=== PATIENT | female | born 1960 | race Caucasian/White ===

== ENCOUNTER 2020-11-01 14:44 | Outpatient (REF) | payer OTHER, SELFPAY ==
[2020-11-01 15:15] LABS: MANUAL DIFF FLAG NO
[2020-11-01 15:19] LABS: Basophils Absolute Auto 0.1 X10*3/uL (0.0-0.2); Basophils Percent Auto 0.6 % (0-2); Eosinophils Absolute Auto 0.1 X10*3/uL (0.0-0.4); Eosinophils Percent Auto 1.7 % (0-4); Hematocrit 39.5 % (37-47); Hemoglobin 13.3 g/dl (12.0-16.0); Imm Gran Abs Auto 0.05 X10*3/uL (0.00-0.03); Imm Gran Pct Auto 0.6 % (0.0-0.4); Lymphocytes Absolute Auto 1.7 X10*3/uL (1.2-4.9); Mean Corpuscular HGB Conc 33.7 g/dl (31.0-35.0); Mean Corpuscular Hemoglobin 32.7 pg (27.0-33.0); Mean Corpuscular Volume 97.1 fL (80-98); Mean Platelet Volume 10.2 fL (9.4-12.3); Monocytes Absolute Auto 0.9 X10*3/uL (0.1-1.2); Monocytes Percent Auto 11.4 % (2-11); Neutrophils Absolute Auto 5.4 X10*3/uL (2.0-8.3); Neutrophils Percent Auto 64.7 % (45-73); Platelet Count 265 X10*3/uL (160-400); Red Blood Count 4.07 X10*6/uL (4.20-5.50); Red Cell Distribution Width 12.9 % (11.0-16.0); White Blood Count 8.3 X10*3/uL (4.8-10.8)
[2020-11-01 15:57] LABS: Alanine Aminotransferase 14 U/L (0-31); Alkaline Phosphatase 58 U/L (39-117); Anion Gap 9 (12-20); Aspartate Amino Transferase 15 U/L (5-31); Bilirubin Total 0.5 mg/dL (0.0-1.0); Blood Urea Nitrogen 9 mg/dL (9-16); Calcium 8.9 mg/dL (8.4-10.2); Carbon Dioxide 28 mmol/L (22-29); Chloride 106 mmol/L (96-108); Estimated Glomerular Filt Rate > 60; Glucose Random 84 mg/dL (60-115); Potassium 4.9 mmol/L (3.3-5.1); Sodium 138 mmol/L (135-145); Total Protein 6.6 g/dL (6.5-8.0)
[2020-11-01 16:15] LABS: Free T4 (Free Thyroxine) 0.72 ng/dL (0.71-1.85); Thyroid Stimulating Hormone 1.29 uIU/mL (0.32-4.0)
== END 2020-11-01 14:45 | disposition home or self-care (01) ==
LOC: HO.LAB 14:44
PROVIDERS: PCP Internal Medicine; Visit Provider Internal Medicine
DX: R10.9 Unspecified abdominal pain (principal); R60.0 Localized edema
CPT/HCPCS: 36415; 80053; 84439; 84443; 85025

== ENCOUNTER 2021-06-26 08:58 | Outpatient (REF) | payer OTHER, SELFPAY ==
[2021-06-26 10:21] LABS: MANUAL DIFF FLAG NO
[2021-06-26 10:31] LABS: Basophils Percent Auto 0.3 % (0-2); Eosinophils Absolute Auto 0.1 X10*3/uL (0.0-0.4); Eosinophils Percent Auto 1.5 % (0-4); Hematocrit 39.8 % (37.0-47.0); Hemoglobin 13.3 g/dl (12.0-16.0); Imm Gran Abs Auto 0.05 X10*3/uL (0.00-0.03); Imm Gran Pct Auto 0.6 % (0.0-0.4); Lymphocytes Absolute Auto 1.8 X10*3/uL (1.2-4.9); Lymphocytes Percent Auto 20.7 % (20-40); Mean Corpuscular HGB Conc 33.4 g/dl (31.0-35.0); Mean Corpuscular Hemoglobin 32.7 pg (27.0-33.0); Mean Corpuscular Volume 97.8 fL (80.0-98.0); Monocytes Absolute Auto 0.8 X10*3/uL (0.1-1.2); Neutrophils Percent Auto 67.9 % (45-73); Platelet Count 278 X10*3/uL (160-400); Red Blood Count 4.07 X10*6/uL (4.20-5.50); Red Cell Distribution Width 12.6 % (11.0-16.0); White Blood Count 8.8 X10*3/uL (4.8-10.8)
[2021-06-26 10:46] LABS: Alanine Aminotransferase 12 U/L (0-31); Albumin Level 3.8 g/dL (3.5-5.0); Alkaline Phosphatase 59 U/L (39-117); Anion Gap 12 (12-20); Aspartate Amino Transferase 13 U/L (5-31); Bilirubin Total 1.4 mg/dL (0.0-1.0); Blood Urea Nitrogen 8 mg/dL (9-16); Calcium 8.6 mg/dL (8.4-10.2); Carbon Dioxide 23 mmol/L (22-29); Chloride 108 mmol/L (96-108); Cholesterol 158 mg/dL; Estimated Glomerular Filt Rate > 60; Glucose Fasting 88 mg/dL (60-99); HDL Cholesterol 56 mg/dL; LDL Cholesterol Calculated 91 mg/dl; Sodium 139 mmol/L (135-145); Total Protein 6.4 g/dL (6.5-8.0); Triglycerides 56 mg/dL
== END 2021-06-26 08:59 | disposition home or self-care (01) ==
LOC: HO.10HDL 08:58
PROVIDERS: Visit Provider Internal Medicine
DX: Z00.00 Encounter for general adult medical examination without abnormal findings (principal)
CPT/HCPCS: 36415; 80053; 80061; 85025

== ENCOUNTER 2021-11-21 16:26 | Outpatient (REF) | payer BC, SELFPAY ==
--- NOTE | ~2021-11-21 | XR_ITS ---
EXAMINATION: XR ABDOMEN KUB CLINICAL INDICATION: Abdominal pain COMPARISON: None TECHNIQUE: AP view of the abdomen. FINDINGS: Moderate volume of bowel gas in the bowel loops. Moderate volume of stool throughout the colon. No abnormally dilated bowel loop. Nonobstructive bowel pattern. No radiopaque urinary calculi. Calcified phleboliths in lower pelvis. XR/XR KUB IMPRESSION: No acute abnormality the abdomen.
[2021-11-21 17:00] LABS: MANUAL DIFF FLAG NO
[2021-11-21 18:41] LABS: Basophils Absolute Auto 0.1 X10*3/uL (0.0-0.2); Basophils Percent Auto 0.5 % (0-2); Eosinophils Absolute Auto 0.2 X10*3/uL (0.0-0.4); Eosinophils Percent Auto 2.2 % (0-4); Hematocrit 40.1 % (37.0-47.0); Hemoglobin 13.4 g/dl (12.0-16.0); Imm Gran Abs Auto 0.05 X10*3/uL (0.00-0.03); Imm Gran Pct Auto 0.5 % (0.0-0.4); Lymphocytes Absolute Auto 1.9 X10*3/uL (1.2-4.9); Lymphocytes Percent Auto 20.2 % (20-40); Mean Corpuscular HGB Conc 33.4 g/dl (31.0-35.0); Mean Corpuscular Hemoglobin 32.1 pg (27.0-33.0); Mean Corpuscular Volume 96.2 fL (80.0-98.0); Mean Platelet Volume 10.6 fL (9.4-12.3); Monocytes Percent Auto 10.4 % (2-11); Neutrophils Absolute Auto 6.2 x10*3/uL (2.0-8.3); Neutrophils Percent Auto 66.2 % (45-73); Platelet Count 276 X10*3/uL (160-400); Red Blood Count 4.17 X10*6/uL (4.20-5.50); White Blood Count 9.4 X10*3/uL (4.8-10.8)
[2021-11-21 19:06] LABS: Alanine Aminotransferase 12 U/L (0-31); Albumin Level 3.8 g/dL (3.5-5.0); Alkaline Phosphatase 59 U/L (39-117); Anion Gap 10 (12-20); Aspartate Amino Transferase 13 U/L (5-31); Bilirubin Total 0.5 mg/dL (0.0-1.0); Blood Urea Nitrogen 9 mg/dL (9-16); C Reactive Protein 0.21 mg/dL (< or = 0.50); Calcium 8.9 mg/dL (8.4-10.2); Carbon Dioxide 26 mmol/L (22-29); Chloride 107 mmol/L (96-108); Estimated Glomerular Filt Rate > 60; Glucose Random 67 mg/dL (60-115); Potassium 4.3 mmol/L (3.3-5.1); Sodium 139 mmol/L (135-145); Total Protein 6.7 g/dL (6.5-8.0)
== END 2021-11-21 16:27 | disposition home or self-care (01) ==
LOC: HO.XRAY 16:26
PROVIDERS: PCP Internal Medicine; Visit Provider Internal Medicine
DX: R10.9 Unspecified abdominal pain (principal)
CPT/HCPCS: 36415; 74018; 80053; 85025; 86140

== ENCOUNTER 2022-05-22 10:42 | Outpatient (REF) | payer BC, SELFPAY ==
[2022-05-22 14:30] LABS: Erythrocyte Sedimentation Rate 4 MM/HR (0-20)
== END 2022-05-22 10:43 | disposition home or self-care (01) ==
LOC: HO.10HDL 10:42
PROVIDERS: Visit Provider Internal Medicine
DX: M54.2 Cervicalgia (principal); R51.9 Headache, unspecified; M79.659 Pain in unspecified thigh
CPT/HCPCS: 36415; 82550; 85652; 86140

== ENCOUNTER 2022-05-29 07:42 | Outpatient (REF) | payer BC, SELFPAY ==
[2022-05-29 10:37] LABS: MANUAL DIFF FLAG NO
[2022-05-29 10:42] LABS: Basophils Percent Auto 0.6 % (0-2); Eosinophils Absolute Auto 0.1 X10*3/uL (0.0-0.4); Hematocrit 38.6 % (37.0-47.0); Hemoglobin 12.9 g/dl (12.0-16.0); Imm Gran Abs Auto 0.03 X10*3/uL (0.00-0.03); Imm Gran Pct Auto 0.4 % (0.0-0.4); Lymphocytes Absolute Auto 1.6 X10*3/uL (1.2-4.9); Mean Corpuscular HGB Conc 33.4 g/dl (31.0-35.0); Mean Corpuscular Hemoglobin 32.2 pg (27.0-33.0); Mean Corpuscular Volume 96.3 fL (80.0-98.0); Mean Platelet Volume 10.1 fL (9.4-12.3); Monocytes Percent Auto 14.3 % (2-11); Neutrophils Percent Auto 58.7 % (45-73); Platelet Count 258 X10*3/uL (160-400); Red Blood Count 4.01 X10*6/uL (4.20-5.50); Red Cell Distribution Width 12.2 % (11.0-16.0); White Blood Count 6.8 X10*3/uL (4.8-10.8)
[2022-05-29 10:56] LABS: Alanine Aminotransferase 10 U/L (0-31); Albumin Level 3.9 g/dL (3.5-5.0); Alkaline Phosphatase 57 U/L (39-117); Anion Gap 13 (12-20); Aspartate Amino Transferase 14 U/L (5-31); Bilirubin Total 0.8 mg/dL (0.0-1.0); Blood Urea Nitrogen 14 mg/dL (9-16); Calcium 8.7 mg/dL (8.4-10.2); Carbon Dioxide 25 mmol/L (22-29); Chloride 105 mmol/L (96-108); Cholesterol 151 mg/dL; Estimated Glomerular Filt Rate > 60; Glucose Fasting 86 mg/dL (60-99); HDL Cholesterol 53 mg/dL; LDL Cholesterol Calculated 87 mg/dl; Potassium 4.2 mmol/L (3.3-5.1); Sodium 139 mmol/L (135-145); Total Protein 6.5 g/dL (6.5-8.0); Triglycerides 56 mg/dL
== END 2022-05-29 07:43 | disposition home or self-care (01) ==
LOC: HO.10HDL 07:42
PROVIDERS: Visit Provider Internal Medicine
DX: Z00.00 Encounter for general adult medical examination without abnormal findings (principal)
CPT/HCPCS: 36415; 80053; 80061; 85025

== ENCOUNTER 2022-08-05 01:49 | Emergency (ER) | payer BC, SELFPAY ==
--- NOTE | 2022-08-05 | ECG_ITS ---
Test Reason : ABDOMINAL PAIN Blood Pressure : / mmHG Vent. Rate : 087 BPM Atrial Rate : 087 BPM P-R Int : 126 ms QRS Dur : 084 ms QT Int : 392 ms P-R-T Axes : 072 071 068 degrees QTc Int : 471 ms Normal sinus rhythm Normal ECG No previous ECGs available Referred By: Generic ED Physician Electronically Signed By:Aiden Berry
[2022-08-05 01:53] VITALS: BP 130/70; PULSE 94; RESP 22; TEMP 36.3; O2SAT 100; BMI 21.2
[2022-08-05 02:16] VITALS: BP 142/73; PULSE 89; RESP 20; TEMP 36.4; O2SAT 99
[2022-08-05 02:16] LABS: MANUAL DIFF FLAG NO
--- NOTE | 2022-08-05 02:17 | ED_ITS ---
HPI - Abdominal Pain General Chief Complaint: Abdominal Pain Stated Complaint: Vomiting Time Seen by Provider: 08/05/22 02:05 Source: patient Mode of arrival: ambulatory Limitations: no limitations History of Present Illness HPI narrative: Patient comes emergency room complaining of epigastric burning sensation. P atient states that she drank a large amount of vodka and she is not used to drinking alcohol. Patient has been vomiting several times for the last 5 hours. No diarrhea, no fever chills, no abdominal cramping other distention, no flank pain. Related Data Previous Rx's Medication Instructions Recorded nitrofurantoin 100 mg PO Q12H 7 days #14 caps 08/05/22 monohydrate/macrocrystals 100 mg capsule (Macrobid) ondansetron HCl 4 mg tablet 4 mg PO Q6H PRN nausea and 08/05/22 vomiting #7 tabs Allergies Allergy/AdvReac Type Severity Reaction Status Date / Time No Known Allergies Allergy Unverified 04/11/20 18:51 [No Known Allergies*] Review of Systems Review of Systems Constitutional : No Weight loss, No Fever, No Chills, No Night Sweats, No Fatigue, No Malaise ENT/Mouth : No Hearing loss, No Ear Pain, No Nasal Congestion, No Sinus Pain, No Hoarseness, No sore throat, No Rhinorrhea, No Swallowing Difficulty Eyes: No Eye Pain, No Swelling, No Redness, No Foreign Body, No Discharge, No Vision Changes Cardiovascular : No Chest Pain, No SOB, No Dyspnea on Exertion, No Orthopnea, No Edema, No Palpitations Respiratory : No Cough, No Sputum, No Wheezing, No Smoke Exposure, No Dyspnea Gastrointestinal : Complaining of nausea vomiting, no diarrhea, complaining of epigastric burning sensation Genitourinary : no irregular bleeding, No Dysuria, No Urinary Frequency, No Hematuria, No Urinary Incontinence, No Urgency, No Flank Pain, No Urinary Flow Changes, No Hesitancy Musculoskeletal : No joint pain, No Myalgias, No Joint Swelling Skin : No Skin Lesions, No rash Neuro : No Weakness, No Numbness, No Paresthesias, No Loss of Consciousness, No Dizziness, No Headache Psych : No Anxiety/Panic, No Depression, No SI/HI/AH/VH, No Social Issues, Heme/Lymph: No Bruising, No Bleeding,No Lymphadenopathy Endocrine : No Polyuria, No Polydipsia, No Temperature Intolerance [facility] Social History Social History Advance Directives: No Advance Directives Information Provided: Yes Physical Exam ED Vital Signs: Vital Signs - 24 hr 08/05/22 01:53 08/05/22 02:16 Temperature 97.4 F 97.5 F Pulse Rate 94 89 Respiratory Rate 22 H 20 Blood Pressure 130/70 142/73 H Pulse Oximetry 100 99 Oxygen Delivery Method Room Air Room Air BMI result Body Mass Index 21.2 Const Other: Appearance: Alert. Oriented X3. Very anxious Eyes: Pupils equal, round and reactive to light. ENT: Pharynx normal. Neck: Normal inspection. Neck supple. No lymph nodes noted. No crepitus CVS: Normal heart rate and rhythm. Pulses normal. Normal S1 and S2 Respiratory: No respiratory distress. Breath sounds normal. No Wheezing. No rales Abdomen: Soft and nontender. No rigidity. No distention. Skin: Skin warm and dry. Normal skin color. Normal skin turgor. Extremities: No lower extremity edema. No Lacerations. No Rash Neuro: Oriented X 3. No motor deficit. No sensory deficit. Moving all extremities. No slurred speech. CN 2 through 12 grossly intact Psych: calm, cooperative, very anxious Course Course Course Narrative: Patient states that being in the hospital makes her feel better. Patient receiving IV fluids, Zofran, Pepcid and Ativan all of patient's labs are pending Medical Decision Making Medical Decision Making [facility] Narrative: Patient received IV fluids, Zofran, Ativan, Pepcid patient feeling much better. Patient has a UTI. Patient states that sometime she does have discomfort urinating. But not always. Differential Diagnosis Differential Diagnoses: The differential diagnosis associated with the presentation includes (Gastritis, peptic ulcer disease, alcohol gastritis) Lab Data [facility] Lab Attestation statement: I reviewed the patient's lab results. 08/05/22 02:13 08/05/22 02:13 Labs: Lab Results 08/05/22 08/05/22 08/05/22 Range/Units 02:13 02:13 03:41 WBC 9.8 (4.8-10.8) X10*3/uL RBC 4.02 L (4.20-5.50) X10*6/uL Hgb 12.9 (12.0-16.0) g/dl Hct 38.0 (37.0-47.0) % MCV 94.5 (80.0-98.0) fL MCH 32.1 (27.0-33.0) pg MCHC 33.9 (31.0-35.0) g/dl RDW 12.4 (11.0-16.0) % Plt Count 250 (160-400) X10*3/uL MPV 9.8 (9.4-12.3) fL Immature Gran % (Auto) 0.3 (0.0-0.4) % Neut % (Auto) 82.9 H (45-73) % Lymph % (Auto) 10.8 L (20-40) % [place] % (Auto) 5.7 (2-11) % Eos % (Auto) 0.1 (0-4) % Baso % (Auto) 0.2 (0-2) % Lymph # (Auto) 1.1 L (1.2-4.9) X10*3/uL [place] # (Auto) 0.6 (0.1-1.2) X10*3/uL Eos # (Auto) 0.0 (0.0-0.4) X10*3/uL Baso # (Auto) 0.0 (0.0-0.2) X10*3/uL Abs Immat Gran (auto) 0.03 (0.00-0.03) X10*3/uL Absolute Neuts (auto) 8.1 (2.0-8.3) x10*3/uL Absolute Nucleated RBC 0.000 (0.0-0.012) X10*3/uL Nucleated RBC % (auto) 0.0 (0.0-0.2) /100WBC Sodium 138 (135-145) mmol/L Potassium 4.1 (3.3-5.1) mmol/L Chloride 106 (96-108) mmol/L Carbon Dioxide 22 (22-29) mmol/L Anion Gap 14 (12-20) BUN 10 (9-16) mg/dL Creatinine 0.65 (0.5-1.4) mg/dL Estim Creat Clear Calc 91.0 Estimated GFR > 60 Random Glucose 117 H (60-115) mg/dL Calcium 8.8 (8.4-10.2) mg/dL Total Bilirubin 0.7 0.6 (0.0-1.0) mg/dL Direct Bilirubin 0.2 (0.0-0.5) mg/dL AST 13 12 (5-31) U/L ALT 7 7 (0-31) U/L Alkaline Phosphatase 63 50 (39-117) U/L Total Protein 6.8 5.8 L (6.5-8.0) g/dL Albumin 4.1 3.5 (3.5-5.0) g/dL Lipase 12 (8-78) U/L Urine Color Urine Appearance Urine pH (5.0-9.0) Ur Specific [place] (1.005-1.025) Urine Protein (Neg-Trace) mg/dL Urine Glucose (UA) (Negative) mg/dL Urine Ketones (Negative) mg/dL Urine Blood (Negative) Urine Nitrite (Negative) Ur Leukocyte Esterase (Negative) Urine RBC (0-2) /HPF Urine WBC (0-5) /HPF Ur Squamous Epith Cells (0-2) /HPF Urine Bacteria (None Seen) Hyaline Casts (0-2) /LPF 08/05/22 Range/Units 03:55 WBC (4.8-10.8) X10*3/uL RBC (4.20-5.50) X10*6/uL Hgb (12.0-16.0) g/dl Hct (37.0-47.0) % MCV (80.0-98.0) fL MCH (27.0-33.0) pg MCHC (31.0-35.0) g/dl RDW (11.0-16.0) % Plt Count (160-400) X10*3/uL MPV (9.4-12.3) fL Immature Gran % (Auto) (0.0-0.4) % Neut % (Auto) (45-73) % Lymph % (Auto) (20-40) % [place] % (Auto) (2-11) % Eos % (Auto) (0-4) % Baso % (Auto) (0-2) % Lymph # (Auto) (1.2-4.9) X10*3/uL [place] # (Auto) (0.1-1.2) X10*3/uL Eos # (Auto) (0.0-0.4) X10*3/uL Baso # (Auto) (0.0-0.2) X10*3/uL Abs Immat Gran (auto) (0.00-0.03) X10*3/uL Absolute Neuts (auto) (2.0-8.3) x10*3/uL Absolute Nucleated RBC (0.0-0.012) X10*3/uL Nucleated RBC % (auto) (0.0-0.2) /100WBC Sodium (135-145) mmol/L Potassium (3.3-5.1) mmol/L Chloride (96-108) mmol/L Carbon Dioxide (22-29) mmol/L Anion Gap (12-20) BUN (9-16) mg/dL Creatinine (0.5-1.4) mg/dL Estim Creat Clear Calc Estimated GFR Random Glucose (60-115) mg/dL Calcium (8.4-10.2) mg/dL Total Bilirubin (0.0-1.0) mg/dL Direct Bilirubin (0.0-0.5) mg/dL AST (5-31) U/L ALT (0-31) U/L Alkaline Phosphatase (39-117) U/L Total Protein (6.5-8.0) g/dL Albumin (3.5-5.0) g/dL Lipase (8-78) U/L Urine Color Yellow Urine Appearance Cloudy Urine pH 8.0 (5.0-9.0) Ur Specific [place] 1.010 (1.005-1.025) Urine Protein Negative (Neg-Trace) mg/dL Urine Glucose (UA) Negative (Negative) mg/dL Urine Ketones Negative (Negative) mg/dL Urine Blood Negative (Negative) Urine Nitrite Positive H (Negative) Ur Leukocyte Esterase Small (1+) H (Negative) Urine RBC 0-2 (0-2) /HPF Urine WBC 21-50 H (0-5) /HPF Ur Squamous Epith Cells 0-2 (0-2) /HPF Urine Bacteria 4+ (None Seen) Hyaline Casts 0-2 (0-2) /LPF Medications Administered Discontinued Medications Generic Name Dose Route Start Last Admin Trade Name Freq PRN Reason Stop Dose Admin Famotidine 20 mg 08/05/22 02:16 08/05/22 02:28 Famotidine/Pf 20 Mg/2 Ml Vial IVPUSH 08/05/22 02:17 20 mg ONCE ONE Administration Sodium Chloride 1,000 mls @ 999 mls/hr 08/05/22 02:16 08/05/22 02:22 Ns IVCONT 08/05/22 03:16 999 mls/hr .Q1H1M ONE Administration Lorazepam 1 mg 08/05/22 02:16 08/05/22 03:00 Lorazepam 2 Mg/Ml Vial IVPUSH 08/05/22 02:17 1 mg ONCE ONE Administration Ondansetron HCl 4 mg 08/05/22 02:16 08/05/22 02:26 Ondansetron Hcl 4 Mg/2 Ml Vial IVPUSH 08/05/22 02:17 4 mg ONCE ONE Administration Discharge Plan Discharge Clinical Impression: Gastritis, UTI (urinary tract infection) Patient Disposition: Home, Self-Care Instructions: Gastritis (ED), Urinary Tract Infection in Women (ED) Additional Instructions: Please follow-up with your primary care physician tomorrow. If you have any worsening or new symptoms, please return to the emergency room or call 911 Prescriptions: New nitrofurantoin monohyd/m-cryst [Macrobid] 100 mg capsule 100 mg PO Q12H 7 Days Qty: 14 0RF Rx Instructions: must administer with a meal/food ondansetron HCl 4 mg tablet 4 mg PO Q6H PRN (Reason: nausea and vomiting) Qty: 7 0RF
[2022-08-05 02:18] LABS: Basophils Percent Auto 0.2 % (0-2); Eosinophils Percent Auto 0.1 % (0-4); Hemoglobin 12.9 g/dl (12.0-16.0); Imm Gran Abs Auto 0.03 X10*3/uL (0.00-0.03); Imm Gran Pct Auto 0.3 % (0.0-0.4); Lymphocytes Absolute Auto 1.1 X10*3/uL (1.2-4.9); Lymphocytes Percent Auto 10.8 % (20-40); Mean Corpuscular HGB Conc 33.9 g/dl (31.0-35.0); Mean Corpuscular Hemoglobin 32.1 pg (27.0-33.0); Mean Corpuscular Volume 94.5 fL (80.0-98.0); Mean Platelet Volume 9.8 fL (9.4-12.3); Monocytes Absolute Auto 0.6 X10*3/uL (0.1-1.2); Monocytes Percent Auto 5.7 % (2-11); Neutrophils Absolute Auto 8.1 x10*3/uL (2.0-8.3); Neutrophils Percent Auto 82.9 % (45-73); Platelet Count 250 X10*3/uL (160-400); Red Blood Count 4.02 X10*6/uL (4.20-5.50); Red Cell Distribution Width 12.4 % (11.0-16.0); White Blood Count 9.8 X10*3/uL (4.8-10.8)
[2022-08-05] MEDS: 0.9 % Sodium Chloride 1,000 ML 999 ML IVCONT (02:22)
[2022-08-05] MEDS: ondansetron HCL 4 MG/2 ML VIAL IVPUSH (02:26)
[2022-08-05] MEDS: Famotidine/PF 20 MG/2 ML VIAL IVPUSH (02:28)
[2022-08-05 02:43] LABS: Alanine Aminotransferase 7 U/L (0-31); Albumin Level 4.1 g/dL (3.5-5.0); Alkaline Phosphatase 63 U/L (39-117); Anion Gap 14 (12-20); Aspartate Amino Transferase 13 U/L (5-31); Bilirubin Total 0.7 mg/dL (0.0-1.0); Blood Urea Nitrogen 10 mg/dL (9-16); Calcium 8.8 mg/dL (8.4-10.2); Carbon Dioxide 22 mmol/L (22-29); Chloride 106 mmol/L (96-108); Estimated Glomerular Filt Rate > 60; Glucose Random 117 mg/dL (60-115); Potassium 4.1 mmol/L (3.3-5.1); Sodium 138 mmol/L (135-145); Total Protein 6.8 g/dL (6.5-8.0)
[2022-08-05] MEDS: LORazepam 2 MG/ML VIAL 1 MG IVPUSH (03:00)
[2022-08-05 04:02] LABS: Appearance Urine Cloudy; Color Urine Yellow; Glucose Urine UA Negative (Negative); Leukocyte Esterase Urine Small (1+) (Negative); Nitrite Urine Positive (Negative); UMIC TRIGGER UACC YES; Urine Blood Negative (Negative); Urine Ketones Negative (Negative); Urine Protein Negative (Neg-Trace)
[2022-08-05 04:07] LABS: Bacteria Urine 4+ (None Seen); Hyaline Casts Urine 0-2 /LPF (0-2); RBC Urine 0-2 /HPF (0-2); Squamous Epithelial Cell Urine 0-2 /HPF (0-2); UACC Culture Trigger YES; WBC Urine 21-50 /HPF (0-5)
[2022-08-05 04:16] LABS: Alanine Aminotransferase 7 U/L (0-31); Albumin Level 3.5 g/dL (3.5-5.0); Alkaline Phosphatase 50 U/L (39-117); Aspartate Amino Transferase 12 U/L (5-31); Bilirubin Direct 0.2 mg/dL (0.0-0.5); Bilirubin Total 0.6 mg/dL (0.0-1.0); Lipase 12 U/L (8-78); Total Protein 5.8 g/dL (6.5-8.0)
[2022-08-05 05:22] VITALS: BP 122/65; PULSE 75; RESP 16; TEMP 37; O2SAT 99
--- NOTE | 2022-08-05 05:26 | PC.NURSE ---
Patient is alert and oriented to her baseline. Dnies to be in pain. Stated that she is no longer anxious, nausea resolved. Vitals are WNL. IV line removed. Patient tolerated well. [place] stable. Discharge provided patient verbalized understanding of a discharge plan.
== END 2022-08-05 05:30 | disposition home or self-care (01) ==
PROVIDERS: Emergency Provider Emergency Medicine; PCP Internal Medicine
DX: K29.70 Gastritis, unspecified, without bleeding (principal); N39.0 Urinary tract infection, site not specified; R11.2 Nausea with vomiting, unspecified; Z79.899 Other long term (current) drug therapy
CPT/HCPCS: 36415; 80053; 80076; 81001; 81003; 82248; 83690; 85025; 87086; 87088; 87186; 93005; 96361; 96374; 96375; 99284; J2060; J2405

== ENCOUNTER 2022-10-20 08:15 | Outpatient (REF) | payer BC, SELFPAY ==
[2022-10-20 10:59] LABS: MANUAL DIFF FLAG NO
[2022-10-20 11:15] LABS: Basophils Percent Auto 0.7 % (0-2); Eosinophils Absolute Auto 0.1 X10*3/uL (0.0-0.4); Eosinophils Percent Auto 2.3 % (0-4); Hematocrit 40.5 % (37.0-47.0); Hemoglobin 13.4 g/dl (12.0-16.0); Imm Gran Abs Auto 0.02 X10*3/uL (0.00-0.03); Imm Gran Pct Auto 0.4 % (0.0-0.4); Lymphocytes Absolute Auto 1.6 X10*3/uL (1.2-4.9); Lymphocytes Percent Auto 28.7 % (20-40); Mean Corpuscular HGB Conc 33.1 g/dl (31.0-35.0); Mean Corpuscular Hemoglobin 31.6 pg (27.0-33.0); Mean Corpuscular Volume 95.5 fL (80.0-98.0); Mean Platelet Volume 10.5 fL (9.4-12.3); Monocytes Absolute Auto 0.6 X10*3/uL (0.1-1.2); Monocytes Percent Auto 10.4 % (2-11); Neutrophils Absolute Auto 3.3 x10*3/uL (2.0-8.3); Neutrophils Percent Auto 57.5 % (45-73); Platelet Count 267 X10*3/uL (160-400); Red Blood Count 4.24 X10*6/uL (4.20-5.50); Red Cell Distribution Width 12.6 % (11.0-16.0); White Blood Count 5.7 X10*3/uL (4.8-10.8)
[2022-10-20 11:36] LABS: Alanine Aminotransferase 13 U/L (0-31); Albumin Level 3.8 g/dL (3.5-5.0); Alkaline Phosphatase 53 U/L (39-117); Anion Gap 10 (12-20); Aspartate Amino Transferase 16 U/L (5-31); Bilirubin Total 1.1 mg/dL (0.0-1.0); Blood Urea Nitrogen 13 mg/dL (9-16); Calcium 8.6 mg/dL (8.4-10.2); Carbon Dioxide 25 mmol/L (22-29); Chloride 109 mmol/L (96-108); Cholesterol 150 mg/dL; Estimated Glomerular Filt Rate > 60; Glucose Fasting 85 mg/dL (60-99); HDL Cholesterol 56 mg/dL; LDL Cholesterol Calculated 87 mg/dl; Potassium 4.2 mmol/L (3.3-5.1); Sodium 140 mmol/L (135-145); Total Protein 6.1 g/dL (6.5-8.0); Triglycerides 38 mg/dL
== END 2022-10-20 08:16 | disposition home or self-care (01) ==
LOC: HO.10HDL 08:15
PROVIDERS: Visit Provider Internal Medicine
DX: Z00.00 Encounter for general adult medical examination without abnormal findings (principal); M16.11 Unilateral primary osteoarthritis, right hip; E78.00 Pure hypercholesterolemia, unspecified; N18.9 Chronic kidney disease, unspecified; E03.9 Hypothyroidism, unspecified; K58.1 Irritable bowel syndrome with constipation
CPT/HCPCS: 36415; 80053; 80061; 85025

== ENCOUNTER 2022-10-23 12:37 | Outpatient (REF) | payer BC, SELFPAY ==
--- NOTE | ~2022-10-23 | US_ITS ---
CLINICAL INDICATION: Pulse sedation in the mid left abdomen TECHNIQUE: Real-time ultrasound examination of the aorta and mesenteric arteries was attempted of including duplex Doppler evaluation of the origins of the celiac, superior mesenteric and inferior mesenteric arteries. FINDINGS: The visualized portion of the abdominal aorta does not demonstrate obvious plaque. Peak systolic velocity in the abdominal aorta measures 130 cm/sec. Fasting peak systolic velocity in the celiac artery measure 183 cm/sec. Waveform in the celiac artery appears unremarkable, without evidence of parvus tardus. Expiration peak systolic velocity in the celiac artery measure 244 cm/sec. Peak systolic velocity in the superior mesenteric artery measure 259 cm/sec. Waveform in the superior mesenteric artery appears unremarkable, without evidence of parvus tardus. Peak systolic velocity in the inferior mesenteric artery measure 165 cm/sec. Waveform in the superior mesenteric artery appears unremarkable, without evidence of parvus tardus. Peak systolic velocities in the splenic artery is 176 cm/s in the hepatic artery is 251 cm/s. US/US SMA IMPRESSION: Elevated velocities in the celiac artery and superior mesenteric artery are nonspecific as the waveforms are normal and vessels appear patent. Elevated velocities may be due to hypertension. If further evaluation is required given nonspecific elevated velocities, recommend CTA of the abdomen.
--- NOTE | ~2022-10-23 | US_ITS ---
EXAMINATION: US ABDOMEN LIMITED CLINICAL INFORMATION: Pulsation left mid abdomen. COMPARISON: X-ray abdomen KUB 11/21/2021. TECHNIQUE: Real-time imaging of the right upper quadrant abdominal viscera. FINDINGS: PANCREAS: The head and the body of the pancreas is homogeneous. The tail is obscured narrowing gas. LIVER: Normal. The liver is normal in size. The liver contour is normal. Parenchymal echogenicity is normal. No focal hepatic lesion. There is no intrahepatic biliary duct dilatation seen. GALLBLADDER: Normal. The gallbladder is physiologically distended without evidence of stones, sludge, polyps, wall thickening or pericholecystic fluid. COMMON BILE DUCT: Normal in caliber measuring 0.2 cm in diameter. RIGHT KIDNEY: Normal. No hydronephrosis. No renal calculi or focal parenchymal lesions. The kidney measures 10.6 cm in maximum dimension. FREE FLUID: None. US/US abdomen limited IMPRESSION: Unremarkable limited abdomen ultrasound.
== END 2022-10-23 12:38 | disposition home or self-care (01) ==
LOC: HO.US 12:37
PROVIDERS: Visit Provider Internal Medicine
DX: I74.09 Other arterial embolism and thrombosis of abdominal aorta (principal)
CPT/HCPCS: 76705; 93976

== ENCOUNTER 2023-01-04 17:29 | Outpatient (REF) | payer SELFPAY ==
[2023-01-04 18:34] LABS: Influenza A PCR NEGATIVE (Negative); Influenza B PCR NEGATIVE (Negative); Resp Syncy Virus RNA Qual PCR NEGATIVE (Negative); SARS COV2 PCR INHOUSE POSITIVE (Negative)
== END 2023-01-04 17:30 | disposition home or self-care (01) ==
LOC: HO.LNP 17:29
PROVIDERS: Visit Provider Internal Medicine
DX: J02.9 Acute pharyngitis, unspecified (principal); R50.9 Fever, unspecified; Z20.822 Contact with and (suspected) exposure to COVID-19
CPT/HCPCS: 0241U; 87070

== ENCOUNTER 2023-07-30 14:04 | Outpatient (REF) | payer OTHER, SELFPAY ==
[2023-07-30 15:33] LABS: Alanine Aminotransferase 11 U/L (0-31); Albumin Level 4.3 g/dL (3.5-5.0); Alkaline Phosphatase 57 U/L (39-117); Anion Gap 9 (12-20); Aspartate Amino Transferase 15 U/L (5-31); Bilirubin Total 0.8 mg/dL (0.0-1.0); Blood Urea Nitrogen 15 mg/dL (9-16); C Reactive Protein < 0.04 mg/dL (< or = 0.50); Calcium 9.5 mg/dL (8.4-10.2); Carbon Dioxide 29 mmol/L (22-29); Chloride 105 mmol/L (96-108); Estimated Glomerular Filt Rate > 60; Glucose Random 94 mg/dL (60-115); Potassium 3.9 mmol/L (3.3-5.1); Sodium 139 mmol/L (135-145); Total Protein 7.2 g/dL (6.5-8.0)
[2023-07-30 15:51] LABS: Free T4 (Free Thyroxine) 0.86 ng/dL (0.71-1.85); Thyroid Stimulating Hormone 1.38 uIU/mL (0.32-4.0)
== END 2023-07-30 14:05 | disposition home or self-care (01) ==
LOC: HO.LAB 14:04
PROVIDERS: PCP Internal Medicine; Visit Provider Internal Medicine
DX: R10.9 Unspecified abdominal pain (principal); R00.2 Palpitations; R06.02 Shortness of breath; R63.4 Abnormal weight loss
CPT/HCPCS: 36415; 80053; 82550; 82607; 84439; 84443; 85025; 85652; 86140

== ENCOUNTER 2023-10-05 13:27 | Outpatient (REF) | payer OTHER, SELFPAY ==
--- NOTE | ~2023-10-05 | MR_ITS ---
EXAMINATION: MR THORACIC SPINE WITHOUT AND WITH CONTRAST CLINICAL INFORMATION: Numbness and weakness. Multiple sclerosis. COMPARISON: No relevant prior imaging. TECHNIQUE: Multiplanar MR imaging of the thoracic spine was performed without and with contrast. A total of 5 mL Gadavist was utilized for this examination. FINDINGS: There is spinal scoliosis with a rightward convex curvature of the thoracic spine. Alignment is otherwise normal in the sagittal dimension. Vertebral body heights are preserved. No acute bone marrow signal changes. Intervertebral disc height and signal intensity is maintained at all levels. Annular contours are normal and there is no canal or neuroforaminal compromise. No cord compression or abnormal intramedullary signal changes. There are a a few somewhat prominent perineural root sleeve cysts that extend along the foraminal segments of the T9, T10, T11, and T12 nerve roots. Postcontrast images reveal no abnormal intramedullary enhancement. No evidence of acute or chronic demyelination within the thoracic spinal cord. Limited visualization of intrathoracic anatomy reveals no abnormal finding. Specifically no paraspinal soft tissue mass or collection. MR/MR thoracic spine wo/w con IMPRESSION: There is spinal scoliosis with a leftward convex rightward convex curvature of the thoracic spine. There are a few somewhat prominent perineural root sleeve cysts that extend along the foraminal segments of the T9, T10, T11, and T12 nerve roots. Otherwise unremarkable examination in that there is no canal or neuroforaminal compromise. No cord compression or abnormal intramedullary signal changes. No evidence of acute or chronic demyelination within the thoracic spinal cord.
[2023-10-05] MEDS: gadobutroL 7.5 ML VIAL IVPUSH (14:34)
== END 2023-10-05 13:28 | disposition home or self-care (01) ==
LOC: HO.MRI 13:27
PROVIDERS: PCP Internal Medicine; Visit Provider Psychiatry & Neurology Neurology
DX: R20.2 Paresthesia of skin (principal); M62.81 Muscle weakness (generalized); G35 Multiple sclerosis
CPT/HCPCS: 72157; A9585

== ENCOUNTER 2023-10-06 15:35 | Outpatient (REF) | payer OTHER, SELFPAY ==
[2023-10-06 17:44] LABS: Appearance Urine Cloudy; Color Urine Yellow; Glucose Urine UA Negative (Negative); Specific Gravity - Urine >= 1.030 (1.005-1.025); Urine Blood Small (1+) (Negative); Urine Ketones Negative (Negative); Urine Protein Trace mg/dL (Neg-Trace)
[2023-10-06 17:45] LABS: Leukocyte Esterase Urine Small (1+) (Negative); Nitrite Urine Positive (Negative); UMIC TRIGGER UACC YES
[2023-10-06 18:05] LABS: Bacteria Urine 4+ (None Seen); Hyaline Casts Urine 0-2 /LPF (0-2); UACC Culture Trigger YES; WBC Urine 21-50 /HPF (0-5)
== END 2023-10-06 15:36 | disposition home or self-care (01) ==
LOC: HO.LAB 15:35
PROVIDERS: PCP Internal Medicine; Visit Provider Internal Medicine
DX: R30.0 Dysuria (principal)
CPT/HCPCS: 81001; 87086; 87088; 87186

== ENCOUNTER → 2023-10-20 07:50 | Outpatient (REF) | payer OTHER, SELFPAY ==
--- NOTE | 2023-10-20 07:54 | CA_ITS ---
Acquisition Time: 2023-10-20 08:15:33 Total Exercise Time: 00:05:00 Test Indications: other forms of dyspnea Medications: Protocol: JUANITA Max HR: 218 BPM 137% of Pred: 158 BPM Max BP: 140/078 mmHG Max Work Load: 7.0 METS pt exercised on std juanita protocol foe 5 min into stage 5. max hr 137-86%max. end point was sob. no cp. no ekg changes. isolated pvc's in recovery x 2. o2 msat 99%.no ekg evidence of ischemia Referred By: Av Hilario Overread By: GUADALUPE HILARIO MD
== END ==
LOC: HO.CARD 07:50
PROVIDERS: PCP Internal Medicine; Visit Provider Internal Medicine
DX: R06.09 Other forms of dyspnea (principal)
CPT/HCPCS: 93017

== ENCOUNTER → 2023-10-27 14:58 | Outpatient (REF) | payer OTHER, SELFPAY ==
--- NOTE | 2023-10-27 15:01 | CA_ITS ---
Transthoracic Echocardiogram Patient (Last, First, Middle): Nevaeh Palomino, Gender: Female Date of : 1960 Age: 63 Procedure Date: 10/27/2023 Procedure Type: Transthoracic Echocardiogram Location: OP Height: 172.72 cm Weight: 53.98 kg BSA: 1.64 m2 Heart Rate: 73 bpm BP: 154 / 82 mmHg F[place] Helper: SB Referring MD: Av Christopher MD Language Tutor: Jamshid Costa MD Symptoms: R06.02 SOB Study Quality: Adequate ECG Rhythm: Sinus Conclusions: - 1. Normal LV ejection fraction of 60 65% with normal diastolic filling pattern 2. 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 Normal RV systolic pressure 4. No gross pericardial effusion Findings Left Ventricle Normal left ventricular size, thickness, and systolic function. The visually estimated ejection fraction is between 60-65%. Spectral Doppler is indicative of a normal filling pattern. Right Ventricle Normal right ventricular cavity size and systolic function. Atria Both atria are normal in size. There is no evidence of interatrial shunt. Aortic Valve Normal aortic valve structure and function. There is no aortic valve stenosis. There is no aortic valve regurgitation. Mitral Valve The mitral valve appears myxomatous. There is mild anterior and posterior mitral leaflet thickening. There is bowing of the posterior mitral leaflet without obvious prolapse. There is mild mitral valve regurgitation. The mitral regurgitation jet is directed posteriorly. There is no mitral valve stenosis. mild late systolic mvp of posterior leaflett? Pulmonic Valve The pulmonic valve is likely normal. Tricuspid Valve Normal tricuspid valve structure. There is trace tricuspid valve regurgitation. The right ventricular systolic pressure is normal. The right ventricular systolic pressure is 27 mmHg. Normal right atrial pressure. There is no evidence of pulmonary hypertension. Great Vessels All visible segments of the aorta are normal in size. The pulmonary artery was not well visualized. Venous The inferior vena cava is normal in size and collapses greater than 50% with inspiration. Pericardium/Pleural There is no evidence of pericardial effusion. Prior Study Comparison No prior study available for comparison. Measurements 2D Linear Measurements IVSd: 0.73 0.6-0.9/0.6-1.0 cm LVIDd: 4.33 3.9-5.3/4.2-5.9 cm LVIDd Index: 2.64 2.4-3.2/2.2-3.1 cm/m2 LVIDs: 2.68 2.0-3.6 cm LVPWd: 0.83 0.7-1.1 cm LA Diam: 3.40 2.7-3.8/3.0-4.0 cm LAIDs Index: 2.07 1.5-2.3 cm/m2 LV Mass: 127.86 67-162/88-224 g LV Mass Index: 77.97 43-95/49-115 g/m2 LVOT Diam: 2.00 3.0+(-)1.3 cm 2D Systolic Function EF 4C: 61.40 >55% EF 2C: 61.40 >55% EF BiP: 61.40 >55% Mitral Valve MV Pk E: 0.65 MV PK A: 0.64 MV Decel Time: 203.00 E/A: 1.00 E'Lateral: 8.81 E'Medial: 7.72 E/E' Med: 8.40 E/E' Lat: 7.30 PHT: 60.00 MVA PHT: 3.67 Decel [place]: 3.18 Aortic Valve AoV Pk Jorge Luis: 0.89 AoV Pk Grad: 3.00 PINA: 2.59 LVOT LVOT Pk Jorge Luis: 0.73 LVOT Mn Jorge Luis: 0.45 LVOT VTI: 0.11 LVOT Pk Grad: 2.00 LVOT Mn Grad: 1.00 LVOT Diam: 2.00 LVOT Area: 3.14 Diastolic Function MV Pk E: 0.65 MV Pk A: 0.64 E/A: 1.00 E'Medial: 7.72 E/E' Med: 8.40 E' Laterial: 8.81 E/E' Lat: 7.30 Right Ventricle TAPSE (mm): 30.30 TVS' Jorge Luis: 19.50 Tricuspid Valve TR Pk Jorge Luis: 2.43 TR Pk Grad: 24.00 RA Press: 3.00 RVSP: 27.00 Great Vessels Aorta Sinus of Valsalva: 3.60 2.0-3.5 cm Ao Asc: 3.50 2.1-3.4 cm Pulmonary Valve PV Pk Jorge Luis: 1.09 Peak PV Grad: 5.00 Updated in Other Vendor System with Status of Final Jamshid Costa MD electronically signed on 10/28/2023 11:45:16 AM with status of Final
== END ==
LOC: HO.CARD 14:58
PROVIDERS: PCP Internal Medicine; Visit Provider Internal Medicine
DX: R06.02 Shortness of breath (principal)
CPT/HCPCS: 93306

== ENCOUNTER → 2023-10-27 15:01 | Outpatient (BNV) | payer OTHER, SELFPAY | PROVIDERS: PCP Internal Medicine; Visit Provider Internal Medicine Cardiovascular Disease | DX: I34.0 Nonrheumatic mitral (valve) insufficiency (principal); I34.89 Other nonrheumatic mitral valve disorders | CPT/HCPCS: 93306 ==

== ENCOUNTER 2023-11-03 15:13 | Outpatient (REF) | payer OTHER, SELFPAY ==
--- NOTE | ~2023-11-03 | MR_ITS ---
EXAMINATION: MR CERVICAL SPINE WITHOUT AND WITH CONTRAST CLINICAL INFORMATION: Weakness/numbness. Evaluate for MS, vascular lesion COMPARISON: Correlation is made with thoracic spine MRI 10/05/2023 TECHNIQUE: MRI of the cervical spine was obtained using routine sequences without and with contrast. A total of 5 mL Gadavist was administered intravenously. FINDINGS: Reversal of the normal cervical lordosis. Retrolisthesis of C5-C6. Cervical vertebral body heights are maintained. Degenerative endplate changes with endplate edema at C5-C6. Prominent left facet/perifacet edema and enhancement at C2-C3 is likely degenerative. The cervical spinal cord is normal in signal. No abnormal intramedullary enhancement. C2-C3: Left greater than right facet arthropathy. The spinal canal and neural foramen are not significantly narrowed. Trace disc bulge. C3-C4: Trace disc osteophyte complex indents the ventral thecal sac without significant spinal canal stenosis. Facet arthropathy. The neural foramen remain patent. C4-C5: Shallow disc osteophyte complex without significant spinal canal stenosis. Uncovertebral and facet arthropathy without significant neural foraminal stenosis. C5-C6: Disc osteophyte complex indents the ventral thecal sac which is otherwise patent. Uncovertebral and facet arthropathy with moderate to severe right neural foraminal stenosis. The left neural foramen is patent. C6-C7: No significant spinal canal or neural foraminal stenosis. C7-T1: No significant spinal canal or neural foraminal stenosis. MR/MR cervical spine wo/w con IMPRESSION: Multilevel degenerative changes of the cervical spine without significant spinal canal stenosis. There is moderate to severe right neural foraminal stenosis at C5-C6. Prominent left facet/perifacet edema at C2-C3 is likely on the basis of advanced asymmetric degenerative change. No cord signal abnormality or abnormal intramedullary enhancement.
[2023-11-03] MEDS: gadobutroL 7.5 ML VIAL IVPUSH (16:01)
== END 2023-11-03 15:14 | disposition home or self-care (01) ==
LOC: HO.MRI 15:13
PROVIDERS: PCP Internal Medicine; Visit Provider Psychiatry & Neurology Neurology
DX: M62.81 Muscle weakness (generalized) (principal); R20.0 Anesthesia of skin; G35 Multiple sclerosis; Q27.30 Arteriovenous malformation, site unspecified
CPT/HCPCS: 72156; A9585

== ENCOUNTER 2023-11-18 08:38 | Outpatient (REF) | payer OTHER, SELFPAY ==
[2023-11-18 10:46] LABS: MANUAL DIFF FLAG NO
[2023-11-18 10:52] LABS: Basophils Percent Auto 0.5 % (0-2); Eosinophils Absolute Auto 0.2 X10*3/uL (0.0-0.4); Eosinophils Percent Auto 2.8 % (0-4); Hematocrit 40.3 % (37.0-47.0); Hemoglobin 13.6 g/dl (12.0-16.0); Imm Gran Abs Auto 0.03 X10*3/uL (0.00-0.03); Imm Gran Pct Auto 0.4 % (0.0-0.4); Lymphocytes Absolute Auto 1.9 X10*3/uL (1.2-4.9); Lymphocytes Percent Auto 23.7 % (20-40); Mean Corpuscular HGB Conc 33.7 g/dl (31.0-35.0); Mean Corpuscular Hemoglobin 32.9 pg (27.0-33.0); Mean Corpuscular Volume 97.6 fL (80.0-98.0); Mean Platelet Volume 9.9 fL (9.4-12.3); Monocytes Absolute Auto 0.8 X10*3/uL (0.1-1.2); Monocytes Percent Auto 9.9 % (2-11); Neutrophils Percent Auto 62.7 % (45-73); Platelet Count 264 X10*3/uL (160-400); Red Blood Count 4.13 X10*6/uL (4.20-5.50); Red Cell Distribution Width 12.5 % (11.0-16.0)
[2023-11-18 11:21] LABS: Alanine Aminotransferase 11 U/L (0-31); Albumin Level 4.1 g/dL (3.5-5.0); Alkaline Phosphatase 55 U/L (39-117); Anion Gap 10 (12-20); Aspartate Amino Transferase 15 U/L (5-31); Bilirubin Total 0.8 mg/dL (0.0-1.0); Blood Urea Nitrogen 12 mg/dL (9-16); C Reactive Protein < 0.10 mg/dL (< or = 0.50); Calcium 9.2 mg/dL (8.4-10.2); Carbon Dioxide 28 mmol/L (22-29); Chloride 105 mmol/L (96-108); Estimated Glomerular Filt Rate > 60; Glucose Random 88 mg/dL (60-115); Potassium 4.2 mmol/L (3.3-5.1); Sodium 139 mmol/L (135-145)
[2023-11-18 11:32] LABS: Erythrocyte Sedimentation Rate 2 MM/HR (0-20)
[2023-11-18 12:48] LABS: Rheumatoid Factor < 13.0 IU/mL (<15.0)
[2023-11-18 21:16] LABS: Vitamin B12 438 pg/mL (200-900)
[2023-11-22 12:28] LABS: Anti Nuclear Antibody Screen NEGATIVE (NEGATIVE)
== END 2023-11-18 08:39 | disposition home or self-care (01) ==
LOC: HO.10HDL 08:38
PROVIDERS: Visit Provider Internal Medicine
DX: R06.02 Shortness of breath (principal); R53.83 Other fatigue
CPT/HCPCS: 36415; 80053; 82550; 82607; 85025; 85652; 86038; 86140; 86431

== ENCOUNTER 2023-11-22 13:15 | Outpatient (AMB) | payer OTHER, SELFPAY ==
[2023-11-22 13:19] VITALS: BP 122/80; PULSE 111; RESP 20; O2SAT 99; BMI 17.7
--- NOTE | 2023-11-22 13:19 | MHC.OFFVIS ---
Vital Signs 11/22/23 13:19 Height 5 ft 8 in Weight 116 lb 6 oz BMI 17.7 BP 122/80 Blood Pressure Location Lt brachial Position Sitting Respiration 20 Pulse 111 H Pulse Source Pulse Oximeter Pulse Oximetry (%) 99 Oxygen Delivery Method Room Air Intake Visit Reasons: Shortness of breath Allergies No Known Allergies [No Known Allergies*] Allergy (Verified 11/22/23 13:18) HPI Comments Details: The patient is here for pulmonary evaluation. The patient is a 63 year woman who presents with symptoms of shortness of breath and also palpitations. The patient has not been feeling well for some time. Initially back if he years ago she was having issues with abdominal spasms. Manning like she was having diaphragmatic spasms she was not sure she was having something going on with the phrenic nerve. Subsequently after that the patient developed COVID-19. She has not noticing increasing heart rate palpitations in addition to shortness of breath. Now she has been progressively more short of breath last year. Her significant other is his with her and she is also states that she is become very short of breath even with minimal activity. Sometimes she feels like she is choking suffocating. Sometimes she feels so severe that she has to even stop doing the her activities of daily living such as doing the dishes and she has to sit down because of shortness of breath. She did have an echocardiogram done demonstrating some valvular disease. In addition to that during the office we did go for brief walking oximetry the patient was dyspneic breathing shallow and fast about 20 5 times a minute heart rate was elevated up to 125 but yet her pulse ox was stable at 98% which is reassuring. No imaging studies available at this time. Will go ahead and request blood work including a chest x-ray at this time. The patient will benefit from pulmonary function studies will follow-up afterwards. She may also benefit from pulmonary rehabilitation. Indeed dyspnea be related to post COVID or there may be a neurologic component resulting in some type of neuromuscular disease. [facility] Medical History (Updated 11/22/23 @ 20:37 by Lionel Herrera MD) Scoliosis Long COVID Insomnia Tachycardia Dyspnea Review of Systems Const Denies fever(s) and Reports weakness Eyes Denies change in vision ENT Reports change in voice Card Denies chest pain, Reports dyspnea and Reports dyspnea on exertion Resp Reports dyspnea, Reports dyspnea on exertion and Denies wheezing GI Denies abdominal pain Musc Reports no additional complaints Skin/Breast Denies rash Neuro Reports weakness Endo Reports no additional complaints David/Lymph Denies lymphadenopathy Aller/Immun Denies wheezing Physical Exam Vital Signs: Last Vital Signs Pulse 111 H 11/22/23 13:19 Resp 20 11/22/23 13:19 BP 122/80 11/22/23 13:19 Pulse Ox 99 11/22/23 13:19 Oxygen Delivery Method Room Air 11/22/23 13:19 BMI result Body Mass Index 17.7 Const General: cooperative Nutritional Appearance: thin Orientation/consciousness: patient oriented x3 HEENT Head: Yes normocephalic Neck Neck: Yes supple Chest Chest palpation & inspection: normal inspection of the chest Resp Effort & Inspection: tachypneic and uses accessory muscles Auscultation: diminished lung sounds Cardio Rate: tachycardic Heart sounds: S1 normal heart sound present and S2 normal heart sound present GI Palpation (GI): Soft to palpation Skin General skin exam: no rashes or lesions noted Neuro General: patient oriented x3 Extrem General: Yes no clubbing, cyanosis or edema Assessment & Plan Assessment & Plan (1) Dyspnea: Code(s): R06.00 - Dyspnea, unspecified Category: Medical Qualifiers: Dyspnea type: shortness of breath Qualified Code(s): R06.02 - Shortness of breath (2) Tachycardia: Code(s): R00.0 - Tachycardia, unspecified Category: Medical (3) Insomnia: Code(s): G47.00 - Insomnia, unspecified Category: Medical Qualifiers: Insomnia type: primary Qualified Code(s): F51.01 - Primary insomnia (4) Long COVID: Code(s): U09.9 - Post COVID-19 condition, unspecified Category: Medical (5) Scoliosis: Code(s): M41.9 - Scoliosis, unspecified Category: Medical Qualifiers: Scoliosis type: unspecified scoliosis Spinal region: unspecified Qualified Code(s): M41.9 - Scoliosis, unspecified Plan CXR PFTs Bloodgas/venous gas May benefit from pulmonary rehab F/U 4-6 weeks Orders: Orders XR chest 2V Today R06.00 - Dyspnea, unspecified Troponin-I High Sensitivity Today R06.00 - Dyspnea, unspecified Venous Blood Gas Today R06.00 - Dyspnea, unspecified B Type Natriuretic Peptide Today R06.00 - Dyspnea, unspecified Lyme IgG/IgM w/reflex to WB Today R06.00 - Dyspnea, unspecified PFT pulmonary function test Today R06.02 - Shortness of breath Coding Level of Care Code New Pt Level 4 (75761) Diagnoses Shortness of breath R06.02 Dyspnea type: shortness of breath Tachycardia R00.0 Primary insomnia F51.01 Insomnia type: primary Long COVID U09.9 Scoliosis, unspecified scoliosis type, unspecified spinal region M41.9 Scoliosis type: unspecified scoliosis Spinal region: unspecified Time Spent (min) 45
== END 2023-11-22 13:43 | disposition home or self-care (01) ==
PROVIDERS: PCP Internal Medicine; Visit Provider Hospitalist
DX: R06.02 Shortness of breath (principal); R00.0 Tachycardia, unspecified; F51.01 Primary insomnia; U09.9 Post COVID-19 condition, unspecified; M41.9 Scoliosis, unspecified
CPT/HCPCS: 99204

== ENCOUNTER 2023-11-22 13:15 | Outpatient (REF) | payer OTHER, SELFPAY ==
--- NOTE | ~2023-11-22 | XR_ITS ---
EXAMINATION: XR CHEST CLINICAL INFORMATION: Dyspnea COMPARISON: None available. TECHNIQUE: 2 views of the chest were obtained. FINDINGS: Lungs are clear mildly hyperinflated with no nodules infiltrates or pleural effusion. Cardiomediastinal silhouette is normal. There is dextroscoliosis of thoracic spine. XR/XR chest 2V IMPRESSION: No active cardiopulmonary disease. Dextroscoliosis
[2023-11-22 14:11] LABS: Venous Blood Gas Refer to POC result
[2023-11-22 14:24] LABS: VBG Base Excess 2.3 mmol/L; VBG HCO3 27 mmol/L (22-26); VBG pCO2 45 mmHg; VBG pH 7.39 (7.32-7.43); VBG pO2 27 mmHg
[2023-11-22 14:52] LABS: B Type Natriuretic Peptide 24 pg/mL (<100)
[2023-11-22 15:03] LABS: Troponin-I High Sensitivity < 2.7 ng/L (<3.5-17.0)
[2023-11-23 19:52] LABS: Lyme Abs Screen <0.90 index
== END 2023-11-22 13:16 | disposition home or self-care (01) ==
LOC: HO.LAB 13:15
PROVIDERS: PCP Internal Medicine; Visit Provider Hospitalist
DX: R06.02 Shortness of breath (principal); R06.00 Dyspnea, unspecified; F51.01 Primary insomnia; M41.9 Scoliosis, unspecified
CPT/HCPCS: 36415; 71046; 82803; 83880; 84484; 86617; 86618; 99202

== ENCOUNTER 2023-11-24 13:42 | Outpatient (AMB) | payer OTHER, SELFPAY ==
[2023-11-24 14:08] VITALS: BP 120/68; PULSE 89; BMI 18.1
--- NOTE | 2023-11-24 14:08 | MHC.OFFVIS ---
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 Patient is 63-year-old female with significant scoliosis and musculoskeletal disability and psychiatric issues. She has been trying to come of her lorazepam as well as other sleep medications over the last month and she is rapidly reduced it. She last year suffered from COVID and since then she says she has been having symptoms variable symptoms. She has been having progressive diminished exercise capacity as well as having worsening exertional shortness of breath. For that she underwent recent testing through your office. 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 This is concerning her a lot given the findings noted on echocardiogram she is very anxious about underlying heart issues. She also underwent a stress test which had moderate capacity not show any evidence of ischemia arrhythmias. She says when she stands she started noticing faster heart rate. She has not had any lightheadedness or syncope. She is most concerned about her diminished exercise capacity. She is now seeing a neurologist in [place]. She also notices over the last few days elevated heart rate at nighttime when she is sleeping. She denies any clear orthopnea, PND, leg edema. She is lost weight as per her partner significantly and has lost a lot of muscle mass. She says she is eat adequately. [facility] Medical History Scoliosis Long COVID Insomnia Tachycardia Dyspnea Review of Systems Const Denies chills, Denies daytime sleepiness, Denies fatigue, Denies fever(s), Denies frequent falls, Denies poor appetite, Denies snoring, Denies stops breathing during sleep, Denies weakness, Denies weight gain and Denies weight loss Eyes Denies loss of vision ENT Denies dizziness and Denies hearing loss Card Denies chest pain, Denies claudication, Denies leg edema, Denies lightheadedness, Denies palpitations, Denies dyspnea, Denies dyspnea on exertion and Denies orthopnea Resp Denies cough, Denies excessive phlegm production, Denies dyspnea, Denies dyspnea on exertion, Denies snoring and Denies wheezing GI Denies abdominal pain, Denies hematochezia, Denies change in bowel habits, Denies nausea and Denies vomiting Denies urinary frequency and Denies dysuria Musc Denies arthralgias, Denies muscle weakness, Denies numbness and Denies other (frequent falls) Skin/Breast Denies nail changes and Denies rash Neuro Denies Abnormal speech present, Denies dizziness, Denies frequent falls, Denies loss of vision, Denies memory loss, Denies numbness and Denies weakness Psych Denies depression and Denies memory loss Endo Denies fatigue and Denies palpitations David/Lymph Reports easy bruising and Reports other (anemia) Aller/Immun Denies wheezing Physical Exam Vital Signs: Last Vital Signs Pulse 89 11/24/23 14:08 BP 120/68 11/24/23 14:08 BMI result Body Mass Index 18.1 Const General: cooperative, alert, awake and anxious Nutritional Appearance: cachectic Orientation/consciousness: patient oriented x3 Limitations: no limitations HEENT Head: Yes normocephalic and Yes atraumatic Neck Neck: Yes trachea midline, Yes supple and Yes no JVD Chest Chest palpation & inspection: abnormal inspection of the chest scoliotic Resp Effort & Inspection: normal respiratory effort Auscultation: clear to auscultation bilaterally Cardio Jugular venous distension: no JVD Rate: regular rate Rhythm: abnormal rhythm with ectopic beats Heart sounds: S1 normal heart sound present, S2 normal heart sound present, no click, no gallops, no murmurs and no rubs GI Auscultation: normal bowel sounds Skin General skin exam: no rashes or lesions noted Neuro General: patient oriented x3 and no focal motor deficits Speech: No Abnormal speech present Extrem General: Yes no clubbing, cyanosis or edema Psych Affect: Anxious affect present Office Procedures EKG Details: EKG shows poor quality with lot of baseline artifact and baseline wander with normal sinus rhythm with PACs no significant ST T wave changes [id number], Complete Assessment & Plan Assessment & Plan (1) Tachycardia: Code(s): R00.0 - Tachycardia, unspecified Category: Medical Plan: Patient intermittent symptoms of palpitation, says some of the symptoms wake her up at nighttime where she feels rapid heart rate and whooshing sound in her years. She is trying to come off the lorazepam as well as a sleeping aid. I think the symptoms are probably related to anxiety and inappropriate sinus tachycardia related to anxiety. She also reports symptoms of fast heart rate when she is upright. This symptoms are most suggestive of autonomic dysfunction and/orthostatic tachycardia. She does not drink adequate amount of fluid in the day. Will obtain Holter monitor for 3 days to assess for any significant arrhythmias although this is less likely. I would also suggest her to increase her fluid intake gradually up to 64 oz. She drinks less than 16 oz a day. Advised also to taper and discontinue caffeine intake. Possibility of orthostatic tachycardia syndrome remains given her prior COVID history. However the management of this would also be with increase water and salt intake. She does need management of her anxiety which will be pursued through your office. (2) Dyspnea: Code(s): R06.00 - Dyspnea, unspecified Category: Medical Qualifiers: Dyspnea type: shortness of breath Qualified Code(s): R06.02 - Shortness of breath Plan: Significant shortness of breath without any obvious cardiac abnormality. Stress test does show diminished exercise capacity although there is no evidence of ischemia. Echocardiogram shows normal LV systolic function with mild mitral regurgitation both of this are not causing her shortness of breath. This was explained to her repeatedly. She however remains concerned about her decreased exercise capacity. She has significant muscle mass loss and she significantly malnourished and is possible that she has reduce respiratory capacity related to muscle weakness. Also scoliosis might be contributing to her reduced pulmonary capacity. She might also have a musculoskeletal/neurologic disorder for which she has been worked up for. No further cardiac workup is indicated. No pharmacotherapy is indicated. Will follow up in the clinic if need be. 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 Discussed that this is not hemodynamically significant mitral regurgitation causing her significant symptoms. This does not require any intervention or any medical therapy. Echocardiogram can be repeated through your office every 3 years. Nature of and pathophysiology of mitral valve prolapse was discussed. Will follow up in the clinic if need be. Thank you for allowing me to partake in the care Orders: Orders ECG 3 day holter monitor Today Coding Level of Care Code New Pt Level 4 (83268) Diagnoses Tachycardia R00.0 Shortness of breath R06.02 Dyspnea type: shortness of breath Mitral valve regurgitation I34.0 CPT Codes EKG - CPT: 25511-[id number], Complete ([id number])
== END 2023-11-24 15:31 | disposition home or self-care (01) ==
PROVIDERS: PCP Internal Medicine; Visit Provider Internal Medicine Cardiovascular Disease
DX: R00.0 Tachycardia, unspecified (principal); R06.02 Shortness of breath; I34.0 Nonrheumatic mitral (valve) insufficiency
CPT/HCPCS: 93010; 99214

== ENCOUNTER → 2023-11-24 13:42 | Outpatient (BNVA) | payer OTHER, SELFPAY | PROVIDERS: PCP Internal Medicine; Visit Provider Internal Medicine Cardiovascular Disease | DX: R00.0 Tachycardia, unspecified (principal); R06.02 Shortness of breath; I34.0 Nonrheumatic mitral (valve) insufficiency | CPT/HCPCS: 93005; 99212 ==

== ENCOUNTER 2023-12-04 08:40 | Outpatient (REF) | payer OTHER, SELFPAY ==
--- NOTE | 2023-12-04 10:15 | PFT_ITS ---
Flows: FEV1: 102 % of predicted at 2.70 L FVC: 81 % of predicted at 2.85 L FEV1/FVC: 95 % Bronchodilator response: Absent Volumes: Total lung capacity: 105 % of predicted at 6.08 L Residual volume: 159 % of predicted at 3.27 L Slow vital capacity: 75 % of predicted at 2.81 L Expiratory reserve volume: 141 % of predicted at 1.35 L Diffusion capacity: Normal Impression: No obstructive or restrictive ventilatory defect. No bronchodilator response. Increased residual volume suggests air trapping. MTDD
[2023-12-04 10:29] VITALS: PULSE 90; RESP 16; O2SAT 99
== END 2023-12-04 08:41 | disposition home or self-care (01) ==
LOC: HO.RESP 08:40
PROVIDERS: PCP Internal Medicine; Visit Provider Hospitalist
DX: R06.02 Shortness of breath (principal)
CPT/HCPCS: 94010; 94640; 94727; 94729

== ENCOUNTER → 2023-12-04 10:15 | Outpatient (BNV) | payer OTHER, SELFPAY | PROVIDERS: PCP Internal Medicine; Visit Provider Internal Medicine Pulmonary Disease | DX: R06.02 Shortness of breath (principal) | CPT/HCPCS: 94060; 94727; 94729 ==

== ENCOUNTER → 2023-12-09 12:45 | Outpatient (REF) | payer OTHER, SELFPAY | LOC: HO.CARD 12:45 | PROVIDERS: PCP Internal Medicine; Visit Provider Internal Medicine Cardiovascular Disease | DX: Z13.89 Encounter for screening for other disorder (principal) | CPT/HCPCS: 93242 ==

== ENCOUNTER 2023-12-17 11:13 | Outpatient (REF) | payer OTHER, SELFPAY ==
--- NOTE | ~2023-12-17 | MR_ITS ---
EXAMINATION: MR BRAIN WITH AND WITHOUT CONTRAST CLINICAL INFORMATION: Diplopia, MS COMPARISON: MRI cervical spine 11/03/2023 TECHNIQUE: MRI of the brain was obtained using routine sequences before and following administration of intravenous contrast. A total of 5 mL of Gadavist was administered intravenously. FINDINGS: No acute infarct. The GRE sequence is without susceptibility artifact to suggest acute or chronic blood products. No extra-axial fluid collection. The ventricles and sulci are normal in size and configuration without significant volume loss or hydrocephalus. No supratentorial white matter disease. Query punctate nonspecific lesion versus artifact in the right celina. No abnormal intraparenchymal or leptomeningeal enhancement. No significant mass effect or herniation pattern. The intracranial dural venous sinus and arterial flow voids are preserved. Normal appearance of the midline structures. The orbits are grossly unremarkable. The paranasal sinuses and mastoids are well aerated. Leftward nasal septal deviation with bony spur impinging on the base of the left inferior nasal turbinate. There is asymmetric hypertrophic left C2-C3 facet arthropathy with associate degenerative/inflammatory marrow edema as seen on prior MRI. MR/MR head/brain wo/w con IMPRESSION: 1. No supratentorial white matter disease. Query punctate nonspecific lesion versus artifact in the right celina. No pathologic intracranial enhancement. 2. Asymmetric hypertrophic left C2-C3 facet arthropathy with associate degenerative/inflammatory marrow edema as seen on prior MRI.
[2023-12-17] MEDS: gadobutroL 7.5 ML VIAL IVPUSH (12:25)
--- NOTE | 2023-12-17 12:48 | HM_ITS ---
* Total monitoring time 3 days. * Underlying rhythm is sinus with an average rate of 81/Min. * Rare supraventricular ectopy with very brief runs. * Rare ventricular ectopy. One couplet. * No significant pauses or AV blocks. * Patient markers in association with sinus rhythm and ventricular ectopy. * Symptoms in patient diary including lightheadedness, vision black, chest feeling weird, chest feeling better, chest pain, pulsation in ear, racing heart, headache, cough, shortness of breath, muscle tremors, correlate with sinus rhythm. MTDD
== END 2023-12-17 11:14 | disposition home or self-care (01) ==
LOC: HO.MRI 11:13
PROVIDERS: PCP Internal Medicine; Visit Provider Psychiatry & Neurology Neurology
DX: R00.0 Tachycardia, unspecified (principal); H53.2 Diplopia; R20.2 Paresthesia of skin
CPT/HCPCS: 70553; 93242; A9585

== ENCOUNTER → 2023-12-17 12:48 | Outpatient (BNV) | payer OTHER, SELFPAY | PROVIDERS: PCP Internal Medicine; Visit Provider Internal Medicine | DX: I47.10 Supraventricular tachycardia, unspecified (principal); I49.3 Ventricular premature depolarization | CPT/HCPCS: 93244 ==

== ENCOUNTER 2023-12-22 08:27 | Outpatient (AMB) | payer OTHER, SELFPAY ==
--- NOTE | 2023-12-22 08:33 | A.OFFVIS_ITS ---
Vital Signs 12/22/23 08:35 Height 5 ft 8 in Weight 117 lb 15.157 oz BMI 17.9 BP 137/84 Blood Pressure Location Lt brachial Position Sitting Pulse 99 Pulse Source Doppler Pulse Oximetry (%) 100 Oxygen Delivery Method Room Air Intake Visit Reasons: Shortness of Breath Allergies No Known Allergies [No Known Allergies*] Allergy (Verified 11/22/23 13:18) HPI Comments Details: The patient is a 63 year woman who presents with symptoms of shortness of breath and also palpitations. The patient has not been feeling well for some time. Initially back if he years ago she was having issues with abdominal spasms. Curtis like she was having diaphragmatic spasms she was not sure she was having something going on with the phrenic nerve. Subsequently after that the patient developed COVID-19. She has not noticing increasing heart rate palpitations in addition to shortness of breath. Now she has been progressively more short of breath last year. Her significant other is his with her and she is also states that she is become very short of breath even with minimal activity. Sometimes she feels like she is choking suffocating. Sometimes she feels so severe that she has to even stop doing the her activities of daily living such as doing the dishes and she has to sit down because of shortness of breath. She did have an echocardiogram done demonstrating some valvular disease. In addition to that during the office we did go for brief walking oximetry the patient was dyspneic breathing shallow and fast about 20 5 times a minute heart rate was elevated up to 125 but yet her pulse ox was stable at 98% which is reassuring. No imaging studies available at this time. Will go ahead and request blood work including a chest x-ray at this time. The patient will benefit from pulmonary function studies will follow-up afterwards. She may also benefit from pulmonary rehabilitation. Indeed dyspnea be related to post COVID or there may be a neurologic component resulting in some type of neuromuscular disease. 12/22/2023 the patient is here for a pulmonary follow-up visit. She continues be very dyspneic short of breath uncomfortable. The patient did undergo a chest x- ray demonstrating hyperinflation of her lungs. She had a blood gas which is reassuring. In addition to that pulmonary function studies did also show some degree of air trapping consistent with the hyperinflation of her lungs. We talked about importance of breathing techniques. The patient will really benefit from pulmonary rehabilitation at this time to help with the breathing techniques and also from thin her and billed aerobic capacity. In the meantime the patient continues to be dyspneic. We will request a cardiopulmonary exe rcise tolerance test to better address her dyspnea symptoms and see is a cardiovascular versus a pulmonary versus a musculoskeletal component. She is also working closely with neurology regarding any neuromuscular conditions that may be resulting her worsening dyspnea symptoms. She is concerned about diaphragm. She feels like it has not working correctly and she feels that his being constrained. Will go ahead and try her on baclofen to make sure she has not having any diaphragmatic spasms but will go ahead and request a sniff study to make sure that there is adequate excursion of the diaphragm. [facility] Medical History (Updated 12/22/23 @ 11:04 by Lionel Herrera MD) Diaphragmatic disorder Scoliosis Long COVID Insomnia Tachycardia Dyspnea Review of Systems Const Denies fever(s), Reports weakness and Reports weight loss Eyes Denies change in vision ENT Reports change in voice Card Denies chest pain, Reports dyspnea and Reports dyspnea on exertion Resp Reports dyspnea, Reports dyspnea on exertion and Denies wheezing GI Denies abdominal pain Musc Reports no additional complaints Skin/Breast Denies rash Neuro Reports weakness Endo Reports no additional complaints David/Lymph Denies lymphadenopathy Aller/Immun Denies wheezing Physical Exam Vital Signs: Last Vital Signs Pulse 99 12/22/23 08:35 BP 137/84 12/22/23 08:35 Pulse Ox 100 12/22/23 08:35 Oxygen Delivery Method Room Air 12/22/23 08:35 BMI result Body Mass Index 17.9 Const General: cooperative Nutritional Appearance: thin Orientation/consciousness: patient oriented x3 HEENT Head: Yes normocephalic Neck Neck: Yes supple Chest Chest palpation & inspection: normal inspection of the chest Resp Effort & Inspection: tachypneic Auscultation: diminished lung sounds Cardio Rate: tachycardic Heart sounds: S1 normal heart sound present and S2 normal heart sound present GI Palpation (GI): Soft to palpation Skin General skin exam: no rashes or lesions noted Neuro General: patient oriented x3 Extrem General: Yes no clubbing, cyanosis or edema Results Reviewed Results Reviewed: personally reviewed CXR, bloodwork, PFTs Assessment & Plan Assessment & Plan (1) Dyspnea: Code(s): R06.00 - Dyspnea, unspecified Category: Medical Qualifiers: Dyspnea type: shortness of breath Qualified Code(s): R06.02 - Shortness of breath (2) Tachycardia: Code(s): R00.0 - Tachycardia, unspecified Category: Medical (3) Insomnia: Code(s): G47.00 - Insomnia, unspecified Category: Medical Qualifiers: Insomnia type: primary Qualified Code(s): F51.01 - Primary insomnia (4) Long COVID: Code(s): U09.9 - Post COVID-19 condition, unspecified Category: Medical (5) Scoliosis: Code(s): M41.9 - Scoliosis, unspecified Category: Medical Qualifiers: Scoliosis type: unspecified scoliosis Spinal region: unspecified Qualified Code(s): M41.9 - Scoliosis, unspecified (6) Diaphragmatic disorder: Code(s): J98.6 - Disorders of diaphragm Category: Medical Plan start pulmonary rehab requesting a [facility] at [facility] SNIFF study to r/o diaphragmatic dysfuction CT chest to assess dyspnea. PFTs and CXR were abnormal but non diagnostic neuro/cardiology evaluation in progress F/U 6-8 weeks Orders: Orders IR fluoroscopy <1hr Today J98.6 - Disorders of diaphragm CA cardiopulmonary stress test Today R06.00 - Dyspnea, unspecified CT chest wo IV con Today R06.02 - Shortness of breath Pulmonary Rehab Today U09.9 - Post COVID-19 condition, unspecified Medications: New baclofen 5 mg PO TID 30 days 90 tabs 4RF Coding Level of Care Code Est Pt Level 5 (59314) Diagnoses Shortness of breath R06.02 Dyspnea type: shortness of breath Tachycardia R00.0 Primary insomnia F51.01 Insomnia type: primary Long COVID U09.9 Scoliosis, unspecified scoliosis type, unspecified spinal region M41.9 Scoliosis type: unspecified scoliosis Spinal region: unspecified Diaphragmatic disorder J98.6 Time Spent (min) 45
[2023-12-22 08:35] VITALS: BP 137/84; PULSE 99; O2SAT 100; BMI 17.9
== END 2023-12-22 09:05 | disposition home or self-care (01) ==
PROVIDERS: PCP Internal Medicine; Visit Provider Hospitalist
DX: R06.02 Shortness of breath (principal); R00.0 Tachycardia, unspecified; F51.01 Primary insomnia; U09.9 Post COVID-19 condition, unspecified; M41.9 Scoliosis, unspecified; J98.6 Disorders of diaphragm
CPT/HCPCS: 99215

== ENCOUNTER → 2023-12-22 08:27 | Outpatient (BNVA) | payer OTHER, SELFPAY | PROVIDERS: PCP Internal Medicine; Visit Provider Hospitalist | DX: R06.02 Shortness of breath (principal); R00.0 Tachycardia, unspecified; J98.6 Disorders of diaphragm; F51.01 Primary insomnia; M41.9 Scoliosis, unspecified; U09.9 Post COVID-19 condition, unspecified | CPT/HCPCS: 99212 ==

== ENCOUNTER 2023-12-30 13:02 | Outpatient (REF) | payer OTHER, SELFPAY ==
--- NOTE | ~2023-12-30 | FL_ITS ---
EXAMINATION: FL Sniff Test CLINICAL INFORMATION: Diaphragmatic disorder COMPARISON: Chest x-ray October 2023 TECHNIQUE: Fluoroscopic cine loops were performed during normal respiration and upon inhalation (sniff). FINDINGS: There is symmetrical movement of the left and right diaphragm during normal respiration and, and upon deep inhalation. No paradoxical movement, paresis, paralysis of either diaphragm is observed. There is a moderate dextroconvex scoliosis of the thoracic spine centered at C7-C8. FLUOROSCOPY TIME: 0.9 minutes DOSE AREA PRODUCT: 3197 uGy-m2 (microgray-meter squared) FL/FL fluoroscopy <1hr IMPRESSION: Unremarkable sniff test. No diaphragmatic paralysis or paresis noted. This procedure was performed by Tod Malone PA-C, and supervised by Dr. Rendon
== END 2023-12-30 13:03 | disposition home or self-care (01) ==
LOC: HO.XRAY 13:02
PROVIDERS: PCP Internal Medicine; Visit Provider Hospitalist
DX: J98.6 Disorders of diaphragm (principal)
CPT/HCPCS: 76000

== ENCOUNTER → 2023-12-30 13:08 | Outpatient (BNV) | payer OTHER, SELFPAY | PROVIDERS: PCP Internal Medicine; Visit Provider Physician Assistant Surgical | DX: J98.6 Disorders of diaphragm (principal) | CPT/HCPCS: 76000 ==

== ENCOUNTER 2024-01-06 09:55 | Outpatient (REF) | payer OTHER, SELFPAY ==
[2024-01-06 11:33] LABS: MANUAL DIFF FLAG NO
[2024-01-06 11:36] LABS: Basophils Percent Auto 0.5 % (0-2); Eosinophils Absolute Auto 0.1 X10*3/uL (0.0-0.4); Eosinophils Percent Auto 1.5 % (0-4); Hematocrit 39.4 % (37.0-47.0); Hemoglobin 13.6 g/dl (12.0-16.0); Imm Gran Abs Auto 0.02 X10*3/uL (0.00-0.03); Imm Gran Pct Auto 0.3 % (0.0-0.4); Lymphocytes Absolute Auto 1.6 X10*3/uL (1.2-4.9); Lymphocytes Percent Auto 20.8 % (20-40); Mean Corpuscular HGB Conc 34.5 g/dl (31.0-35.0); Mean Corpuscular Volume 95.6 fL (80.0-98.0); Mean Platelet Volume 9.8 fL (9.4-12.3); Monocytes Absolute Auto 0.8 X10*3/uL (0.1-1.2); Monocytes Percent Auto 10.1 % (2-11); Neutrophils Percent Auto 66.8 % (45-73); Platelet Count 241 X10*3/uL (160-400); Red Blood Count 4.12 X10*6/uL (4.20-5.50); Red Cell Distribution Width 12.5 % (11.0-16.0); White Blood Count 7.5 X10*3/uL (4.8-10.8)
[2024-01-06 11:44] LABS: Venous Blood Gas Refer to POC result
[2024-01-06 11:49] LABS: Anion Gap 9 (12-20); Blood Urea Nitrogen 17 mg/dL (9-16); Calcium 9.2 mg/dL (8.4-10.2); Carbon Dioxide 30 mmol/L (22-29); Chloride 104 mmol/L (96-108); Estimated Glomerular Filt Rate > 60; Glucose Random 90 mg/dL (60-115); Sodium 139 mmol/L (135-145)
[2024-01-06 11:54] LABS: VBG Base Excess 5.8 mmol/L; VBG HCO3 31 mmol/L (22-26); VBG O2 % Saturation < 30.0 %; VBG pCO2 49 mmHg; VBG pH 7.41 (7.32-7.43); VBG pO2 25 mmHg
[2024-01-06 11:58] LABS: Troponin-I High Sensitivity < 2.7 ng/L (<3.5-17.0)
[2024-01-06 12:11] LABS: D Dimer High Sensitivity < 150 NG/ML
[2024-01-06 12:27] LABS: Erythrocyte Sedimentation Rate 2 MM/HR (0-20)
[2024-01-09 17:59] LABS: CK-BB None Detected (None Detected); CK-MB 0 % (<5); CK-MM 100 % (95-100); Creatine Kinase,Total,Serum 63 U/L (29-143)
[2024-01-10 23:38] LABS: JO 1 Antibody <1.0 NEG AI (<1.0 NEG)
== END 2024-01-06 09:56 | disposition home or self-care (01) ==
LOC: HO.LAB 09:55
PROVIDERS: PCP Internal Medicine; Visit Provider Hospitalist
DX: J96.12 Chronic respiratory failure with hypercapnia (principal); R00.0 Tachycardia, unspecified; U09.9 Post COVID-19 condition, unspecified; G70.9 Myoneural disorder, unspecified
CPT/HCPCS: 36415; 80048; 82552; 82803; 84484; 85025; 85379; 85652; 86235; 99212

== ENCOUNTER 2024-01-06 09:55 | Outpatient (AMB) | payer OTHER, SELFPAY ==
[2024-01-06 10:14] VITALS: BP 128/70; PULSE 90; O2SAT 99; BMI 17.6
--- NOTE | 2024-01-06 10:14 | MHC.OFFVIS ---
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 The patient has not been feeling well for some time. Initially back if he years ago she was having issues with abdominal spasms. [place] like she was having diaphragmatic spasms she was not sure she was having something going on with the phrenic nerve. Subsequently after that the patient developed COVID-19. She has not noticing increasing heart rate palpitations in addition to shortness of breath. Now she has been progressively more short of breath last year. Her significant other is his with her and she is also states that she is become very short of breath even with minimal activity. Sometimes she feels like she is choking suffocating. Sometimes she feels so severe that she has to even stop doing the her activities of daily living such as doing the dishes and she has to sit down because of shortness of breath. She did have an echocardiogram done demonstrating some valvular disease. In addition to that during the office we did go for brief walking oximetry the patient was dyspneic breathing shallow and fast about 20 5 times a minute heart rate was elevated up to 125 but yet her pulse ox was stable at 98% which is reassuring. No imaging studies available at this time. Will go ahead and request blood work including a chest x-ray at this time. The patient will benefit from pulmonary function studies will follow-up afterwards. She may also benefit from pulmonary rehabilitation. Indeed dyspnea be related to post COVID or there may be a neurologic component resulting in some type of neuromuscular disease. 12/22/2023 the patient is here for a pulmonary follow-up visit. She continues be very dyspneic short of breath uncomfortable. The patient did undergo a chest x-ray demonstrating hyperinflation of her lungs. She had a blood gas which is reassuring. In addition to that pulmonary function studies did also show some degree of air trapping consistent with the hyperinflation of her lungs. We talked about importance of breathing techniques. The patient will really benefit from pulmonary rehabilitation at this time to help with the breathing techniques and also from thin her and billed aerobic capacity. In the meantime the patient continues to be dyspneic. We will request a cardiopulmonary exercise tolerance test to better address her dyspnea symptoms and see is a cardiovascular versus a pulmonary versus a musculoskeletal component. She is also working closely with neurology regarding any neuromuscular conditions that may be resulting her worsening dyspnea symptoms. She is concerned about diaphragm. She feels like it has not working correctly and she feels that his being constrained. Will go ahead and try her on baclofen to make sure she has not having any diaphragmatic spasms but will go ahead and request a sniff study to make sure that there is adequate excursion of the diaphragm. 01/06/2024 the patient is here for a pulmonary follow-up visit. She continues to be very dyspneic. She feels like she is getting worse. Even with minimal activity even at rest she is short of breath. We did check a venous blood gas during the last visit and her CO2 was in the upper limit of normal. She did follow-up with Neurology. The question neuromuscular disease resulting in significant work of breathing. Although still not clear. She is going to be referred to tertiary hospital for a neuromuscular specialist. In the meantime she did undergo a sniff study demonstrating normal diaphragmatic movement, although, it was very limited study and could not quantify the degree of diaphragmatic movement. In view of her shortness of breath will go ahead and request blood work including D-dimer to assess for potential blood clots. Based on the fact the patient has x-ray demonstrated some abnormalities in her PFTs and a diagnostic and she continues to have significant symptoms a CT scan of the chest will be a reasonable next step. Will also check an overnight oximetry with end-tidal CO2 to assess her CO2 throughout the night in view of the possibility of a chronic hypercarbic respiratory failure secondary to neuromuscular disease. The patient also benefit from pulmonary rehabilitation. [facility] Medical History (Updated 01/06/24 @ 12:43 by Lionel Herrera MD) Neuromuscular disease Chronic hypercapnic respiratory failure Diaphragmatic disorder Scoliosis Long COVID Insomnia Tachycardia Dyspnea Social History (Updated 01/06/24 @ 10:19 by DEVIN Aguirre) Patient Tobacco Use Status: Former Tobacco user Tobacco use type: Cigarette Years Smoked: 30 Years Ago Review of Systems Const Denies fever(s), Reports weakness and Reports weight loss Eyes Denies change in vision ENT Reports change in voice Card Denies chest pain, Reports dyspnea and Reports dyspnea on exertion Resp Reports dyspnea, Reports dyspnea on exertion and Denies wheezing GI Denies abdominal pain Musc Reports no additional complaints Skin/Breast Denies rash Neuro Reports weakness Endo Reports no additional complaints David/Lymph Denies lymphadenopathy Aller/Immun Denies wheezing Physical Exam Vital Signs: Last Vital Signs Pulse 90 01/06/24 10:14 BP 128/70 01/06/24 10:14 Pulse Ox 99 01/06/24 10:14 Oxygen Delivery Method Room Air 01/06/24 10:14 BMI result Body Mass Index 17.6 Const General: cooperative Nutritional Appearance: thin Orientation/consciousness: patient oriented x3 HEENT Head: Yes normocephalic Neck Neck: Yes supple Chest Chest palpation & inspection: normal inspection of the chest Resp Effort & Inspection: tachypneic Auscultation: diminished lung sounds Cardio Rate: tachycardic Heart sounds: S1 normal heart sound present and S2 normal heart sound present GI Palpation (GI): Soft to palpation Skin General skin exam: no rashes or lesions noted Neuro General: patient oriented x3 Extrem General: Yes no clubbing, cyanosis or edema Results Reviewed Results Reviewed: personally reviewed SNIFF study and bloodwork Assessment & Plan Assessment & Plan (1) Dyspnea: Code(s): R06.00 - Dyspnea, unspecified Category: Medical Qualifiers: Dyspnea type: shortness of breath Qualified Code(s): R06.02 - Shortness of breath (2) Tachycardia: Code(s): R00.0 - Tachycardia, unspecified Category: Medical (3) Long COVID: Code(s): U09.9 - Post COVID-19 condition, unspecified Category: Medical (4) Chronic hypercapnic respiratory failure: Code(s): J96.12 - Chronic respiratory failure with hypercapnia Category: Medical (5) Neuromuscular disease: Code(s): G70.9 - Myoneural disorder, unspecified Category: Medical Plan Bloodwork including a ddimer overnight oximetry with capnography for end tidal CO2 Awaiting CPET Had an abnormal CXR, non diagnostic PFTs and persistent moderate dyspnea symptoms, she will benefit from a CT chest at this time Would benefit from MIPS and MEPS but our PFT machine is not working, possibly at a different institution. we will first review that forthcoming data F/U 1-2 months Orders: Orders D Dimer High Sensitivity Today R00.0 - Tachycardia, unspecified, R06.02 - Shortness of breath Erythrocyte Sedimentation Rate Today R00.0 - Tachycardia, unspecified, R06.02 - Shortness of breath Basic Metabolic Panel Today R00.0 - Tachycardia, unspecified, R06.02 - Shortness of breath Complete Blood Count Auto Diff Today R00.0 - Tachycardia, unspecified, R06.02 - Shortness of breath Troponin-I High Sensitivity Today R00.0 - Tachycardia, unspecified, R06.02 - Shortness of breath CK, Total+Isoenzymes, Serum Today R00.0 - Tachycardia, unspecified, R06.02 - Shortness of breath Venous Blood Gas Today R00.0 - Tachycardia, unspecified, R06.02 - Shortness of breath CYNTHIA 1 Antibody Today R00.0 - Tachycardia, unspecified, R06.02 - Shortness of breath Overnight Pulse Oximetry Today G70.9 - Myoneural disorder, unspecified, J96.12 - Chronic respiratory failure with hypercapnia, U09.9 - Post COVID-19 condition, unspecified Coding Level of Care Code Est Pt Level 4 (50981) Diagnoses Shortness of breath R06.02 Dyspnea type: shortness of breath Tachycardia R00.0 Long COVID U09.9 Chronic hypercapnic respiratory failure J96.12 Neuromuscular disease G70.9 Time Spent (min) 40
== END 2024-01-06 10:56 | disposition home or self-care (01) ==
PROVIDERS: PCP Internal Medicine; Visit Provider Hospitalist
DX: J96.12 Chronic respiratory failure with hypercapnia (principal); U09.9 Post COVID-19 condition, unspecified; R00.0 Tachycardia, unspecified; G70.9 Myoneural disorder, unspecified
CPT/HCPCS: 99214

== ENCOUNTER 2024-01-19 14:21 | Outpatient (REF) | payer OTHER, SELFPAY ==
--- NOTE | ~2024-01-19 | CT_ITS ---
EXAMINATION: CT CHEST WITHOUT CONTRAST CLINICAL INFORMATION: Shortness of breath. COMPARISON: Chest radiograph dated 11/22/2023. TECHNIQUE: Multidetector volumetric CT imaging of the chest was done. Axial MIP volume rendering provided. Sagittal and coronal reformatted images were obtained. This CT examination was performed using dose optimization techniques as appropriate, variously including the following: *Automated exposure control *Adjustment of mA and/or kV according to patient size (this includes techniques or standardized protocols for targeted exams where dose is matched to indication/reason for exam; i.e. extremities or head) *Use of iterative reconstruction technique DLP: 83 mGy-cm FINDINGS: RESEARCH SPEC: The lungs are symmetrically well-expanded and grossly clear. There is a moderate thoracic dextroscoliosis. LUNGS: The lungs are clear with no evidence of inflammation or nodules. There is a small focus of scar/subsegmental atelectasis posteriorly left base, without associated focal airway obstruction. No generalized small airway thickening is seen. The central airways appear patent. MEDIASTINUM: The mediastinum is normal. CORONARY ARTERY CALCIFICATION: None visualized on this study. PLEURA: There is no pleural effusion. No pleural mass or thickening. AXILLA: No lymphadenopathy. UPPER ABDOMEN: Unremarkable. OSSEOUS STRUCTURES: No acute or aggressive osseous findings noted. There is a moderate thoracic dextroscoliosis. CT/CT chest wo IV con IMPRESSION: Unremarkable examination. Fleischner guidelines were followed.
== END 2024-01-19 14:22 | disposition home or self-care (01) ==
LOC: HO.CT 14:21
PROVIDERS: PCP Internal Medicine; Visit Provider Hospitalist
DX: R06.02 Shortness of breath (principal)
CPT/HCPCS: 71250

== ENCOUNTER 2024-02-02 06:08 | Outpatient (REF) | payer OTHER, SELFPAY | END 2024-02-02 06:09 | disposition home or self-care (01) | LOC: HO.LAB 06:08 | PROVIDERS: PCP Internal Medicine; Visit Provider Internal Medicine | DX: Z13.89 Encounter for screening for other disorder (principal) ==

== ENCOUNTER 2024-02-04 13:07 | Outpatient (AMB) | payer OTHER, SELFPAY ==
--- NOTE | 2024-02-04 13:08 | A.OFFVIS_ITS ---
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 The patient has not been feeling well for some time. Initially back if he years ago she was having issues with abdominal spasms. [place] like she was having diaphragmatic spasms she was not sure she was having something going on with the phrenic nerve. Subsequently after that the patient developed COVID-19. She has not noticing increasing heart rate palpitations in addition to shortness of breath. Now she has been progressively more short of breath last year. Her significant other is his with her and she is also states that she is become very short of breath even with minimal activity. Sometimes she feels like she is choking suffocating. Sometimes she feels so severe that she has to even stop doing the her activities of daily living such as doing the dishes and she has to sit down because of shortness of breath. She did have an echocardiogram done demonstrating some valvular disease. In addition to that during the office we did go for brief walking oximetry the patient was dyspneic breathing shallow and fast about 20 5 times a minute heart rate was elevated up to 125 but yet her pulse ox was stable at 98% which is reassuring. No imaging studies available at this time. Will go ahead and request blood work including a chest x-ray at this time. The patient will benefit from pulmonary function studies will follow-up afterwards. She may also benefit from pulmonary rehabilitation. Indeed dyspnea be related to post COVID or there may be a neurologic component resulting in some type of neuromuscular disease. 12/22/2023 the patient is here for a pulmonary follow-up visit. She continues be very dyspneic short of breath uncomfortable. The patient did undergo a chest x- ray demonstrating hyperinflation of her lungs. She had a blood gas which is reassuring. In addition to that pulmonary function studies did also show some degree of air trapping consistent with the hyperinflation of her lungs. We talked about importance of breathing techniques. The patient will really benefit from pulmonary rehabilitation at this time to help with the breathing techniques and also from thin her and billed aerobic capacity. In the meantime the patient continues to be dyspneic. We will request a cardiopulmonary exercise tolerance test to better address her dyspnea symptoms and see is a cardiovascular versus a pulmonary versus a musculoskeletal component. She is also working closely with neurology regarding any neuromuscular conditions that may be resulting her worsening dyspnea symptoms. She is concerned about diaphragm. She feels like it has not working correctly and she feels that his being constrained. Will go ahead and try her on baclofen to make sure she has not having any diaphragmatic spasms but will go ahead and request a sniff study to make sure that there is adequate excursion of the diaphragm. 01/06/2024 the patient is here for a pulmonary follow-up visit. She continues to be very dyspneic. She feels like she is getting worse. Even with minimal activity even at rest she is short of breath. We did check a venous blood gas during the last visit and her CO2 was in the upper limit of normal. She did follow-up with Neurology. The question neuromuscular disease resulting in significant work of breathing. Although still not clear. She is going to be referred to tertiary hospital for a neuromuscular specialist. In the meantime she did undergo a sniff study demonstrating normal diaphragmatic movement, although, it was very limited study and could not quantify the degree of diaphragmatic movement. In view of her shortness of breath will go ahead and request blood work including D-dimer to assess for potential blood clots. Based on the fact the patient has x-ray demonstrated some abnormalities in her PFTs and a diagnostic and she continues to have significant symptoms a CT scan of the chest will be a reasonable next step. Will also check an overnight oximetry wit h end-tidal CO2 to assess her CO2 throughout the night in view of the possibility of a chronic hypercarbic respiratory failure secondary to neuromuscular disease. The patient also benefit from pulmonary rehabilitation. 02/04/2024 the patient is here for a pulmonary follow-up visit. She continues to be very dyspneic. Moderate to severe. She did have the overnight oximetry demonstrating significant hypoxia at nighttime. Therefore she was prescribed oxygen. However, she has been reluctant to use it. I did emphasize to her the importance of using the oxygen. She will start using the oxygen now. She also had a blood gas demonstrating some slight elevations in her CO2. This was a venous blood gas. Again, with her significant muscle deconditioning and muscle wasting she likely is contributing component of respiratory failure. The patient will be evaluated by neurologist soon looking for neuromuscular conditions such as muscular dystrophy. She did have a sniff study demonstratin g normal movement of the diaphragm which is reassuring. The patient also underwent a CT scan of the chest was reassuring as well. No evidence of any parenchymal lung disease. The patient was most start pulmonary rehabilitation. She has not as of yet. I will go ahead and put although order in. In the meantime she did undergo cardiopulmonary exercise tolerance test. We did review together. She has significant aerobic limitations. I suspect moderate chondral disease is also in differential such as mitochondrial muscular dystrophy. Again, she needs to be evaluated by Neurology or muscular dystrophy clinic. In the meantime the patient will start these in the oxygen. And also, hopefully start pulmonary rehabilitation soon. [facility] Medical History (Updated 02/04/24 @ 14:06 by Lionel Herrera MD) COVID-19 Neuromuscular disease Chronic hypercapnic respiratory failure Diaphragmatic disorder Scoliosis Long COVID Insomnia Tachycardia Dyspnea Social History (Updated 01/06/24 @ 10:19 by Kathia Morse Lory) Patient Tobacco Use Status: Former Tobacco user Tobacco use type: Cigarette Years Smoked: 30 Years Ago Review of Systems Const Denies fever(s), Reports headache(s), Reports weakness and Reports weight loss Eyes Denies change in vision ENT Reports change in voice and Reports headache(s) Card Denies chest pain, Reports dyspnea and Reports dyspnea on exertion Resp Reports dyspnea, Reports dyspnea on exertion and Denies wheezing GI Denies abdominal pain Musc Reports no additional complaints Skin/Breast Denies rash Neuro Reports headache(s) and Reports weakness Endo Reports no additional complaints David/Lymph Denies lymphadenopathy Aller/Immun Denies wheezing Physical Exam Vital Signs: Last Vital Signs Pulse 87 02/04/24 13:17 Pulse Ox 98 02/04/24 13:17 Oxygen Delivery Method Room Air 02/04/24 13:17 BMI result Body Mass Index 20.6 Const General: cooperative Nutritional Appearance: thin Orientation/consciousness: patient oriented x3 HEENT Head: Yes normocephalic Neck Neck: Yes supple Chest Chest palpation & inspection: normal inspection of the chest Resp Effort & Inspection: tachypneic Auscultation: diminished lung sounds Cardio Rate: tachycardic Heart sounds: S1 normal heart sound present and S2 normal heart sound present GI Palpation (GI): Soft to palpation Skin General skin exam: no rashes or lesions noted Neuro General: patient oriented x3 Extrem General: Yes no clubbing, cyanosis or edema Assessment & Plan Assessment & Plan (1) Dyspnea: Code(s): R06.00 - Dyspnea, unspecified Category: Medical Qualifiers: Dyspnea type: shortness of breath Qualified Code(s): R06.02 - Shortness of breath (2) Tachycardia: Code(s): R00.0 - Tachycardia, unspecified Category: Medical (3) Long COVID: Code(s): U09.9 - Post COVID-19 condition, unspecified Category: Medical (4) Chronic hypercapnic respiratory failure: Code(s): J96.12 - Chronic respiratory failure with hypercapnia Category: Medical (5) Neuromuscular disease: Code(s): G70.9 - Myoneural disorder, unspecified Category: Medical (6) COVID-19: Code(s): U07.1 - COVID-19 Category: Medical Plan overnight oximetry on 2L oxygen with capnography for end tidal CO2 Would benefit from MIPS and MEPS but our PFT machine is not working, possibly at a different institution. we will first review that forthcoming data Neurology evaluation ?muscular dystrophy, mitochondrial disease ?related to long covid start pulmonary rehab F/U 1-2 months Orders: Orders Pulmonary Rehab 02/04/24 G70.9 - Myoneural disorder, unspecified, J96.12 - Chronic respiratory failure with hypercapnia, U07.1 - COVID-19 Overnight Pulse Oximetry 30 Days G70.9 - Myoneural disorder, unspecified, J96.12 - Chronic respiratory failure with hypercapnia PFT pulmonary function test Today G70.9 - Myoneural disorder, unspecified Coding Level of Care Code Est Pt Level 5 (08694) Diagnoses Shortness of breath R06.02 Dyspnea type: shortness of breath Tachycardia R00.0 Long COVID U09.9 Chronic hypercapnic respiratory failure J96.12 Neuromuscular disease G70.9 COVID-19 U07.1 Time Spent (min) 45
[2024-02-04 13:17] VITALS: PULSE 87; O2SAT 98; BMI 20.6
== END 2024-02-04 14:07 | disposition home or self-care (01) ==
PROVIDERS: PCP Internal Medicine; Visit Provider Hospitalist
DX: J96.12 Chronic respiratory failure with hypercapnia (principal); U09.9 Post COVID-19 condition, unspecified; R00.0 Tachycardia, unspecified; G70.9 Myoneural disorder, unspecified
CPT/HCPCS: 99215

== ENCOUNTER → 2024-02-04 13:07 | Outpatient (BNVA) | payer OTHER, SELFPAY | PROVIDERS: PCP Internal Medicine; Visit Provider Hospitalist | DX: J96.12 Chronic respiratory failure with hypercapnia (principal); R00.0 Tachycardia, unspecified; U09.9 Post COVID-19 condition, unspecified; G70.9 Myoneural disorder, unspecified | CPT/HCPCS: 99212 ==

== ENCOUNTER 2024-02-18 11:02 | Outpatient (REF) | payer OTHER, SELFPAY ==
[2024-02-18 11:24] LABS: IDNOW Serial# 08D9AD1C; Strep A Nucleic Acid Negative (Negative)
[2024-02-18 12:06] LABS: Influenza A PCR NEGATIVE (Negative); Influenza B PCR NEGATIVE (Negative); Resp Syncy Virus RNA Qual PCR NEGATIVE (Negative); SARS COV2 PCR INHOUSE POSITIVE (Negative)
== END 2024-02-18 11:03 | disposition home or self-care (01) ==
LOC: HO.LNP 11:02
PROVIDERS: Visit Provider Internal Medicine
DX: J02.9 Acute pharyngitis, unspecified (principal); R05.9 Cough, unspecified; J06.9 Acute upper respiratory infection, unspecified
CPT/HCPCS: 0241U; 87070; 87651

== ENCOUNTER 2024-02-26 07:44 | Outpatient (REF) | payer OTHER, SELFPAY ==
[2024-02-26 10:16] LABS: Cortisol Random 15.4 ug/dL
== END 2024-02-26 07:45 | disposition home or self-care (01) ==
LOC: HO.LAB 07:44
PROVIDERS: PCP Internal Medicine; Visit Provider Internal Medicine
DX: R63.4 Abnormal weight loss (principal); R53.83 Other fatigue
CPT/HCPCS: 36415; 82024; 82533

== ENCOUNTER 2024-03-22 09:58 | Outpatient (REF) | payer OTHER, SELFPAY ==
[2024-03-22 10:56] LABS: MANUAL DIFF FLAG NO
[2024-03-22 11:01] LABS: Basophils Percent Auto 0.5 % (0-2); Eosinophils Absolute Auto 0.1 X10*3/uL (0.0-0.4); Eosinophils Percent Auto 1.5 % (0-4); Hematocrit 40.4 % (37.0-47.0); Hemoglobin 13.6 g/dl (12.0-16.0); Imm Gran Abs Auto 0.02 X10*3/uL (0.00-0.03); Imm Gran Pct Auto 0.2 % (0.0-0.4); Lymphocytes Absolute Auto 2.2 X10*3/uL (1.2-4.9); Lymphocytes Percent Auto 25.6 % (20-40); Mean Corpuscular HGB Conc 33.7 g/dl (31.0-35.0); Mean Corpuscular Hemoglobin 31.8 pg (27.0-33.0); Mean Corpuscular Volume 94.4 fL (80.0-98.0); Mean Platelet Volume 10.1 fL (9.4-12.3); Monocytes Absolute Auto 0.7 X10*3/uL (0.1-1.2); Monocytes Percent Auto 8.8 % (2-11); Neutrophils Absolute Auto 5.3 x10*3/uL (2.0-8.3); Neutrophils Percent Auto 63.4 % (45-73); Platelet Count 273 X10*3/uL (160-400); Red Blood Count 4.28 X10*6/uL (4.20-5.50); Red Cell Distribution Width 12.6 % (11.0-16.0); White Blood Count 8.4 X10*3/uL (4.8-10.8)
[2024-03-22 11:26] LABS: Alanine Aminotransferase 10 U/L (0-31); Albumin Level 4.1 g/dL (3.5-5.0); Alkaline Phosphatase 53 U/L (39-117); Anion Gap 11 (12-20); Aspartate Amino Transferase 11 U/L (5-31); Blood Urea Nitrogen 16 mg/dL (9-16); Calcium 9.5 mg/dL (8.4-10.2); Carbon Dioxide 28 mmol/L (22-29); Chloride 103 mmol/L (96-108); Estimated Glomerular Filt Rate > 60; Glucose Random 81 mg/dL (60-115); Potassium 4.3 mmol/L (3.3-5.1); Sodium 138 mmol/L (135-145)
== END 2024-03-22 09:59 | disposition home or self-care (01) ==
LOC: HO.10HDL 09:58
PROVIDERS: Visit Provider Internal Medicine
DX: R53.83 Other fatigue (principal); R53.1 Weakness
CPT/HCPCS: 36415; 80053; 85025

== ENCOUNTER 2024-04-07 14:07 | Outpatient (AMB) | payer OTHER, SELFPAY ==
--- NOTE | 2024-04-07 14:24 | MHC.OFFVIS ---
Vital Signs 04/07/24 14:25 Height 5 ft 8 in Weight 105 lb 13.15 oz BMI 16.1 BP 122/70 Blood Pressure Location Rt brachial Position Sitting Pulse 92 Pulse Source Pulse Oximeter Pulse Oximetry (%) 99 Oxygen Delivery Method Room Air Intake Visit Reasons: post covid Allergies ragweed pollen Adverse Reaction (Severe, Verified 04/07/24 14:29) Cough HPI Comments Details: The patient is a 64 year woman who presents with symptoms of shortness of breath and also palpitations. The patient has not been feeling well for some time. Initially back if he years ago she was having issues with abdominal spasms. [place] like she was having diaphragmatic spasms she was not sure she was having something going on with the phrenic nerve. Subsequently after that the patient developed COVID-19. She has not noticing increasing heart rate palpitations in addition to shortness of breath. Now she has been progressively more short of breath last year. Her significant other is his with her and she is also states that she is become very short of breath even with minimal activity. Sometimes she feels like she is choking suffocating. Sometimes she feels so severe that she has to even stop doing the her activities of daily living such as doing the dishes and she has to sit down because of shortness of breath. She did have an echocardiogram done demonstrating some valvular disease. In addition to that during the office we did go for brief walking oximetry the patient was dyspneic breathing shallow and fast about 20 5 times a minute heart rate was elevated up to 125 but yet her pulse ox was stable at 98% which is reassuring. No imaging studies available at this time. Will go ahead and request blood work including a chest x-ray at this time. The patient will benefit from pulmonary function studies will follow-up afterwards. She may also benefit from pulmonary rehabilitation. Indeed dyspnea be related to post COVID or there may be a neurologic component resulting in some type of neuromuscular disease. 12/22/2023 the patient is here for a pulmonary follow-up visit. She continues be very dyspneic short of breath uncomfortable. The patient did undergo a chest x-ray demonstrating hyperinflation of her lungs. She had a blood gas which is reassuring. In addition to that pulmonary function studies did also show some degree of air trapping consistent with the hyperinflation of her lungs. We talked about importance of breathing techniques. The patient will really benefit from pulmonary rehabilitation at this time to help with the breathing techniques and also from thin her and billed aerobic capacity. In the meantime the patient continues to be dyspneic. We will request a cardiopulmonary exercise tolerance test to better address her dyspnea symptoms and see is a cardiovascular versus a pulmonary versus a musculoskeletal component. She is also working closely with neurology regarding any neuromuscular conditions that may be resulting her worsening dyspnea symptoms. She is concerned about diaphragm. She feels like it has not working correctly and she feels that his being constrained. Will go ahead and try her on baclofen to make sure she has not having any diaphragmatic spasms but will go ahead and request a sniff study to make sure that there is adequate excursion of the diaphragm. 01/06/2024 the patient is here for a pulmonary follow-up visit. She continues to be very dyspneic. She feels like she is getting worse. Even with minimal activity even at rest she is short of breath. We did check a venous blood gas during the last visit and her CO2 was in the upper limit of normal. She did follow-up with Neurology. The question neuromuscular disease resulting in significant work of breathing. Although still not clear. She is going to be referred to tertiary hospital for a neuromuscular specialist. In the meantime she did undergo a sniff study demonstrating normal diaphragmatic movement, although, it was very limited study and could not quantify the degree of diaphragmatic movement. In view of her shortness of breath will go ahead and request blood work including D-dimer to assess for potential blood clots. Based on the fact the patient has x-ray demonstrated some abnormalities in her PFTs and a diagnostic and she continues to have significant symptoms a CT scan of the chest will be a reasonable next step. Will also check an overnight oximetry with end-tidal CO2 to assess her CO2 throughout the night in view of the possibility of a chronic hypercarbic respiratory failure secondary to neuromuscular disease. The patient also benefit from pulmonary rehabilitation. 02/04/2024 the patient is here for a pulmonary follow-up visit. She continues to be very dyspneic. Moderate to severe. She did have the overnight oximetry demonstrating significant hypoxia at nighttime. Therefore she was prescribed oxygen. However, she has been reluctant to use it. I did emphasize to her the importance of using the oxygen. She will start using the oxygen now. She also had a blood gas demonstrating some slight elevations in her CO2. This was a venous blood gas. Again, with her significant muscle deconditioning and muscle wasting she likely is contributing component of respiratory failure. The patient will be evaluated by neurologist soon looking for neuromuscular conditions such as muscular dystrophy. She did have a sniff study demonstrating normal movement of the diaphragm which is reassuring. The patient also underwent a CT scan of the chest was reassuring as well. No evidence of any parenchymal lung disease. The patient was most start pulmonary rehabilitation. She has not as of yet. I will go ahead and put although order in. In the meantime she did undergo cardiopulmonary exercise tolerance test. We did review together. She has significant aerobic limitations. I suspect moderate chondral disease is also in differential such as mitochondrial muscular dystrophy. Again, she needs to be evaluated by Neurology or muscular dystrophy clinic. In the meantime the patient will start these in the oxygen. And also, hopefully start pulmonary rehabilitation soon. 04/07/2024 the patient is here for a pulmonary follow-up visit. She did go to [place] and she was evaluated there. Currently being evaluated for neuromuscular diseases. she will be going back for any mg test soon. In the meantime she did undergo pulmonary function studies at [facility] which I personally reviewed with her. Her maximum inspiratory and expiratory pressures are down to 50%. Again, this is consistent with a neuromuscular disease resulting in her dyspnea symptoms. She has also has had significant weight loss. We did provide her with protein drinks during the last visit as we have samples and we also provided her with samples again. But, she would benefit from getting a prescription from her primary care doctor for significant weight loss and deconditioning that is also likely contributing to her muscle weakness. The patient did have a positive test for blood work that was suggestive of neuroendocrine disease such as small cell that can consult and paraneoplastic conditions. Although, her CT scan of the chest did not demonstrate any pulmonary nodules or any concerns for small cell lung cancer. Will have her repeat a chest x-ray today to make sure there is no changes on those images. In the meantime the patient will have a repeat blood gas because will monitoring closely her CO2 as it was slightly elevated during the last visit. If the CO2 continues to climb suggest that she is developing worsening hypercarbic respiratory failure in could result in worsening disease especially if there is further progression. The patient is interested in pulmonary rehabilitation. At least we can start working on building some strength in the middle of the evaluation. As far as other functions appears that she is swallowing well denies any dysphagia at this time. Will continue monitoring closely for that. [facility] Medical History (Updated 02/04/24 @ 14:06 by Lionel Herrera MD) COVID-19 Neuromuscular disease Chronic hypercapnic respiratory failure Diaphragmatic disorder Scoliosis Long COVID Insomnia Tachycardia Dyspnea Social History (Updated 01/06/24 @ 10:19 by DEVIN Aguirre) Patient Tobacco Use Status: Former Tobacco user Tobacco use type: Cigarette Years Smoked: 30 Years Ago Review of Systems Const Denies fever(s), Reports headache(s), Reports weakness and Reports weight loss Eyes Denies change in vision ENT Reports change in voice and Reports headache(s) Card Denies chest pain, Reports dyspnea and Reports dyspnea on exertion Resp Reports dyspnea, Reports dyspnea on exertion and Denies wheezing GI Denies abdominal pain Musc Reports no additional complaints Skin/Breast Denies rash Neuro Reports headache(s) and Reports weakness Endo Reports no additional complaints David/Lymph Denies lymphadenopathy Aller/Immun Denies wheezing Physical Exam Vital Signs: Last Vital Signs Pulse 92 04/07/24 14:25 BP 122/70 04/07/24 14:25 Pulse Ox 99 04/07/24 14:25 Oxygen Delivery Method Room Air 04/07/24 14:25 BMI result Body Mass Index 16.1 Const General: cooperative Nutritional Appearance: thin Orientation/consciousness: patient oriented x3 HEENT Head: Yes normocephalic Neck Neck: Yes supple Chest Chest palpation & inspection: normal inspection of the chest Resp Effort & Inspection: tachypneic Auscultation: diminished lung sounds Cardio Rate: tachycardic Heart sounds: S1 normal heart sound present and S2 normal heart sound present GI Palpation (GI): Soft to palpation Skin General skin exam: no rashes or lesions noted Neuro General: patient oriented x3 Extrem General: Yes no clubbing, cyanosis or edema Office Procedures 6 Minute Walk Time:: 15:00 SPO2 % at rest: 98 Pulse at rest: 97 SPO2 % during excercise: 99 Pulse during excercise: 120 SPO2 % after excercise: 99 Pulse after excercise: 101 Distance in yards walked: 150 Waldo Score: 8 Performance Observations:: Nevaeh walked on level ground without assistance, she walked on room air the entire walk and maintained her SPO2 98-99%. She did not require supplemental O2. [address] - 6 Minute Walk Assessment & Plan Assessment & Plan (1) Dyspnea: Code(s): R06.00 - Dyspnea, unspecified Category: Medical Qualifiers: Dyspnea type: shortness of breath Qualified Code(s): R06.02 - Shortness of breath (2) Tachycardia: Code(s): R00.0 - Tachycardia, unspecified Category: Medical (3) Long COVID: Code(s): U09.9 - Post COVID-19 condition, unspecified Category: Medical (4) Chronic hypercapnic respiratory failure: Code(s): J96.12 - Chronic respiratory failure with hypercapnia Category: Medical (5) Neuromuscular disease: Code(s): G70.9 - Myoneural disorder, unspecified Category: Medical (6) COVID-19: Code(s): U07.1 - COVID-19 Category: Medical Plan overnight oximetry on 2L oxygen with capnography for end tidal CO2 Neurology evaluation ?muscular dystrophy, mitochondrial disease ?related to long covid awaiting EMG start pulmonary rehab repeat bloodgas, may benefit from NIV or inlab sleep study if worsening F/U 1-2 months Orders: Orders AMB 6 minute walk 04/07/24 R06.02 - Shortness of breath XR chest 2V 04/07/24 G70.9 - Myoneural disorder, unspecified, J96.12 - Chronic respiratory failure with hypercapnia, R06.02 - Shortness of breath Venous Blood Gas 04/07/24 G70.9 - Myoneural disorder, unspecified, J96.12 - Chronic respiratory failure with hypercapnia, R06.02 - Shortness of breath Complete Blood Count Auto Diff 04/07/24 G70.9 - Myoneural disorder, unspecified, J96.12 - Chronic respiratory failure with hypercapnia, R06.02 - Shortness of breath Coding Level of Care Code Est Pt Level 5 (32704) Diagnoses Shortness of breath R06.02 Dyspnea type: shortness of breath Tachycardia R00.0 Long COVID U09.9 Chronic hypercapnic respiratory failure J96.12 Neuromuscular disease G70.9 COVID-19 U07.1 CPT Codes Coding ([id number]) Time Spent (min) 60
[2024-04-07 14:25] VITALS: BP 122/70; PULSE 92; O2SAT 99; BMI 16.1
[2024-04-07 15:13] VITALS: PULSE 97; O2SAT 98
== END 2024-04-07 15:42 | disposition home or self-care (01) ==
PROVIDERS: PCP Internal Medicine; Visit Provider Hospitalist
DX: G70.9 Myoneural disorder, unspecified (principal); J96.12 Chronic respiratory failure with hypercapnia
CPT/HCPCS: 94618; 99215

== ENCOUNTER 2024-04-07 14:07 | Outpatient (REF) | payer OTHER, SELFPAY ==
--- NOTE | ~2024-04-07 | XR_ITS ---
EXAMINATION: XR CHEST CLINICAL INFORMATION: Chronic shortness of breath COMPARISON: Radiographs 11/22/2023 TECHNIQUE: 2 views of the chest were obtained. FINDINGS: No focal consolidation, pulmonary edema, or pleural effusion. Stable cardiomediastinal silhouette. Dextroconvex thoracic scoliosis. XR/XR chest 2V IMPRESSION: No acute cardiopulmonary findings. Electronically signed by: Diomedes Dhaliwal MD 04/25/2024 08:26 AM EDT
[2024-04-07 16:12] LABS: MANUAL DIFF FLAG NO
[2024-04-07 16:29] LABS: VBG Base Excess 4.2 mmol/L; VBG HCO3 30 mmol/L (22-26); VBG pCO2 54 mmHg; VBG pH 7.36 (7.32-7.43); VBG pO2 22 mmHg
[2024-04-07 17:40] LABS: Basophils Percent Auto 0.6 % (0-2); Eosinophils Absolute Auto 0.2 X10*3/uL (0.0-0.4); Eosinophils Percent Auto 2.8 % (0-4); Hematocrit 38.9 % (37.0-47.0); Imm Gran Abs Auto 0.03 X10*3/uL (0.00-0.03); Imm Gran Pct Auto 0.4 % (0.0-0.4); Lymphocytes Absolute Auto 1.7 X10*3/uL (1.2-4.9); Mean Corpuscular HGB Conc 33.4 g/dl (31.0-35.0); Mean Corpuscular Hemoglobin 31.8 pg (27.0-33.0); Mean Corpuscular Volume 95.1 fL (80.0-98.0); Mean Platelet Volume 10.8 fL (9.4-12.3); Monocytes Absolute Auto 0.8 X10*3/uL (0.1-1.2); Monocytes Percent Auto 10.5 % (2-11); Neutrophils Absolute Auto 4.5 x10*3/uL (2.0-8.3); Neutrophils Percent Auto 61.7 % (45-73); Platelet Count 253 X10*3/uL (160-400); Red Blood Count 4.09 X10*6/uL (4.20-5.50); Red Cell Distribution Width 13.2 % (11.0-16.0); White Blood Count 7.2 X10*3/uL (4.8-10.8)
[2024-04-07 19:38] LABS: Venous Blood Gas Refer to POC result
== END 2024-04-07 14:08 | disposition home or self-care (01) ==
LOC: HO.XRAY 14:07
PROVIDERS: PCP Internal Medicine; Visit Provider Hospitalist
DX: G70.9 Myoneural disorder, unspecified (principal); J96.12 Chronic respiratory failure with hypercapnia; R00.0 Tachycardia, unspecified; U07.1 COVID-19; Z99.81 Dependence on supplemental oxygen
CPT/HCPCS: 36415; 71046; 82803; 85025; 94618; 99212

== ENCOUNTER 2024-04-11 06:54 | Emergency (ER) | payer OTHER, SELFPAY ==
--- NOTE | 2024-04-11 | ECG_ITS ---
Test Reason : chest pain Blood Pressure : / mmHG Vent. Rate : 094 BPM Atrial Rate : 094 BPM P-R Int : 130 ms QRS Dur : 080 ms QT Int : 372 ms P-R-T Axes : 089 079 054 degrees QTc Int : 465 ms Normal sinus rhythm Possible Left atrial enlargement Borderline ECG When compared with ECG of 05-AUG-2022 02:05, No significant change was found Referred By: Generic ED Physician Electronically Signed By:JHONATAN BENÍTEZ
--- NOTE | ~2024-04-11 | XR_ITS ---
EXAMINATION: XR CHEST CLINICAL INFORMATION: Shortness of breath COMPARISON: Chest radiograph from 11/22/2023 TECHNIQUE: 2 views of the chest were obtained. FINDINGS: Hyperinflation of the bilateral lung emerson. Nipple shadows bilaterally. Biapical pleural-parenchymal scarring. No pneumothorax. Cardiomediastinal silhouette is not enlarged. No large pleural effusion. Dextrocurvature of the mid thoracic spine. Soft tissues are unremarkable. XR/XR chest 2V IMPRESSION: 1. Hyperinflation of the bilateral lung emerson. 2. Biapical pleural-parenchymal scarring. Electronically signed by: César Foster MD 04/11/2024 09:53 AM EDT
[2024-04-11 06:57] VITALS: BP 117/90; PULSE 99; RESP 22; TEMP 37.4; O2SAT 100; BMI 15.9
[2024-04-11 07:23] LABS: MANUAL DIFF FLAG NO
[2024-04-11 07:24] LABS: Basophils Absolute Auto 0.1 X10*3/uL (0.0-0.2); Basophils Percent Auto 0.6 % (0-2); Eosinophils Absolute Auto 0.1 X10*3/uL (0.0-0.4); Eosinophils Percent Auto 1.3 % (0-4); Hematocrit 39.8 % (37.0-47.0); Hemoglobin 13.4 g/dl (12.0-16.0); Imm Gran Abs Auto 0.03 X10*3/uL (0.00-0.03); Imm Gran Pct Auto 0.3 % (0.0-0.4); Lymphocytes Absolute Auto 1.3 X10*3/uL (1.2-4.9); Lymphocytes Percent Auto 15.5 % (20-40); Mean Corpuscular HGB Conc 33.7 g/dl (31.0-35.0); Mean Platelet Volume 9.9 fL (9.4-12.3); Monocytes Absolute Auto 0.6 X10*3/uL (0.1-1.2); Monocytes Percent Auto 6.9 % (2-11); Neutrophils Absolute Auto 6.5 x10*3/uL (2.0-8.3); Neutrophils Percent Auto 75.4 % (45-73); Platelet Count 233 X10*3/uL (160-400); Red Blood Count 4.19 X10*6/uL (4.20-5.50); Red Cell Distribution Width 12.9 % (11.0-16.0); White Blood Count 8.6 X10*3/uL (4.8-10.8)
[2024-04-11 07:29] VITALS: BP 164/81; PULSE 92; RESP 16; O2SAT 100
[2024-04-11 07:29] LABS: Venous Blood Gas Refer to POC result
[2024-04-11 07:30] LABS: VBG Base Excess 4.1 mmol/L; VBG HCO3 30 mmol/L (22-26); VBG pCO2 54 mmHg; VBG pH 7.35 (7.32-7.43); VBG pO2 28 mmHg
--- NOTE | 2024-04-11 07:41 | ED_ITS ---
HPI - SOB/Dyspnea General Chief Complaint: Dyspnea Stated Complaint: Suffocating Diff breathing Time Seen by Provider: 04/11/24 07:11 Source: patient Mode of arrival: ambulatory Limitations: no limitations History of Present Illness HPI Narrative: This is a 64 years old female patient presented to emergency department complaining of increasing shortness of breath. Symptoms started about a year ago she is under the evaluation of a satellite tv technician installer Dr. Herrera. She said that this happened a night she will get more short of breath. The satellite tv technician installer he is scheduling sleep study for her. There is no reported fever no reported cough. She has no history of asthma or COPD MD elicited complaint: shortness of breath Onset (ago): month(s) Timing: constant Severity: moderate Exacerbating factors: other (Sleeping) Relieving factors: nothing Associated symptoms: denies other symptoms Related Data Home oxygen amount: none Home Medications ?Medication ?Instructions ?Recorded ?Confirmed estradiol valerate 10 mg/mL 6.25 mg IM 2XW 11/24/23 11/24/23 intramuscular oil (Delestrogen) aspirin 81 mg tablet,delayed 81 mg PO DAILY 04/07/24 release Previous Rx's ?Medication ?Instructions ?Recorded albuterol sulfate 90 mcg/actuation 2 inh inhalation Q6H PRN shortness 02/06/24 aerosol inhaler of breath or wheezing 30 days #18 grams Allergies Allergy/AdvReac Type Severity Reaction Status Date / Time ragweed pollen AdvReac Severe Cough Verified 04/11/24 06:58 Review of Systems 2 ENT: Reports system reviewed and no additional complaints, except as documented Cardiovascular: Cardiovascular: Reports no additional cardiovascular complaints and Reports dyspnea Respiratory: Respiratory: Denies excessive phlegm production, Denies pain on inspiration, Reports dyspnea and Denies wheezing Allergic/Immunologic: Allergic/Immunologic: Denies wheezing PMF Past Medical History Attestation statement: The following information was validated with the patient. Medical History COVID-19 Neuromuscular disease Chronic hypercapnic respiratory failure Diaphragmatic disorder Scoliosis Long COVID Insomnia Tachycardia Dyspnea Social History Social History Patient Tobacco Use Status: Former Tobacco user Tobacco use type: Cigarette Years Smoked: 30 Years Ago Advance Directives: Yes Advance Directives Information Provided: Yes Advance Directives on File: No Do you have a plan to hurt others: No Plan Patient : No Physical Exam 2 Vital Signs: Vital Signs: Last Vital Signs Temp 98.4 F 04/11/24 10:13 Pulse 87 04/11/24 10:13 Resp 15 04/11/24 10:13 BP 123/78 04/11/24 10:13 Pulse Ox 100 04/11/24 10:13 O2 Del Method Room Air 04/11/24 10:13 BMI result Body Mass Index 15.9 Const: General: cooperative and no acute distress Nutritional Appearance: m alnourished Orientation/consciousness: patient oriented x3 HEENT: Head: Yes normal to inspection General nose exam: Normal external nose present Mouth: Normal oral and palatal mucosa present Throat: Yes posterior oropharynx normal Neck: Neck: Yes normal visual inspection Chest: Chest palpation & inspection: normal inspection of the chest Resp: Effort & Inspection: normal respiratory effort Auscultation: clear to auscultation bilaterally Cardio: Jugular venous distension: no JVD Rhythm: regular rhythm GI: Inspection: Yes normal to inspection Palpation (GI): Soft to palpation, not firm, nontender and no guarding Percussion: Yes normal to percussion Skin: General skin exam: no rashes or lesions noted and elasticity normal L esions: no lesions Rashes: no rashes Neuro: General: patient oriented x3 Extrem: General: Yes normal to inspection and Yes full ROM Course Reevaluation(s) Reevaluation #1: Workup negative including cbc/chemestry ,d-dimer, BNP. I did discuss the case with Dr. Herrera, he is arranging sleep study a [facility] and is considering noninvasive ventilation device at night. Patient was stable during the 4 hour in the emergency department the O2 sat was 100%. Chest x-ray showed no acute pathology. I think she can be discharged home with pulmonology follow-up. Medical Decision Making Medical Decision Making MDM Narrative: Patient presented with shortness of breath will check the VBG/will check a chest x-ray. Differential Diagnosis Differential Diagnoses: The differential diagnosis associated with the presentation includes Pneumonia/CHF/PE Admission/Observation Consideration of admission/observation: Escalation of care including admission/observation considered Consult Healthcare Provider Management of the patient was discussed with: Drapery Hemmer Automatic Dr Herrera Lab Data [facility] Lab Attestation statement: I reviewed the patient's lab results. 04/11/24 07:16 04/11/24 07:16 Labs: Lab Results 04/11/24 04/11/24 04/11/24 Range/Units 07:16 07:25 08:09 WBC 8.6 (4.8-10.8) X10*3/uL RBC 4.19 L (4.20-5.50) X10*6/uL Hgb 13.4 (12.0-16.0) g/dl Hct 39.8 (37.0-47.0) % MCV 95.0 (80.0-98.0) fL MCH 32.0 (27.0-33.0) pg MCHC 33.7 (31.0-35.0) g/dl RDW 12.9 (11.0-16.0) % Plt Count 233 (160-400) X10*3/uL MPV 9.9 (9.4-12.3) fL Immature Gran % (Auto) 0.3 (0.0-0.4) % Neut % (Auto) 75.4 H (45-73) % Lymph % (Auto) 15.5 L (20-40) % [place] % (Auto) 6.9 (2-11) % Eos % (Auto) 1.3 (0-4) % Baso % (Auto) 0.6 (0-2) % Lymph # (Auto) 1.3 (1.2-4.9) X10*3/uL [place] # (Auto) 0.6 (0.1-1.2) X10*3/uL Eos # (Auto) 0.1 (0.0-0.4) X10*3/uL Baso # (Auto) 0.1 (0.0-0.2) X10*3/uL Abs Immat Gran (auto) 0.03 (0.00-0.03) X10*3/uL Absolute Neuts (auto) 6.5 (2.0-8.3) x10*3/uL Absolute Nucleated RBC 0.000 (0.0-0.012) X10*3/uL Nucleated RBC % (auto) 0.0 (0.0-0.2) /100WBC D-Dimer High Sensitivty < 150 NG/ML VBG pH 7.35 (7.32-7.43) VBG pCO2 54 mmHg VBG pO2 28 mmHg VBG HCO3 30 H (22-26) mmol/L VBG O2 Saturation 47.0 % VBG Base Excess 4.1 mmol/L Sodium 139 (135-145) mmol/L Potassium 4.2 (3.3-5.1) mmol/L Chloride 105 (96-108) mmol/L Carbon Dioxide 28 (22-29) mmol/L Anion Gap 10 L (12-20) BUN 14 (9-16) mg/dL Creatinine 0.64 (0.5-1.4) mg/dL Estim Creat Clear Calc 67.4 Estimated GFR > 60 Random Glucose 97 (60-115) mg/dL Calcium 9.1 (8.4-10.2) mg/dL Total Bilirubin 1.3 H (0.0-1.0) mg/dL AST 11 (5-31) U/L ALT 11 (0-31) U/L Alkaline Phosphatase 52 (39-117) U/L Troponin I High Sens < 2.7 (<3.5-17.0) ng/L B-Natriuretic Peptide 25 (<100) pg/mL Total Protein 6.7 (6.5-8.0) g/dL Albumin 4.0 (3.5-5.0) g/dL Independent Interpretation I performed an independent interpretation of an: EKG Interpretation: Normal sinus rhythm rate [address]-T changes Radiology Impression Discussion of test interpretation with radiology: I have reviewed the radiologist's reading. Independent Historian Clinical information obtained from an independent historian. History obtained from or confirmed by: Spouse External Record Review External record reviewed: Office record Discharge Plan Discharge Clinical Impression: Shortness of breath Patient Disposition: Home, Self-Care Instructions: Shortness of Breath (ED) Additional Instructions: Please follow-up with Dr. herrera as we discussed, return to the emergency room if you are worse. Prescriptions: No Action albuterol sulfate 90 mcg/actuation HFA aerosol inhaler 2 inh inhalation Q6H PRN (Reason: shortness of breath or wheezing) 30 Days Qty: 18 12RF estradiol valerate [Delestrogen] 10 mg/mL oil 6.25 mg IM 2XW aspirin 81 mg tablet,delayed release (DR/EC) 81 mg PO DAILY Referrals: Lionel Herrera MD [Physician] - 2 days Print Language: Bulgarian
--- OUTSIDE RECORDS SUMMARY | 2024-04-11 07:42 | XMS_ITS | Continuity of Care Document ---
Author Organization [facility] ter Address [address] [place] [id number]- Care Team Providers Care Group Tester Name Role Phone Av Christopher MD Primary Care Physician [phone] Encounter [facility] Date(s): 01/25/24 - 03/05/[address] [id number] Attending Physician: Lionel Herrera MD Admitting Physician: Lionel Herrera MD Referring Physician: Lionel Herrera MD Allergies, Adverse Reactions, Alerts No Known Allergies Immunizations Given and Recorded Vaccine Date Status Refusal Reason Hepatitis A-Hepatitis B Vaccine 1 04/14/17 Given Hepatitis A-Hepatitis B Vaccine 04/16/16 Given Hepatitis A-Hepatitis B Vaccine 04/02/16 Given Hepatitis A-Hepatitis B Vaccine 03/26/16 Given Typhoid Vaccine, Inactivated 03/26/16 Given 1Result Comment: [04/14/2017] accelerated twinrix#4 Medications ciprofloxacin 500 mg oral tablet 1 tablet = 500 mg, By Mouth, Every 12 hours, for severe diarrhea during travel, # 6 tablet, 0 Refills, Maintenance, 04/02/16 11:20:35 Start Date: 04/02/16 Status: Ordered clonazePAM 1 mg oral tablet 1 tablet = 1 mg, By Mouth, 3 times a day, 0 Refills, Maintenance, 03/26/16 11:15:14 Start Date: 03/26/16 Status: Ordered Estradiol 0 Refills, Maintenance, 03/26/16 11:14:28 Start Date: 03/26/16 Status: Ordered medroxyPROGESTERone 150 mg/mL intramuscular suspension 1 mL = 150 mg, Intramuscular, Every 3 months, # 1 mL, 0 Refills, Maintenance, 03/26/16 11:14:45, Suspension Start Date: 03/26/16 Status: Ordered Problem List Condition Confirmation Course Effective Dates Status Health [facility] Informant Advice or immunization for travel Confirmed Active Patient Care team information Care Team Personnel Name: Av Christopher MD Position: [facility] Outreach Member Role: PCP Address: Address: [address] [place] [address]- Care Team Related Persons Name: SOCORRO GUERRA Address: home [address] [place] [address] [place] [id number]
[2024-04-11 07:43] LABS: Alanine Aminotransferase 11 U/L (0-31); Alkaline Phosphatase 52 U/L (39-117); Anion Gap 10 (12-20); Aspartate Amino Transferase 11 U/L (5-31); Bilirubin Total 1.3 mg/dL (0.0-1.0); Blood Urea Nitrogen 14 mg/dL (9-16); Calcium 9.1 mg/dL (8.4-10.2); Carbon Dioxide 28 mmol/L (22-29); Chloride 105 mmol/L (96-108); Creatinine Clr Calc Pharmacy 67.4; Estimated Glomerular Filt Rate > 60; Glucose Random 97 mg/dL (60-115); Potassium 4.2 mmol/L (3.3-5.1); Sodium 139 mmol/L (135-145); Total Protein 6.7 g/dL (6.5-8.0)
[2024-04-11 07:49] LABS: B Type Natriuretic Peptide 25 pg/mL (<100)
[2024-04-11 07:53] LABS: Troponin-I High Sensitivity < 2.7 ng/L (<3.5-17.0)
[2024-04-11 08:25] LABS: D Dimer High Sensitivity < 150 NG/ML
[2024-04-11 10:13] VITALS: BP 123/78; PULSE 87; RESP 15; TEMP 36.9; O2SAT 100
[2024-04-11 11:10] VITALS: BP 135/77; PULSE 81; RESP 20; TEMP 36.7; O2SAT 98
--- NOTE | 2024-04-11 11:14 | PC.NURSE ---
patient refusing d/c ED provider aware.
[2024-04-11 11:23] VITALS: BP 135/77; PULSE 81; RESP 20; TEMP 36.7; O2SAT 98
== END 2024-04-11 11:23 | disposition home or self-care (01) ==
PROVIDERS: Emergency Provider Emergency Medicine; PCP Internal Medicine
DX: R06.02 Shortness of breath (principal); R07.89 Other chest pain; Z87.891 Personal history of nicotine dependence; Z79.899 Other long term (current) drug therapy
CPT/HCPCS: 36415; 71046; 80053; 82803; 83880; 84484; 85025; 85379; 93005; 99283; 99284

== ENCOUNTER 2024-04-12 01:06 | Emergency (ER) | payer OTHER, SELFPAY ==
--- NOTE | 2024-04-12 | ECG_ITS ---
Test Reason : CP Blood Pressure : / mmHG Vent. Rate : 089 BPM Atrial Rate : 089 BPM P-R Int : 120 ms QRS Dur : 086 ms QT Int : 392 ms P-R-T Axes : 083 084 079 degrees QTc Int : 476 ms Normal sinus rhythm Junctional ST depression, probably normal Borderline ECG When compared with ECG of 11-APR-2024 07:02, No significant change was found Referred By: Generic ED Physician Electronically Signed By:JHONATAN BENÍTEZ
[2024-04-12 01:31] VITALS: BP 135/80; PULSE 92; RESP 22; TEMP 36.9; O2SAT 100; BMI 16.7
[2024-04-12 02:28] VITALS: BP 141/70; PULSE 85; RESP 16; TEMP 36.5; O2SAT 99
[2024-04-12 02:31] LABS: Hematocrit 37.6 % (37.0-47.0); Hemoglobin 12.7 g/dl (12.0-16.0); Mean Corpuscular HGB Conc 33.8 g/dl (31.0-35.0); Mean Corpuscular Hemoglobin 32.1 pg (27.0-33.0); Mean Corpuscular Volume 94.9 fL (80.0-98.0); Mean Platelet Volume 9.9 fL (9.4-12.3); Platelet Count 235 X10*3/uL (160-400); Red Blood Count 3.96 X10*6/uL (4.20-5.50); White Blood Count 7.2 X10*3/uL (4.8-10.8)
[2024-04-12 02:37] LABS: Prothrombin Time 12.3 SEC (11.1-13.3)
[2024-04-12 02:41] LABS: D Dimer High Sensitivity < 150 NG/ML
[2024-04-12 02:42] LABS: Alanine Aminotransferase 11 U/L (0-31); Albumin Level 3.9 g/dL (3.5-5.0); Alkaline Phosphatase 51 U/L (39-117); Anion Gap 11 (12-20); Aspartate Amino Transferase 12 U/L (5-31); Bilirubin Total 1.3 mg/dL (0.0-1.0); Blood Urea Nitrogen 14 mg/dL (9-16); Calcium 9.2 mg/dL (8.4-10.2); Carbon Dioxide 27 mmol/L (22-29); Chloride 106 mmol/L (96-108); Creatinine Clr Calc Pharmacy 69.6; Estimated Glomerular Filt Rate > 60; Glucose Random 93 mg/dL (60-115); Potassium 4.2 mmol/L (3.3-5.1); Sodium 140 mmol/L (135-145); Total Protein 6.7 g/dL (6.5-8.0)
[2024-04-12 02:48] VITALS: PULSE 81
--- NOTE | 2024-04-12 02:49 | PC.NURSE ---
pt from wr to ed16 with reports she has a monitor at home for when she's sleeping to monitor o2, states had o2 reads in 80s% during sleep and felt cp/sob upon awakening which made pt come to ed. at this time resting in semi-fowlers position on ed stretcher denies cp as these sx only occur with sleep per pt. pt changed to hospital attire placed on continuous cardiac, o2 and BP monitoring. call pina within reach.
[2024-04-12 02:50] LABS: Troponin-I High Sensitivity < 2.7 ng/L (<3.5-17.0)
--- NOTE | 2024-04-12 03:13 | ED_ITS ---
HPI - Chest Pain General Chief Complaint: Chest Pain Stated Complaint: gen med, returning from yesterday Time Seen by Provider: 04/12/24 03:13 Source: patient Mode of arrival: ambulatory Limitations: no limitations History of Present Illness ED Provider: Dr. Chaves HPI narrative: Patient has a neurologic wasting syndrome has been losing weight and is concerned that she is not breathing well at night and is worried that she has apnea and might not wake up. She denies fever cough or shortness of breath. Patient was here a few days prior and had a extensive work up that was negative. Related Data Home Medications ?Medication ?Instructions ?Recorded ?Confirmed estradiol valerate 10 mg/mL 6.25 mg IM 2XW 11/24/23 11/24/23 intramuscular oil (Delestrogen) aspirin 81 mg tablet,delayed 81 mg PO DAILY 04/07/24 release Previous Rx's ?Medication ?Instructions ?Recorded albuterol sulfate 90 mcg/actuation 2 inh inhalation Q6H PRN shortness 02/06/24 aerosol inhaler of breath or wheezing 30 days #18 grams Allergies Allergy/AdvReac Type Severity Reaction Status Date / Time ragweed pollen AdvReac Severe Cough Verified 04/12/24 01:34 Review of Systems 2 Review of Systems: Yes all other systems are reviewed and are negative Neurologic: Denies Sensory deficit (Neuro) PMFSH Past Medical History Medical History COVID-19 Neuromuscular disease Chronic hypercapnic respiratory failure Diaphragmatic disorder Scoliosis Long COVID Insomnia Tachycardia Dyspnea Social History Social History Patient Tobacco Use Status: Former Tobacco user Tobacco use type: Cigarette Years Smoked: 30 Years Ago Advance Directives: No Advance Directives Information Provided: Yes Do you have a plan to hurt others: No Plan Physical Exam 2 Vital Signs: Vital Signs: Last Vital Signs Temp 97.7 F 04/12/24 06:26 Pulse 74 04/12/24 06:26 Resp 15 04/12/24 06:26 BP 103/59 L 04/12/24 06:26 Pulse Ox 97 04/12/24 06:26 O2 Del Method Room Air 04/12/24 06:26 BMI result Body Mass Index 16.7 Const: Other: cachectic anxious female in no acute distress Orientation/consciousness: oriented to person and patient oriented x3 L imitations: no limitations HEENT: Head: Yes normal to inspection Ears: external ears normal General nose exam: Normal external nose present Mouth: Normal oral and palatal mucosa present and oropharynx normal Throat: Yes posterior oropharynx normal Eyes: General: appearance normal, both eyes and all related structures Neck: Other: supple Neck: Yes normal visual inspection Chest: Chest palpation & inspection: normal inspection of the chest Resp: Auscultation: clear to auscultation bilaterally Cardio: Jugular venous distension: no JVD Rate: regular rate Rhythm: r egular rhythm Heart sounds: S1 normal heart sound present and S2 normal heart sound present GI: Inspection: Yes normal to inspection Palpation (GI): Soft to palpation, nontender and No hepatosplenomegaly present Auscultation: normal bowel sounds : General: Yes no CVA tenderness Back/Spine/Pelvis: Back: no CVA tenderness Skin: General skin exam: no rashes or lesions noted Neuro: General: oriented to person and patient oriented x3 Cranial nerves: Yes CN's II-XII intact bilaterally Motor exam (neuro): 5/5 motor strength present throughout Sensory Exam: No Sensory deficit (Neuro) Extrem: General: Yes normal to inspection Psych: Appearance: grossly normal Course Reevaluation(s) Reevaluation #1: labs, EKG were normal, CXR from yesterday normal will dc home Time: 06:52 Medical Decision Making Differential Diagnosis Differential Diagnoses: The differential diagnosis associated with the presentation includes (respiratory failure, cardiac ischemia, PE, pneumonia) Admission/Observation Consideration of admission/observation: Escalation of care including admission/observation considered (upon arrival patient was considered for admission) Lab Data 04/12/24 02:20 04/12/24 02:20 Labs: Lab Results 04/12/24 Range/Units 02:20 WBC 7.2 (4.8-10.8) X10*3/uL RBC 3.96 L (4.20-5.50) X10*6/uL Hgb 12.7 (12.0-16.0) g/dl Hct 37.6 (37.0-47.0) % MCV 94.9 (80.0-98.0) fL MCH 32.1 (27.0-33.0) pg MCHC 33.8 (31.0-35.0) g/dl RDW 13.0 (11.0-16.0) % Plt Count 235 (160-400) X10*3/uL MPV 9.9 (9.4-12.3) fL Absolute Nucleated RBC 0.000 (0.0-0.012) X10*3/uL Nucleated RBC % (auto) 0.0 (0.0-0.2) /100WBC PT 12.3 (11.1-13.3) SEC INR 1.0 (0.9-1.1) D-Dimer High Sensitivty < 150 NG/ML Sodium 140 (135-145) mmol/L Potassium 4.2 (3.3-5.1) mmol/L Chloride 106 (96-108) mmol/L Carbon Dioxide 27 (22-29) mmol/L Anion Gap 11 L (12-20) BUN 14 (9-16) mg/dL Creatinine 0.65 (0.5-1.4) mg/dL Estim Creat Clear Calc 69.6 Estimated GFR > 60 Random Glucose 93 (60-115) mg/dL Calcium 9.2 (8.4-10.2) mg/dL Total Bilirubin 1.3 H (0.0-1.0) mg/dL AST 12 (5-31) U/L ALT 11 (0-31) U/L Alkaline Phosphatase 51 (39-117) U/L Troponin I High Sens < 2.7 (<3.5-17.0) ng/L Total Protein 6.7 (6.5-8.0) g/dL Albumin 3.9 (3.5-5.0) g/dL Independent Interpretation I performed an independent interpretation of an: EKG (sinus [address] or twave changes) Independent Historian Clinical information obtained from an independent historian. History obtained from or confirmed by: Spouse External Record Review External record reviewed: Outpatient record and Prior outpatient radiology Tests considered The following testing was considered but not selected: CXR, Chest CT were considered but CXR was done a few hours prior and negative and ddimer was negative Prescription Management I considered prescription management with: Antibiotic (no evidence of pneumonia on xray) Chronic Conditions Patient?s care impacted by: Other (neurologic wasting syndrome) Discharge Plan Discharge Clinical Impression: Neuromuscular disease, Shortness of breath Patient Disposition: Home, Self-Care Additional Instructions: must follow up with your specialists to discuss your shortness of breath Prescriptions: No Action albuterol sulfate 90 mcg/actuation HFA aerosol inhaler 2 inh inhalation Q6H PRN (Reason: shortness of breath or wheezing) 30 Days Qty: 18 12RF estradiol valerate [Delestrogen] 10 mg/mL oil 6.25 mg IM 2XW aspirin 81 mg tablet,delayed release (DR/EC) 81 mg PO DAILY Referrals: Av Christopher MD [Primary Care Provider] - 3 days Print Language: Moldovan
[2024-04-12 04:20] VITALS: BP 123/71; PULSE 76; RESP 16; TEMP 36.5; O2SAT 96
--- NOTE | 2024-04-12 06:04 | MHC.EDTECH ---
This Tech assumed care of this pt upon arrival. pt changed over into a hospital gown and placed on a conveyor monitor
[2024-04-12 06:26] VITALS: BP 103/59; PULSE 74; RESP 15; TEMP 36.5; O2SAT 97
== END 2024-04-12 07:04 | disposition home or self-care (01) ==
PROVIDERS: Emergency Provider Emergency Medicine; PCP Internal Medicine
DX: R07.89 Other chest pain (principal); R06.02 Shortness of breath; Z79.899 Other long term (current) drug therapy; Z87.891 Personal history of nicotine dependence
CPT/HCPCS: 36415; 80053; 84484; 85027; 85379; 85610; 93005; 99283; 99284

== ENCOUNTER 2024-05-02 15:06 | Outpatient (AMB) | payer OTHER, SELFPAY ==
[2024-05-02 15:10] VITALS: BP 128/70; PULSE 88; O2SAT 99; BMI 16.4
--- NOTE | 2024-05-02 15:10 | A.OFFVIS_ITS ---
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 The patient has not been feeling well for some time. Initially back if he years ago she was having issues with abdominal spasms. [place] like she was having diaphragmatic spasms she was not sure she was having something going on with the phrenic nerve. Subsequently after that the patient developed COVID-19. She has not noticing increasing heart rate palpitations in addition to shortness of breath. Now she has been progressively more short of breath last year. Her significant other is his with her and she is also states that she is become very short of breath even with minimal activity. Sometimes she feels like she is choking suffocating. Sometimes she feels so severe that she has to even stop doing the her activities of daily living such as doing the dishes and she has to sit down because of shortness of breath. She did have an echocardiogram done demonstrating some valvular disease. In addition to that during the office we did go for brief walking oximetry the patient was dyspneic breathing shallow and fast about 20 5 times a minute heart rate was elevated up to 125 but yet her pulse ox was stable at 98% which is reassuring. No imaging studies available at this time. Will go ahead and request blood work including a chest x-ray at this time. The patient will benefit from pulmonary function studies will follow-up afterwards. She may also benefit from pulmonary rehabi litation. Indeed dyspnea be related to post COVID or there may be a neurologic component resulting in some type of neuromuscular disease. 12/22/2023 the patient is here for a pulmonary follow-up visit. She continues be very dyspneic short of breath uncomfortable. The patient did undergo a chest x- ray demonstrating hyperinflation of her lungs. She had a blood gas which is reassuring. In addition to that pulmonary function studies did also show some degree of air trapping consistent with the hyperinflation of her lungs. We talked about importance of breathing techniques. The patient will really benefit from pulmonary rehabilitation at this time to help with the breathing techniques and also from thin her and billed aerobic capacity. In the meantime the patient continues to be dyspneic. We will request a cardiopulmonary exercise tolerance test to better address her dyspnea symptoms and see is a cardiovascular versus a pulmonary versus a musculoskeletal component. She is also working closely with neurology regarding any neuromuscular conditions that may be resulting her worsening dyspnea symptoms. She is concerned about diaphragm. She feels like it has not working correctly and she feels that his being constrained. Will go ahead and try her on baclofen to make sure she has not having any diaphragmatic spasms but will go ahead and request a sniff study to make sure that there is adequate excursion of the diaphragm. 01/06/2024 the patient is here for a pulmonary follow-up visit. She continues to be very dyspneic. She feels like she is getting worse. Even with minimal activity even at rest she is short of breath. We did check a venous blood gas during the last visit and her CO2 was in the upper limit of normal. She did follow-up with Neurology. The question neuromuscular disease resulting in significant work of breathing. Although still not clear. She is going to be referred to tertiary hospital for a neuromuscular specialist. In the meantime she did undergo a sniff study demonstrating normal diaphragmatic movement, although, it was very limited study and could not quantify the degree of diaphragmatic movement. In view of her shortness of breath will go ahead and request blood work including D-dimer to assess for potential blood clots. Based on the fact the patient has x-ray demonstrated some abnormalities in her PFTs and a diagnostic and she continues to have significant symptoms a CT scan of the chest will be a reasonable next step. Will also check an overnight oximetry with end-tidal CO2 to assess her CO2 throughout the night in view of the possibility of a chronic hypercarbic respiratory failure secondary to neuromuscular disease. The patient also benefit from pulmonary rehabilitation. 02/04/2024 the patient is here for a pulmonary follow-up visit. She continues to be very dyspneic. Moderate to severe. She did have the overnight oximetry demonstrating significant hypoxia at nighttime. Therefore she was prescribed oxygen. However, she has been reluctant to use it. I did emphasize to her the importance of using the oxygen. She will start using the oxygen now. She also had a blood gas demonstrating some slight elevations in her CO2. This was a venous blood gas. Again, with her significant muscle deconditioning and muscle wasting she likely is contributing component of respiratory failure. The patient will be evaluated by neurologist soon looking for neuromuscular conditions such as muscular dystrophy. She did have a sniff study demonstrating normal movement of the diaphragm which is reassuring. The patient also underwent a CT scan of the chest was reassuring as well. No evidence of any parenchymal lung disease. The patient was most start pulmonary rehabilitation. She has not as of yet. I will go ahead and put although order in. In the meantime she did undergo cardiopulmonary exercise tolerance test. We did review together. She has significant aerobic limitations. I suspect moderate chondral disease is also in differential such as mitochondrial muscular dystrophy. Again, she needs to be evaluated by Neurology or muscular dystrophy clinic. In the meantime the patient will start these in the oxygen. And also, hopefully start pulmonary rehabilitation soon. 04/07/2024 the patient is here for a pulmonary follow-up visit. She did go to [place] and she was evaluated there. Currently being evaluated for neuromuscular diseases. she will be going back for any mg test soon. In the meantime she did undergo pulmonary function studies at [facility] which I personally reviewed with her. Her maximum inspiratory and expiratory pressures are down to 50%. Again, this is consistent with a neuromuscular disease resulting in her dyspnea symptoms. She has also has had significant weight loss. We did provide her with protein drinks during the last visit as we have samples and we also provided her with samples again. But, she would benefit from getting a prescription from her primary care doctor for significant weight loss and deconditioning that is also likely contributing to her muscle weakness. The patient did have a positive test for blood work that was suggestive of ne uroendocrine disease such as small cell that can consult and paraneoplastic conditions. Although, her CT scan of the chest did not demonstrate any pulmonary nodules or any concerns for small cell lung cancer. Will have her repeat a chest x-ray today to make sure there is no changes on those images. In the meantime the patient will have a repeat blood gas because will monitoring closely her CO2 as it was slightly elevated during the last visit. If the CO2 continues to climb suggest that she is developing worsening hypercarbic respiratory failure in could result in worsening disease especially if there is further progression. The patient is interested in pulmonary rehabilitation. At least we can start working on building some strength in the middle of the evaluation. As far as other functions appears that she is swallowing well denies any dysphagia at this time. Will continue monitoring closely for that. 05/02/2024 the patient is here for a pulmonary follow-up visit. Since we last spoke the patient was initially set up for a sleep study. However her symptoms worsened and she ended up in the ER. At that point she had a repeat blood gas still demonstrating elevation her CO2. Therefore we arranged with a local [employer] company to for her to start IVAPS noninvasive ventilator for her neuromuscular disease and chronic hypercarbic respiratory failure. Initially was hard for her to get used to it. We did work with the [employer] company to adjust the pressures in the volumes accordingly for her to be admitted tolerated. She has been tolerating it better and she has been able to sleep at night which is reassuring. She is asking if this is something that she can wean off. Explained to the patient that did noninvasive ventilator as a bridge to therapy. We would have to know what is going on with her neuromuscular disease and proper treatment in order to help her strengthen and see if we are able to wean her off liberated for the noninvasive ventilator. However, the patient states that in her visit to [place] with the neurologist he spoke to her about a likely diagnosis of ALS. He is going to do additional testing such as genetic testing to better identify her condition. But in the meantime, he did recommend she start medicine for ALS. she is reluctant to do so at this time. She is questioning the diagnosis. At this point the patient does have a hard time going to [place] anyway so we will refer her to the [facility] clinic for her to be further evaluated for ALS and see if they can potentially rule out or confirm the diagnosis at this time. In the meantime she is wondering about strengthening her muscles. She was approved to start pulmonary rehabilitation but then other issues arise and she was not able to do so. I did remind her that she needs to call to arrange a visit for her to start rehabilitation therapy. Will have her return in a couple months with spirometry to assess any progression of disease. [facility] Medical History (Updated 05/02/24 @ 22:26 by Lionel Herrera MD) ALS (amyotrophic lateral sclerosis) COVID-19 Neuromuscular disease Chronic hypercapnic respiratory failure Diaphragmatic disorder Scoliosis Long COVID Insomnia Tachycardia Dyspnea Social History Patient Tobacco Use Status: Former Tobacco user Tobacco use type: Cigarette Years Smoked: 30 Years Ago Review of Systems Const Denies fever(s), Reports headache(s), Reports weakness and Reports weight loss Eyes Denies change in vision ENT Reports change in voice and Reports headache(s) Card Denies chest pain, Reports dyspnea and Reports dyspnea on exertion Resp Reports dyspnea, Reports dyspnea on exertion and Denies wheezing GI Denies abdominal pain Musc Reports no additional complaints Skin/Breast Denies rash Neuro Reports headache(s) and Reports weakness Endo Reports no additional complaints David/Lymph Denies lymphadenopathy Aller/Immun Denies wheezing Physical Exam Vital Signs: Last Vital Signs Pulse 88 05/02/24 15:10 BP 128/70 05/02/24 15:10 Pulse Ox 99 05/02/24 15:10 Oxygen Delivery Method Room Air 05/02/24 15:10 BMI result Body Mass Index 16.4 Const General: cooperative Nutritional Appearance: thin Orientation/consciousness: patient oriented x3 HEENT Head: Yes normocephalic Neck Neck: Yes supple Chest Chest palpation & inspection: normal inspection of the chest Resp Effort & Inspection: tachypneic Auscultation: diminished lung sounds Cardio Rate: tachycardic Heart sounds: S1 normal heart sound present and S2 normal heart sound present GI Palpation (GI): Soft to palpation Skin General skin exam: no rashes or lesions noted Neuro General: patient oriented x3 Extrem General: Yes no clubbing, cyanosis or edema Results Reviewed Results Reviewed: personally reviewed her recent CXRs with hyperinflation and CT chest with minimal atelectasis Assessment & Plan Assessment & Plan (1) ALS (amyotrophic lateral sclerosis): Comment: suspected diagnosis made in [place] Code(s): G12.21 - Amyotrophic lateral sclerosis Category: Medical (2) Dyspnea: Code(s): R06.00 - Dyspnea, unspecified Category: Medical Qualifiers: Dyspnea type: shortness of breath Qualified Code(s): R06.02 - Shortness of breath (3) Tachycardia: Code(s): R00.0 - Tachycardia, unspecified Category: Medical (4) Chronic hypercapnic respiratory failure: Code(s): J96.12 - Chronic respiratory failure with hypercapnia Category: Medical (5) Neuromuscular disease: Code(s): G70.9 - Myoneural disorder, unspecified Category: Medical (6) Long COVID: Code(s): U09.9 - Post COVID-19 condition, unspecified Category: Medical Plan continue NIV with oxygen Neurology evaluation at the ALS clinic at [facility] to further evaluate the presumptive diagnsois of ALS start pulmonary rehab F/U 1-2 months with spirometry Orders: Referrals Neurology Referral G12.21 - Amyotrophic lateral sclerosis Coding Level of Care Code Est Pt Level 5 (67557) Complex EM visit Add On G2211 Diagnoses ALS (amyotrophic lateral sclerosis) G12.21 Shortness of breath R06.02 Dyspnea type: shortness of breath Tachycardia R00.0 Chronic hypercapnic respiratory failure J96.12 Neuromuscular disease G70.9 Long COVID U09.9 Time Spent (min) 60
== END 2024-05-02 16:22 | disposition home or self-care (01) ==
PROVIDERS: PCP Internal Medicine; Visit Provider Hospitalist
DX: J96.12 Chronic respiratory failure with hypercapnia (principal); U09.9 Post COVID-19 condition, unspecified; G12.21 Amyotrophic lateral sclerosis; R00.0 Tachycardia, unspecified; G70.9 Myoneural disorder, unspecified
CPT/HCPCS: 99215; G2211

== ENCOUNTER → 2024-05-02 15:06 | Outpatient (BNVA) | payer OTHER, SELFPAY | PROVIDERS: PCP Internal Medicine; Visit Provider Hospitalist | DX: G12.21 Amyotrophic lateral sclerosis (principal); G70.9 Myoneural disorder, unspecified; R00.0 Tachycardia, unspecified; J96.12 Chronic respiratory failure with hypercapnia; U09.9 Post COVID-19 condition, unspecified | CPT/HCPCS: 99212 ==

== ENCOUNTER 2024-05-19 19:30 | Emergency (ER) | payer OTHER, SELFPAY ==
[2024-05-19] VITALS (9 sets, daily range): BP systolic 102–144; BP diastolic 65–80; PULSE 91–130; RESP 14–27; TEMP 36.4–36.8; O2SAT 96–100; BMI 17.9
--- NOTE | 2024-05-19 | ECG_ITS ---
Test Reason : CHEST PRESSURE Blood Pressure : / mmHG Vent. Rate : 101 BPM Atrial Rate : 101 BPM P-R Int : 134 ms QRS Dur : 092 ms QT Int : 354 ms P-R-T Axes : 078 080 077 degrees QTc Int : 459 ms Sinus tachycardia Possible Lateral infarct , age undetermined Abnormal ECG When compared with ECG of 12-APR-2024 01:21, ST no longer depressed in Anterior leads Referred By: Generic ED Physician Electronically Signed By:Aiden Berry
[2024-05-19 20:00] LABS: Basophils Percent Auto 0.1 % (0-2); Eosinophils Absolute Auto 0.3 X10*3/uL (0.0-0.4); Eosinophils Percent Auto 2.7 % (0-4); Hematocrit 36.9 % (37.0-47.0); Hemoglobin 12.7 g/dl (12.0-16.0); Imm Gran Abs Auto 0.03 X10*3/uL (0.00-0.03); Imm Gran Pct Auto 0.3 % (0.0-0.4); Lymphocytes Absolute Auto 0.6 X10*3/uL (1.2-4.9); Lymphocytes Percent Auto 6.1 % (20-40); MANUAL DIFF FLAG NO; Mean Corpuscular HGB Conc 34.4 g/dl (31.0-35.0); Mean Corpuscular Hemoglobin 32.3 pg (27.0-33.0); Mean Corpuscular Volume 93.9 fL (80.0-98.0); Mean Platelet Volume 9.4 fL (9.4-12.3); Monocytes Absolute Auto 0.9 X10*3/uL (0.1-1.2); Neutrophils Absolute Auto 8.6 x10*3/uL (2.0-8.3); Neutrophils Percent Auto 81.8 % (45-73); Platelet Count 216 X10*3/uL (160-400); Red Blood Count 3.93 X10*6/uL (4.20-5.50); Red Cell Distribution Width 12.6 % (11.0-16.0); White Blood Count 10.5 X10*3/uL (4.8-10.8)
[2024-05-19 20:14] LABS: Alanine Aminotransferase 11 U/L (0-31); Albumin Level 3.7 g/dL (3.5-5.0); Alkaline Phosphatase 53 U/L (39-117); Anion Gap 10 (12-20); Aspartate Amino Transferase 16 U/L (5-31); Bilirubin Total 0.7 mg/dL (0.0-1.0); Blood Urea Nitrogen 9 mg/dL (9-16); Carbon Dioxide 26 mmol/L (22-29); Chloride 105 mmol/L (96-108); Creatinine Clr Calc Pharmacy 73.5; Estimated Glomerular Filt Rate > 60; Glucose Random 139 mg/dL (60-115); Lipase 15 U/L (8-78); Magnesium 1.8 mg/dL (1.6-2.6); Potassium 3.9 mmol/L (3.3-5.1); Sodium 137 mmol/L (135-145); Total Protein 6.3 g/dL (6.5-8.0)
[2024-05-19 20:23] LABS: Troponin-I High Sensitivity < 2.7 ng/L (<3.5-17.0)
[2024-05-19 20:37] LABS: Influenza A PCR NEGATIVE (Negative); Influenza B PCR NEGATIVE (Negative); Resp Syncy Virus RNA Qual PCR NEGATIVE (Negative); SARS COV2 PCR INHOUSE NEGATIVE (Negative)
--- NOTE | 2024-05-19 21:49 | ED.GENADULT ---
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 comes here for chest discomfort since 06:00 like muscle cramping heart rate was on 20 anxious taking fast shallow breathing seems to be anxious but denies any anxiety asking for emergency echocardiogram for mild mitral regurgitation which is clinically not significant Related Data Home Medications ?Medication ?Instructions ?Recorded ?Confirmed estradiol valerate 10 mg/mL 6.25 mg IM 2XW 11/24/23 11/24/23 intramuscular oil (Delestrogen) aspirin 81 mg tablet,delayed 81 mg PO DAILY 04/07/24 release CPAP (CPAP Machine/Device) 05/02/24 Previous Rx's ?Medication ?Instructions ?Recorded albuterol sulfate 90 mcg/actuation 2 inh inhalation Q6H PRN shortness 02/06/24 aerosol inhaler of breath or wheezing 30 days #18 grams Allergies Allergy/AdvReac Type Severity Reaction Status Date / Time ragweed pollen AdvReac Severe Cough Verified 05/19/24 19:43 Review of Systems Review of Systems: Yes all other systems are reviewed and are negative PMFSH Past Medical History Medical History ALS (amyotrophic lateral sclerosis) COVID-19 Neuromuscular disease Chronic hypercapnic respiratory failure Diaphragmatic disorder Scoliosis Long COVID Insomnia Tachycardia Dyspnea Social History Social History Alcohol intake: current Alcohol intake frequency: a few times a week Alcohol type: wine Patient Tobacco Use Status: Former Tobacco user Tobacco use type: Cigarette Years Smoked: 30 Years Ago Smoked in Last 30 Days: No Use of substances other than those prescribed or required for medical reasons: No Advance Directives: No Advance Directives Information Provided: Yes Do you have a plan to hurt others: No Plan Patient : No Physical Exam ED Vital Signs: Vital Signs - 24 hr 05/19/24 19:38 10/25/24 19:56 05/19/24 20:36 Temperature 97.6 F 97.9 F 98.1 F Pulse Rate 112 H 100 91 Respiratory Rate 27 H 14 15 Blood Pressure 144/77 H 109/68 110/68 Pulse Oximetry 100 98 97 Oxygen Delivery Method Room Air Room Air Room Air 05/19/24 21:38 05/19/24 21:40 05/19/24 21:41 Temperature Pulse Rate 100 116 H 122 H Respiratory Rate Blood Pressure 102/66 114/68 125/71 Pulse Oximetry Oxygen Delivery Method 05/19/24 23:33 05/19/24 23:45 Temperature 98.3 F 98.3 F Pulse Rate 96 96 Respiratory Rate 18 18 Blood Pressure 110/65 110/65 Pulse Oximetry 96 96 Oxygen Delivery Method Room Air Room Air BMI result Body Mass Index 17.9 Appearance: Alert. Oriented X3. Anxious rapidly breathing Eyes: PERRLA, No Nystagmus ENT: Pharynx normal. Oral Mucosa moist Neck: Normal inspection. Neck supple. CVS: Tachycardic, Regular rhythm. Pulses normal. No significant murmur or gallop Respiratory: No respiratory distress. Equal air entry bilateral, no wheezing/rales/rhonchi Abdomen: Soft and nontender. Bowel sounds are present, no mass palpable, no CVA tenderness Skin: Skin warm and dry. Normal skin color. Normal skin turgor. Extremities: No lower extremity edema. No calf tenderness Neuro: Oriented X 3. Diffuse muscle weakness Medications Administered Discontinued Medications Generic Name Dose Route Start Last Admin Trade Name Freq PRN Reason Stop Dose Admin Sodium Chloride 1,000 mls @ 999 mls/hr 05/19/24 21:50 05/19/24 23:28 Ns IV 05/19/24 22:50 Infused .Q1H1M ONE Infusion Medical Decision Making Medical Decision Making [facility] Narrative: Patient with multiple complaints seems to be more anxiety heart rate in 120s on standing patient does not think that is the problem asking for emergency echo although which is not indicated will give 1 L of IV fluids labs are stable no signs of ACS patient responded to IV fluids feeling much better will discharge patient home Differential Diagnosis Differential Diagnoses: The differential diagnosis associated with the presentation includes Anxiety/ACS/ Lab Data [facility] Lab Attestation statement: I reviewed the patient's lab results. 05/19/24 19:54 05/19/24 19:54 Labs: Lab Results 05/19/24 Range/Units 19:54 WBC 10.5 (4.8-10.8) X10*3/uL RBC 3.93 L (4.20-5.50) X10*6/uL Hgb 12.7 (12.0-16.0) g/dl Hct 36.9 L (37.0-47.0) % MCV 93.9 (80.0-98.0) fL MCH 32.3 (27.0-33.0) pg MCHC 34.4 (31.0-35.0) g/dl RDW 12.6 (11.0-16.0) % Plt Count 216 (160-400) X10*3/uL MPV 9.4 (9.4-12.3) fL Immature Gran % (Auto) 0.3 (0.0-0.4) % Neut % (Auto) 81.8 H (45-73) % Lymph % (Auto) 6.1 L (20-40) % [place] % (Auto) 9.0 (2-11) % Eos % (Auto) 2.7 (0-4) % Baso % (Auto) 0.1 (0-2) % Lymph # (Auto) 0.6 L (1.2-4.9) X10*3/uL [place] # (Auto) 0.9 (0.1-1.2) X10*3/uL Eos # (Auto) 0.3 (0.0-0.4) X10*3/uL Baso # (Auto) 0.0 (0.0-0.2) X10*3/uL Abs Immat Gran (auto) 0.03 (0.00-0.03) X10*3/uL Absolute Neuts (auto) 8.6 H (2.0-8.3) x10*3/uL Absolute Nucleated RBC 0.000 (0.0-0.012) X10*3/uL Nucleated RBC % (auto) 0.0 (0.0-0.2) /100WBC Sodium 137 (135-145) mmol/L Potassium 3.9 (3.3-5.1) mmol/L Chloride 105 (96-108) mmol/L Carbon Dioxide 26 (22-29) mmol/L Anion Gap 10 L (12-20) BUN 9 (9-16) mg/dL Creatinine 0.66 (0.5-1.4) mg/dL Estim Creat Clear Calc 73.5 Estimated GFR > 60 Random Glucose 139 H (60-115) mg/dL Calcium 9.0 (8.4-10.2) mg/dL Magnesium 1.8 (1.6-2.6) mg/dL Total Bilirubin 0.7 (0.0-1.0) mg/dL AST 16 (5-31) U/L ALT 11 (0-31) U/L Alkaline Phosphatase 53 (39-117) U/L Troponin I High Sens < 2.7 (<3.5-17.0) ng/L Total Protein 6.3 L (6.5-8.0) g/dL Albumin 3.7 (3.5-5.0) g/dL Lipase 15 (8-78) U/L Influenza Type A (PCR) NEGATIVE (Negative) Influenza Type B (PCR) NEGATIVE (Negative) RSV RNA Qual (PCR) NEGATIVE (Negative) SARS-CoV-2 RNA (RT-PCR) NEGATIVE (Negative) Independent Interpretation I performed an independent interpretation of an: EKG Interpretation: Sinus tachycardia with heart rate of 101 beats per minute normal intervals normal axis no acute ST-T no acute ischemia Discharge Plan Discharge Clinical Impression: Autonomic dysfunction Patient Disposition: Home, Self-Care Instructions: Tachycardia (ED) Additional Instructions: Your tachycardic is from autonomic dysfunction Advised to drink at least 3 L of fluid every day with increased salt intake Follow up with your brake press operator/PCP Prescriptions: No Action albuterol sulfate 90 mcg/actuation HFA aerosol inhaler 2 inh inhalation Q6H PRN (Reason: shortness of breath or wheezing) 30 Days Qty: 18 12RF estradiol valerate [Delestrogen] 10 mg/mL oil 6.25 mg IM 2XW aspirin 81 mg tablet,delayed release (DR/EC) 81 mg PO DAILY (DME) CPAP Machine/Device Device See Rx Instructions .ROUTE Rx Instructions: As directed Interventions: ED Discharge Assessment Last Done: 05/19/24 23:45 Discharge Date/Time: 05/19/24 23:45 Print Language: [place]
[2024-05-19] MEDS: 0.9 % Sodium Chloride 1,000 ML 999 ML IV (22:12)
--- NOTE | 2024-05-19 23:17 | MHC.EDTECH ---
This tech went to draw blood work and patient refused blood work RN and Charge Nurse aware
--- NOTE | 2024-05-20 00:29 | PC.NURSE ---
LATE ENTRY FOR IN ROOM TIME OF [id number] bath design sales consultant to bedside to assist with pt's reported dissatisfaction and request for another Dr. Pt expressed concern surrounding year long issues that have been getting progressively worse over the past month. She confirms that she has been seen by her PCP and other specialist as they are questioning whether or not this is a neuromuscular issue or not. She also reported having an issue with her mitral valve, and left carotid is 2/3 occluded . Pt was conversing in full/complete sentences without respiratory distress or appearing winded. Pt requested a MRI of her diaphragm adding that there must be something! and I'm afraid of going home and dying . Pt reassured that all tests thus far have been reassuring and RN offered to complete a repeat troponin, repeat orthostatic vitals once liter of NS completed and then an ambulation trial and she and the visitor were agreeable to all that. The pt and visitor had asked if we could transfer them to [facility] and RN explained why an ED to ED transfer could not occur at this time due to lack of medical necessity and they verbalized understanding.
== END 2024-05-19 23:45 | disposition home or self-care (01) ==
PROVIDERS: Emergency Provider Internal Medicine; PCP Internal Medicine
DX: R07.89 Other chest pain (principal); F45.8 Other somatoform disorders; R06.00 Dyspnea, unspecified; R10.2 Pelvic and perineal pain; R00.0 Tachycardia, unspecified; R11.2 Nausea with vomiting, unspecified; R94.31 Abnormal electrocardiogram [ECG] [EKG]; Z03.818 Encounter for observation for suspected exposure to other biological agents ruled out; Z79.899 Other long term (current) drug therapy
CPT/HCPCS: 0241U; 36415; 80053; 83690; 83735; 84484; 85025; 93005; 96360; 99284; 99285

== ENCOUNTER → 2024-05-19 19:34 | Outpatient (BNV) | payer OTHER, SELFPAY | PROVIDERS: Emergency Provider Internal Medicine; PCP Internal Medicine; Visit Provider Internal Medicine Cardiovascular Disease | DX: R07.89 Other chest pain (principal); R00.0 Tachycardia, unspecified; R94.31 Abnormal electrocardiogram [ECG] [EKG] | CPT/HCPCS: 93010 ==

== ENCOUNTER 2024-05-30 15:20 | Outpatient (AMB) | payer OTHER, SELFPAY ==
--- NOTE | 2024-05-30 15:28 | MHC.OFFVIS ---
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 Patient was getting electrical zapping pains in her head along with stabbing pains in the neck. 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 This all began in terms of workup for weakness, shortness of breath and weight loss. She had prior workup in as part of her workup for pulsatile tinnitus I believe she had undergone a carotid ultrasound. She is currently hyper fixated on all her medical issues. In terms of her shortness of breath she is seeing a senior mainframe programmer analyst and is getting a 2nd opinion regarding that. It appears that she has cardiac mitral valvular disease as well and she had seen a physician regarding that and is also obtaining a 2nd opinion regarding that. She is a nondiabetic and only smoked for about 2 years in . She has ongoing respiratory issues along with weight loss. In terms of her carotids she denies any lateralizing signs or symptoms speech disturbances or evidence of amaurosis fugax. She now presents to us for vascular evaluation. [facility] Medical History ALS (amyotrophic lateral sclerosis) COVID-19 Neuromuscular disease Chronic hypercapnic respiratory failure Diaphragmatic disorder Scoliosis Long COVID Insomnia Tachycardia Dyspnea Social History Alcohol intake: current Alcohol intake frequency: a few times a week Alcohol type: wine Patient Tobacco Use Status: Former Tobacco user Tobacco use type: Cigarette Years Smoked: 30 Years Ago Review of Systems Const All systems reviewed & are unremarkable except as noted in HPI and below Reports no additional complaints ENT Reports Normal hearing present Card Denies chest pain, Denies chest pain at rest, Denies chest pain with activity and Denies pedal edema Resp Denies cough GI Denies abdominal pain Musc Denies abnormal gait, Denies muscle cramps and Denies radiating pain into limb Skin/Breast Denies skin ulcer and Denies wounds Neuro Reports Normal hearing present and Denies abnormal gait Psych Reports no additional complaints Physical Exam Const General: cooperative, healthy appearing and comfortable Orientation/consciousness: oriented to person, oriented to place and oriented to time HEENT Head: Yes normal to inspection Neck Neck: Yes normal visual inspection Carotids: no bruits Chest Chest palpation & inspection: abnormal inspection of the chest Resp Effort & Inspection: normal respiratory effort and able to speak in complete sentences Auscultation: clear to auscultation bilaterally, no crackles, no rales, no rhonchi and no wheezes Cardio Rate: regular rate Rhythm: regular rhythm Heart sounds: S1 normal heart sound present and S2 normal heart sound present Bruits: no carotid bruits Peripheral pulses: Peripheral pulses 2+ throughout GI Inspection: Yes normal to inspection Skin Wounds: no wounds Hair: normal Neuro General: oriented to person, oriented to place and oriented to time Cranial nerves: Yes CN's II-XII intact bilaterally and Yes Normal hearing present Cognition (Neuro): normal cognition Motor exam (neuro): 5/5 motor strength present throughout Extrem Other: venous exam: No significant superficial varicosities or spider telangiectasias, minimal edema General: No clubbing, No cyanosis and No edema Psych Appearance: grossly normal Mental Status: mental status grossly normal Speech and movement: Normal speech and movement present Results Reviewed Results Reviewed: Carotid ultrasound results reviewed from [facility] dated 03/30/2024. Right side no significant stenosis left side 50-69% stenosis with peak systolic velocity was only 172. I suspect it is to the lower edge of that spectrum. Assessment & Plan Assessment & Plan (1) Left carotid stenosis: Code(s): I65.22 - Occlusion and stenosis of left carotid artery Category: Medical Plan: In short patient has very mild left carotid stenosis. She is already on an aspirin. None of her symptoms are related to her carotid disease. I spent an extensive amount of time with patient education and reassurance that this is not the cause of her issues. She became quite agitated and wanted to know what the cause of her shortness of breath and other issues are unfortunately it does not appear to be vascular in nature. I did try to explain this to her. I did request that she follow up with her primary care and may be even better served by going to a tertiary care center. She will follow up with us on an as-needed basis. Thank you for allowing us to assist in her care. If there are any questions or concerns please do not hesitate to contact us Coding Level of Care Code New Pt Level 4 (21728) Diagnoses Left carotid stenosis I65.22
== END 2024-05-30 16:05 | disposition home or self-care (01) ==
LOC: HO.HVS 15:21
PROVIDERS: PCP Internal Medicine; Visit Provider Surgery Vascular Surgery
DX: I65.22 Occlusion and stenosis of left carotid artery (principal)
CPT/HCPCS: 99204

== ENCOUNTER → 2024-05-30 15:20 | Outpatient (BNVA) | payer OTHER, SELFPAY | PROVIDERS: PCP Internal Medicine; Visit Provider Surgery Vascular Surgery | DX: I65.22 Occlusion and stenosis of left carotid artery (principal) | CPT/HCPCS: 99202 ==

== ENCOUNTER 2024-06-08 11:00 | Outpatient (AMB) | payer OTHER, SELFPAY ==
--- NOTE | 2024-06-08 11:10 | MHC.OFFVIS ---
Vital Signs 06/08/24 11:11 Height 5 ft 8 in Weight 108 lb 0.424 oz BMI 16.4 BP 124/86 Blood Pressure Location Lt brachial Position Sitting Pulse 78 Pulse Source Pulse Oximeter Pulse Oximetry (%) 99 Oxygen Delivery Method Room Air Intake Visit Reasons: Post Covid Allergies ragweed pollen Adverse Reaction (Severe, Verified 06/08/24 11:17) Cough HPI Comments Details: The patient is a 64 year woman who presents with symptoms of shortness of breath and also palpitations. The patient has not been feeling well for some time. Initially back if he years ago she was having issues with abdominal spasms. [place] like she was having diaphragmatic spasms she was not sure she was having something going on with the phrenic nerve. Subsequently after that the patient developed COVID-19. She has not noticing increasing heart rate palpitations in addition to shortness of breath. Now she has been progressively more short of breath last year. Her significant other is his with her and she is also states that she is become very short of breath even with minimal activity. Sometimes she feels like she is choking suffocating. Sometimes she feels so severe that she has to even stop doing the her activities of daily living such as doing the dishes and she has to sit down because of shortness of breath. She did have an echocardiogram done demonstrating some valvular disease. In addition to that during the office we did go for brief walking oximetry the patient was dyspneic breathing shallow and fast about 20 5 times a minute heart rate was elevated up to 125 but yet her pulse ox was stable at 98% which is reassuring. No imaging studies available at this time. Will go ahead and request blood work including a chest x-ray at this time. The patient will benefit from pulmonary function studies will follow-up afterwards. She may also benefit from pulmonary rehabilitation. Indeed dyspnea be related to post COVID or there may be a neurologic component resulting in some type of neuromuscular disease. 12/22/2023 the patient is here for a pulmonary follow-up visit. She continues be very dyspneic short of breath uncomfortable. The patient did undergo a chest x-ray demonstrating hyperinflation of her lungs. She had a blood gas which is reassuring. In addition to that pulmonary function studies did also show some degree of air trapping consistent with the hyperinflation of her lungs. We talked about importance of breathing techniques. The patient will really benefit from pulmonary rehabilitation at this time to help with the breathing techniques and also from thin her and billed aerobic capacity. In the meantime the patient continues to be dyspneic. We will request a cardiopulmonary exercise tolerance test to better address her dyspnea symptoms and see is a cardiovascular versus a pulmonary versus a musculoskeletal component. She is also working closely with neurology regarding any neuromuscular conditions that may be resulting her worsening dyspnea symptoms. She is concerned about diaphragm. She feels like it has not working correctly and she feels that his being constrained. Will go ahead and try her on baclofen to make sure she has not having any diaphragmatic spasms but will go ahead and request a sniff study to make sure that there is adequate excursion of the diaphragm. 01/06/2024 the patient is here for a pulmonary follow-up visit. She continues to be very dyspneic. She feels like she is getting worse. Even with minimal activity even at rest she is short of breath. We did check a venous blood gas during the last visit and her CO2 was in the upper limit of normal. She did follow-up with Neurology. The question neuromuscular disease resulting in significant work of breathing. Although still not clear. She is going to be referred to tertiary hospital for a neuromuscular specialist. In the meantime she did undergo a sniff study demonstrating normal diaphragmatic movement, although, it was very limited study and could not quantify the degree of diaphragmatic movement. In view of her shortness of breath will go ahead and request blood work including D-dimer to assess for potential blood clots. Based on the fact the patient has x-ray demonstrated some abnormalities in her PFTs and a diagnostic and she continues to have significant symptoms a CT scan of the chest will be a reasonable next step. Will also check an overnight oximetry with end-tidal CO2 to assess her CO2 throughout the night in view of the possibility of a chronic hypercarbic respiratory failure secondary to neuromuscular disease. The patient also benefit from pulmonary rehabilitation. 02/04/2024 the patient is here for a pulmonary follow-up visit. She continues to be very dyspneic. Moderate to severe. She did have the overnight oximetry demonstrating significant hypoxia at nighttime. Therefore she was prescribed oxygen. However, she has been reluctant to use it. I did emphasize to her the importance of using the oxygen. She will start using the oxygen now. She also had a blood gas demonstrating some slight elevations in her CO2. This was a venous blood gas. Again, with her significant muscle deconditioning and muscle wasting she likely is contributing component of respiratory failure. The patient will be evaluated by neurologist soon looking for neuromuscular conditions such as muscular dystrophy. She did have a sniff study demonstrating normal movement of the diaphragm which is reassuring. The patient also underwent a CT scan of the chest was reassuring as well. No evidence of any parenchymal lung disease. The patient was most start pulmonary rehabilitation. She has not as of yet. I will go ahead and put although order in. In the meantime she did undergo cardiopulmonary exercise tolerance test. We did review together. She has significant aerobic limitations. I suspect moderate chondral disease is also in differential such as mitochondrial muscular dystrophy. Again, she needs to be evaluated by Neurology or muscular dystrophy clinic. In the meantime the patient will start these in the oxygen. And also, hopefully start pulmonary rehabilitation soon. 04/07/2024 the patient is here for a pulmonary follow-up visit. She did go to [facility] and she was evaluated there. Currently being evaluated for neuromuscular diseases. she will be going back for any mg test soon. In the meantime she did undergo pulmonary function studies at [facility] which I personally reviewed with her. Her maximum inspiratory and expiratory pressures are down to 50%. Again, this is consistent with a neuromuscular disease resulting in her dyspnea symptoms. She has also has had significant weight loss. We did provide her with protein drinks during the last visit as we have samples and we also provided her with samples again. But, she would benefit from getting a prescription from her primary care doctor for significant weight loss and deconditioning that is also likely contributing to her muscle weakness. The patient did have a positive test for blood work that was suggestive of neuroendocrine disease such as small cell that can consult and paraneoplastic conditions. Although, her CT scan of the chest did not demonstrate any pulmonary nodules or any concerns for small cell lung cancer. Will have her repeat a chest x-ray today to make sure there is no changes on those images. In the meantime the patient will have a repeat blood gas because will monitoring closely her CO2 as it was slightly elevated during the last visit. If the CO2 continues to climb suggest that she is developing worsening hypercarbic respiratory failure in could result in worsening disease especially if there is further progression. The patient is interested in pulmonary rehabilitation. At least we can start working on building some strength in the middle of the evaluation. As far as other functions appears that she is swallowing well denies any dysphagia at this time. Will continue monitoring closely for that. 05/02/2024 the patient is here for a pulmonary follow-up visit. Since we last spoke the patient was initially set up for a sleep study. However her symptoms worsened and she ended up in the ER. At that point she had a repeat blood gas still demonstrating elevation her CO2. Therefore we arranged with a local [employer] company to for her to start IVAPS noninvasive ventilator for her neuromuscular disease and chronic hypercarbic respiratory failure. Initially was hard for her to get used to it. We did work with the [employer] company to adjust the pressures in the volumes accordingly for her to be admitted tolerated. She has been tolerating it better and she has been able to sleep at night which is reassuring. She is asking if this is something that she can wean off. Explained to the patient that did noninvasive ventilator as a bridge to therapy. We would have to know what is going on with her neuromuscular disease and proper treatment in order to help her strengthen and see if we are able to wean her off liberated for the noninvasive ventilator. However, the patient states that in her visit to [facility] with the neurologist he spoke to her about a likely diagnosis of ALS. He is going to do additional testing such as genetic testing to better identify her condition. But in the meantime, he did recommend she start medicine for ALS. she is reluctant to do so at this time. She is questioning the diagnosis. At this point the patient does have a hard time going to [facility] anyway so we will refer her to the [facility] clinic for her to be further evaluated for ALS and see if they can potentially rule out or confirm the diagnosis at this time. In the meantime she is wondering about strengthening her muscles. She was approved to start pulmonary rehabilitation but then other issues arise and she was not able to do so. I did remind her that she needs to call to arrange a visit for her to start rehabilitation therapy. Will have her return in a couple months with spirometry to assess any progression of disease. 06/08/2024 the patient is here for a pulmonary follow-up visit. She has had multiple appointments with tertiary centers to further figure out her neuromuscular disease. The patient is still waiting to hear back or follow-up regarding a definitive diagnosis at this time. Either way the patient definitely has a neuromuscular component affecting her respiratory muscles. She is using her accessory muscles to breathe. Although she seems a little bit more comfortable today. She is using noninvasive ventilator at nighttime. She is using it every night she feels like she is getting for rest. Sometimes she even forgets she has not known. She does mention that sometimes she does feel that is hard to trigger the ventilator. This may be a sign of further progression of her respiratory weakness and will try to make the noninvasive ventilator more sensitive by decreasing the negative pressure required to trigger it. Will work with her [employer] for that, [place]. In the meantime she will did have her 6 minute walk test with the pulmonary rehabilitation and I did encourage her to schedule her classes to start pulmonary rehabilitation at this time. Will plan to have her undergo spirometry during the next visit and also will require blood gas to assess her CO2. Briefly, we also talked about using the noninvasive ventilator during the daytime if her condition worsens further. We did talk about a mouthpiece that she could use with sip and puff set up specially if symptoms worsen. Clinically today she looks okay so we will start the conversation for that. [facility] Medical History ALS (amyotrophic lateral sclerosis) COVID-19 Neuromuscular disease Chronic hypercapnic respiratory failure Diaphragmatic disorder Scoliosis Long COVID Insomnia Tachycardia Dyspnea Social History Alcohol intake: current Alcohol intake frequency: a few times a week Alcohol type: wine Patient Tobacco Use Status: Former Tobacco user Tobacco use type: Cigarette Years Smoked: 30 Years Ago Review of Systems Const Denies fever(s), Reports headache(s), Reports weakness and Denies weight loss Eyes Denies change in vision ENT Reports change in voice and Reports headache(s) Card Denies chest pain, Reports dyspnea and Reports dyspnea on exertion Resp Reports dyspnea, Reports dyspnea on exertion and Denies wheezing GI Denies abdominal pain Musc Reports no additional complaints Skin/Breast Denies rash Neuro Reports headache(s) and Reports weakness Endo Reports no additional complaints David/Lymph Denies lymphadenopathy Aller/Immun Denies wheezing Physical Exam Vital Signs: Last Vital Signs Pulse 78 06/08/24 11:11 BP 124/86 06/08/24 11:11 Pulse Ox 99 06/08/24 11:11 Oxygen Delivery Method Room Air 06/08/24 11:11 BMI result Body Mass Index 16.4 Const General: cooperative Nutritional Appearance: thin Orientation/consciousness: patient oriented x3 HEENT Head: Yes normocephalic Neck Neck: Yes supple Chest Chest palpation & inspection: normal inspection of the chest Resp Effort & Inspection: tachypneic Auscultation: diminished lung sounds Cardio Rate: tachycardic Heart sounds: S1 normal heart sound present and S2 normal heart sound present GI Palpation (GI): Soft to palpation Skin General skin exam: no rashes or lesions noted Neuro General: patient oriented x3 Extrem General: Yes no clubbing, cyanosis or edema Results Reviewed Results Reviewed: personally review the records from [facility] and the laboratories personally reviewed NIV Astral, TV avg 400 Assessment & Plan Assessment & Plan (1) Dyspnea: Code(s): R06.00 - Dyspnea, unspecified Category: Medical Qualifiers: Dyspnea type: shortness of breath Qualified Code(s): R06.02 - Shortness of breath (2) Tachycardia: Code(s): R00.0 - Tachycardia, unspecified Category: Medical (3) Chronic hypercapnic respiratory failure: Code(s): J96.12 - Chronic respiratory failure with hypercapnia Category: Medical (4) Neuromuscular disease: Comment: Being evaluated for ALS Code(s): G70.9 - Myoneural disorder, unspecified Category: Medical Plan continue NIV with oxygen, requesting the DME to adjust the sensitivity lower if possible Neurology evaluation at the ALS clinic at [facility] to further evaluate the presumptive diagnsois of ALS start pulmonary rehab F/U 2-3 months with spirometry and bloodgad Orders: Orders Venous Blood Gas Today G70.9 - Myoneural disorder, unspecified Coding Level of Care Code Est Pt Level 5 (62672) Diagnoses Shortness of breath R06.02 Dyspnea type: shortness of breath Tachycardia R00.0 Chronic hypercapnic respiratory failure J96.12 Neuromuscular disease G70.9 Time Spent (min) 45
[2024-06-08 11:11] VITALS: BP 124/86; PULSE 78; O2SAT 99; BMI 16.4
== END 2024-06-08 11:53 | disposition home or self-care (01) ==
PROVIDERS: PCP Internal Medicine; Visit Provider Hospitalist
DX: J96.12 Chronic respiratory failure with hypercapnia (principal); R00.0 Tachycardia, unspecified; G70.9 Myoneural disorder, unspecified
CPT/HCPCS: 99215

== ENCOUNTER → 2024-06-08 11:00 | Outpatient (BNVA) | payer OTHER, SELFPAY | PROVIDERS: PCP Internal Medicine; Visit Provider Hospitalist | DX: J96.12 Chronic respiratory failure with hypercapnia (principal); G70.9 Myoneural disorder, unspecified; R00.0 Tachycardia, unspecified; Z86.16 Personal history of COVID-19 | CPT/HCPCS: 99212 ==

== ENCOUNTER 2024-08-10 10:59 | Outpatient (REF) | payer OTHER, SELFPAY ==
[2024-08-10 12:38] LABS: Venous Blood Gas Refer to POC result
[2024-08-10 12:39] LABS: VBG HCO3 27 mmol/L (22-26); VBG pCO2 44 mmHg; VBG pH 7.39 (7.32-7.43); VBG pO2 21 mmHg
[2024-08-10 12:49] LABS: Anion Gap 9 (12-20); Blood Urea Nitrogen 11 mg/dL (9-16); Calcium 8.8 mg/dL (8.4-10.2); Carbon Dioxide 25 mmol/L (22-29); Chloride 110 mmol/L (96-108); Estimated Glomerular Filt Rate > 60; Glucose Random 86 mg/dL (60-115); Potassium 4.3 mmol/L (3.3-5.1); Sodium 140 mmol/L (135-145)
== END 2024-08-10 11:00 | disposition home or self-care (01) ==
LOC: HO.LAB 10:59
PROVIDERS: PCP Internal Medicine; Visit Provider Hospitalist
DX: G12.21 Amyotrophic lateral sclerosis (principal); G70.9 Myoneural disorder, unspecified; R00.0 Tachycardia, unspecified; J96.12 Chronic respiratory failure with hypercapnia
CPT/HCPCS: 36415; 80048; 82803; 94010; 99212

== ENCOUNTER 2024-08-10 10:59 | Outpatient (AMB) | payer OTHER, SELFPAY ==
[2024-08-10 11:01] VITALS: BP 140/80; PULSE 110; O2SAT 100
--- NOTE | 2024-08-10 11:01 | MHC.OFFVIS ---
Vital Signs 08/10/24 11:01 Weight 120 lb 2.431 oz BP 140/80 H Blood Pressure Location Lt brachial Position Sitting Pulse 110 H Pulse Source Pulse Oximeter Pulse Oximetry (%) 100 Oxygen Delivery Method Room Air Intake Visit Reasons: Post Covid Allergies ragweed pollen Adverse Reaction (Severe, Verified 08/10/24 11:06) Cough Medication List - Last Reconciled 08/10/24 by Leticia Sahu LPN albuterol sulfate 90 mcg/actuation 2 inhalations inhalation Q6H PRN 30 days aspirin 81 mg PO DAILY CPAP (CPAP Machine/Device) As directed estradiol valerate (Delestrogen) 6.25 mg IM 2XW HPI Comments Details: The patient is a 64 year woman who presents with symptoms of shortness of breath and also palpitations. The patient has not been feeling well for some time. Initially back if he years ago she was having issues with abdominal spasms. [place] like she was having diaphragmatic spasms she was not sure she was having something going on with the phrenic nerve. Subsequently after that the patient developed COVID-19. She has not noticing increasing heart rate palpitations in addition to shortness of breath. Now she has been progressively more short of breath last year. Her significant other is his with her and she is also states that she is become very short of breath even with minimal activity. Sometimes she feels like she is choking suffocating. Sometimes she feels so severe that she has to even stop doing the her activities of daily living such as doing the dishes and she has to sit down because of shortness of breath. She did have an echocardiogram done demonstrating some valvular disease. In addition to that during the office we did go for brief walking oximetry the patient was dyspneic breathing shallow and fast about 20 5 times a minute heart rate was elevated up to 125 but yet her pulse ox was stable at 98% which is reassuring. No imaging studies available at this time. Will go ahead and request blood work including a chest x-ray at this time. The patient will benefit from pulmonary function studies will follow-up afterwards. She may also benefit from pulmonary rehabilitation. Indeed dyspnea be related to post COVID or there may be a neurologic component resulting in some type of neuromuscular disease. 12/22/2023 the patient is here for a pulmonary follow-up visit. She continues be very dyspneic short of breath uncomfortable. The patient did undergo a chest x-ray demonstrating hyperinflation of her lungs. She had a blood gas which is reassuring. In addition to that pulmonary function studies did also show some degree of air trapping consistent with the hyperinflation of her lungs. We talked about importance of breathing techniques. The patient will really benefit from pulmonary rehabilitation at this time to help with the breathing techniques and also from thin her and billed aerobic capacity. In the meantime the patient continues to be dyspneic. We will request a cardiopulmonary exercise tolerance test to better address her dyspnea symptoms and see is a cardiovascular versus a pulmonary versus a musculoskeletal component. She is also working closely with neurology regarding any neuromuscular conditions that may be resulting her worsening dyspnea symptoms. She is concerned about diaphragm. She feels like it has not working correctly and she feels that his being constrained. Will go ahead and try her on baclofen to make sure she has not having any diaphragmatic spasms but will go ahead and request a sniff study to make sure that there is adequate excursion of the diaphragm. 01/06/2024 the patient is here for a pulmonary follow-up visit. She continues to be very dyspneic. She feels like she is getting worse. Even with minimal activity even at rest she is short of breath. We did check a venous blood gas during the last visit and her CO2 was in the upper limit of normal. She did follow-up with Neurology. The question neuromuscular disease resulting in significant work of breathing. Although still not clear. She is going to be referred to tertiary hospital for a neuromuscular specialist. In the meantime she did undergo a sniff study demonstrating normal diaphragmatic movement, although, it was very limited study and could not quantify the degree of diaphragmatic movement. In view of her shortness of breath will go ahead and request blood work including D-dimer to assess for potential blood clots. Based on the fact the patient has x-ray demonstrated some abnormalities in her PFTs and a diagnostic and she continues to have significant symptoms a CT scan of the chest will be a reasonable next step. Will also check an overnight oximetry with end-tidal CO2 to assess her CO2 throughout the night in view of the possibility of a chronic hypercarbic respiratory failure secondary to neuromuscular disease. The patient also benefit from pulmonary rehabilitation. 02/04/2024 the patient is here for a pulmonary follow-up visit. She continues to be very dyspneic. Moderate to severe. She did have the overnight oximetry demonstrating significant hypoxia at nighttime. Therefore she was prescribed oxygen. However, she has been reluctant to use it. I did emphasize to her the importance of using the oxygen. She will start using the oxygen now. She also had a blood gas demonstrating some slight elevations in her CO2. This was a venous blood gas. Again, with her significant muscle deconditioning and muscle wasting she likely is contributing component of respiratory failure. The patient will be evaluated by neurologist soon looking for neuromuscular conditions such as muscular dystrophy. She did have a sniff study demonstrating normal movement of the diaphragm which is reassuring. The patient also underwent a CT scan of the chest was reassuring as well. No evidence of any parenchymal lung disease. The patient was most start pulmonary rehabilitation. She has not as of yet. I will go ahead and put although order in. In the meantime she did undergo cardiopulmonary exercise tolerance test. We did review together. She has significant aerobic limitations. I suspect moderate chondral disease is also in differential such as mitochondrial muscular dystrophy. Again, she needs to be evaluated by Neurology or muscular dystrophy clinic. In the meantime the patient will start these in the oxygen. And also, hopefully start pulmonary rehabilitation soon. 04/07/2024 the patient is here for a pulmonary follow-up visit. She did go to [place] and she was evaluated there. Currently being evaluated for neuromuscular diseases. she will be going back for any mg test soon. In the meantime she did undergo pulmonary function studies at [facility] which I personally reviewed with her. Her maximum inspiratory and expiratory pressures are down to 50%. Again, this is consistent with a neuromuscular disease resulting in her dyspnea symptoms. She has also has had significant weight loss. We did provide her with protein drinks during the last visit as we have samples and we also provided her with samples again. But, she would benefit from getting a prescription from her primary care doctor for significant weight loss and deconditioning that is also likely contributing to her muscle weakness. The patient did have a positive test for blood work that was suggestive of neuroendocrine disease such as small cell that can consult and paraneoplastic conditions. Although, her CT scan of the chest did not demonstrate any pulmonary nodules or any concerns for small cell lung cancer. Will have her repeat a chest x-ray today to make sure there is no changes on those images. In the meantime the patient will have a repeat blood gas because will monitoring closely her CO2 as it was slightly elevated during the last visit. If the CO2 continues to climb suggest that she is developing worsening hypercarbic respiratory failure in could result in worsening disease especially if there is further progression. The patient is interested in pulmonary rehabilitation. At least we can start working on building some strength in the middle of the evaluation. As far as other functions appears that she is swallowing well denies any dysphagia at this time. Will continue monitoring closely for that. 05/02/2024 the patient is here for a pulmonary follow-up visit. Since we last spoke the patient was initially set up for a sleep study. However her symptoms worsened and she ended up in the ER. At that point she had a repeat blood gas still demonstrating elevation her CO2. Therefore we arranged with a local [employer] company to for her to start IVAPS noninvasive ventilator for her neuromuscular disease and chronic hypercarbic respiratory failure. Initially was hard for her to get used to it. We did work with the [employer] company to adjust the pressures in the volumes accordingly for her to be admitted tolerated. She has been tolerating it better and she has been able to sleep at night which is reassuring. She is asking if this is something that she can wean off. Explained to the patient that did noninvasive ventilator as a bridge to therapy. We would have to know what is going on with her neuromuscular disease and proper treatment in order to help her strengthen and see if we are able to wean her off liberated for the noninvasive ventilator. However, the patient states that in her visit to [place] with the neurologist he spoke to her about a likely diagnosis of ALS. He is going to do additional testing such as genetic testing to better identify her condition. But in the meantime, he did recommend she start medicine for ALS. she is reluctant to do so at this time. She is questioning the diagnosis. At this point the patient does have a hard time going to [place] anyway so we will refer her to the ALS [facility] clinic for her to be further evaluated for ALS and see if they can potentially rule out or confirm the diagnosis at this time. In the meantime she is wondering about strengthening her muscles. She was approved to start pulmonary rehabilitation but then other issues arise and she was not able to do so. I did remind her that she needs to call to arrange a visit for her to start rehabilitation therapy. Will have her return in a couple months with spirometry to assess any progression of disease. 06/08/2024 the patient is here for a pulmonary follow-up visit. She has had multiple appointments with tertiary centers to further figure out her neuromuscular disease. The patient is still waiting to hear back or follow-up regarding a definitive diagnosis at this time. Either way the patient definitely has a neuromuscular component affecting her respiratory muscles. She is using her accessory muscles to breathe. Although she seems a little bit more comfortable today. She is using noninvasive ventilator at nighttime. She is using it every night she feels like she is getting for rest. Sometimes she even forgets she has not known. She does mention that sometimes she does feel that is hard to trigger the ventilator. This may be a sign of further progression of her respiratory weakness and will try to make the noninvasive ventilator more sensitive by decreasing the negative pressure required to trigger it. Will work with her [employer] for that, [place]. In the meantime she will did have her 6 minute walk test with the pulmonary rehabilitation and I did encourage her to schedule her classes to start pulmonary rehabilitation at this time. Will plan to have her undergo spirometry during the next visit and also will require blood gas to assess her CO2. Briefly, we also talked about using the noninvasive ventilator during the daytime if her condition worsens further. We did talk about a mouthpiece that she could use with sip and puff set up specially if symptoms worsen. Clinically today she looks okay so we will start the conversation for that. 08/10/2024 the patient is here for pulmonary follow-up visit. The patient is still being followed closely for neuromuscular disease with Neurology. She did have a modified barium swallow apparently sometime in the late fall where was reassuring no evidence of any aspiration. The patient has been using the noninvasive ventilator overnight. The therapy has been affecting beneficial. She is wondering the if she can do without it. She would like to test to see what her oxygen is off the machine. I did tell her we can do that but I do recommend that she stay on the noninvasive ventilator based on the fact that is not on her oxygen but it is more related to the CO2 in the chronic hypercarbic respiratory failure. The patient was also concerned about her mitral valve where she has a prolapse and she is also concerned about stenosis of her left internal carotid and needing surgery. I explained to her that she does have hard for perioperative pulmonary complications due to her neuromuscular condition in her risk of a prolonged ventilator time. The patient is aware that if she does need surgery then she will need a preoperative evaluation for each of the events and we can discuss that further what is more definitive. She did undergo spirometry today. Her forced vital capacity did decrease from 2.6 to 2.07. Therefore the concerned about potential progression of her neuromuscular disease. It is reassuring that she gained actually 3 lb. During the office visit we also went for a walking oximetry and she maintain a pulse ox of 99% which is great. Heart rate was elevated. She was scheduled to start pulmonary rehab which she has not started it as of yet. I did encourage her to do so because it will help. [facility] Medical History ALS (amyotrophic lateral sclerosis) COVID-19 Neuromuscular disease Chronic hypercapnic respiratory failure Diaphragmatic disorder Scoliosis Long COVID Insomnia Tachycardia Dyspnea Social History Alcohol intake: current Alcohol intake frequency: a few times a week Alcohol type: wine Patient Tobacco Use Status: Former Tobacco user Tobacco use type: Cigarette Years Smoked: 30 Years Ago Review of Systems Const Denies fever(s), Reports headache(s), Reports weakness and Denies weight loss Eyes Denies change in vision ENT Reports change in voice and Reports headache(s) Card Denies chest pain, Reports dyspnea and Reports dyspnea on exertion Resp Reports dyspnea, Reports dyspnea on exertion and Denies wheezing GI Denies abdominal pain Musc Reports no additional complaints Skin/Breast Denies rash Neuro Reports headache(s) and Reports weakness Endo Reports no additional complaints David/Lymph Denies lymphadenopathy Aller/Immun Denies wheezing Physical Exam Vital Signs: Last Vital Signs Pulse 110 H 08/10/24 11:01 BP 140/80 H 08/10/24 11:01 Pulse Ox 100 08/10/24 11:01 Oxygen Delivery Method Room Air 08/10/24 11:01 Const General: cooperative Nutritional Appearance: thin Orientation/consciousness: patient oriented x3 HEENT Head: Yes normocephalic Neck Neck: Yes supple Chest Chest palpation & inspection: normal inspection of the chest Resp Effort & Inspection: tachypneic Auscultation: diminished lung sounds Cardio Rate: tachycardic Heart sounds: S1 normal heart sound present and S2 normal heart sound present GI Palpation (GI): Soft to palpation Skin General skin exam: no rashes or lesions noted Neuro General: patient oriented x3 Extrem General: Yes no clubbing, cyanosis or edema Office Procedures Spirometry Testing Spirometry Comments: Spirometry done in the office, Dr. Herrera has the results results scanned to her chart. [address]291- Spirometry Assessment & Plan Assessment & Plan (1) Dyspnea: Code(s): R06.00 - Dyspnea, unspecified Category: Medical Qualifiers: Dyspnea type: shortness of breath Qualified Code(s): R06.02 - Shortness of breath (2) Tachycardia: Code(s): R00.0 - Tachycardia, unspecified Category: Medical (3) Chronic hypercapnic respiratory failure: Code(s): J96.12 - Chronic respiratory failure with hypercapnia Category: Medical (4) Neuromuscular disease: Comment: Being evaluated for ALS Code(s): G70.9 - Myoneural disorder, unspecified Category: Medical Plan continue NIV with oxygen overnight oximetry on NIV without oxygen Neurology evaluation at the ALS clinic at [facility] to further evaluate the presumptive diagnsois of ALS start pulmonary rehab repeat bloodgas F/U 2-3 months with spirometry and bloodgad Orders: Orders Basic Metabolic Panel Today G70.9 - Myoneural disorder, unspecified AMB Spirometry Testing Today G70.9 - Myoneural disorder, unspecified, J96.12 - Chronic respiratory failure with hypercapnia Coding Level of Care Code Est Pt Level 5 (37866) Diagnoses Shortness of breath R06.02 Dyspnea type: shortness of breath Tachycardia R00.0 Chronic hypercapnic respiratory failure J96.12 Neuromuscular disease G70.9 CPT Codes Spirometry - CPT: 19376- Spirometry ([id number]) Time Spent (min) 60
--- OUTSIDE RECORDS SUMMARY | 2024-08-10 13:59 | XMS_ITS | Continuity of Care Document ---
Author Organization [facility] Address [address] [place] [id number] Care Team Providers Care Fire Lieutenant Name Role Phone Av Christopher MD Primary Care Physician Encounter [facility] Date(s): 06/14/24 - 07/14/24 [facility] [address] [place], [place] [address] Attending Physician: Jose Carlos Rosenthal Admitting Physician: Jose Carlos Rosenthal Referring Physician: AdmtrJose Carlos Encounter Type: Triage Allergies, Adverse Reactions, Alerts No Known Allergies [...] 6 tablet, 0 Refills, Maintenance, 04/02/16 11:20:35 AM EDT, [id number] Start Date: 04/02/16 Status: Ordered Quantity: 6.0 Unit: tablet Repeat number: 1 clonazePAM 1 mg oral tablet 1 tablet = 1 mg, By Mouth, 3 times a day, 0 Refills, Maintenance, 03/26/16 11:15:14 AM EDT Start Date: 03/26/16 Status: Ordered Repeat number: 1 Estradiol 0 Refills, Maintenance, 03/26/16 11:14:28 AM EDT Start Date: 03/26/16 Status: Ordered Repeat number: 1 medroxyPROGESTERone 150 mg/mL intramuscular suspension 1 mL = 150 mg, Intramuscular, Every 3 months, # 1 mL, 0 Refills, Maintenance, 03/26/16 11:14:45 AM EDT, Suspension Start Date: 03/26/16 Status: Ordered Quantity: 1.0 Unit: mL Repeat number: 1 Problem List Condition Confirmation Course Effective Dates Status Health St atus Informant Advice or immunization for travel Confirmed Active Underweight Confirmed Active Patient Care team information Care Team Personnel Name: Av Christopher MD Position: [facility] Outreach Member Role: PCP Address: [address] [place] [address] [place] [id number]- Telecom: Care Team Related Persons Name: SOCORRO GUERRA Insurance Providers Guarantor name: MONA Health Plan Information #: 1 Payer: [facility] [employer] Member Number: MONA Policy Number: NA Group Number: NA
== END 2024-08-10 11:48 | disposition home or self-care (01) ==
PROVIDERS: PCP Internal Medicine; Visit Provider Hospitalist
DX: J96.12 Chronic respiratory failure with hypercapnia (principal); R00.0 Tachycardia, unspecified; G70.9 Myoneural disorder, unspecified
CPT/HCPCS: 94010; 99215

== ENCOUNTER 2024-09-26 13:24 | Outpatient (AMB) | payer OTHER, SELFPAY ==
[2024-09-26 13:36] VITALS: BP 140/82; PULSE 96; O2SAT 100
--- NOTE | 2024-09-26 13:36 | MHC.OFFVIS ---
Vital Signs 09/26/24 13:36 Weight 115 lb 11.883 oz BP 140/82 H Blood Pressure Location Rt brachial Position Sitting Pulse 96 Pulse Source Pulse Oximeter Pulse Oximetry (%) 100 Oxygen Delivery Method Room Air Intake Visit Reasons: Post Covid/[place] Req Allergies ragweed pollen Adverse Reaction (Severe, Verified 09/26/24 13:41) Cough Medication List - Last Reconciled 09/26/24 by Leticia Sahu LPN albuterol sulfate 90 mcg/actuation 2 inhalations inhalation Q6H PRN 30 days CPAP (CPAP Machine/Device) As directed estradiol valerate (Delestrogen) 6.25 mg IM 2XW HPI Comments Details: The patient is a 64 year woman who presents with symptoms of shortness of breath and also palpitations. The patient has not been feeling well for some time. Initially back if he years ago she was having issues with abdominal spasms. [place] like she was having diaphragmatic spasms she was not sure she was having something going on with the phrenic nerve. Subsequently after that the patient developed COVID-19. She has not noticing increasing heart rate palpitations in addition to shortness of breath. Now she has been progressively more short of breath last year. Her significant other is his with her and she is also states that she is become very short of breath even with minimal activity. Sometimes she feels like she is choking suffocating. Sometimes she feels so severe that she has to even stop doing the her activities of daily living such as doing the dishes and she has to sit down because of shortness of breath. She did have an echocardiogram done demonstrating some valvular disease. In addition to that during the office we did go for brief walking oximetry the patient was dyspneic breathing shallow and fast about 20 5 times a minute heart rate was elevated up to 125 but yet her pulse ox was stable at 98% which is reassuring. No imaging studies available at this time. Will go ahead and request blood work including a chest x-ray at this time. The patient will benefit from pulmonary function studies will follow-up afterwards. She may also benefit from pulmonary rehabilitation. Indeed dyspnea be related to post COVID or there may be a neurologic component resulting in some type of neuromuscular disease. 12/22/2023 the patient is here for a pulmonary follow-up visit. She continues be very dyspneic short of breath uncomfortable. The patient did undergo a chest x-ray demonstrating hyperinflation of her lungs. She had a blood gas which is reassuring. In addition to that pulmonary function studies did also show some degree of air trapping consistent with the hyperinflation of her lungs. We talked about importance of breathing techniques. The patient will really benefit from pulmonary rehabilitation at this time to help with the breathing techniques and also from thin her and billed aerobic capacity. In the meantime the patient continues to be dyspneic. We will request a cardiopulmonary exercise tolerance test to better address her dyspnea symptoms and see is a cardiovascular versus a pulmonary versus a musculoskeletal component. She is also working closely with neurology regarding any neuromuscular conditions that may be resulting her worsening dyspnea symptoms. She is concerned about diaphragm. She feels like it has not working correctly and she feels that his being constrained. Will go ahead and try her on baclofen to make sure she has not having any diaphragmatic spasms but will go ahead and request a sniff study to make sure that there is adequate excursion of the diaphragm. 01/06/2024 the patient is here for a pulmonary follow-up visit. She continues to be very dyspneic. She feels like she is getting worse. Even with minimal activity even at rest she is short of breath. We did check a venous blood gas during the last visit and her CO2 was in the upper limit of normal. She did follow-up with Neurology. The question neuromuscular disease resulting in significant work of breathing. Although still not clear. She is going to be referred to tertiary hospital for a neuromuscular specialist. In the meantime she did undergo a sniff study demonstrating normal diaphragmatic movement, although, it was very limited study and could not quantify the degree of diaphragmatic movement. In view of her shortness of breath will go ahead and request blood work including D-dimer to assess for potential blood clots. Based on the fact the patient has x-ray demonstrated some abnormalities in her PFTs and a diagnostic and she continues to have significant symptoms a CT scan of the chest will be a reasonable next step. Will also check an overnight oximetry with end-tidal CO2 to assess her CO2 throughout the night in view of the possibility of a chronic hypercarbic respiratory failure secondary to neuromuscular disease. The patient also benefit from pulmonary rehabilitation. 02/04/2024 the patient is here for a pulmonary follow-up visit. She continues to be very dyspneic. Moderate to severe. She did have the overnight oximetry demonstrating significant hypoxia at nighttime. Therefore she was prescribed oxygen. However, she has been reluctant to use it. I did emphasize to her the importance of using the oxygen. She will start using the oxygen now. She also had a blood gas demonstrating some slight elevations in her CO2. This was a venous blood gas. Again, with her significant muscle deconditioning and muscle wasting she likely is contributing component of respiratory failure. The patient will be evaluated by neurologist soon looking for neuromuscular conditions such as muscular dystrophy. She did have a sniff study demonstrating normal movement of the diaphragm which is reassuring. The patient also underwent a CT scan of the chest was reassuring as well. No evidence of any parenchymal lung disease. The patient was most start pulmonary rehabilitation. She has not as of yet. I will go ahead and put although order in. In the meantime she did undergo cardiopulmonary exercise tolerance test. We did review together. She has significant aerobic limitations. I suspect moderate chondral disease is also in differential such as mitochondrial muscular dystrophy. Again, she needs to be evaluated by Neurology or muscular dystrophy clinic. In the meantime the patient will start these in the oxygen. And also, hopefully start pulmonary rehabilitation soon. 04/07/2024 the patient is here for a pulmonary follow-up visit. She did go to [place] and she was evaluated there. Currently being evaluated for neuromuscular diseases. she will be going back for any mg test soon. In the meantime she did undergo pulmonary function studies at [facility] which I personally reviewed with her. Her maximum inspiratory and expiratory pressures are down to 50%. Again, this is consistent with a neuromuscular disease resulting in her dyspnea symptoms. She has also has had significant weight loss. We did provide her with protein drinks during the last visit as we have samples and we also provided her with samples again. But, she would benefit from getting a prescription from her primary care doctor for significant weight loss and deconditioning that is also likely contributing to her muscle weakness. The patient did have a positive test for blood work that was suggestive of neuroendocrine disease such as small cell that can consult and paraneoplastic conditions. Although, her CT scan of the chest did not demonstrate any pulmonary nodules or any concerns for small cell lung cancer. Will have her repeat a chest x-ray today to make sure there is no changes on those images. In the meantime the patient will have a repeat blood gas because will monitoring closely her CO2 as it was slightly elevated during the last visit. If the CO2 continues to climb suggest that she is developing worsening hypercarbic respiratory failure in could result in worsening disease especially if there is further progression. The patient is interested in pulmonary rehabilitation. At least we can start working on building some strength in the middle of the evaluation. As far as other functions appears that she is swallowing well denies any dysphagia at this time. Will continue monitoring closely for that. 05/02/2024 the patient is here for a pulmonary follow-up visit. Since we last spoke the patient was initially set up for a sleep study. However her symptoms worsened and she ended up in the ER. At that point she had a repeat blood gas still demonstrating elevation her CO2. Therefore we arranged with a local [employer] company to for her to start IVAPS noninvasive ventilator for her neuromuscular disease and chronic hypercarbic respiratory failure. Initially was hard for her to get used to it. We did work with the [employer] company to adjust the pressures in the volumes accordingly for her to be admitted tolerated. She has been tolerating it better and she has been able to sleep at night which is reassuring. She is asking if this is something that she can wean off. Explained to the patient that did noninvasive ventilator as a bridge to therapy. We would have to know what is going on with her neuromuscular disease and proper treatment in order to help her strengthen and see if we are able to wean her off liberated for the noninvasive ventilator. However, the patient states that in her visit to [facility] with the neurologist he spoke to her about a likely diagnosis of ALS. He is going to do additional testing such as genetic testing to better identify her condition. But in the meantime, he did recommend she start medicine for ALS. she is reluctant to do so at this time. She is questioning the diagnosis. At this point the patient does have a hard time going to [facility] anyway so we will refer her to the [facility] clinic for her to be further evaluated for ALS and see if they can potentially rule out or confirm the diagnosis at this time. In the meantime she is wondering about strengthening her muscles. She was approved to start pulmonary rehabilitation but then other issues arise and she was not able to do so. I did remind her that she needs to call to arrange a visit for her to start rehabilitation therapy. Will have her return in a couple months with spirometry to assess any progression of disease. 06/08/2024 the patient is here for a pulmonary follow-up visit. She has had multiple appointments with tertiary centers to further figure out her neuromuscular disease. The patient is still waiting to hear back or follow-up regarding a definitive diagnosis at this time. Either way the patient definitely has a neuromuscular component affecting her respiratory muscles. She is using her accessory muscles to breathe. Although she seems a little bit more comfortable today. She is using noninvasive ventilator at nighttime. She is using it every night she feels like she is getting for rest. Sometimes she even forgets she has not known. She does mention that sometimes she does feel that is hard to trigger the ventilator. This may be a sign of further progression of her respiratory weakness and will try to make the noninvasive ventilator more sensitive by decreasing the negative pressure required to trigger it. Will work with her [employer] for that, [place]. In the meantime she will did have her 6 minute walk test with the pulmonary rehabilitation and I did encourage her to schedule her classes to start pulmonary rehabilitation at this time. Will plan to have her undergo spirometry during the next visit and also will require blood gas to assess her CO2. Briefly, we also talked about using the noninvasive ventilator during the daytime if her condition worsens further. We did talk about a mouthpiece that she could use with sip and puff set up specially if symptoms worsen. Clinically today she looks okay so we will start the conversation for that. 08/10/2024 the patient is here for pulmonary follow-up visit. The patient is still being followed closely for neuromuscular disease with Neurology. She did have a modified barium swallow apparently sometime in the late fall where was reassuring no evidence of any aspiration. The patient has been using the noninvasive ventilator overnight. The therapy has been affecting beneficial. She is wondering the if she can do without it. She would like to test to see what her oxygen is off the machine. I did tell her we can do that but I do recommend that she stay on the noninvasive ventilator based on the fact that is not on her oxygen but it is more related to the CO2 in the chronic hypercarbic respiratory failure. The patient was also concerned about her mitral valve where she has a prolapse and she is also concerned about stenosis of her left internal carotid and needing surgery. I explained to her that she does have hard for perioperative pulmonary complications due to her neuromuscular condition in her risk of a prolonged ventilator time. The patient is aware that if she does need surgery then she will need a preoperative evaluation for each of the events and we can discuss that further what is more definitive. She did undergo spirometry today. Her forced vital capacity did decrease from 2.6 to 2.07. Therefore the concerned about potential progression of her neuromuscular disease. It is reassuring that she gained actually 3 lb. During the office visit we also went for a walking oximetry and she maintain a pulse ox of 99% which is great. Heart rate was elevated. She was scheduled to start pulmonary rehab which she has not started it as of yet. I did encourage her to do so because it will help. 09/26/2024 the patient is here for a pulmonary follow-up visit. Overall she is doing about the same. She still working on exercises and staying strong. She did get a breather device and she skin is continue to continue to stand during her respiratory capacity. I also provide her with an incentive spirometer. She is using the noninvasive ventilator at nighttime and is working well. In addition to that she did have spirometry today which we personally reviewed. Her FVC is 2.44 L which is better than before (2.6->2.0->2.4) she is concerned with the diagnosis of a rare form of ALS. She is not sure this is the correct diagnosis. She did undergo go an EMG in [place] but she has certain reservations how was done. I will go ahead and refer her to physiatry here so we can hopefully redo the EMG to address her ongoing diagnosis of neuromuscular disease. The patient will continue the current therapy she is going to undergo blood work and then will follow-up in 2 months with a formal pulmonary function study. [facility] Medical History ALS (amyotrophic lateral sclerosis) COVID-19 Neuromuscular disease Chronic hypercapnic respiratory failure Diaphragmatic disorder Scoliosis Long COVID Insomnia Tachycardia Dyspnea Social History Alcohol intake: current Alcohol intake frequency: a few times a week Alcohol type: wine Patient Tobacco Use Status: Former Tobacco user Tobacco use type: Cigarette Years Smoked: 30 Years Ago Review of Systems Const Denies fever(s), Reports headache(s), Reports weakness and Denies weight loss Eyes Denies change in vision ENT Reports change in voice and Reports headache(s) Card Denies chest pain, Reports dyspnea and Reports dyspnea on exertion Resp Reports dyspnea, Reports dyspnea on exertion and Denies wheezing GI Denies abdominal pain Musc Reports no additional complaints Skin/Breast Denies rash Neuro Reports headache(s) and Reports weakness Endo Reports no additional complaints David/Lymph Denies lymphadenopathy Aller/Immun Denies wheezing Physical Exam Vital Signs: Last Vital Signs Pulse 96 09/26/24 13:36 BP 140/82 H 09/26/24 13:36 Pulse Ox 100 09/26/24 13:36 Oxygen Delivery Method Room Air 09/26/24 13:36 Const General: cooperative Nutritional Appearance: thin Orientation/consciousness: patient oriented x3 HEENT Head: Yes normocephalic Neck Neck: Yes supple Chest Chest palpation & inspection: normal inspection of the chest Resp Effort & Inspection: tachypneic Auscultation: diminished lung sounds Cardio Rate: tachycardic Heart sounds: S1 normal heart sound present and S2 normal heart sound present GI Palpation (GI): Soft to palpation Skin General skin exam: no rashes or lesions noted Neuro General: patient oriented x3 Extrem General: Yes no clubbing, cyanosis or edema Assessment & Plan Assessment & Plan (1) Dyspnea: Code(s): R06.00 - Dyspnea, unspecified Category: Medical Qualifiers: Dyspnea type: shortness of breath Qualified Code(s): R06.02 - Shortness of breath (2) Chronic hypercapnic respiratory failure: Code(s): J96.12 - Chronic respiratory failure with hypercapnia Category: Medical (3) Neuromuscular disease: Comment: Being evaluated for ALS Code(s): G70.9 - Myoneural disorder, unspecified Category: Medical (4) ALS (amyotrophic lateral sclerosis): Comment: suspected diagnosis made in [place] Code(s): G12.21 - Amyotrophic lateral sclerosis Category: Medical Plan continue NIV with oxygen overnight oximetry on NIV without oxygen Referral to physiatry for a confirmatory EMG and assessment pulmonary rehab repeat bloodwork PFTs in November 2024 F/U 2-3 months Orders: Orders Basic Metabolic Panel Today G12.21 - Amyotrophic lateral sclerosis, G70.9 - Myoneural disorder, unspecified, J96.12 - Chronic respiratory failure with hypercapnia Complete Blood Count Auto Diff Today G12.21 - Amyotrophic lateral sclerosis, G70.9 - Myoneural disorder, unspecified, J96.12 - Chronic respiratory failure with hypercapnia PFT pulmonary function test 2 Months G70.9 - Myoneural disorder, unspecified Erythrocyte Sedimentation Rate Today G12.21 - Amyotrophic lateral sclerosis, G70.9 - Myoneural disorder, unspecified, J96.12 - Chronic respiratory failure with hypercapnia Phosphorus Today G12.21 - Amyotrophic lateral sclerosis, G70.9 - Myoneural disorder, unspecified, J96.12 - Chronic respiratory failure with hypercapnia Magnesium Today G12.21 - Amyotrophic lateral sclerosis, G70.9 - Myoneural disorder, unspecified, J96.12 - Chronic respiratory failure with hypercapnia Referrals Physiatry Referral G12.21 - Amyotrophic lateral sclerosis Coding Level of Care Code Est Pt Level 5 (99651) Complex EM visit Add On G2211 Diagnoses Shortness of breath R06.02 Dyspnea type: shortness of breath Chronic hypercapnic respiratory failure J96.12 Neuromuscular disease G70.9 ALS (amyotrophic lateral sclerosis) G12.21 Time Spent (min) 60
--- OUTSIDE RECORDS SUMMARY | 2024-09-26 16:52 | XMS_ITS | Encounter Summary ---
Author Organization [facility] Address [address] [place] [address] Care Team Providers Care President And Chief Operating Officer Name Role Phone Av Christopher Primary Care Provider [phone] Reason for Referral * MRI/CAT/PET Scan (Routine) - Pending Review Specialty Diagnoses / Procedures Referred By Aronldo schroeder Referred To Contact Procedures MR IMAGES TEMPORARY (OUTSIDE STUDY) Radiology, External [address] [place] [id number] Referral ID Status Reason Start Date Expiration Date V isits Requested Visits Authorized [id number] Pending Review 09/22/2024 03/24/2026 1 1 Encounter Details Date Type Department Care Team (Late st Contact Info) Description 09/22/2024 Orders Only [facility] - External Imaging [address] [place] [id number] Radiology, External [address] [place] [id number] Social History Tobacco Use Types Packs/Day Years Used Date Smoking Tobacco: Never Smokeless Tobacco: Never Alcohol Use Standard Drinks/Week Comments Yes 2 (1 standard drink = 0.6 oz pur e alcohol) per week Comments Unknown Sex and Gender Information Value Date Recorded Sex Assigned at Female 06/01/2024 4:09 PM EST Legal Sex Female 3:24 PM EST Gender Identity Female 06/01/2024 4:09 PM EST Sexual Orientation Not on file documented as of this encounter Plan of Treatment Scheduled Orders Name Type Priority Associated Diagnoses Orde r Schedule MR IMAGES TEMPORARY (OUTSIDE STUDY) Imaging [place] Routine 1 Occurrences starting 09/22/2024 until 10/20/2025 documented as of this encounter Visit Diagnoses Not on filedocumented in this encounter Care Teams President And Chief Operating Officer Relationship Specialty Start Date End Date Av Christopher [address] [place] [address] [place] [id number] PCP - General Internal Medicine 06/06/24 documented as of this encounter
--- OUTSIDE RECORDS SUMMARY | 2024-09-26 16:52 | XMS_ITS | Encounter Summary ---
Author Organization [facility] Address [address] [place] [address] Care Team Providers Care Assistant Auto Center Manager Name Role Phone Av Christopher Primary Care Provider [phone] Encounter Details Date Type Department Care Team (Late st Contact Info) Description 10/05/2023 Orders Only [facility] - External Imaging [address] [place] [address] Radiology, External [address] [place] [address] Social History Tobacco Use Types Packs/Day Years Used Date Smoking Tobacco: Never Assessed Comments Unknown Sex and Gender Information Value Date Recorded Sex Assigned at Female 06/01/2024 4:09 PM EST Legal Sex Female 3:24 PM EST Gender Identity Female 06/01/2024 4:09 PM EST Sexual Orientation Not on file documented as of this encounter Plan of Treatment Pending Results Name Type Priority Associated Diagnoses Date /Time MRI Transfer of Outside Films T-Spine Imaging [place] Routine 09/22/2024 4:40 PM EST Scheduled Orders Name Type Priority Associated Diagnoses Orde r Schedule MRI Transfer of Outside Films T-Spine Imaging [place] Routine 1 Occurrences starting 09/22/2024 until 10/20/2025 documented as of this encounter Visit Diagnoses Not on filedocumented in this encounter Care Teams Assistant Auto Center Manager Relationship Specialty Start Date End Date Av Christopher [address] [place] [address] [place] [id number] PCP - General Internal Medicine 06/06/24 documented as of this encounter
--- OUTSIDE RECORDS SUMMARY | 2024-09-26 16:52 | XMS_ITS | Referral Summary ---
Author Organization [facility] Address [address] [place] [address] Care Team Providers Care Filter Tender Jelly Name Role Phone vA Christopher Primary Care Provider Encounters Date Type Department Care Team Description 09/22/2024 Orders Only [facility] - External Imaging [address] [place] [address] Radiology, External from Last 3 Months Allergies Active Allergy Reactions Criticality Noted Date Comments Pollen Extracts Nasal congestion 06/05/2024 Medications albuterol (PROAIR HFA,VENTOLIN HFA) 90 mcg inhaler Inhale 2 puffs by mouth every 4 hours as needed for wheezing or shortness of breath. 4 Active estradiol valerate 10 mg/mL oil INJECT 6.25 MG TWICE WEEKLY 4 Active medroxyPROGESTE Brett (DEPO-PROVERA) 150 mg/mL syringe Inject 150 mg into the shoulder, thigh, or buttocks muscle as directed every 3 months. 4 Active aspirin 81 mg EC tablet Take 81 mg by mouth once a day. Active Social History Tobacco Use Types Packs/Day Years Used Date Smoking Tobacco: Never Smokeless Tobacco: Never Tobacco Cessation:Counseling Given: Not Answered Alcohol Use Standard Drinks/Week Comments Yes 2 (1 standard drink = 0.6 oz pur e alcohol) per week Comments Unknown Sex and Gender Information Value Date Recorded Sex Assigned at Female 06/01/2024 4:09 PM EST Legal Sex Female 3:24 PM EST Gender Identity Female 06/01/2024 4:09 PM EST Sexual Orientation Not on file Last Filed Vital Signs Vital Sign Reading Time Taken Comments Blood Pressure 116/78 06/05/2024 12:54 PM EST Pulse 121 06/05/2024 12:54 PM EST Temperature 36.7 ??C (98 ??F) 06/05/2024 12:46 PM EST Respiratory Rate 16 06/05/2024 12:46 PM EST Oxygen Saturation - - Inhaled Oxygen Concentration - - Weight 49 kg (108 lb) 06/05/2024 12:46 PM EST Height 172.7 cm (5' 8 ) 06/05/2024 12:46 PM EST Body Mass Index 16.42 06/05/2024 12:46 PM EST Plan of Treatment Not on file Procedures * Due to [place] [employer] law, this organization might not be sharing negative HIV tests. Procedure Name Priority Date/Time Associated Diagnosis Comments HEPATITIS C ANTIBODY W/REFLEX TO HCV RNA, QUANTITATIVE PCR Routine 06/05/2024 4:12 PM EST ALS (amyotrophic lateral sclerosis) (HCC) from Last 3 Months or Most Recently Relevant to Health Maintenance Results * Due to [place] [employer] law, this organization might not be sharing negative HIV tests. * Hepatitis C Antibody w/Reflex to HCV RNA, Quantitative PCR (06/05/2024 4:12 PM EST) Hepatitis C Antibody NON-REACT YUMIKO NON-REACT YUMIKO 06/06/2024 5:25 AM EST [employer] [facility] Comment: HCV antibody was non-reactive. There is no laboratory evidence of HCV infection. In most cases, no further action is required. However, if recent HCV exposure is suspected, a test for HCV RNA (test code 51311) is suggested. For additional information please refer to http://education.TripleLift.GANTEC/faq/RNZ60w1 (This link is being provided for informational/ educational purposes only.) Blood Structure of peripheral vein / Unknown Venipuncture / Unknown 06/05/2024 4:12 PM EST 06/05/2024 4:31 PM EST Narrative [facility] ELDRIDGE - 06/06/2024 5:25 AM EST [facility] Received Date: us Junie Bhatia MD LAB BLOOD ORDERAB LES Final Result [facility] ELDRIDGE [address] [place] [address] 3rd Floor, [place] [address], [place] [phone] [employer] [address] Floor, [place] [address], [place] [phone] from Last 3 Months or Most Recently Relevant to Health Maintenance Insurance [facility] Care Teams Filter Tender Jelly Relationship Specialty Start Date End Date Av Christopher [address] [place] [address] [place] [address] PCP - General Internal Medicine 06/06/24
--- OUTSIDE RECORDS SUMMARY | 2024-09-26 16:52 | XMS_ITS | Clinical Summary ---
Author Organization [facility] Address [address] [place] [address] Care Team Providers Care Sausage Maker Name Role Phone Av Christopher Primary Care Provider Allergies Active Allergy Reactions Criticality Noted Date [...] mg by mouth once a day. Active Encounters Date Type Department Care Team Description 09/22/2024 Orders Only [facility] - External Imaging [address] [place] [address] Radiology, External from Last 3 Months Family History Relation Name Status Comments Father Mother Social History Tobacco Use Types Packs/Day Years [...] 06/05/2024 12:46 PM EST Plan of Treatment Health Maintenance Due Date Last Done Comments Cervical Cancer Screening 1961 Cologuard 1961 Colon Cancer Screening 1961 Colonoscopy 1961 FOBT / Fit Test 1961 HPV and Pap Smear 1961 Pap Smear 1961 Sigmoidoscopy 1961 DTaP,Tdap,and Td Vaccines (1 - Tdap) 1983 Mammogram 2001 Pneumococcal Vaccine: 50+ Ye ars (1 of 1 - PCV) 2011 Zoster Vaccines (1 of 2) 2011 RSV Vaccine (60+ years old a nd patients) (1 - Risk 60-74 years 1-dose series) 2021 COVID-19 Vaccine ( - 2023-2 5 season) 2024 Influenza Vaccine (#1) 2024 03/19/2017, 2015 Alcohol/Substance Use Screening 07/26/2024 Depression Screening and Follow-Up 07/26/2024 Social Drivers of Health Sofia ual Screening 07/26/2024 Hepatitis B Vaccines Completed 04/14/2017, 04/16/2016, 04/02/2016, Additional history exists HIV Screening Completed 06/05/2024 Hepatitis C Screening Completed 06/05/2024 Procedures * Due to [place] [employer] law, this organization might not be sharing negative HIV tests. Procedure Name Priority Date/Time Associated Diagnosis Comments HEPATITIS C ANTIBODY W/REFLEX TO HCV RNA, QUANTITATIVE PCR Routine 06/05/2024 4:12 PM EST ALS (amyotrophic lateral sclerosis) (HCC) from Last 3 Months or Most Recently Relevant to Health Maintenance Results * Due to [place] [employer] law, this organization might not be sharing negative HIV tests. * Hepatitis C Antibody w/Reflex to HCV RNA, Quantitative PCR (06/05/2024 4:12 PM EST) Hepatitis C Antibody NON-REACT YUMIKO NON-REACT YUMIKO 06/06/2024 5:25 AM EST [email or web address] Comment: HCV antibody was non-reactive. There is no laboratory evidence of HCV infection. In most cases, no further action is required. However, if recent HCV exposure is suspected, a test for HCV RNA (test code 77826) is suggested. For additional information please refer to http://education.Host Committee/faq/KFZ80w1 (This link is being provided for informational/ educational purposes only.) Blood Structure of peripheral vein / Unknown Venipuncture / Unknown 06/05/2024 4:12 PM EST 06/05/2024 4:31 PM EST [facility] - 06/06/2024 5:25 AM EST [facility] Received Date: Junie Bhatia MD LAB BLOOD ORDERAB LES Final Result [facility] ANCHORAGE [address] [facility] 3rd Floor, [place] [address], [place] [phone] [employer] [facility] [address] [facility] 3rd Floor, [place] [address], [place] [phone] from Last 3 Months or Most Recently Relevant to Health Maintenance Insurance [facility] Care Teams Sausage Maker Relationship Specialty Start Date End Date Av Christopher [address] [place] [address] dr Tigre Landeros, [place] [address] PCP - General Internal Medicine 06/06/24
--- OUTSIDE RECORDS SUMMARY | 2024-09-26 16:52 | XMS_ITS | Encounter Summary ---
Author Organization [facility] Address [address] [place] [address] Care Team Providers Care Printing Plate Clerk Name Role Phone Av Christopher Primary Care Provider [phone] Encounter Details Date Type Department Care Team (Late st Contact Info) Description 12/17/2023 Orders Only [facility] - External Imaging [address] [place] [address] Radiology, External [address] [place] [address] Social History Tobacco Use Types Packs/Day Years [...] Date /Time MRI Transfer of Outside Films Head Imaging [facility] Routine 09/25/2024 6: 34 AM EST Scheduled Orders Name Type Priority Associated Diagnoses Orde r Schedule MRI Transfer of Outside Films Head Imaging [place] Routine 1 Occurrences starting 09/25/2024 until 10/26/2025 documented as of this encounter Visit Diagnoses Not on filedocumented in this encounter Care Teams Printing Plate Clerk Relationship Specialty Start Date End Date Av Christopher [address] [place] [address] [place] [address] PCP - General Internal Medicine 06/06/24 documented as of this encounter
--- OUTSIDE RECORDS SUMMARY | 2024-09-26 16:52 | XMS_ITS | Encounter Summary ---
Author Organization [facility] Address [address] [place] [address] Care Team Providers Care Life Science Research Assistant Name Role Phone Av Christopher Primary Care Provider [phone] Encounter Details Date Type Department Care Team (Late st Contact Info) Description 11/03/2023 Orders Only [facility] - External Imaging [address] [place] [address] Radiology, External [address] [place] [address] Social History Tobacco Use Types Packs/Day Years [...] Date /Time MRI Transfer of Outside Films C-Spine Imaging [place] Routine 09/22/2024 4:39 PM EST Scheduled Orders Name Type Priority Associated Diagnoses Orde r Schedule MRI Transfer of Outside Films C-Spine Imaging [place] Routine 1 Occurrences starting 09/22/2024 until 10/20/2025 documented as of this encounter Visit Diagnoses Not on filedocumented in this encounter Care Teams Life Science Research Assistant Relationship Specialty Start Date End Date Av Christopher [address] [place] [address] [place] [address] PCP - General Internal Medicine 06/06/24 documented as of this encounter
== END 2024-09-26 14:50 | disposition home or self-care (01) ==
PROVIDERS: PCP Internal Medicine; Visit Provider Hospitalist
DX: J96.12 Chronic respiratory failure with hypercapnia (principal); G70.9 Myoneural disorder, unspecified; G12.21 Amyotrophic lateral sclerosis
CPT/HCPCS: 99215; G2211

== ENCOUNTER → 2024-09-26 13:24 | Outpatient (BNVA) | payer OTHER, SELFPAY | PROVIDERS: PCP Internal Medicine; Visit Provider Hospitalist | DX: G12.21 Amyotrophic lateral sclerosis (principal); G70.9 Myoneural disorder, unspecified; J96.12 Chronic respiratory failure with hypercapnia; R06.02 Shortness of breath | CPT/HCPCS: 94010; 99212 ==

== ENCOUNTER → 2024-10-13 10:49 | Outpatient (BNVA) | payer OTHER, SELFPAY | PROVIDERS: PCP Internal Medicine; Visit Provider Neurological Surgery | DX: G70.9 Myoneural disorder, unspecified (principal) | CPT/HCPCS: 99202 ==

== ENCOUNTER 2024-10-13 11:02 | Outpatient (AMB) | payer OTHER, SELFPAY ==
--- NOTE | 2024-10-13 10:52 | A.SPINEOV_ITS ---
Vital Signs 10/13/24 11:10 Height 5 ft 8 in Weight 115 lb BMI 17.5 Intake Visit Reasons: neck pain/mid back pain Intake Note: Ms. Palomino is here today c/o neck and mid back pain. Personalized Living Manager Required: No Allergies ragweed pollen Adverse Reaction (Severe, Verified 09/26/24 13:41) Cough Physical Exam Vital Signs: BMI result Body Mass Index 17.5 Assessment & Plan Assessment & Plan (1) Neuromuscular disease: Comment: Being evaluated for ALS Code(s): G70.9 - Myoneural disorder, unspecified Category: Medical Plan Dear colleague Thank you for referring Nevaeh Palomino to the office today with a chief complaint of difficulty breathing. HPI: This 64-year-old female developed a tightness around her diaphragm approximately 7 years ago. In the last 2-3 years she has developed progressive difficulty breathing. She was able to walk many miles which then was reduced to just a short walk in the neighborhood. She is grasping for air when in rest. Laying down is the best position. She is known with a thoracic scoliosis. She has seen many specialist and was diagnosed with a rare form of ALS. She comes into see it as any surgical solution for this devastating symptom. The following conservative treatment options were tried without success anti inflammatories, tylenol, physician guided home exercise plan, cortisone shots Physical Exam: On exam, she is able to articulate while grasping for air. The Scaleni muscles are pronounced. There is muscle atrophy of the levator scapulae bilaterally. Otherwise there are no clear neurological deficits. Radiological Studies: MRI done of the cervical and thoracic spine show no significant spinal cord or nerve compression. Impression/Plan: Unfortunately, I have no solution for this devastating symptom. This patient must be suffering from a muscular disease predominantly affecting her neck and upper thoracic muscles. Thank you for allowing me to participate in your patients care. total time spent was 45 minutes in counseling ,coordination of plan, personal review of imaging, surgical decision making and subsequent plan Yordy Pizarro MD, PhD Spine Fellowship Trained Neurosurgeon Director, [facility] Coding Level of Care Code New Pt Level 4 (33622) Diagnoses Neuromuscular disease G70.9
[2024-10-13 11:10] VITALS: BMI 17.5
--- OUTSIDE RECORDS SUMMARY | 2024-10-13 13:06 | XMS_ITS | Encounter Summary ---
Author Organization [facility] Address [address] [place] [address] Care Team Providers Care Mine Laborer Name Role Phone Av Christopher Primary Care Provider [phone] Encounter Details Date Type Department Care Team (Late st Contact Info) Description 12/17/2023 Orders Only [facility] - External Imaging [address] [place] [address] Radiology, External [address] [place] [address] Social History Tobacco Use Types Packs/Day Years [...] on filedocumented in this encounter Care Teams Mine Laborer Relationship Specialty Start Date End Date Av Christopher [address] [place] [address] [place] [address] PCP - General Internal Medicine 06/06/24 documented as of this encounter
--- OUTSIDE RECORDS SUMMARY | 2024-10-13 13:06 | XMS_ITS | Referral Summary ---
Author Organization [facility] Address [address] [place] [address] Care Team Providers Care Extruder Tender Name Role Phone Av Christopher Primary Care Provider [phone] Encounters Date Type Department Care Team Description 09/22/2024 Orders Only [facility] - External Imaging [address] [place] [address] Radiology, External from Last 3 Months Allergies [...] Not on file Procedures * Due to [place] [employer] law, this organization might not be sharing negative HIV tests. Procedure Name Priority Date/Time Associated Diagnosis Comments HEPATITIS C ANTIBODY W/REFLEX TO HCV RNA, QUANTITATIVE PCR Routine 06/05/2024 4:12 PM EST ALS (amyotrophic lateral sclerosis) from Last 3 Months or Most Recently Relevant to Health Maintenance Results * Due to [place] [employer] law, this organization might not be sharing negative HIV tests. * Hepatitis C Antibody w/Reflex to HCV RNA, Quantitative PCR (06/05/2024 4:12 PM EST) Hepatitis C Antibody NON-REACT YUMIKO NON-REACT YUMIKO 06/06/2024 5:25 AM EST [employer] Comment: HCV antibody was non-reactive. There is no laboratory evidence of HCV infection. In most cases, no further action is required. However, if recent HCV exposure is suspected, a test for HCV RNA (test code 37853) is suggested. For additional information please refer to http://education.Leyou software.KellBenx/faq/NON62x9 (This link is being provided for informational/ educational purposes only.) Blood Structure of peripheral vein / Unknown Venipuncture / Unknown 06/05/2024 4:12 PM EST 06/05/2024 4:31 PM EST Narrative [facility] CHENTE - 06/06/2024 5:25 AM EST [facility] Received Date: us Junie Bhatia MD LAB BLOOD ORDERAB LES Final Result DA[facility] ELDRIDGE [address] [place] [address] 3rd Floor, [place] [address], [place] [phone] [employer] [address] Floor, [place] [address], [place] [phone] from Last 3 Months or Most Recently Relevant to Health Maintenance Insurance [facility] Care Teams Extruder Tender Relationship Specialty Start Date End Date Av Christopher [address] [place] [address] [place] [address] PCP - General Internal Medicine 06/06/24
--- OUTSIDE RECORDS SUMMARY | 2024-10-13 13:06 | XMS_ITS | Encounter Summary ---
Author Organization [facility] Address [address] [place] [address] Care Team Providers Care Pulpwood Contractor Name Role Phone Av Christopher Primary Care Provider [phone] Encounter Details Date Type Department Care Team (Late st Contact Info) Description 10/05/2023 Orders Only [facility] - External Imaging [address] [place] [address] Radiology, External [address] [place] [address] Social History Tobacco Use Types Packs/Day Years [...] on filedocumented in this encounter Care Teams Pulpwood Contractor Relationship Specialty Start Date End Date Av Christopher [address] [place] [address] [place] [address] PCP - General Internal Medicine 06/06/24 documented as of this encounter
--- OUTSIDE RECORDS SUMMARY | 2024-10-13 13:06 | XMS_ITS | Encounter Summary ---
Author Organization [facility] Address [address] [place] [address] Care Team Providers Care Television Schedule Coordinator Name Role Phone Av Christopher Primary Care Provider [phone] Encounter Details Date Type Department Care Team (Late st Contact Info) Description 11/03/2023 Orders Only [facility] - External Imaging [address] [place] [address] Radiology, External [address] [place] [address] Social History Tobacco Use Types Packs/Day Years [...] on filedocumented in this encounter Care Teams Television Schedule Coordinator Relationship Specialty Start Date End Date Av Christopher [address] [place] [address] [place] [address] PCP - General Internal Medicine 06/06/24 documented as of this encounter
--- OUTSIDE RECORDS SUMMARY | 2024-10-13 13:06 | XMS_ITS | Encounter Summary ---
Author Organization [facility] Address [address] [place] [address] Care Team Providers Care Damaged Freight Inspector Name Role Phone Av Christopher Primary Care Provider [phone] Reason for Referral * MRI/CAT/PET Scan (Routine) - Pending Review Specialty Diagnoses / Procedures Referred By Arnoldo schroeder Referred To Contact Procedures MR IMAGES TEMPORARY (OUTSIDE STUDY) Radiology, External [address] [place] [address] Referral ID Status Reason Start Date Expiration Date V isits Requested Visits Authorized [id number] Pending Review 09/22/2024 03/24/2026 1 1 Encounter Details Date Type Department Care Team (Late st Contact Info) Description 09/22/2024 Orders Only [facility] - External Imaging [address] [place] [address] Radiology, External [address] [place] [address] Social History Tobacco Use Types Packs/Day Years [...] on filedocumented in this encounter Care Teams Damaged Freight Inspector Relationship Specialty Start Date End Date Av Christopher [address] [place] [address] [place] [address] PCP - General Internal Medicine 06/06/24 documented as of this encounter
--- OUTSIDE RECORDS SUMMARY | 2024-10-13 13:06 | XMS_ITS | Clinical Summary ---
Author Organization [facility] Address [address] [place] [address] Care Team Providers Care Center Medical Director Name Role Phone Av Christopher Primary Care Provider [phone] Allergies Active Allergy Reactions Criticality Noted Date [...] Department Care Team Description 09/22/2024 Orders Only [facility] - External Imaging [address] [place] [address] Radiology, External from Last 3 Months Family [...] Screening Completed 06/05/2024 Procedures * Due to [place] [employer] law, this organization might not be sharing negative HIV tests. Procedure Name Priority Date/Time Associated Diagnosis Comments HEPATITIS C ANTIBODY W/REFLEX TO HCV RNA, QUANTITATIVE PCR Routine 06/05/2024 4:12 PM EST ALS (amyotrophic lateral sclerosis) from Last 3 Months or Most Recently Relevant to Health Maintenance Results * Due to [place] [employer] law, this organization might not be sharing negative HIV tests. * Hepatitis C Antibody w/Reflex to HCV RNA, Quantitative PCR (06/05/2024 4:12 PM EST) Hepatitis C Antibody NON-REACT YUMIKO NON-REACT YUMIKO 06/06/2024 5:25 AM EST [employer] Comment: HCV antibody was non-reactive. There is no laboratory evidence of HCV infection. In most cases, no further action is required. However, if recent HCV exposure is suspected, a test for HCV RNA (test code 69649) is suggested. For additional information please refer to http://education.StudioNow/faq/YHG81x7 (This link is being provided for informational/ educational purposes only.) Blood Structure of peripheral vein / Unknown Venipuncture / Unknown 06/05/2024 4:12 PM EST 06/05/2024 4:31 PM EST [facility] - 06/06/2024 5:25 AM EST [facility] Received Date: Junie Bhatia MD LAB BLOOD ORDERAB LES Final Result [facility] [address] [facility] 3rd Floor, [place] [address], [place] [phone] [employer] [facility] [address] [facility] 3rd Floor, [place] [address], [place] [phone] from Last 3 Months or Most Recently Relevant to Health Maintenance Insurance [facility] Care Teams Center Medical Director Relationship Specialty Start Date End Date Av Christopher [address] [place] [address] [place] [address] PCP - General Internal Medicine 06/06/24
--- OUTSIDE RECORDS SUMMARY | 2024-10-13 13:30 | XMS_ITS | Encounter Summary ---
Author Organization [facility] Address [address] [place] [address] Care Team Providers Care Linoleum Installer Name Role Phone Av Christopher Primary Care Provider [phone] Encounter Details Date Type Department Care Team (Late st Contact Info) Description 11/03/2023 Orders Only [facility] - External Imaging [address] [place] [address] Radiology, External [address] [place] [address] Social History Tobacco Use Types Packs/Day Years [...] on filedocumented in this encounter Care Teams Linoleum Installer Relationship Specialty Start Date End Date Av Christopher [address] [place] [address] [place] [address] PCP - General Internal Medicine 06/06/24 documented as of this encounter
--- OUTSIDE RECORDS SUMMARY | 2024-10-13 13:30 | XMS_ITS | Clinical Summary ---
Author Organization [facility] Address [address] [place] [address] Care Team Providers Care Amphibious Operations Officer Name Role Phone Av Christopher Primary Care Provider [phone] Allergies Active Allergy Reactions Criticality Noted Date [...] Department Care Team Description 09/22/2024 Orders Only [facility] - External Imaging [address] [place] [address] Radiology, External from Last 3 Months Family [...] Screening Completed 06/05/2024 Procedures * Due to [place] [employer] law, this organization might not be sharing negative HIV tests. Procedure Name Priority Date/Time Associated Diagnosis Comments HEPATITIS C ANTIBODY W/REFLEX TO HCV RNA, QUANTITATIVE PCR Routine 06/05/2024 4:12 PM EST ALS (amyotrophic lateral sclerosis) from Last 3 Months or Most Recently Relevant to Health Maintenance Results * Due to [place] [employer] law, this organization might not be sharing negative HIV tests. * Hepatitis C Antibody w/Reflex to HCV RNA, Quantitative PCR (06/05/2024 4:12 PM EST) Hepatitis C Antibody NON-REACT YUMIKO NON-REACT YUMIKO 06/06/2024 5:25 AM EST [facility] Comment: HCV antibody was non-reactive. There is no laboratory evidence of HCV infection. In most cases, no further action is required. However, if recent HCV exposure is suspected, a test for HCV RNA (test code 93569) is suggested. For additional information please refer to http://education.[employer]/faq/AQK34a8 (This link is being provided for informational/ educational purposes only.) Blood Structure of peripheral vein / Unknown Venipuncture / Unknown 06/05/2024 4:12 PM EST 06/05/2024 4:[address] [facility] - 06/06/2024 5:25 AM EST [facility] Received Date: Junie Bhatia MD LAB BLOOD ORDERAB LES Final Result [facility] [address] [facility] 3rd Floor, [place] [address], [place] [phone] [employer] [facility] [address] [facility] 3rd Floor, [place] [address], [place] [phone] from Last 3 Months or Most Recently Relevant to Health Maintenance Insurance [facility] Care Teams Amphibious Operations Officer Relationship Specialty Start Date End Date Av Christopher [address] [place] [address] [place] [address] PCP - General Internal Medicine 06/06/24
--- OUTSIDE RECORDS SUMMARY | 2024-10-13 13:30 | XMS_ITS | Encounter Summary ---
Author Organization [facility] Address [address] [place] [address] Care Team Providers Care Hull And Deck Remover Name Role Phone Av Christopher Primary Care Provider [phone] Encounter Details Date Type Department Care Team (Late st Contact Info) Description 10/05/[address] Orders [address] [facility] - External Imaging [address] [place] [address] Radiology, External [address] [place] [address] Social History Tobacco Use Types Packs/Day Years [...] on filedocumented in this encounter Care Teams Hull And Deck Remover Relationship Specialty Start Date End Date Av Christopher [address] [place] [address] [place] [address] PCP - General Internal Medicine 06/06/24 documented as of this encounter
--- OUTSIDE RECORDS SUMMARY | 2024-10-13 13:30 | XMS_ITS | Referral Summary ---
Author Organization [facility] Address [address] [place] [address] Care Team Providers Care Global Security Architect Name Role Phone Av Christopher Primary Care Provider [phone] Encounters Date Type Department Care Team Description 09/22/2024 Orders Only [facility] - External Imaging [address] [place] [address] Radiology, External from Last 3 Months Allergies [...] Not on file Procedures * Due to [place] [employer] law, this organization might not be sharing negative HIV tests. Procedure Name Priority Date/Time Associated Diagnosis Comments HEPATITIS C ANTIBODY W/REFLEX TO HCV RNA, QUANTITATIVE PCR Routine 06/05/2024 4:12 PM EST ALS (amyotrophic lateral sclerosis) from Last 3 Months or Most Recently Relevant to Health Maintenance Results * Due to [place] [employer] law, this organization might not be sharing negative HIV tests. * Hepatitis C Antibody w/Reflex to HCV RNA, Quantitative PCR (06/05/2024 4:12 PM EST) Hepatitis C Antibody NON-REACT YUMIKO NON-REACT YUMIKO 06/06/2024 5:25 AM EST [facility] Comment: HCV antibody was non-reactive. There is no laboratory evidence of HCV infection. In most cases, no further action is required. However, if recent HCV exposure is suspected, a test for HCV RNA (test code 00276) is suggested. For additional information please refer to http://education.[employer].ActualMeds/faq/QDM13i9 (This link is being provided for informational/ educational purposes only.) Blood Structure of peripheral vein / Unknown Venipuncture / Unknown 06/05/2024 4:12 PM EST 06/05/2024 4:31 PM EST Narrative DAQUAN CHENTE - 06/06/2024 5:25 AM EST [facility] Received Date: us Junie Bhatia MD LAB BLOOD ORDERAB LES Final Result DAQUAN ELDRIDGE [address] [place] [address] [address], [place] [address], [place] [phone] [facility] [address], [place] [address], [place] [phone] from Last 3 Months or Most Recently Relevant to Health Maintenance Insurance [facility] Care Teams Global Security Architect Relationship Specialty Start Date End Date Av Christopher [address] [place] [address] [place] [address] PCP - General Internal Medicine 06/06/24
--- OUTSIDE RECORDS SUMMARY | 2024-10-13 13:30 | XMS_ITS | Encounter Summary ---
Author Organization [facility] Address [address] [place] [address] Care Team Providers Care Rand Butter Name Role Phone Av Christopher Primary Care Provider [phone] Reason for Referral * MRI/CAT/PET Scan (Routine) - Pending Review Specialty Diagnoses / Procedures Referred By Arnoldo schroeder Referred To Contact Procedures MR IMAGES TEMPORARY (OUTSIDE STUDY) Radiology, External [address] [place] [id number] Referral ID Status Reason Start Date Expiration Date V isits Requested Visits Authorized [id number] Pending Review 09/22/2024 03/24/2026 1 1 Encounter Details Date Type Department Care Team (Late st Contact Info) Description 09/22/2024 Orders Only [facility] - External Imaging [address] [place] [address] Radiology, External [address] [place] [address] Social History Tobacco Use Types Packs/Day Years [...] on filedocumented in this encounter Care Teams Rand Butter Relationship Specialty Start Date End Date Av Christopher [address] [place] [address] [place] [address] PCP - General Internal Medicine 06/06/24 documented as of this encounter
--- OUTSIDE RECORDS SUMMARY | 2024-10-13 13:30 | XMS_ITS | Encounter Summary ---
Author Organization [facility] Address [address] [place] [address] Care Team Providers Care Belt Puncher Name Role Phone Av Christopher Primary Care Provider [phone] Encounter Details Date Type Department Care Team (Late st Contact Info) Description 12/17/2023 Orders Only [facility] - External Imaging [address] [place] [address] Radiology, External [address] [place] [address] Social History Tobacco Use Types Packs/Day Years [...] on filedocumented in this encounter Care Teams Belt Puncher Relationship Specialty Start Date End Date Av Christopher [address] [place] [address] [place] [address] PCP - General Internal Medicine 06/06/24 documented as of this encounter
== END 2024-10-13 11:59 | disposition home or self-care (01) ==
PROVIDERS: PCP Internal Medicine; Visit Provider Neurological Surgery
DX: G70.9 Myoneural disorder, unspecified (principal)
CPT/HCPCS: 99204

== ENCOUNTER 2024-10-13 12:03 | Outpatient (REF) | payer OTHER, SELFPAY ==
[2024-10-13 13:20] LABS: MANUAL DIFF FLAG NO
[2024-10-13 13:36] LABS: Basophils Percent Auto 0.5 % (0-2); Eosinophils Absolute Auto 0.1 X10*3/uL (0.0-0.4); Eosinophils Percent Auto 1.3 % (0-4); Hematocrit 40.7 % (37.0-47.0); Hemoglobin 13.7 g/dl (12.0-16.0); Imm Gran Abs Auto 0.03 X10*3/uL (0.00-0.03); Imm Gran Pct Auto 0.4 % (0.0-0.4); Lymphocytes Absolute Auto 1.5 X10*3/uL (1.2-4.9); Lymphocytes Percent Auto 17.7 % (20-40); Mean Corpuscular HGB Conc 33.7 g/dl (31.0-35.0); Mean Corpuscular Hemoglobin 32.3 pg (27.0-33.0); Mean Platelet Volume 9.8 fL (9.4-12.3); Monocytes Absolute Auto 0.6 X10*3/uL (0.1-1.2); Monocytes Percent Auto 7.6 % (2-11); Neutrophils Absolute Auto 6.2 x10*3/uL (2.0-8.3); Neutrophils Percent Auto 72.5 % (45-73); Platelet Count 277 X10*3/uL (160-400); Red Blood Count 4.24 X10*6/uL (4.20-5.50); Red Cell Distribution Width 12.7 % (11.0-16.0); White Blood Count 8.5 X10*3/uL (4.8-10.8)
[2024-10-13 14:09] LABS: Anion Gap 12 (12-20); Blood Urea Nitrogen 12 mg/dL (9-16); Calcium 8.7 mg/dL (8.4-10.2); Carbon Dioxide 24 mmol/L (22-29); Chloride 106 mmol/L (96-108); Estimated Glomerular Filt Rate > 60; Glucose Random 88 mg/dL (60-115); Magnesium 1.7 mg/dL (1.6-2.6); Phosphorus 2.7 mg/dL (2.7-4.5); Sodium 138 mmol/L (135-145)
[2024-10-13 14:24] LABS: Erythrocyte Sedimentation Rate 2 MM/HR (0-20)
== END 2024-10-13 12:04 | disposition home or self-care (01) ==
LOC: HO.10HDL 12:03
PROVIDERS: Visit Provider Hospitalist
DX: G12.21 Amyotrophic lateral sclerosis (principal); G70.9 Myoneural disorder, unspecified; J96.12 Chronic respiratory failure with hypercapnia
CPT/HCPCS: 36415; 80048; 83735; 84100; 85025; 85652

== ENCOUNTER 2024-11-28 13:12 | Outpatient (AMB) | payer OTHER, SELFPAY ==
[2024-11-28 13:13] VITALS: BP 140/82; PULSE 87; O2SAT 99; BMI 17.4
--- NOTE | 2024-11-28 13:13 | A.OFFVIS_ITS ---
Vital Signs 11/28/24 13:13 Height 5 ft 8 in Weight 114 lb 10.246 oz BMI 17.4 BP 140/82 H Blood Pressure Location Lt brachial Position Sitting Pulse 87 Pulse Source Pulse Oximeter Pulse Oximetry (%) 99 Oxygen Delivery Method Room Air Intake Visit Reasons: ALS Software Test And Validation Engineer Required: No Software Test And Validation Engineer Services: Software Test And Validation Engineer Offered & Declined Accompanied by: Self / Same As Patient Allergies ragweed pollen Adverse Reaction (Severe, Verified 11/28/24 13:18) Cough HPI Comments Details: The patient is a 64 year woman who presents with symptoms of shortness of breath and also palpitations. The patient has not been feeling well for some time. Initially back if he years ago she was having issues with abdominal spasms. Kyle like she was having diaphragmatic spasms she was not sure she was having something going on with the phrenic nerve. Subsequently after that the patient developed COVID-19. She has not noticing increasing heart rate palpitations in addition to shortness of breath. Now she has been progressively more short of breath last year. Her significant other is his with her and she is also states that she is become very short of breath even with minimal activity. Sometimes she feels like she is choking suffocating. Sometimes she feels so severe that she has to even stop doing the her activities of daily living such as doing the dishes and she has to sit down because of shortness of breath. She did have an echocardiogram done demonstrating some valvular disease. In addition to that during the office we did go for brief walking oximetry the patient was dyspneic breathing shallow and fast about 20 5 times a minute heart rate was elevated up to 125 but yet her pulse ox was stable at 98% which is reassuring. No imaging studies available at this time. Will go ahead and request blood work including a chest x-ray at this time. The patient will benefit from pulmonary function studies will follow-up afterwards. She may also benefit from pulmonary rehabilitation. Indeed dyspnea be related to post COVID or there may be a neurologic component resulting in some type of neuromuscular disease. 12/22/2023 the patient is here for a pulmonary follow-up visit. She continues be very dyspneic short of breath uncomfortable. The patient did undergo a chest x- ray demonstrating hyperinflation of her lungs. She had a blood gas which is reassuring. In addition to that pulmonary function studies did also show some degree of air trapping consistent with the hyperinflation of her lungs. We talked about importance of breathing techniques. The patient will really benefit from pulmonary rehabilitation at this time to help with the breathing techniques and also from thin her and billed aerobic capacity. In the meantime the patient continues to be dyspneic. We will request a cardiopulmonary exercise tolerance test to better address her dyspnea symptoms and see is a cardiovascular versus a pulmonary versus a musculoskeletal component. She is also working closely with neurology regarding any neuromuscular conditions that may be resulting her worsening dyspnea symptoms. She is concerned about diaphragm. She feels like it has not working correctly and she feels that his being constrained. Will go ahead and try her on baclofen to make sure she has not having any diaphragmatic spasms but will go ahead and request a sniff study to make sure that there is adequate excursion of the diaphragm. 01/06/2024 the patient is here for a pulmonary follow-up visit. She continues to be very dyspneic. She feels like she is getting worse. Even with minimal activity even at rest she is short of breath. We did check a venous blood gas during the last visit and her CO2 was in the upper limit of normal. She did follow-up with Neurology. The question neuromuscular disease resulting in significant work of breathing. Although still not clear. She is going to be referred to tertiary hospital for a neuromuscular specialist. In the meantime she did undergo a sniff study demonstrating normal diaphragmatic movement, although, it was very limited study and could not quantify the degree of diaphragmatic movement. In view of her shortness of breath will go ahead and request blood work including D-dimer to assess for potential blood clots. Based on the fact the patient has x-ray demonstrated some abnormalities in her PFTs and a diagnostic and she continues to have significant symptoms a CT scan of the chest will be a reasonable next step. Will also check an overnight oximetry with end-tidal CO2 to assess her CO2 throughout the night in view of the possibility of a chronic hypercarbic respiratory failure secondary to neuromuscular disease. The patient also benefit from pulmonary rehabilitation. 02/04/2024 the patient is here for a pulmonary follow-up visit. She continues to be very dyspneic. Moderate to severe. She did have the overnight oximetry demonstrating significant hypoxia at nighttime. Therefore she was prescribed oxygen. However, she has been reluctant to use it. I did emphasize to her the importance of using the oxygen. She will start using the oxygen now. She also had a blood gas demonstrating some slight elevations in her CO2. This was a venous blood gas. Again, with her significant muscle deconditioning and muscle wasting she likely is contributing component of respiratory failure. The patient will be evaluated by neurologist soon looking for neuromuscular condit ions such as muscular dystrophy. She did have a sniff study demonstrating normal movement of the diaphragm which is reassuring. The patient also underwent a CT scan of the chest was reassuring as well. No evidence of any parenchymal lung disease. The patient was most start pulmonary rehabilitation. She has not as of yet. I will go ahead and put although order in. In the meantime she did undergo cardiopulmonary exercise tolerance test. We did review together. She has significant aerobic limitations. I suspect moderate chondral disease is also in differential such as mitochondrial muscular dystrophy. Again, she needs to be evaluated by Neurology or muscular dystrophy clinic. In the meantime the patient will start these in the oxygen. And also, hopefully start pulmonary rehabilitation soon. 04/07/2024 the patient is here for a pulmonary follow-up visit. She did go to [facility] and she was evaluated there. Currently being evaluated for neuromuscular diseases. she will be going back for any mg test soon. In the meantime she did undergo pulmonary function studies at [facility] which I personally reviewed with her. Her maximum inspiratory and expiratory pressures are down to 50%. Again, this is consistent with a neuromuscular disease resulting in her dyspnea symptoms. She has also has had significant weight loss. We did provide her with protein drinks during the last visit as we have samples and we also provided her with samples again. But, she would benefit from getting a prescription from her primary care doctor for significant weight loss and deconditioning that is also likely contributing to her muscle weakness. The patient did have a positive test for blood work that was suggestive of neuroendocrine disease such as small cell that can consult and paraneoplastic conditions. Although, her CT scan of the chest did not demonstrate any pulmonary nodules or any concerns for small cell lung cancer. Will have her repeat a chest x-ray today to make sure there is no changes on those images. In the meantime the patient will have a repeat blood gas because will monitoring closely her CO2 as it was slightly elevated during the last visit. If the CO2 c ontinues to climb suggest that she is developing worsening hypercarbic respiratory failure in could result in worsening disease especially if there is further progression. The patient is interested in pulmonary rehabilitation. At least we can start working on building some strength in the middle of the evaluation. As far as other functions appears that she is swallowing well denies any dysphagia at this time. Will continue monitoring closely for that. 05/02/2024 the patient is here for a pulmonary follow-up visit. Since we last spoke the patient was initially set up for a sleep study. However her symptoms worsened and she ended up in the ER. At that point she had a repeat blood gas still demonstrating elevation her CO2. Therefore we arranged with a local [employer] company to for her to start IVAPS noninvasive ventilator for her neuromuscular disease and chronic hypercarbic respiratory failure. Initially was hard for her to get used to it. We did work with the [employer] company to adjust the pressures in the volumes accordingly for her to be admitted tolerated. She has been tolerating it better and she has been able to sleep at night which is reassuring. She is asking if this is something that she can wean off. Explained to the patient that did noninvasive ventilator as a bridge to therapy. We would have to know what is going on with her neuromuscular disease and proper treatment in order to help her strengthen and see if we are able to wean her off liberated for the noninvasive ventilator. However, the patient states that in her visit to [facility] with the neurologist he spoke to her about a likely diagnosis of ALS. He is going to do additional testing such as genetic testing to better identify her condition. But in the meantime, he did recommend she start medicine for ALS. she is reluctant to do so at this time. She is questioning the diagnosis. At this point the patient does have a hard time going to [facility] anyway so we will refer her to the [facility] for her to be further evaluated for ALS and see if they can potentially rule out or confirm the diagnosis at this time. In the meantime she is wondering about strengthening her muscles. She was approved to start pulmonary rehabilitation but then other issues arise and she was not able to do so. I did remind her that she needs to call to arrange a visit for her to start rehabilitation therapy. Will have her return in a couple months with spirometry to assess any progression of disease. 06/08/2024 the patient is here for a pulmonary follow-up visit. She has had multiple appointments with tertiary centers to further figure out her neuromuscular disease. The patient is still waiting to hear back or follow-up regarding a definitive diagnosis at this time. Either way the patient earnestine mcdonald has a neuromuscular component affecting her respiratory muscles. She is using her accessory muscles to breathe. Although she seems a little bit more comfortable today. She is using noninvasive ventilator at nighttime. She is using it every night she feels like she is getting for rest. Sometimes she even forgets she has not known. She does mention that sometimes she does feel that is hard to trigger the ventilator. This may be a sign of further progression of her respiratory weakness and will try to make the noninvasive ventilator more sensitive by decreasing the negative pressure required to trigger it. Will work with her [facility] for that, Mir Vracha. In the meantime she will did have her 6 minute walk test with the pulmonary rehabilitation and I did encourage her to schedule her classes to start pulmonary rehabilitation at this time. Will plan to have her undergo spirometry during the next visit and also will require blood gas to assess her CO2. Briefly, we also talked about using the noninvasive ventilator during the daytime if her condition worsens further. We did talk about a mouthpiece that she could use with sip and puff set up specially if symptoms worsen. Clinically today she looks okay so we will start the conversation for that. 08/10/2024 the patient is here for pulmonary follow-up visit. The patient is still being followed closely for neuromuscular disease with Neurology. She did have a modified barium swallow apparently sometime in the late fall where was reassuring no evidence of any aspiration. The patient has been using the noninvasive ventilator overnight. The therapy has been affecting beneficial. She is wondering the if she can do without it. She would like to test to see what her oxygen is off the machine. I did tell her we can do that but I do recommend that she stay on the noninvasive ventilator based on the fact that is not on her oxygen but it is more related to the CO2 in the chronic hypercarbic respiratory failure. The patient was also concerned about her mitral valve where she has a prolapse and she is also concerned about stenosis of her left internal carotid and needing surgery. I explained to her that she does have hard for perioperative pulmonary complications due to her neuromuscular condition in her risk of a prolonged ventilator time. The patient is aware that if she does need surgery then she will need a preoperative evaluation for each of the events and we can discuss that further what is more definitive. She did undergo spirometry today. Her forced vital capacity did decrease from 2.6 to 2. 07. Therefore the concerned about potential progression of her neuromuscular disease. It is reassuring that she gained actually 3 lb. During the office visit we also went for a walking oximetry and she maintain a pulse ox of 99% which is great. Heart rate was elevated. She was scheduled to start pulmonary rehab which she has not started it as of yet. I did encourage her to do so because it will help. 09/26/2024 the patient is here for a pulmonary follow-up visit. Overall she is doing about the same. She still working on exercises and staying strong. She did get a breather device and she skin is continue to continue to stand during her respiratory capacity. I also provide her with an incentive spirometer. She is using the noninvasive ventilator at nighttime and is working well. In addition to that she did have spirometry today which we personally reviewed. Her FVC is 2.44 L which is better than before (2.6->2.0->2.4) she is concerned with the diagnosis of a rare form of ALS. She is not sure this is the correct diagnosis. She did undergo go an EMG in [facility] but she has certain reservations how was done. I will go ahead and refer her to physiatry here so we can hopefully redo the EMG to address her ongoing diagnosis of neuromuscular disease. The patient will continue the current therapy she is going to undergo blood work and then will follow-up in 2 months with a formal pulmonary function study. 11/28/2024 the patient is here for a pulmonary follow-up visit. Since we last spoke the patient feels a little bit weaker. Little bit difficulty breathing. Moderate severity. She also feels some weakness of the arms. She still trying to get sense of her neuromuscular disease and if his ALS or very it. She denies any difficulty swallowing. She does have feel like her cough is getting weaker. Difficult to expectorate secretions specially when they are in the central airway. We did perform spirometry today. Her FVC decreased down to 2.29 L. therefore there seems to be a slow progression of disease based on the continued decline. Her maximum inspiratory pressures were at 34% predicted maximum expiratory pressures around 52% predicted. Based on a weekend cough and decreased in the maximum inspiratory and expiratory pressures and her neuromuscular disease I do believe that cough assist will be helpful in helping her clear her secretions specially with a very weak cough that she demonstrated today. She continues use a noninvasive ventilator. She does use it every night. It is affecting beneficial. We will go ahead and request a blood gas to make sure that her CO2 is continue to respond adequately. [facility] Medical History ALS (amyotrophic lateral sclerosis) COVID-19 Neuromuscular disease Chronic hypercapnic respiratory failure Diaphragmatic disorder Scoliosis Long COVID Insomnia Tachycardia Dyspnea Social History Alcohol intake: current Alcohol intake frequency: a few times a week Alcohol type: wine Patient Tobacco Use Status: Former Tobacco user Tobacco use type: Cigarette Years Smoked: 30 Years Ago Review of Systems Const Denies chills, Denies fatigue, Denies fever(s), Denies weight gain and Denies weight loss Eyes Denies change in vision ENT Denies dysphagia and Denies dizziness Card Denies chest pain, Denies leg edema, Denies lightheadedness, Denies palpitations, Reports dyspnea on exertion, Denies orthopnea and Denies other Resp Reports cough (weak), Reports dyspnea on exertion and Denies wheezing GI Denies hematochezia, Denies change in stool character and Denies dysphagia Musc Denies abnormal gait, Reports muscle weakness, Denies numbness, Denies radiating pain into limb, Reports stiffness and Reports tingling Skin/Breast Denies rash Neuro Denies abnormal gait, Denies dizziness, Denies numbness and Reports tingling Endo Denies fatigue and Denies palpitations David/Lymph Denies lymphadenopathy Aller/Immun Denies wheezing Physical Exam Vital Signs: Last Vital Signs Pulse 87 11/28/24 13:13 BP 140/82 H 11/28/24 13:13 Pulse Ox 99 11/28/24 13:13 Oxygen Delivery Method Room Air 11/28/24 13:13 BMI result Body Mass Index 17.4 Const General: cooperative Nutritional Appearance: thin Orientation/consciousness: patient oriented x3 HEENT Head: Yes normocephalic Neck Neck: Yes supple Chest Chest palpation & inspection: normal inspection of the chest Resp Effort & Inspection: tachypneic and uses accessory muscles Auscultation: diminished lung sounds Cardio Rate: tachycardic Heart sounds: S1 normal heart sound present and S2 normal heart sound present GI Palpation (GI): Soft to palpation Skin General skin exam: no rashes or lesions noted Neuro General: patient oriented x3 Extrem General: Yes no clubbing, cyanosis or edema Office Procedures Spirometry Testing Spirometry Comments: MIP AND MEP ALSO DONE 57158- Spirometry Results Reviewed Results Reviewed: Spirometry FVC 2.29L MIP 34% predicted; MEP 52% predicted Assessment & Plan Assessment & Plan (1) Dyspnea: Code(s): R06.00 - Dyspnea, unspecified Category: Medical Qualifiers: Dyspnea type: shortness of breath Qualified Code(s): R06.02 - Shortness of breath (2) Chronic hypercapnic respiratory failure: Code(s): J96.12 - Chronic respiratory failure with hypercapnia Category: Medical (3) Neuromuscular disease: Comment: Being evaluated for ALS Code(s): G70.9 - Myoneural disorder, unspecified Category: Medical (4) ALS (amyotrophic lateral sclerosis): Comment: suspected diagnosis made in [facility] Code(s): G12.21 - Amyotrophic lateral sclerosis Category: Medical Plan continue NIV with oxygen pulmonary rehab repeat bloodwork, VBG Based on worsening cough and worsening MIPS/MEPS will request a cough assist device Monitor swallow ISS F/U 2-3 months Orders: Orders Magnesium Today Lionel Herrera MD G70.9 - Myoneural disorder, unspecified Vitamin B12 and Folate Today Lionel Herrera MD G70.9 - Myoneural disorder, unspecified Venous Blood Gas Today Lionel Herrera MD G70.9 - Myoneural disorder, unspecified Phosphorus Today Lionel Herrera MD G70.9 - Myoneural disorder, unspecified Vitamin D 25-OH (D2 and D3) Today Lionel Herrera MD G70.9 - Myoneural disorder, unspecified Basic Metabolic Panel Today Lionel Herrera MD G70.9 - Myoneural disorder, unspecified AMB Spirometry Testing Today Mary Daily G12.21 - Amyotrophic lateral sclerosis AMB Spirometry Testing Today Mary Daily G12.21 - Amyotrophic lateral sclerosis Coding Level of Care Code Est Pt Level 5 (45227) Diagnoses Shortness of breath R06.02 Dyspnea type: shortness of breath Chronic hypercapnic respiratory failure J96.12 Neuromuscular disease G70.9 ALS (amyotrophic lateral sclerosis) G12.21 CPT Codes Spirometry - CPT: 31891- Spirometry ([id number]) Time Spent (min) 60
--- OUTSIDE RECORDS SUMMARY | 2024-11-28 14:26 | XMS_ITS | Clinical Summary ---
Author Organization [facility] Address [address] [place] [address] Care Team Providers Care Rug Sample Beveler Name Role Phone Av Christopher Primary Care Provider [phone] Allergies Active Allergy Reactions Criticality Noted Date [...] Department Care Team Description 09/22/2024 Orders Only [facility] - External Imaging [address] [place] [address] Radiology, External from Last 3 Months Family [...] 60-74 years 1-dose series) 2021 COVID-19 Vaccine (2023-2 5 season) 2024 Alcohol/Substance Use Screening 07/26/2024 Depression Screening and Follow-Up 07/26/2024 Social Drivers of Health Sofia ual Screening 07/26/2024 Influenza Vaccine (Season Ended) 2025 03/19/20 17, 03/27/2016 Hepatitis B Vaccines Completed 04/14/2017, 04/16/2016, 04/02/2016, Additional history exists HIV Screening Completed 06/05/2024 Hepatitis C Screening Completed 06/05/2024 Procedures * Due to [place] [employer] law, this organization might not be sharing negative HIV tests. Procedure Name Priority Date/Time Associated Diagnosis Comments HEPATITIS C ANTIBODY W/REFLEX TO HCV RNA, QUANTITATIVE PCR Routine 06/05/2024 4:12 PM EST ALS (amyotrophic lateral sclerosis) from Last 3 Months or Most Recently Relevant to Health Maintenance Results * Due to [place] [employer] law, this organization might not be sharing negative HIV tests. * Hepatitis C Antibody w/Reflex to HCV RNA, Quantitative PCR (06/05/2024 4:12 PM EST) Hepatitis C Antibody NON-REACT YUMIKO NON-REACT YUMIKO 06/06/2024 5:25 AM EST [employer] [facility] Comment: HCV antibody was non-reactive. There is no laboratory evidence of HCV infection. In most cases, no further action is required. However, if recent HCV exposure is suspected, a test for HCV RNA (test code 37420) is suggested. For additional information please refer to http://education.Equiphon/faq/XKM94s1 (This link is being provided for informational/ educational purposes only.) Blood Structure of peripheral vein / Unknown Venipuncture / Unknown 06/05/2024 4:12 PM EST 06/05/2024 4:31 PM EST [facility] 06/06/2024 5:25 AM EST [facility] Received Date: Junie Bhatia MD LAB BLOOD ORDERAB LES Final Result [facility] [address], [place] [address], [place] [phone] [facility] [address], [place] [address], [place] [phone] from Last 3 Months or Most Recently Relevant to Health Maintenance Insurance [facility] Care Teams Rug Sample Beveler Relationship Specialty Start Date End Date Av Christopher [address] [place] [address] [place] [address] PCP - General Internal Medicine 06/06/24
--- OUTSIDE RECORDS SUMMARY | 2024-11-28 14:26 | XMS_ITS | Referral Summary ---
Author Organization [facility] Address [address] [place] [address] Care Team Providers Care Client Program Manager Name Role Phone Av Christopher Primary Care Provider [phone] Encounters Date Type Department Care Team Description 09/22/2024 Orders Only [facility] - External Imaging [address] [place] [address] Radiology, External from Last 3 Months Allergies [...] Not on file Procedures * Due to [place] Nar[place] law, this organization might not be sharing negative HIV tests. Procedure Name Priority Date/Time Associated Diagnosis Comments HEPATITIS C ANTIBODY W/REFLEX TO HCV RNA, QUANTITATIVE PCR Routine 06/05/2024 4:12 PM EST ALS (amyotrophic lateral sclerosis) from Last 3 Months or Most Recently Relevant to Health Maintenance Results * Due to [place] Narvii law, this organization might not be sharing negative HIV tests. * Hepatitis C Antibody w/Reflex to HCV RNA, Quantitative PCR (06/05/2024 4:12 PM EST) Hepatitis C Antibody NON-REACT YUMIKO NON-REACT YUMIKO 06/06/2024 5:25 AM EST Built In Comment: HCV antibody was non-reactive. There is no laboratory evidence of HCV infection. In most cases, no further action is required. However, if recent HCV exposure is suspected, a test for HCV RNA (test code 01637) is suggested. For additional information please refer to http://education.Match.[employer]/faq/ZWN48k8 (This link is being provided for informational/ educational purposes only.) Blood Structure of peripheral vein / Unknown Venipuncture / Unknown 06/05/2024 4:12 PM EST 06/05/2024 4:31 PM EST Narrative DAQUAN CHENTE - 06/06/2024 5:25 AM EST [facility] Received Date: us Junie Bhatia MD LAB BLOOD ORDERAB LES Final Result DAQUAN ELDRIDGE [address] [place] [address] 3rd Floor, [place] [address], [place] [phone] [employer] [address] 3rd Floor, [place] [address], [place] [phone] from Last 3 Months or Most Recently Relevant to Health Maintenance Insurance [facility] Care Teams Client Program Manager Relationship Specialty Start Date End Date Av Christopher [address] [place] [address] [place] [address] PCP - General Internal Medicine 06/06/24
== END 2024-11-28 14:09 | disposition home or self-care (01) ==
LOC: HO.HPS 13:12
PROVIDERS: PCP Internal Medicine; Visit Provider Hospitalist
DX: J96.12 Chronic respiratory failure with hypercapnia (principal); G12.21 Amyotrophic lateral sclerosis; G70.9 Myoneural disorder, unspecified
CPT/HCPCS: 94010; 99215

== ENCOUNTER 2024-11-28 13:12 | Outpatient (REF) | payer OTHER, SELFPAY ==
[2024-11-28 14:41] LABS: Venous Blood Gas Refer to POC result
[2024-11-28 14:49] LABS: VBG Base Excess 2.4 mmol/L; VBG HCO3 29 mmol/L (22-26); VBG O2 % Saturation < 30.0 %; VBG pCO2 51 mmHg; VBG pH 7.35 (7.32-7.43); VBG pO2 23 mmHg
[2024-11-28 15:46] LABS: Anion Gap 11 (12-20); Blood Urea Nitrogen 13 mg/dL (9-16); Calcium 8.9 mg/dL (8.4-10.2); Carbon Dioxide 27 mmol/L (22-29); Chloride 104 mmol/L (96-108); Estimated Glomerular Filt Rate > 60; Glucose Random 84 mg/dL (60-115); Magnesium 1.9 mg/dL (1.6-2.6); Phosphorus 3.2 mg/dL (2.7-4.5); Potassium 4.4 mmol/L (3.3-5.1); Sodium 138 mmol/L (135-145)
[2024-11-28 16:16] LABS: Folate 12.1 ng/mL (> or = 4.0); Vitamin B12 698 pg/mL (200-900)
[2024-12-05 15:59] LABS: Vitamin D 25-OH, D2 <4 ng/mL; Vitamin D 25-OH, D3 50 ng/mL; Vitamin D 25-OH, Total 50 ng/mL (30-100)
== END 2024-11-28 13:13 | disposition home or self-care (01) ==
LOC: HO.LAB 13:12
PROVIDERS: PCP Internal Medicine; Visit Provider Hospitalist
DX: G12.21 Amyotrophic lateral sclerosis (principal); G70.9 Myoneural disorder, unspecified; J96.12 Chronic respiratory failure with hypercapnia
CPT/HCPCS: 36415; 80048; 82306; 82607; 82746; 82803; 83735; 84100; 94010; 99212

== ENCOUNTER 2024-12-08 14:30 | Outpatient (AMB) | payer OTHER, SELFPAY ==
--- OUTSIDE RECORDS SUMMARY | 2024-12-08 14:33 | XMS_ITS | Referral Summary ---
Author Organization [facility] Address [address] [place] [address] Care Team Providers Care Propagator Name Role Phone Av Christopher Primary Care Provider [phone] Encounters Date Type Department Care Team Description 09/22/2024 Orders Only [facility] - External Imaging [address] [place] [address] Radiology, External from Last 3 Months Allergies [...] Not on file Procedures * Due to [place] Z[place] law, this organization might not be sharing negative HIV tests. Procedure Name Priority Date/Time Associated Diagnosis Comments HEPATITIS C ANTIBODY W/REFLEX TO HCV RNA, QUANTITATIVE PCR Routine 06/05/2024 4:12 PM EST ALS (amyotrophic lateral sclerosis) from Last 3 Months or Most Recently Relevant to Health Maintenance Results * Due to [place] law, this organization might not be sharing negative HIV tests. * Hepatitis C Antibody w/Reflex to HCV RNA, Quantitative PCR (06/05/2024 4:12 PM EST) Hepatitis C Antibody NON-REACT YUMIKO NON-REACT YUMIKO 06/06/2024 5:25 AM EST [employer] Comment: HCV antibody was non-reactive. There is no laboratory evidence of HCV infection. In most cases, no further action is required. However, if recent HCV exposure is suspected, a test for HCV RNA (test code 64612) is suggested. For additional information please refer to http://education.Dextrys.[employer]/faq/DHZ98f6 (This link is being provided for informational/ educational purposes only.) Blood Structure of peripheral vein / Unknown Venipuncture / Unknown 06/05/2024 4:12 PM EST 06/05/2024 4:31 PM EST Narrative DAQUAN CHENTE - 06/06/2024 5:25 AM EST [facility] Received Date: us Junie Bhatia MD LAB BLOOD ORDERAB LES Final Result DAQUAN ELDRIDGE [address] [place] [address] [address]rd Floor, [place] [address], [place] [phone] [employer] [address] Floor, [place] [address], [place] [phone] from Last 3 Months or Most Recently Relevant to Health Maintenance Insurance [facility] Care Teams Propagator Relationship Specialty Start Date End Date Av Christopher [address] [place] [address] [place] [address] PCP - General Internal Medicine 06/06/24
--- OUTSIDE RECORDS SUMMARY | 2024-12-08 14:33 | XMS_ITS | Clinical Summary ---
Author Organization [facility] Address [address] [place] [address] Care Team Providers Care Personal Lines Appraiser Name Role Phone Av Christopher Primary Care Provider [phone] Allergies Active Allergy Reactions Criticality Noted Date [...] Department Care Team Description 09/22/2024 Orders Only [facility] - External Imaging [address] [place] [address] Radiology, External from Last 3 Months Family [...] 2011 Zoster Vaccines (1 of 2) 2011 COVID-19 Vaccine ( - 2023-2 5 season) 2024 Alcohol/Substance Use Screening 07/26/2024 Depression Screening and Follow-Up 07/26/2024 Social Drivers of Health Sofia ual Screening 07/26/2024 Influenza Vaccine (Season Ended) 2025 03/19/20 17, 03/27/2016 RSV Vaccine (60+ years old a nd patients) (1 - 1-dose 75+ series) 2036 Hepatitis B Vaccines Completed 04/14/2017, 04/16/2016, 04/02/2016, Additional history exists HIV Screening Completed 06/05/2024 Hepatitis C Screening Completed 06/05/2024 Procedures * Due to [place] law, this organization might not be sharing negative HIV tests. Procedure Name Priority Date/Time Associated Diagnosis Comments HEPATITIS C ANTIBODY W/REFLEX TO HCV RNA, QUANTITATIVE PCR Routine 06/05/2024 4:12 PM EST ALS (amyotrophic lateral sclerosis) from Last 3 Months or Most Recently Relevant to Health Maintenance Results * Due to [place] law, this organization might not be sharing negative HIV tests. * Hepatitis C Antibody w/Reflex to HCV RNA, Quantitative PCR (06/05/2024 4:12 PM EST) Hepatitis C Antibody NON-REACT YUMIKO NON-REACT YUMIKO 06/06/2024 5:25 AM EST [facility] Compliance Comment: HCV antibody was non-reactive. There is no laboratory evidence of HCV infection. In most cases, no further action is required. However, if recent HCV exposure is suspected, a test for HCV RNA (test code 75683) is suggested. For additional information please refer to http://education.Collibra/faq/KHV42u1 (This link is being provided for informational/ educational purposes only.) Blood Structure of peripheral vein / Unknown Venipuncture / Unknown 06/05/2024 4:12 PM EST 06/05/2024 4:31 PM EST [facility] - 06/06/2024 5:25 AM EST [facility] Received Date: Junie Bhatia MD LAB BLOOD ORDERAB LES Final Result [facility] [address] [facility] 3rd Floor, [place] [address], [place] [phone] [employer] [facility] [address] [facility] [address]rd Floor, [place] [address], [place] [phone] from Last 3 Months or Most Recently Relevant to Health Maintenance Insurance [facility] Care Teams Personal Lines Appraiser Relationship Specialty Start Date End Date Av Christopher [address] [place] [address] [place] [address] PCP - General Internal Medicine 06/06/24
--- NOTE | 2024-12-08 14:56 | MHC.PC.OV ---
Vital Signs 12/08/24 15:03 Height 5 ft 8 in Weight 115 lb BMI 17.5 BP 142/80 H Respiration 16 Pulse 98 Pulse Source Pulse Oximeter Temp 97.6 F Temp Source Temporal Artery Scan Pulse Oximetry (%) 99 Oxygen Delivery Method Room Air Intake Visit Reasons: Routine - see comments Extractive Metallurgist Required: No Accompanied by: Spouse Allergies ragweed pollen Adverse Reaction (Severe, Verified 12/08/24 14:56) Cough HPI HPI Comments History of Present Illness Details The patient is a 64 year old female with a past medical history of diagnosed ALS, dyspnea, depression, GERD, IBS-C, diverticulosis, MV disorder, scoliosis presenting for follow up. Last seen by pcp in August. Accompanied by Neuro: Diagnosed in April. Following at [facility]-Dr Vazquez-she was diagnosed with ALS. Follows locally with Dr Villar. The only symptoms she is having is ongoing respiratory difficulty. She is following very closely with the candy dipper hand at [facility], Dr Herrera Central sleep apnea: bipap with pressure support triggered intake, triggered expiration and triggered if respiration stops. IVAPS. Follows with ROS CONSTITUTIONAL: Denies weight loss, fever and chills. HEENT: Denies changes in vision and hearing. RESPIRATORY: Chronic dyspnea CV: Denies palpitations and CP GI: Denies abdominal pain, nausea, vomiting and diarrhea. : Denies dysuria and urinary frequency. MSK: Denies new myalgia and joint pain. SKIN: Denies rash and pruritus. NEUROLOGICAL: Pressure over the head pushing down when she stands. dyspnea PSYCHIATRIC: Denies recent changes in mood. PHYSICAL EXAM: GENERAL: Alert and oriented x 3. NAD. EYES: EOMI. Anicteric. HENT: Moist mucous membranes. LUNGS: Clear to auscultation bilaterally. CARDIOVASCULAR: Regular rate and rhythm. ABDOMEN: Soft, non-tender +bs EXTREMITIES: No edema. Non-tender. SKIN: No rashes or lesions. Warm. NEUROLOGIC: No focal neurological deficits. CN II-XII grossly intact PSYCHIATRIC: Cooperative. Appropriate mood and affect [facility] Medical History ALS (amyotrophic lateral sclerosis) COVID-19 Neuromuscular disease Chronic hypercapnic respiratory failure Diaphragmatic disorder Scoliosis Long COVID Insomnia Tachycardia Dyspnea Surgical History History of colonoscopy (~12/15/17) Social History Alcohol intake: current Alcohol intake frequency: a few times a week Alcohol type: wine Patient Tobacco Use Status: Former Tobacco user Tobacco use type: Cigarette Years Smoked: 30 Years Ago Physical exam (Primary Care) Vital Signs: Last Vital Signs Temp 97.6 F 12/08/24 15:03 Pulse 98 12/08/24 15:03 Resp 16 12/08/24 15:03 BP 142/80 H 12/08/24 15:03 Pulse Ox 99 12/08/24 15:03 Oxygen Delivery Method Room Air 12/08/24 15:03 BMI result Body Mass Index 17.5 Tobacco/Smoking Status: Tobacco use Status Patient Tobacco Use Status Former Tobacco user 12/08/24 15:05 Tobacco use type Cigarette 12/08/24 15:05 Coding Level of Care Code New Pt Level 4 (23243) Complex EM visit Add On G2211 Diagnoses ALS (amyotrophic lateral sclerosis) G12.21 Neuromuscular disease G70.9 Chronic hypercapnic respiratory failure J96.12 Assessment & Plan Assessment & Plan (1) ALS (amyotrophic lateral sclerosis): Comment: suspected diagnosis made in [place] Code(s): G12.21 - Amyotrophic lateral sclerosis Category: Medical (2) Neuromuscular disease: Comment: Being evaluated for ALS Code(s): G70.9 - Myoneural disorder, unspecified Category: Medical (3) Chronic hypercapnic respiratory failure: Code(s): J96.12 - Chronic respiratory failure with hypercapnia Category: Medical Plan Complex 64 year old female to establish care past medical, surgical, social reviewed Neuromuscular disorder, effecting respiration, central sleep apnea Referral ALS clinic [facility] Orders: Orders Lipid Panel Today G12.21 - Amyotrophic lateral sclerosis, G70.9 - Myoneural disorder, unspecified, J98.6 - Disorders of diaphragm Complete Blood Count Auto Diff Today G12.21 - Amyotrophic lateral sclerosis, G70.9 - Myoneural disorder, unspecified, J98.6 - Disorders of diaphragm Comprehensive Met. Panel Today G12.21 - Amyotrophic lateral sclerosis, G70.9 - Myoneural disorder, unspecified, J98.6 - Disorders of diaphragm TSH reflex Free T4 Today G12.21 - Amyotrophic lateral sclerosis, G70.9 - Myoneural disorder, unspecified, J98.6 - Disorders of diaphragm Referrals Neuromuscular Medicine Referral G70.9 - Myoneural disorder, unspecified
[2024-12-08 15:03] VITALS: BP 142/80; PULSE 98; RESP 16; TEMP 36.4; O2SAT 99; BMI 17.5
== END 2024-12-08 16:25 | disposition home or self-care (01) ==
LOC: HO.HMCHD 14:31
PROVIDERS: PCP Internal Medicine; Visit Provider Internal Medicine
DX: G12.21 Amyotrophic lateral sclerosis (principal); G70.9 Myoneural disorder, unspecified; J96.12 Chronic respiratory failure with hypercapnia

== ENCOUNTER → 2024-12-08 14:30 | Outpatient (BNVA) | payer OTHER, SELFPAY | PROVIDERS: PCP Internal Medicine; Visit Provider Internal Medicine | DX: G12.21 Amyotrophic lateral sclerosis (principal); G70.9 Myoneural disorder, unspecified; J96.12 Chronic respiratory failure with hypercapnia; G47.31 Primary central sleep apnea | CPT/HCPCS: 99202 ==

== ENCOUNTER 2025-01-02 07:41 | Outpatient (REF) | payer OTHER, SELFPAY ==
--- OUTSIDE RECORDS SUMMARY | 2025-01-02 07:43 | XMS_ITS | Data Portability ---
Author Organization [facility], [facility] Address [address] [place] [address] Care Team Providers Care Senior Biostatistician Name Role Phone WILD HILARIO Primary Care Provider Assessment Encounter Date Assessment Date Assessment LastModified by Organization Details LastModified Time 04/07/2024 04/07/2024 64-year-old female with muscle wasting disease workup in progress at respiratory compromise followed by her ice skater. Their major question for me today is whether the scoliosis was contributory at my opinion is scoliosis of 27 degrees with a normal thoracic kyphosis would not contribute in any way to any respiratory compromise or certainly any type of muscular wasting disease. No role for aggressive care. Do not anticipate any progression. Natural history reviewed and questions answered. Follow-up to be arranged. [email or web address] Not available 04/07/2024 12:45:51 Plan of Treatment Reminders Order Date Submit Date Provider Last Modified By Organization Details Last Modified Time Details Appointments RECHECK 15 2024 11:30A M Jeremy Rodriguez MD Not available Not available Not available Lab None recorded. Referral occupatio nal therapist referral - Diagnosis : BI HAND INTRINSIC TIGHTNESS Custom molded orthosis: noneTreat ment: INTRINSIC STRETCHIN G 2024 025 noam [facility], [address], [place], [address], 12/14/2024 11:18:06 Procedures None recorded. Surgeries None recorded. Imaging XR, hand, 3 or more view - 3v bi hand, grain scooper, rm 117 2024 025 noam [facility], [address], [address], [place], [address], 12/14/2024 11:18:06 XR, thoracic spine, 2 view - 321 new pt t-spine 2v 2023 024 [email or web address], [address], [address], [place], [address], 05/01/2024 15:45:20 Medication Orders None recorded. Patient TargetsNo targets recorded. Patient InstructionsNo instructions recorded. Reason for Referral Occupational Therapist Refer ral for Muscle contracture Diagnosis: BI HAND INTRINSIC TIGHTNESS Custom molded orthosis: noneTreatment: INTRINSIC STRETCHING Referring Physician: Jeremy Rodriguez, Orthopedic Surgery, Encounter Date: 12/14/2024 Results Created Date Observation Date Name Description Value Unit Range Abnormal Flag Note LastModifiedBy Organization Detail LastModifiedTime 04/07/20 24 04/07/2024 XR, thora cic spine , 2 view [email or web address] ?Encry pted=s hAaTro YD8dLq bEUv6g %2BXZw aYqtaq 0bqfl% 2Fg9IQ a4ajBk vP9nXo QUaueC m3YtLR FvZlgJ JJ8mAn HZtai3 4s6455 AC0Kqa n6NUKO vKiQtr MwF INTERFACE [facility] [address], [place], [address], 04/07/2024 09:26:41 04/07/20 24 04/07/2024 XR, thora cic spine , 2 view [email or web address]:/ [email or web address] ?Encry pted=s hAaTro YD8dLq bEUv6g %2BXZw aYqtaq 0bqfl% 2Fg9IQ a4ajBk vP9nXo QUaueC m3YtLR FvZlgJ JJ8mAn HZtai3 9m8444 AC0Kqa n6NUKO vKiQtr MwF INTERFACE [facility] [address], [place], [address], 04/07/2024 09:26:43 12/15/19 25 12/14/2024 XR, hand, 3 or more view [email or web address]:/ [email or web address] ?Encry pted=s hAaTro YD8dLq bEUv6g %2BXZw aYqtaq 0bqfl% 2Fg9IQ a4ajBk vP9nXo QUaueC m3YtLR FvZlgJ JJ8mAn HZtai3 2b2674 AC0Kla 3mHUKu hKiQtr MwF INTERFACE [facility] [address], [place], [address], 12/14/2024 10:39:11 12/15/19 25 12/14/2024 XR, hand, 3 or more view [email or web address]:/ [email or web address] ?Encry pted=s hAaTro YD8dLq bEUv6g %2BXZw aYqtaq 0bqfl% 2Fg9IQ a4ajBk vP9nXo QUaueC m3YtLR FvZlgJ JJ8mAn HZtai3 [id number] AC0Kla 3mHUKu hKiQtr MwF INTERFACE [facility] [address], [place], [address], 12/14/2024 10:39:13 Result Notes None recorded. Medical Equipment None Reported. Allergies No known drug allergies Medications Name Sig Start Date Stop Date Status Note LastModified by Organization Details LastModified Time BD Tuberculin Slip-Tip 1 mL syringe USE DIRECTED 2X A WEEK active Not Available Not Available No t Available ciprofloxaci n 500 mg tablet TAKE 1 TABLET BY MOUTH TWICE A DAY active Not Available Not Available No t Available estradiol valerate 10 mg/mL intramuscula r oil INJECT 6.25 MG TWICE WEEKLY active Not Available Not Available No t Available ciprofloxaci n 0.3 % eye drops APPLY 2 DROP(S) IN BOTHE EYES THREE TIMES A DAY active Not Available Not Available No t Available nitrofuranto in macrocrystal 100 mg capsule TAKE 1 CAPSULE BY MOUTH 3 TIMES A DAY active Not Available Not Available Not Available lorazepam 1 mg tablet TAKE 1 TABLET BY MOUTH TWICE A DAY NEEDED active Not Available Not Available No t Available zolpidem 10 mg tablet TAKE 1 TABLET BY MOUTH EVERY DAY AT BEDTIME NEEDED active Not Available Not Available No t Available albuterol sulfate HFA 90 mcg/actuatio n aerosol inhaler TAKE 2 PUFFS BY MOUTH EVERY 6 HOURS NEEDED FOR WHEEZE FOR SHORTNESS OF BREATH active Not Available Not Available No t Available medroxyproge sterone 150 mg/mL intramuscula r syringe INJECT 1 ML INTRAMUSCUL SERENITY EVERY THREE MONTHS DIRECTED active Not Available Not Available No t Available BD SafetyGlide Needle 25 gauge x 1 USE DIRECTED 2 X A WEEK active Not Available Not Available No t Available baclofen 5 mg tablet TAKE 1 TABLET BY MOUTH THREE TIMES A DAY active Not Available Not Available Not Available Vitals Date Recorded Body height Body mass index (BMI) Body weight Provider Name and Address Organization Details Last Updated DateTime 12/14/2024 170.18 cm 16.2 kg/m2 72273.17 g AMAURI MARTÍNEZ [facility] 12/14/2024 10:31:56 Date Recorded Body weight Body mass index (BMI) Body height Provider Name and Address Organization Details Last Updated DateTime 04/07/2024 63616.01 g 16.1 kg/m2 170.18 cm GA ESCOBEDO [facility] 04/11/2024 13:03:52 Social History None recorded. Functional Status None recorded. Mental Status None recorded. Family History Nothing Reported. Medical History No medical history recorded. Gynecological HistoryNo gynecological history recorded. Obstetrics History GPAL:G 0 P 0 0 0 0 Past Encounters Encounter ID Performer Location Encounter Start Date Encounter Closed Date Diagnosis/Indication Diagnosis SNOMED-CT Code Diagnosis ICD10 Code Diagnosis Note [id number] Kelvin Ronquillo MD [facility] [address] [place] [address] 04/07/2024 08:57:19 05/01/2024 15:45:20 Pain in thoracic spine 931209801 M54.6 [id number] MD KELECHI [facility] [address] [place] [address] 12/14/2024 10:25:28 12/27/2024 10:16:16 Pain of bilateral hands 6286220467 6023688 M79.641 M79.642 Muscle contracture 26025 002 M62.40 Health Concerns Section Related Observation LastModified by Organization Detai ls LastModified Time None Recorded Concern Status LastModified by Organization Details LastModified Time None Recorded Advance Directives Directive None Recorded Payers Encounter Date Sequence Insurance Name Policy Number Policy Pedraza Covered Member ID Pedraza Member ID Guarantor Name 04/07/2024 1 [facility] PLAN [id number] Nevaeh Palomino [id number] Nevaeh Palomino 12/14/2024 1 [facility] [employer] TYPE I (HMO) [id number] Nevaeh Palomino [id number] 1 Nevaeh Palomino Notes Date Note Type Note Provider Name and Address Organization Details Recorded Time 04/07/2024 text/html HPI: 64-year-old female presents with mid back pain and scoliosis. They have a question as to whether it is associated with any type of respiratory or pulmonary compromise. Patient has longstanding pulmonary compromise and congestion with a muscle wasting disease as yet undiagnosed. Mid back pain is persistent. Present over the course the last several years. Has generalized weakness associated with her muscle wasting disease as well. PFMSH and ROS has been reviewed, updated and is located in the patient's chart. TREATMENT: No care for her scoliosis. She takes aspirin for her mid back pain. MEDICATIONS: Aspirin WORK STATUS: Not working IMAGING: AP and lateral thoracic spine films notable for T4-T11 scoliosis apex right 27 degrees. No fractures identified. Lateral radiograph unremarkable with a normal kyphotic curvature X-RAY REPORT: X-rays ordered, obtained and reviewed at [facility]. Kelvin Ronquillo MD [address] [place] [address] [address], [place], [address], [facility] 04/07/2024 12:46:20 12/14/2024 text/html Diagnosis: Intrinsic tightness bilateral hands 64-year-old female with a recent history of progressively worsening stiffness of her bilateral index fingers and her right middle finger. This develop without history of trauma or other inciting event. She has a presumptive diagnosis of ALS Past family, medical, social history and review of systems has been reviewed, updated and is located in the patient? s chart. Examination: Healthy appearing patient in no apparent distress. Alert and oriented. She has incomplete flexion of her bilateral index fingers and her right middle finger. She has markedly positive intrinsic tightness in all the digits of both hands with the exception of her small fingers. Provocative testing of wrist and digits reveal no instability. No atrophy in either upper extremity. Brisk capillary refill in all digits X-rays ordered, obtained, and reviewed today at [facility]: PA, lateral, oblique views of both hands reveal some very mild IP joint space narrowing. Plan: I described to the patient the nature of intrinsic tightness and referred to occupational therapy to help with stretching. She will follow-up in 6 weeks time or sooner if there are any concerns Jeremy Rodriguez MD [address] [place] [address] [address], [place], [address], [facility] 12/14/2024 12:40:57 OBGyn Episode No OBEpisode recorded.
[2025-01-02 09:52] LABS: MANUAL DIFF FLAG NO
[2025-01-02 09:57] LABS: Basophils Percent Auto 0.5 % (0-2); Eosinophils Absolute Auto 0.3 X10*3/uL (0.0-0.4); Eosinophils Percent Auto 3.5 % (0-4); Hematocrit 40.6 % (37.0-47.0); Hemoglobin 13.7 g/dl (12.0-16.0); Imm Gran Abs Auto 0.02 X10*3/uL (0.00-0.03); Imm Gran Pct Auto 0.3 % (0.0-0.4); Lymphocytes Absolute Auto 2.2 X10*3/uL (1.2-4.9); Lymphocytes Percent Auto 27.8 % (20-40); Mean Corpuscular HGB Conc 33.7 g/dl (31.0-35.0); Mean Corpuscular Hemoglobin 32.2 pg (27.0-33.0); Mean Corpuscular Volume 95.3 fL (80.0-98.0); Mean Platelet Volume 9.7 fL (9.4-12.3); Monocytes Absolute Auto 0.6 X10*3/uL (0.1-1.2); Monocytes Percent Auto 8.2 % (2-11); Neutrophils Absolute Auto 4.6 x10*3/uL (2.0-8.3); Neutrophils Percent Auto 59.7 % (45-73); Platelet Count 258 X10*3/uL (160-400); Red Blood Count 4.26 X10*6/uL (4.20-5.50); Red Cell Distribution Width 12.5 % (11.0-16.0); White Blood Count 7.8 X10*3/uL (4.8-10.8)
[2025-01-02 10:26] LABS: Alanine Aminotransferase 17 U/L (0-31); Albumin Level 4.1 g/dL (3.5-5.0); Alkaline Phosphatase 51 U/L (39-117); Anion Gap 9 (12-20); Aspartate Amino Transferase 20 U/L (5-31); Bilirubin Total 1.3 mg/dL (0.0-1.0); Blood Urea Nitrogen 13 mg/dL (9-16); Calcium 8.8 mg/dL (8.4-10.2); Carbon Dioxide 28 mmol/L (22-29); Chloride 106 mmol/L (96-108); Cholesterol 141 mg/dL (<200); Estimated Glomerular Filt Rate > 60; Glucose Random 87 mg/dL (60-115); HDL Cholesterol 60 mg/dL (>40); LDL Cholesterol Calculated 70 mg/dL (<100); Potassium 3.9 mmol/L (3.3-5.1); Sodium 139 mmol/L (135-145); Total Protein 6.7 g/dL (6.5-8.0); Triglycerides 57 mg/dL (<150)
== END 2025-01-02 07:42 | disposition home or self-care (01) ==
LOC: HO.10HDL 07:41
PROVIDERS: Visit Provider Internal Medicine
DX: G70.9 Myoneural disorder, unspecified (principal); J98.6 Disorders of diaphragm; G12.21 Amyotrophic lateral sclerosis
CPT/HCPCS: 36415; 80053; 80061; 84443; 85025

== ENCOUNTER 2025-02-06 13:20 | Outpatient (AMB) | payer OTHER, SELFPAY ==
--- NOTE | 2025-02-06 13:28 | MHC.OFFVIS ---
Vital Signs 02/06/25 13:29 Height 5 ft 8 in Weight 117 lb 15.157 oz BMI 17.9 BP 130/72 Blood Pressure Location Lt brachial Position Sitting Pulse 84 Pulse Source Pulse Oximeter Pulse Oximetry (%) 100 Oxygen Delivery Method Room Air Intake Visit Reasons: ALS/[place] Allergies ragweed pollen Adverse Reaction (Severe, Verified 02/06/25 13:32) Cough HPI Comments Details: The patient is a 64 year woman who presents with symptoms of shortness of breath and also palpitations. The patient has not been feeling well for some time. Initially back if he years ago she was having issues with abdominal spasms. [place] like she was having diaphragmatic spasms she was not sure she was having something going on with the phrenic nerve. Subsequently after that the patient developed COVID-19. She has not noticing increasing heart rate palpitations in addition to shortness of breath. Now she has been progressively more short of breath last year. Her significant other is his with her and she is also states that she is become very short of breath even with minimal activity. Sometimes she feels like she is choking suffocating. Sometimes she feels so severe that she has to even stop doing the her activities of daily living such as doing the dishes and she has to sit down because of shortness of breath. She did have an echocardiogram done demonstrating some valvular disease. In addition to that during the office we did go for brief walking oximetry the patient was dyspneic breathing shallow and fast about 20 5 times a minute heart rate was elevated up to 125 but yet her pulse ox was stable at 98% which is reassuring. No imaging studies available at this time. Will go ahead and request blood work including a chest x-ray at this time. The patient will benefit from pulmonary function studies will follow-up afterwards. She may also benefit from pulmonary rehabilitation. Indeed dyspnea be related to post COVID or there may be a neurologic component resulting in some type of neuromuscular disease. 12/22/2023 the patient is here for a pulmonary follow-up visit. She continues be very dyspneic short of breath uncomfortable. The patient did undergo a chest x-ray demonstrating hyperinflation of her lungs. She had a blood gas which is reassuring. In addition to that pulmonary function studies did also show some degree of air trapping consistent with the hyperinflation of her lungs. We talked about importance of breathing techniques. The patient will really benefit from pulmonary rehabilitation at this time to help with the breathing techniques and also from thin her and billed aerobic capacity. In the meantime the patient continues to be dyspneic. We will request a cardiopulmonary exercise tolerance test to better address her dyspnea symptoms and see is a cardiovascular versus a pulmonary versus a musculoskeletal component. She is also working closely with neurology regarding any neuromuscular conditions that may be resulting her worsening dyspnea symptoms. She is concerned about diaphragm. She feels like it has not working correctly and she feels that his being constrained. Will go ahead and try her on baclofen to make sure she has not having any diaphragmatic spasms but will go ahead and request a sniff study to make sure that there is adequate excursion of the diaphragm. 01/06/2024 the patient is here for a pulmonary follow-up visit. She continues to be very dyspneic. She feels like she is getting worse. Even with minimal activity even at rest she is short of breath. We did check a venous blood gas during the last visit and her CO2 was in the upper limit of normal. She did follow-up with Neurology. The question neuromuscular disease resulting in significant work of breathing. Although still not clear. She is going to be referred to tertiary hospital for a neuromuscular specialist. In the meantime she did undergo a sniff study demonstrating normal diaphragmatic movement, although, it was very limited study and could not quantify the degree of diaphragmatic movement. In view of her shortness of breath will go ahead and request blood work including D-dimer to assess for potential blood clots. Based on the fact the patient has x-ray demonstrated some abnormalities in her PFTs and a diagnostic and she continues to have significant symptoms a CT scan of the chest will be a reasonable next step. Will also check an overnight oximetry with end-tidal CO2 to assess her CO2 throughout the night in view of the possibility of a chronic hypercarbic respiratory failure secondary to neuromuscular disease. The patient also benefit from pulmonary rehabilitation. 02/04/2024 the patient is here for a pulmonary follow-up visit. She continues to be very dyspneic. Moderate to severe. She did have the overnight oximetry demonstrating significant hypoxia at nighttime. Therefore she was prescribed oxygen. However, she has been reluctant to use it. I did emphasize to her the importance of using the oxygen. She will start using the oxygen now. She also had a blood gas demonstrating some slight elevations in her CO2. This was a venous blood gas. Again, with her significant muscle deconditioning and muscle wasting she likely is contributing component of respiratory failure. The patient will be evaluated by neurologist soon looking for neuromuscular conditions such as muscular dystrophy. She did have a sniff study demonstrating normal movement of the diaphragm which is reassuring. The patient also underwent a CT scan of the chest was reassuring as well. No evidence of any parenchymal lung disease. The patient was most start pulmonary rehabilitation. She has not as of yet. I will go ahead and put although order in. In the meantime she did undergo cardiopulmonary exercise tolerance test. We did review together. She has significant aerobic limitations. I suspect moderate chondral disease is also in differential such as mitochondrial muscular dystrophy. Again, she needs to be evaluated by Neurology or muscular dystrophy clinic. In the meantime the patient will start these in the oxygen. And also, hopefully start pulmonary rehabilitation soon. 04/07/2024 the patient is here for a pulmonary follow-up visit. She did go to [place] and she was evaluated there. Currently being evaluated for neuromuscular diseases. she will be going back for any mg test soon. In the meantime she did undergo pulmonary function studies at [facility] [place] which I personally reviewed with her. Her maximum inspiratory and expiratory pressures are down to 50%. Again, this is consistent with a neuromuscular disease resulting in her dyspnea symptoms. She has also has had significant weight loss. We did provide her with protein drinks during the last visit as we have samples and we also provided her with samples again. But, she would benefit from getting a prescription from her primary care doctor for significant weight loss and deconditioning that is also likely contributing to her muscle weakness. The patient did have a positive test for blood work that was suggestive of neuroendocrine disease such as small cell that can consult and paraneoplastic conditions. Although, her CT scan of the chest did not demonstrate any pulmonary nodules or any concerns for small cell lung cancer. Will have her repeat a chest x-ray today to make sure there is no changes on those images. In the meantime the patient will have a repeat blood gas because will monitoring closely her CO2 as it was slightly elevated during the last visit. If the CO2 continues to climb suggest that she is developing worsening hypercarbic respiratory failure in could result in worsening disease especially if there is further progression. The patient is interested in pulmonary rehabilitation. At least we can start working on building some strength in the middle of the evaluation. As far as other functions appears that she is swallowing well denies any dysphagia at this time. Will continue monitoring closely for that. 05/02/2024 the patient is here for a pulmonary follow-up visit. Since we last spoke the patient was initially set up for a sleep study. However her symptoms worsened and she ended up in the ER. At that point she had a repeat blood gas still demonstrating elevation her CO2. Therefore we arranged with a local [employer] company to for her to start IVAPS noninvasive ventilator for her neuromuscular disease and chronic hypercarbic respiratory failure. Initially was hard for her to get used to it. We did work with the [employer] company to adjust the pressures in the volumes accordingly for her to be admitted tolerated. She has been tolerating it better and she has been able to sleep at night which is reassuring. She is asking if this is something that she can wean off. Explained to the patient that did noninvasive ventilator as a bridge to therapy. We would have to know what is going on with her neuromuscular disease and proper treatment in order to help her strengthen and see if we are able to wean her off liberated for the noninvasive ventilator. However, the patient states that in her visit to [place] with the neurologist he spoke to her about a likely diagnosis of ALS. He is going to do additional testing such as genetic testing to better identify her condition. But in the meantime, he did recommend she start medicine for ALS. she is reluctant to do so at this time. She is questioning the diagnosis. At this point the patient does have a hard time going to [place] anyway so we will refer her to the ALS [facility] clinic for her to be further evaluated for ALS and see if they can potentially rule out or confirm the diagnosis at this time. In the meantime she is wondering about strengthening her muscles. She was approved to start pulmonary rehabilitation but then other issues arise and she was not able to do so. I did remind her that she needs to call to arrange a visit for her to start rehabilitation therapy. Will have her return in a couple months with spirometry to assess any progression of disease. 06/08/2024 the patient is here for a pulmonary follow-up visit. She has had multiple appointments with tertiary centers to further figure out her neuromuscular disease. The patient is still waiting to hear back or follow-up regarding a definitive diagnosis at this time. Either way the patient definitely has a neuromuscular component affecting her respiratory muscles. She is using her accessory muscles to breathe. Although she seems a little bit more comfortable today. She is using noninvasive ventilator at nighttime. She is using it every night she feels like she is getting for rest. Sometimes she even forgets she has not known. She does mention that sometimes she does feel that is hard to trigger the ventilator. This may be a sign of further progression of her respiratory weakness and will try to make the noninvasive ventilator more sensitive by decreasing the negative pressure required to trigger it. Will work with her [employer] for that, [employer]. In the meantime she will did have her 6 minute walk test with the pulmonary rehabilitation and I did encourage her to schedule her classes to start pulmonary rehabilitation at this time. Will plan to have her undergo spirometry during the next visit and also will require blood gas to assess her CO2. Briefly, we also talked about using the noninvasive ventilator during the daytime if her condition worsens further. We did talk about a mouthpiece that she could use with sip and puff set up specially if symptoms worsen. Clinically today she looks okay so we will start the conversation for that. 08/10/2024 the patient is here for pulmonary follow-up visit. The patient is still being followed closely for neuromuscular disease with Neurology. She did have a modified barium swallow apparently sometime in the late fall where was reassuring no evidence of any aspiration. The patient has been using the noninvasive ventilator overnight. The therapy has been affecting beneficial. She is wondering the if she can do without it. She would like to test to see what her oxygen is off the machine. I did tell her we can do that but I do recommend that she stay on the noninvasive ventilator based on the fact that is not on her oxygen but it is more related to the CO2 in the chronic hypercarbic respiratory failure. The patient was also concerned about her mitral valve where she has a prolapse and she is also concerned about stenosis of her left internal carotid and needing surgery. I explained to her that she does have hard for perioperative pulmonary complications due to her neuromuscular condition in her risk of a prolonged ventilator time. The patient is aware that if she does need surgery then she will need a preoperative evaluation for each of the events and we can discuss that further what is more definitive. She did undergo spirometry today. Her forced vital capacity did decrease from 2.6 to 2.07. Therefore the concerned about potential progression of her neuromuscular disease. It is reassuring that she gained actually 3 lb. During the office visit we also went for a walking oximetry and she maintain a pulse ox of 99% which is great. Heart rate was elevated. She was scheduled to start pulmonary rehab which she has not started it as of yet. I did encourage her to do so because it will help. 09/26/2024 the patient is here for a pulmonary follow-up visit. Overall she is doing about the same. She still working on exercises and staying strong. She did get a breather device and she skin is continue to continue to stand during her respiratory capacity. I also provide her with an incentive spirometer. She is using the noninvasive ventilator at nighttime and is working well. In addition to that she did have spirometry today which we personally reviewed. Her FVC is 2.44 L which is better than before (2.6->2.0->2.4) she is concerned with the diagnosis of a rare form of ALS. She is not sure this is the correct diagnosis. She did undergo go an EMG in [place] but she has certain reservations how was done. I will go ahead and refer her to physiatry here so we can hopefully redo the EMG to address her ongoing diagnosis of neuromuscular disease. The patient will continue the current therapy she is going to undergo blood work and then will follow-up in 2 months with a formal pulmonary function study. 11/28/2024 the patient is here for a pulmonary follow-up visit. Since we last spoke the patient feels a little bit weaker. Little bit difficulty breathing. Moderate severity. She also feels some weakness of the arms. She still trying to get sense of her neuromuscular disease and if his ALS or very it. She denies any difficulty swallowing. She does have feel like her cough is getting weaker. Difficult to expectorate secretions specially when they are in the central airway. We did perform spirometry today. Her FVC decreased down to 2.29 L. therefore there seems to be a slow progression of disease based on the continued decline. Her maximum inspiratory pressures were at 34% predicted maximum expiratory pressures around 52% predicted. Based on a weekend cough and decreased in the maximum inspiratory and expiratory pressures and her neuromuscular disease I do believe that cough assist will be helpful in helping her clear her secretions specially with a very weak cough that she demonstrated today. She continues use a noninvasive ventilator. She does use it every night. It is affecting beneficial. We will go ahead and request a blood gas to make sure that her CO2 is continue to respond adequately. 02/06/2025 the patient is here for pulmonary follow-up visit. Overall the patient has been doing okay. She continues to exercise regularly. She works on incentive spirometer on a regular basis with good results. She also has been using her noninvasive ventilator. We had increase the pressures initially was too hard for her to tolerate then we got it to a point that she is doing better with it. She is trying to get used to the higher pressures when they do happen. She did have an FVC today through a spirometry which is 2.36L. Overall, no significant change from back in November when she had her numbers and actually no significant change from September. She also did follow-up with Neurology and they were also reassuring that they have not seen any significant progression in the last 6 months also reassuring. Will go ahead and request blood work. The patient is concerned about her diaphragmatic excursion. Will go ahead and recheck pulmonary function studies and a another sniff study sometime in March to assess her neuromuscular function and lung capacity. Will follow-up in 3 months. [facility] Medical History ALS (amyotrophic lateral sclerosis) COVID-19 Neuromuscular disease Chronic hypercapnic respiratory failure Diaphragmatic disorder Scoliosis Long COVID Insomnia Tachycardia Dyspnea Surgical History History of colonoscopy (~12/15/17) Social History Alcohol intake: current Alcohol intake frequency: a few times a week Alcohol type: wine Patient Tobacco Use Status: Former Tobacco user Tobacco use type: Cigarette Years Smoked: 30 Years Ago Review of Systems Const Denies chills, Denies fatigue, Denies fever(s), Denies weight gain and Denies weight loss Eyes Denies change in vision ENT Denies dysphagia and Denies dizziness Card Denies chest pain, Denies leg edema, Denies lightheadedness, Denies palpitations, Reports dyspnea on exertion, Denies orthopnea and Denies other Resp Reports cough (weak), Reports dyspnea on exertion and Denies wheezing GI Denies hematochezia, Denies change in stool character and Denies dysphagia Musc Denies abnormal gait, Reports muscle weakness, Denies numbness, Denies radiating pain into limb, Reports stiffness and Reports tingling Skin/Breast Denies rash Neuro Denies abnormal gait, Denies dizziness, Denies numbness and Reports tingling Endo Denies fatigue and Denies palpitations David/Lymph Denies lymphadenopathy Aller/Immun Denies wheezing Physical Exam Vital Signs: Last Vital Signs Pulse 84 02/06/25 13:29 BP 130/72 02/06/25 13:29 Pulse Ox 100 02/06/25 13:29 Oxygen Delivery Method Room Air 02/06/25 13:29 BMI result Body Mass Index 17.9 Const General: cooperative Nutritional Appearance: thin Orientation/consciousness: patient oriented x3 HEENT Head: Yes normocephalic Neck Neck: Yes supple Chest Chest palpation & inspection: normal inspection of the chest Resp Effort & Inspection: normal respiratory effort and uses accessory muscles Auscultation: diminished lung sounds Cardio Rate: tachycardic Heart sounds: S1 normal heart sound present and S2 normal heart sound present GI Palpation (GI): Soft to palpation Skin General skin exam: no rashes or lesions noted Neuro General: patient oriented x3 Extrem General: Yes no clubbing, cyanosis or edema Assessment & Plan Assessment & Plan (1) Dyspnea: Code(s): R06.00 - Dyspnea, unspecified Category: Medical Qualifiers: Dyspnea type: shortness of breath Qualified Code(s): R06.02 - Shortness of breath (2) Chronic hypercapnic respiratory failure: Code(s): J96.12 - Chronic respiratory failure with hypercapnia Category: Medical (3) Neuromuscular disease: Comment: Being evaluated for ALS Code(s): G70.9 - Myoneural disorder, unspecified Category: Medical (4) ALS (amyotrophic lateral sclerosis): Comment: suspected diagnosis made in [place] Code(s): G12.21 - Amyotrophic lateral sclerosis Category: Medical Plan continue NIV with oxygen pulmonary rehab repeat bloodwork, VBG PFTs Will repeat Sniff study to reassess diaphragmatic excursion discontinued cough assist, may need it later, though Needs to start pulmonary rehab Monitor swallow ISS F/U 2-3 months Orders: Orders PFT pulmonary function test 2 Months G70.9 - Myoneural disorder, unspecified Venous Blood Gas Today G70.9 - Myoneural disorder, unspecified IR fluoroscopy <1hr 2 Months G70.9 - Myoneural disorder, unspecified Complete Blood Count Auto Diff Today G70.9 - Myoneural disorder, unspecified Coding Level of Care Code Est Pt Level 5 (32516) Complex EM visit Add On G2211 Diagnoses Shortness of breath R06.02 Dyspnea type: shortness of breath Chronic hypercapnic respiratory failure J96.12 Neuromuscular disease G70.9 ALS (amyotrophic lateral sclerosis) G12.21 Time Spent (min) 50
[2025-02-06 13:29] VITALS: BP 130/72; PULSE 84; O2SAT 100; BMI 17.9
--- OUTSIDE RECORDS SUMMARY | 2025-02-06 14:43 | XMS_ITS | Data Portability ---
Author Organization [facility], [facility] [place] Address [address] [place] [address] Care Team Providers Care Vegetable Thinner Name Role Phone WILD HILARIO Primary Care Provider Assessment Encounter Date Assessment Date Assessment LastModified by Organization Details LastModified Time 04/07/2024 04/07/2024 64-year-old female with muscle wasting disease workup in progress at respiratory compromise followed by her inter com servicer. Their major question for me today is [...] BI HAND INTRINSIC TIGHTNESS Custom molded orthosis: none Treatment : INTRINSIC STRETCHIN G 2024 025 noam [facility] [place] [address] [place], [address], 12/14/2024 11:18:06 Procedures None recorded. Surgeries None recorded. Imaging XR, hand, 3 or more view - 3v bi hand, junior engineer, rm 117 2024 025 noam Clay, [address], [place], [address], 12/14/2024 11:18:06 XR, thoracic spine, 2 view - 321 new pt t-spine 2v 2023 024 [facility], [address], [place], [address], 05/01/2024 15:45:20 Medication Orders None recorded. Patient [...] a4ajBk vP9nXo QUaueC m3YtLR FvZlgJ JJ8mAn HZtai3 8n7889 AC0Kqa n6NUKO vKiQtr MwF INTERFACE [facility] [address], [place], [address], 04/07/2024 09:26:41 04/07/20 24 04/07/2024 XR, thora cic spine , 2 view [email or web address] ?Encry pted=s hAaTro YD8dLq bEUv6g %2BXZw aYqtaq 0bqfl% 2Fg9IQ a4ajBk vP9nXo QUaueC m3YtLR FvZlgJ JJ8mAn HZtai3 3o4085 AC0Kqa n6NUKO vKiQtr MwF INTERFACE [facility] [address], [place], [address], 04/07/2024 09:26:43 12/15/19 25 12/14/2024 XR, hand, 3 or more view [email or web address] ?Encry pted=s hAaTro YD8dLq bEUv6g %2BXZw aYqtaq 0bqfl% 2Fg9IQ a4ajBk vP9nXo QUaueC m3YtLR FvZlgJ JJ8mAn HZtai3 5k3544 AC0Kla 3mHUKu hKiQtr MwF INTERFACE [facility] Office [address] [facility] [address], [place], [address], 12/14/2024 10:39:11 12/15/19 25 12/14/2024 XR, hand, 3 or more view [email or web address] ?Encry pted=s hAaTro YD8dLq bEUv6g %2BXZw aYqtaq 0bqfl% 2Fg9IQ a4ajBk vP9nXo QUaueC m3YtLR FvZlgJ JJ8Reading HZtai3 2c9910 AC0Kla 3mHUKu hKiQtr MwF INTERFACE [facility] [address] [facility] [address], [place], [address], 12/14/2024 10:39:13 Result Notes Documentation Provider Name and Address Organization Details Recorded Time Xr, Thoracic Spine, 2 View : [email or web address] Encrypted=iiPhTmgYB0vQhyR Uv6g%1KVSccVwqvz7fmhu%2Fg 3KVc5wiExlL1qKuIXjcmXo3Wu INRsCbgHMH7iVsIOojp67f549 5SN1Jlhf4LSZAuAsJqlFdF Not Available [facility] 04/07/2024 09:26: 42 Xr, Thoracic Spine, 2 View : [email or web address] Encrypted=ynGySoaAH5lPyeR Uv6g%0EHYhuZutmq4bxkc%2Fg 5DYl8nhYhuU9dTuUCftmNm3Ix KKBcPdzQAU8eDoGPlqw39h229 1MD2Ngdj9TAFSlOkJmuAmV Not Available [facility] 04/07/2024 09:26: 44 Xr, Hand, 3 Or More View : [email or web address] Encrypted=ebJoGjoHW6bCypY Uv6g%2DRQjxKpetw9eupi%2Fg 8HTc9haPozQ0qWlDNpywIa9Xd RFKaNtgPLR3nLoSCcvb56j606 5JH0Joj3wDALhmJbOtcBnI Not Available [facility] 12/14/2024 10:39: 12 Xr, Hand, 3 Or More View : [email or web address] Encrypted=tgAkXqxIU9eJdfN Uv6g%3PMRsePnxqx3xeiw%2Fg 8VIf5kqSgxH5uDzINdyiXi7Pr KWZuXwkEYQ2mXbYRvte64a131 5ZR5Prz3mNWFbcMqRtpLpR Not Available [facility] 12/14/2024 10:39: 13 Medical Equipment None Reported. Allergies No known [...] Updated DateTime 12/14/2024 170.18 cm 16.2 kg/m2 07736.17 g AMAURI MARTÍNEZ [facility] 12/14/2024 10:31:56 Date Recorded Body weight Body mass index (BMI) Body height Provider Name and Address Organization Details Last Updated DateTime 04/07/2024 48449.01 g 16.1 kg/m2 170.18 cm GA ESCOBEDO [facility] 04/11/2024 13:03:52 Social History None recorded. Functional Status None recorded. Mental Status None recorded. Family History Nothing Reported. Medical History No medical history recorded. Gynecological HistoryNo gynecological history recorded. Obstetrics History GPAL:G 0 P 0 0 0 0 Past Encounters Encounter ID Performer Location Encounter Start Date Encounter Closed Date Diagnosis/Indication Diagnosis SNOMED-CT Code Diagnosis ICD10 Code Diagnosis Note [id number] Kelvin Ronquillo MD [place] [address] [place] [address] 04/07/2024 08:57:19 05/01/2024 15:45:20 Pain in thoracic spine 951723236 M54.6 [id number] MD KELECHI Arellano - [place] [address] [place] [address] 12/14/2024 10:25:28 12/27/2024 10:16:16 Pain of bilateral hands 4904253685 0973024 M79.641 M79.642 Muscle contracture 30457 002 M62.40 Health Concerns Section Related Observation LastModified by Organization Detai ls LastModified Time None Recorded Concern Status LastModified by Organization Details LastModified Time None Recorded Advance Directives Directive None Recorded Payers Insurance Date Sequence Insurance Name Policy Number Policy Pedraza Covered Member ID Pedraza Member ID Guarantor Name 12/27/2024 1 [facility] - DIRECT CONNECTORCARE TYPE I (HMO) [id number] Nevaeh Palomino [id number] 1 Nevaeh Palomino 12/13/2024 1 [facility] [id number] Nevaeh Palomino [id number] 2 Nevaeh Palomino Notes Date Note Type Note [...] REPORT: X-rays ordered, obtained and reviewed at [place]. Kelvin Ronquillo MD [address] [place] [address] [address], [place], [address], [facility] 04/07/2024 12:46:20 12/14/2024 text/html [...] reviewed, updated and is located in the patient s chart. Examination: Healthy appearing patient in [...] X-rays ordered, obtained, and reviewed today at [facility]: PA, lateral, oblique views of both hands reveal some very mild IP joint space narrowing. Plan: I described to the patient the nature of intrinsic tightness and referred to occupational therapy to help with stretching. She will follow-up in 6 weeks time or sooner if there are any concerns Jeremy Rodriguez MD [address] [place] [address] [address], [place], [address], [facility] 12/14/2024 12:40:57 OBGyn Episode No OBEpisode recorded.
--- OUTSIDE RECORDS SUMMARY | 2025-02-06 14:43 | XMS_ITS | Referral Summary ---
Author Organization [facility] Address [address] [place] [address] Care Team Providers Care Naval Inspector Name Role Phone Av Christopher Primary Care Provider [phone] Allergies Active Allergy Reactions Criticality Noted Date [...] 121 06/05/2024 12:54 PM EST Temperature 36.7 C (98 F) 06/05/2024 12:46 PM EST Respiratory Rate 16 06/05/2024 12:46 PM EST Oxygen Saturation - - Inhaled Oxygen Concentration - - Weight 49 kg (108 lb) 06/05/2024 12:46 PM EST Height 172.7 cm (5' 8 ) 06/05/2024 12:46 PM EST Body Mass Index 16.42 06/05/2024 12:46 PM EST Plan of Treatment Not on file Procedures * Due to [place] [employer] law, this organization might not be sharing negative HIV tests. Procedure Name Priority Date/Time Associated Diagnosis Comments HEPATITIS C ANTIBODY W/REFLEX TO HCV RNA, QUANTITATIVE PCR Routine 06/05/2024 4:12 PM EST ALS (amyotrophic lateral sclerosis) from Last 3 Months or Most Recently Relevant to Health Maintenance Results * Due to [place] [employer] law, this organization might not be sharing negative HIV tests. * Hepatitis C Antibody w/Reflex to HCV RNA, Quantitative PCR (06/05/2024 4:12 PM EST) Hepatitis C Antibody NON-REACT YUMIKO NON-REACT YUMIKO 06/06/2024 5:25 AM EST [employer] Comment: HCV antibody was non-reactive. There is no laboratory evidence of HCV infection. In most cases, no further action is required. However, if recent HCV exposure is suspected, a test for HCV RNA (test code 37538) is suggested. For additional information please refer to http://education.iSuppli/faq/RTX79r2 (This link is being provided for informational/ educational purposes only.) Blood Structure of peripheral vein / Unknown Venipuncture / Unknown 06/05/2024 4:12 PM EST 06/05/2024 4:31 PM EST Narrative [facility] - 06/06/2024 5:25 AM EST [facility] Received Date: us Junie Bhatia MD LAB BLOOD ORDERAB LES Final Result [facility] [address] [facility] 3rd Floor, [place] [address], [place] [phone] [employer] [address] [facility] 3rd Floor, [place] [address], [place] [phone] from Last 3 Months or Most Recently Relevant to Health Maintenance Insurance [facility] Care Teams Naval Inspector Relationship Specialty Start Date End Date Av Christopher [address] [place] [address] [place] [address] PCP - General Internal Medicine 06/06/24
== END 2025-02-06 14:16 | disposition home or self-care (01) ==
LOC: HO.HPS 13:20
PROVIDERS: PCP Internal Medicine; Visit Provider Hospitalist
DX: R06.02 Shortness of breath (principal); J96.12 Chronic respiratory failure with hypercapnia; G70.9 Myoneural disorder, unspecified; G12.21 Amyotrophic lateral sclerosis
CPT/HCPCS: 99215

== ENCOUNTER → 2025-02-06 13:20 | Outpatient (BNVA) | payer OTHER, SELFPAY | PROVIDERS: PCP Internal Medicine; Visit Provider Hospitalist | DX: G12.21 Amyotrophic lateral sclerosis (principal); G70.9 Myoneural disorder, unspecified; J96.12 Chronic respiratory failure with hypercapnia | CPT/HCPCS: 99212 ==

== ENCOUNTER → 2025-02-11 03:48 | Outpatient (BNV) | payer OTHER, SELFPAY | PROVIDERS: Emergency Provider Emergency Medicine Emergency Medical Services; PCP Internal Medicine; Visit Provider Radiology Vascular & Interventional Radiology | DX: R06.02 Shortness of breath (principal) | CPT/HCPCS: 71045 ==

== ENCOUNTER 2025-02-11 04:20 | Emergency (ER) | payer OTHER, SELFPAY ==
--- NOTE | 2025-02-11 | ECG_ITS ---
Test Reason : SHORTNESS OF BREATH Blood Pressure : */* mmHG Vent. Rate : 96 BPM Atrial Rate : 96 BPM P-R Int : 132 ms QRS Dur : 82 ms QT Int : 370 ms P-R-T Axes : 80 68 55 degrees QTcB Int : 467 ms Normal sinus rhythm Normal ECG When compared with ECG of 19-May-2024 19:34, No significant changes seen Referred By: Generic ED Physician Electronically Signed By: JARRETT GONZALEZ
--- NOTE | ~2025-02-11 | XR_ITS ---
CLINICAL HISTORY: sob 1 view chest x-ray. Comparison: 04/11/2024 09:19 AM EDT: CR Findings: The lungs are adequately expanded. No focal consolidation. No effusion or pneumothorax. Cardiac and mediastinal contours are within normal limits. No acute osseous abnormality Impression: No acute process. This document has been electronically signed by: Dez Chun MD on 02/11/2025 05:48:49
[2025-02-11 04:27] VITALS: BP 113/91; PULSE 104; RESP 24; O2SAT 95; BMI 17.8
--- NOTE | 2025-02-11 04:53 | PC.NURSE ---
pt from home, a&ox4, respirations even and unlabored. pt reports onset of nausea and vomiting starting x3 hors ago, reports she has been able to keep no po intake down. pt also reports shortness of breath and tremors. pt is tachypnic but sating 99% on room air. pt placed on tele monitor 105-110bpm. 20g placed in left ac labs obtained. call pina within reach
[2025-02-11 04:54] LABS: MANUAL DIFF FLAG NO
[2025-02-11 04:55] LABS: Hematocrit 38.3 % (37.0-47.0); Hemoglobin 13.4 g/dl (12.0-16.0); Imm Gran Abs Auto 0.03 X10*3/uL (0.00-0.03); Imm Gran Pct Auto 0.3 % (0.0-0.4); Lymphocytes Absolute Auto 1.1 X10*3/uL (1.2-4.9); Mean Corpuscular HGB Conc 35.0 g/dl (31.0-35.0); Mean Corpuscular Hemoglobin 32.5 pg (27.0-33.0); Mean Corpuscular Volume 93.0 fL (80.0-98.0); NRBC Abs Auto 0.000 X10*3/uL (0.0-0.012); NRBC Pct Auto 0.0 /100WBC (0.0-0.2); Platelet Count 277 X10*3/uL (160-400); Red Blood Count 4.12 X10*6/uL (4.20-5.50); White Blood Count 9.6 X10*3/uL (4.8-10.8)
[2025-02-11 05:17] LABS: Alanine Aminotransferase 14 U/L (0-31); Albumin Level 4.3 g/dL (3.5-5.0); Alkaline Phosphatase 53 U/L (39-117); Anion Gap 17 (12-20); Aspartate Amino Transferase 27 U/L (5-31); Blood Urea Nitrogen 11 mg/dL (9-16); Calcium 8.7 mg/dL (8.4-10.2); Carbon Dioxide 21 mmol/L (22-29); Chloride 107 mmol/L (96-108); Creatinine Clr Calc Pharmacy 91.0; Estimated Glomerular Filt Rate > 60; Lipase 12 U/L (8-78); Magnesium 1.9 mg/dL (1.6-2.6); Potassium 4.8 mmol/L (3.3-5.1); Sodium 140 mmol/L (135-145); Total Protein 7.0 g/dL (6.5-8.0)
[2025-02-11 05:21] LABS: Troponin-I High Sensitivity < 2.7 ng/L (<3.5-17.0)
--- OUTSIDE RECORDS SUMMARY | 2025-02-11 05:30 | XMS_ITS | Data Portability ---
Author Organization [facility], [facility] [place] Address [address] [place] [address] Care Team Providers Care Technical Agronomist Name Role Phone WILD HILARIO Primary Care Provider [phone] Assessment Encounter Date Assessment Date Assessment LastModified by Organization Details LastModified Time 04/07/2024 04/07/2024 64-year-old female with muscle wasting disease workup in progress at respiratory compromise followed by her pull through hooker. Their major question for me today is [...] 2024 025 noam [facility] - [place] [address] [place], [address], 12/14/2024 11:18:06 Procedures None recorded. Surgeries None recorded. Imaging XR, hand, 3 or more view - 3v bi hand, cylinder dyer, rm 117 2024 025 noam Clay, [address], [place], [address], 12/14/2024 11:18:06 XR, thoracic spine, 2 view - 321 new pt t-spine 2v 2023 024 [facility]and [facility], [address], [place], [address], 05/01/2024 15:45:20 Medication Orders None recorded. Patient [...] a4ajBk vP9nXo QUaueC m3YtLR FvZlgJ JJ8mAn HZtai3 3j3858 AC0Kqa n6NUKO vKiQtr MwF INTERFACE [facility] [address], [place], [address], 04/07/2024 09:26:41 04/07/20 24 04/07/2024 XR, thora cic spine , 2 view [email or web address] ?Encry pted=s hAaTro YD8dLq bEUv6g %2BXZw aYqtaq 0bqfl% 2Fg9IQ a4ajBk vP9nXo QUaueC m3YtLR FvZlgJ JJ8mAn HZtai3 8j3712 AC0Kqa n6NUKO vKiQtr MwF INTERFACE [facility] [address], [place], [address], 04/07/2024 09:26:43 12/15/19 25 12/14/2024 XR, hand, 3 or more view [email or web address] ?Encry pted=s hAaTro YD8dLq bEUv6g %2BXZw aYqtaq 0bqfl% 2Fg9IQ a4ajBk vP9nXo QUaueC m3YtLR FvZlgJ JJ8mAn HZtai3 9g6022 AC0Kla 3mHUKu hKiQtr MwF INTERFACE [facility] Office [address] [facility] [address], [place], [address], 12/14/2024 10:39:11 12/15/19 25 12/14/2024 XR, hand, 3 or more view [email or web address] ?Encry pted=s hAaTro YD8dLq bEUv6g %2BXZw aYqtaq 0bqfl% 2Fg9IQ a4ajBk vP9nXo QUaueC m3YtLR FvZlgJ JJ8[place] HZtai3 2f8581 AC0Kla 3mHUKu hKiQtr MwF INTERFACE [facility] [address] [facility], [place], [address], 12/14/2024 10:39:13 Result Notes Documentation Provider Name and Address Organization Details Recorded Time Xr, Thoracic Spine, 2 View : [email or web address] Encrypted=beDfVvgIG1mHhzD Uv6g%4OKTjrYiulj5yigx%2Fg 8JOb5rjMvtP8dFlQJshnEt8Fa HLDnZgqBZG7iRiEPbwk11b681 6GO4Fmaz8TLWHcBwCmtLtJ Not Available [facility] 04/07/2024 09:26: 42 Xr, Thoracic Spine, 2 View : [email or web address] Encrypted=ibJyLvpVM3kIdtR Uv6g%9NNMnxJqohm3hqrc%2Fg 5QJd3muSptS5kNmXYoejPh1Dx UHAjIbyMZE1mSqYJacx20f436 7VS7Pjib2MVFVvYbSezWyT Not Available [facility] 04/07/2024 09:26: 44 Xr, Hand, 3 Or More View : [email or web address] Encrypted=jnPgPxhGW4sGaqV Uv6g%6TGRxwLkiit4rusf%2Fg 4FPa0gbKklU1fSyRMtrnIq9Ep IALzUjoTBW6jDaMZlho22p155 2SM5Fyo0pMZJbyKwIecYyB Not Available [facility] 12/14/2024 10:39: 12 Xr, Hand, 3 Or More View : [email or web address] Encrypted=ogZjTylSC6rUwsS Uv6g%3AJSbiEezod2jilo%2Fg 0CCw0jiXazI1qBiOHxczMc9Pm RSSwWenNED6wOkVNcbd27h160 4MD0Vfj6gPXQrvCeYoaWuB Not Available [facility] 12/14/2024 10:39: 13 Medical Equipment None Reported. [...] Updated DateTime 12/14/2024 170.18 cm 16.2 kg/m2 56704.17 g AMAURI MARTÍNEZ [facility] 12/14/2024 10:31:56 Date Recorded Body weight Body mass index (BMI) Body height Provider Name and Address Organization Details Last Updated DateTime 04/07/2024 62966.01 g 16.1 kg/m2 170.18 cm GA ESCOBEDO [facility] 04/11/2024 13:03:52 Social History None recorded. Functional Status None recorded. Mental Status None recorded. Family History Nothing Reported. Medical History No medical history recorded. Gynecological HistoryNo gynecological history recorded. Obstetrics History GPAL:G 0 P 0 0 0 0 Past Encounters Encounter ID Performer Location Encounter Start Date Encounter Closed Date Diagnosis/Indication Diagnosis SNOMED-CT Code Diagnosis ICD10 Code Diagnosis Note [id number] Kelvin Ronquillo MD [place] [address] [place] [address] 04/07/2024 08:57:19 05/01/2024 15:45:20 Pain in thoracic spine 392530113 M54.6 [id number] MD KELECHI Arellano - [place] [address] [place] [address] 12/14/2024 10:25:28 12/27/2024 10:16:16 Pain of bilateral hands 7673238800 4465887 M79.641 M79.642 Muscle contracture 40495 002 M62.40 Health Concerns Section Related Observation LastModified by Organization Detai ls LastModified Time None Recorded Concern Status LastModified by Organization Details LastModified Time None Recorded Advance Directives Directive None Recorded Payers Insurance Date Sequence Insurance Name Policy Number Policy Pedraza Covered Member ID Pedraza Member ID Guarantor Name 12/27/2024 1 [facility] - DIRECT CONNECTORCARE TYPE I (HMO) [id number] Nevaeh Palomino [id number] 1 Nevaeh Palomino 12/13/[address] [facility] [id number] Nevaeh Palomino [id number] 2 Nevaeh Palomino Notes Date Note Type [...] REPORT: X-rays ordered, obtained and reviewed at [facility]. Kevlin Ronquillo MD [address] [place] [address] [address], [place], [address], [facility] [place] [facility] 04/07/2024 12:46:20 12/14/2024 text/html [...] X-rays ordered, obtained, and reviewed today at [facility]: PA, lateral, oblique views of both hands reveal some very mild IP joint space narrowing. Plan: I described to the patient the nature of intrinsic tightness and referred to occupational therapy to help with stretching. She will follow-up in 6 weeks time or sooner if there are any concerns Jeremy Rodriguez MD [address] [place] [address] [address], [place], [address], [facility] [place] [facility] 12/14/2024 12:40:57 OBGyn Episode No OBEpisode recorded.
--- OUTSIDE RECORDS SUMMARY | 2025-02-11 05:30 | XMS_ITS | Clinical Summary ---
Author Organization [facility] Address [address] [place] [address] Phone Care Team Providers Care Wedding Planning Internship Name Role Phone Av Christopher MD Primary Care Provider Allergies No known active allergies Medications No known medications Social History Tobacco Use Types Packs/Day Years Used Date Smoking Tobacco: Never Assessed Education Answer Date Recorded Are you interested in more education? Not on alisson e 11/21/2022 Are you concerned about learning? Not on file 11/21/2022 No 11/21/2022 No 11/21/2022 Digital Access Answer Date Recorded No 12/22/2022 No 12/22/2022 Reliable internet access at home? Not on file 12/22/2022 Device with a working camera? Not on file Intimate Partner Violence Answer Date R ecorded Are you denied basic needs s uch as food, clothing, or medical care? No 04/11/2024 In the past 12 months have y ou been in a relationship with a person who hurts, threatens, or tries to control you? No 04/11/2024 Are you denied basic needs s uch as food, clothing, or medical care? No 04/11/2024 In the past 12 months have y ou been in a relationship with a person who hurts, threatens, or tries to control you? No 04/11/2024 Comments Unknown Sex and Gender Information Value Date Recorded Sex Assigned at Female 04/04/2024 11:14 AM EDT Legal Sex Female 9:02 PM EDT Gender Identity Female 04/04/2024 11:14 AM EDT Sexual Orientation Not on file Last Filed Vital Signs Vital Sign Reading Time Taken Comments Blood Pressure 137/80 04/11/2024 5:50 AM EDT Pulse 95 04/11/2024 5:50 AM EDT Temperature 36.1 C (97 F) 04/11/2024 5:50 AM EDT Respiratory Rate 30 04/11/2024 5:50 AM EDT Oxygen Saturation 99% 04/11/2024 5:50 AM EDT Inhaled Oxygen Concentration - - Weight 68 kg (150 lb) 11/21/2021 9:27 PM EDT Height 172.7 cm (5' 8 ) 11/21/2021 9:27 PM EDT Body Mass Index 22.81 11/21/2021 9:27 PM EDT Plan of Treatment Not on file Medical Devices Not on file Insurance [facility] DIRECT Care Teams Wedding Planning Internship Relationship Specialty Start Date End Date Av Christopher MD [address] [place] [address] [place] [address] PCP - General Internal Medicine 11/21/21 Additional Source Comments The information contained in this document represents components of the legal health record. It is not the complete legal health record.[facility]
--- OUTSIDE RECORDS SUMMARY | 2025-02-11 05:30 | XMS_ITS | Referral Summary ---
Author Organization [facility] Address [address] [place] [address] Care Team Providers Care Web Site Specialist Name Role Phone Av Christopher Primary Care Provider [phone] Allergies Active Allergy Reactions Criticality Noted Date [...] Not on file Procedures * Due to [place] [employer] law, this organization might not be sharing negative HIV tests. Procedure Name Priority Date/Time Associated Diagnosis Comments HEPATITIS C ANTIBODY W/REFLEX TO HCV RNA, QUANTITATIVE PCR Routine 06/05/2024 4:12 PM EST ALS (amyotrophic lateral sclerosis) from Last 3 Months or Most Recently Relevant to Health Maintenance Results * Due to [place] [employer] law, this organization might not be sharing negative HIV tests. * Hepatitis C Antibody w/Reflex to HCV RNA, Quantitative PCR (06/05/2024 4:12 PM EST) Hepatitis C Antibody NON-REACT YUMIKO NON-REACT YUMIKO 06/06/2024 5:25 AM EST [employer] Comment: HCV antibody was non-reactive. There is no laboratory evidence of HCV infection. In most cases, no further action is required. However, if recent HCV exposure is suspected, a test for HCV RNA (test code 16112) is suggested. For additional information please refer to http://education.IntelliMat/faq/JPB20k2 (This link is being provided for informational/ educational purposes only.) Blood Structure of peripheral vein / Unknown Venipuncture / Unknown 06/05/2024 4:12 PM EST 06/05/2024 4:31 PM EST Narrative [facility] - 06/06/2024 5:25 AM EST [facility] Received Date: us Junie Bhatia MD LAB BLOOD ORDERAB LES Final Result [facility]DR[facility] [address] [facility] 3rd Floor, [place] [address], [place] [phone] [employer] [address] [facility] 3rd Floor, [place] [address], [place] [phone] from Last 3 Months or Most Recently Relevant to Health Maintenance Insurance [facility] Care Teams Web Site Specialist Relationship Specialty Start Date End Date Av Christopher [address] [place] [address] [place] [address] PCP - General Internal Medicine 06/06/24
--- NOTE | 2025-02-11 05:35 | ED.GENADULT ---
HPI - General Adult General Chief complaint: Nausea/Vomiting/Diarrhea Stated complaint: dehydration Time Seen by Provider: 02/11/25 05:21 Source: patient Mode of arrival: ambulatory Limitations: no limitations History of Present Illness HPI narrative: 64 year old female with a past medical history of diagnosed ALS, dyspnea use his noninvasive ventilator at night, depression, GERD, IBS-C, diverticulosis, MV disorder, scoliosis who presents emergency department for evaluation of dizziness nausea and vomiting. Patient states that she drank 1 beer prior to the onset of her symptoms. She states she has had constant nausea in his had several episodes of vomiting. The patient states that she has been having dizziness for proximally 1 month and had a recent MRI and further workup or dizziness. She denied fever, chills, sore throat, cough, chest pain, shortness of breath, frequency, urgency or dysuria. Related Data Home Medications ?Medication ?Instructions ?Recorded ?Confirmed BiPap inhalation 12/08/24 Previous Rx's ?Medication ?Instructions ?Recorded medroxyprogesterone 150 mg/mL 150 mg IM [id number] #1 mL 12/22/24 intramuscular syringe estradiol valerate 10 mg/mL 6.25 mg (0.625 mL) IM 2XW #15 mL 01/29/25 intramuscular oil (Delestrogen) needle (disp) 20 G 20 gauge x 1 #100 ea 02/01/25 (BD Regular Bevel Coleman) safety needles 25 gauge x 5/8 (BD #50 ea 02/01/25 SafetyGlide Needle) syringe (disposable) 1 mL #100 ea 02/01/25 (CareTouch Luer Lock Syringe) ondansetron 4 mg disintegrating 4 mg PO Q6-8H PRN nausea and 02/11/25 tablet vomiting #20 tabs Allergies Allergy/AdvReac Type Severity Reaction Status Date / Time ragweed pollen AdvReac Severe Cough Verified 02/11/25 04:28 Review of Systems Review of Systems: Yes all other systems are reviewed and are negative PMFSH Past Medical History Medical History ALS (amyotrophic lateral sclerosis) COVID-19 Neuromuscular disease Chronic hypercapnic respiratory failure Diaphragmatic disorder Scoliosis Long COVID Insomnia Tachycardia Dyspnea Surgical History History of colonoscopy (~12/15/17) Social History Social History Alcohol intake: current Alcohol intake frequency: a few times a week Alcohol type: wine Patient Tobacco Use Status: Former Tobacco user Tobacco use type: Cigarette Years Smoked: 30 Years Ago Smoked in Last 30 Days: No Use of substances other than those prescribed or required for medical reasons: No Advance Directives: No Advance Directives Information Provided: Yes Patient : No Physical Exam ED Vital Signs: Vital Signs - 24 hr 02/11/25 10:16 02/11/25 10:22 Temperature 97.8 F 97.8 F Pulse Rate 95 95 Respiratory Rate 16 16 Blood Pressure 123/64 123/64 Pulse Oximetry 97 97 Oxygen Delivery Method Room Air Room Air BMI result Body Mass Index 17.8 Initial vital signs revealed an elevated heart rate of 104 otherwise unremarkable Exam: General: Awake, alert in no distress, weight 53.1 kg, low BMI 17.8 kg per m2 Head: Normocephalic, atraumatic EENT: PERRL, Lids normal, sclera normal, conjunctiva normal, nose normal , ears normal, throat without erythema or exudates Neck: Supple, no adenopathy Lung: breath sounds symmetric, no wheezing, rales or rhonchi Chest: symmetric movement, nontender Heart: regular rate and rhythm, normal S1, S2 no murmurs or rubs Abdomen: soft, non-tender, nondistended, normal bowel sounds Back: no vertebral tenderness, no CVAT, scoliosis Extremities: no deformities, moves all extremities symmetrically Psych: Pleasant, cooperative Course Reevaluation(s) Reevaluation #1: 02/11/2025 DR. Desai's progress note: Patient feels much better after IV hydration and Reglan, want to go home, labs was reviewed and unremarkable, resolution of epigastric pain that thought to be after she drank beer, able to tolerate p.o. intake, patient has no complaint, no difficulty breathing, O2 sat is 96%, respiratory rate is 18. As per signed out patient should be going home if she feels better. Time: 10:03 Medications Administered Discontinued Medications Generic Name Dose Route Start Last Admin Trade Name Freq PRN Reason Stop Dose Admin Diphenhydramine HCl 25 mg 02/11/25 08:53 02/11/25 09:09 Diphenhydramine Hcl 50 Mg/Ml Vial IVPUSH 02/11/25 08:54 25 mg ONCE ONE Administration Sodium Chloride 1,000 mls @ 999 mls/hr 02/11/25 05:36 02/11/25 06:27 Ns IV 02/11/25 06:36 Infused .Q1H1M STA Infusion Acetaminophen 1,000 mg in 100 mls @ 400 mls/hr 02/11/25 06:21 02/11/25 06:59 Ofirmev IV 02/11/25 06:35 Infused ONCE ONE Infusion Lactated Ringer's 1,000 mls @ 999 mls/hr 02/11/25 08:12 02/11/25 09:13 Lr IV 02/11/25 09:12 Infused .Q1H1M STA Infusion Metoclopramide HCl 10 mg 02/11/25 08:53 02/11/25 09:11 Metoclopramide Hcl 10 Mg/2 Ml Vial IVPUSH 02/11/25 08:54 10 mg ONCE STA Administration Ondansetron HCl 4 mg 02/11/25 05:36 02/11/25 05:45 Ondansetron Hcl 4 Mg/2 Ml Vial IVPUSH 02/11/25 05:37 4 mg ONCE ONE Administration Ondansetron HCl 4 mg 02/11/25 07:39 02/11/25 07:47 Ondansetron Hcl 4 Mg/2 Ml Vial IVPUSH 02/11/25 07:40 4 mg ONCE ONE Administration Medical Decision Making Medical Decision Making MDM Narrative: 64 year old female with a past medical history of diagnosed ALS, dyspnea use his noninvasive ventilator at night, depression, GERD, IBS-C, diverticulosis, MV disorder, scoliosis who presents emergency department for evaluation of dizziness nausea and vomiting. Patient states that she drank 1 beer prior to the onset of her symptoms. She states she has had constant nausea in his had several episodes of vomiting. The patient states that she has been having dizziness for proximally 1 month and had a recent MRI and further workup or dizziness. She denied fever, chills, sore throat, cough, chest pain, shortness of breath, frequency, urgency or dysuria. Initial vital signs were normal. Physical examination was unremarkable. Differential diagnosis: ?Includes but is not limited to viral syndrome, gastritis, volume depletion, dehydration, anemia, electrolyte abnormalities Course: 08:33 CBC was normal. Bicarb low 21. Glucose elevated 124, LFTs were normal. Lipase was normal. The patient was treated with normal saline IV x1 L and Zofran 4 mg IV x2. She was also given acetaminophen 1 g IV for headache. Patient states she is still nauseous in his feeling lightheaded. Patient was ordered to get a 2 L of lactated Ringer's IV. At the end of my shift, the patient has not completed her IV fluids. 08:52 Patient's states that her nausea and vomiting is persisting and her dizziness has gotten worse as well. I ordered Reglan 10 mg and Benadryl 25 mg IV. At the end of my shift, the patient's care was turned over to my colleague, Dr. Desai. Admission/Observation Consideration of admission/observation: Escalation of care including admission/observation considered (Yes) Lab Data MDM Lab Attestation statement: I reviewed the patient's lab results. 02/11/25 04:43 02/11/25 04:43 Labs: Lab Results 02/11/25 Range/Units 04:43 WBC 9.6 (4.8-10.8) X10*3/uL RBC 4.12 L (4.20-5.50) X10*6/uL Hgb 13.4 (12.0-16.0) g/dl Hct 38.3 (37.0-47.0) % MCV 93.0 (80.0-98.0) fL MCH 32.5 (27.0-33.0) pg MCHC 35.0 (31.0-35.0) g/dl RDW 13.0 (11.0-16.0) % Plt Count 277 (160-400) X10*3/uL MPV 9.3 L (9.4-12.3) fL Immature Gran % (Auto) 0.3 (0.0-0.4) % Neut % (Auto) 83.5 H (45-73) % Lymph % (Auto) 11.7 L (20-40) % [place] % (Auto) 4.1 (2-11) % Eos % (Auto) 0.1 (0-4) % Baso % (Auto) 0.3 (0-2) % Lymph # (Auto) 1.1 L (1.2-4.9) X10*3/uL [place] # (Auto) 0.4 (0.1-1.2) X10*3/uL Eos # (Auto) 0.0 (0.0-0.4) X10*3/uL Baso # (Auto) 0.0 (0.0-0.2) X10*3/uL Abs Immat Gran (auto) 0.03 (0.00-0.03) X10*3/uL Absolute Neuts (auto) 8.0 (2.0-8.3) x10*3/uL Absolute Nucleated RBC 0.000 (0.0-0.012) X10*3/uL Nucleated RBC % (auto) 0.0 (0.0-0.2) /100WBC Sodium 140 (135-145) mmol/L Potassium 4.8 D (3.3-5.1) mmol/L Chloride 107 (96-108) mmol/L Carbon Dioxide 21 L (22-29) mmol/L Anion Gap 17 (12-20) BUN 11 (9-16) mg/dL Creatinine 0.53 (0.5-1.4) mg/dL Estim Creat Clear Calc 91.0 Estimated GFR > 60 Random Glucose 124 H (60-115) mg/dL Calcium 8.7 (8.4-10.2) mg/dL Magnesium 1.9 (1.6-2.6) mg/dL Total Bilirubin 0.6 (0.0-1.0) mg/dL AST 27 (5-31) U/L ALT 14 (0-31) U/L Alkaline Phosphatase 53 (39-117) U/L Troponin I High Sens < 2.7 (<3.5-17.0) ng/L Total Protein 7.0 (6.5-8.0) g/dL Albumin 4.3 (3.5-5.0) g/dL Lipase 12 (8-78) U/L Independent Interpretation I performed an independent interpretation of an: EKG Interpretation: My independent interpretation of the patient's 12 EKG done on 02/11/2025 at 05:12 hours is as follows: There is artifact in the baseline which makes the EKG difficult to interpretation. Normal sinus rhythm with a rate of 96, normal [place] interval, QRS duration QTC interval, no ST segment elevation, no ST segment depression, no significant T-wave abnormalities, no PACs, no PVCs. Compared to EKG dated 05/19/2024 at 19:34 hours are no significant changes. Independent Historian Clinical information obtained from an independent historian. History obtained from or confirmed by: Other ( friend) External Record Review External record reviewed: Office record Prescription Management I considered prescription management with: Other ( anti emetic: Ondansetron ODT) Chronic Conditions Patient?s care impacted by: Other (ALS) Discharge Plan Discharge Clinical Impression: Dizziness, Nausea & vomiting, Headache Patient Disposition: Home, Self-Care Instructions: Acute Nausea and Vomiting (ED) Additional Instructions: Your laboratory evaluation was unremarkable. Your chest x-ray did not reveal any evidence for pneumonia. Take Zofran ODT 4 mg pills, 1 pill dissolved in your mouth every 8 hours as needed for nausea and vomiting. Continue taking medications as prescribed by your providers. Follow-up with your doctor in 2 days. Please return to the emergency department if your symptoms get worse or if you develop any symptoms that are concerning to you. Prescriptions: New ondansetron 4 mg tablet,disintegrating 4 mg PO Q6-8H PRN (Reason: nausea and vomiting) Qty: 20 0RF No Action medroxyprogesterone 150 mg/mL syringe 150 mg IM [id number] Qty: 1 3RF estradiol valerate [Delestrogen] 10 mg/mL oil 6.25 mg IM 2XW Qty: 15 3RF (DME) BD Regular Bevel Coleman 20 gauge x 1 needle See Rx Instructions .Route Qty: 100 0RF Rx Instructions: use to draw up estradiol valerate 2XW (DME) CareTouch Luer Lock Syringe 1 mL syringe See Rx Instructions .Route Qty: 100 0RF Rx Instructions: use to administer estradiol valerate 2XW (DME) BD SafetyGlide Needle 25 gauge x 5/8 needle See Rx Instructions .Route Qty: 50 0RF Rx Instructions: use to administer estradiol valerate 2XW BiPap inhalation Interventions: ED Discharge Assessment Last Done: 02/11/25 10:22 Discharge Date/Time: 02/11/25 10:23 Print Language: Azeri
[2025-02-11 06:08] VITALS: BP 155/75; PULSE 100; RESP 20; TEMP 36.9; O2SAT 100
--- NOTE | 2025-02-11 06:34 | PC.NURSE ---
pt reporting 8/10 headache at this time requesting tylenol, pt states she does not think she can swallow pills, aware, iv tylenol ordered and administered
--- NOTE | 2025-02-11 08:05 | PC.NURSE ---
Pt stating she is still nauseous and dizzy. Provider made aware and ordered meds per MAR. Pt also used bed ho to urinate
[2025-02-11 08:19] VITALS: BP 128/68; PULSE 89; RESP 18; TEMP 36.7; O2SAT 96
[2025-02-11] MEDS: Lactated Ringers 1,000 ML 999 ML IV (08:21)
[2025-02-11 10:16] VITALS: BP 123/64; PULSE 95; RESP 16; TEMP 36.6; O2SAT 97
[2025-02-11 10:22] VITALS: BP 123/64; PULSE 95; RESP 16; TEMP 36.6; O2SAT 97
== END 2025-02-11 10:23 | disposition home or self-care (01) ==
PROVIDERS: Emergency Provider Emergency Medicine Emergency Medical Services; PCP Internal Medicine
DX: R11.2 Nausea with vomiting, unspecified (principal); E86.0 Dehydration; R42 Dizziness and giddiness; R51.9 Headache, unspecified; R06.02 Shortness of breath; Z79.899 Other long term (current) drug therapy
CPT/HCPCS: 36415; 71045; 80053; 83690; 83735; 84484; 85025; 93005; 96361; 96365; 96375; 96376; 99284; 99285; J0131; J1200; J2405; J2765; J7120

== ENCOUNTER → 2025-02-11 05:12 | Outpatient (BNV) | payer OTHER, SELFPAY | PROVIDERS: Emergency Provider Emergency Medicine Emergency Medical Services; PCP Internal Medicine; Visit Provider Internal Medicine | DX: R06.02 Shortness of breath (principal) | CPT/HCPCS: 93010 ==

== ENCOUNTER 2025-02-15 08:33 | Outpatient (AMB) | payer OTHER, SELFPAY ==
--- NOTE | 2025-02-15 08:40 | A.OFFPC_ITS ---
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 Last seen by pcp in August. Accompanied by Patient was evaluated in the ER recently for dizziness, nausea. Symptoms improved with treatment. Recieved script for zofran which she has no longer needed. Neuro: Diagnosed in April. Following at [facility]-Dr Vazquez-she was diagnosed with ALS. Follows locally with Dr Villar. The only symptoms she is having is ongoing respiratory difficulty. She is following very closely with the supervisor publications production at [facility], Dr Herrera. Recent MR brain was normal. She has upcoming respiratory testing. Recent PFTs Central sleep apnea: bipap with pressure support triggered intake, triggered expiration and triggered if respiration stops. IVAPS. Patient continues to walk as tolerated. She does have to stop and sit at times. She would benefit from a walker with a chair for errands outside the home-such as when she fatigues at the grocery store. She has a few changes keratoses on her chest. Requests dermatology referral ROS see HPI PHYSICAL EXAM: GENERAL: Alert and oriented x 3. NAD. EYES: EOMI. Anicteric. HENT: Moist mucous membranes. LUNGS: Clear to auscultation bilaterally. Increased work of breathing CARDIOVASCULAR: Regular rate and rhythm. ABDOMEN: Soft, non-tender +bs EXTREMITIES: No edema. Non-tender. SKIN: No rashes or lesions. Warm. NEUROLOGIC: No focal neurological deficits. CN II-XII grossly intact PSYCHIATRIC: Cooperative. Appropriate mood and affect [facility] Medical History ALS (amyotrophic lateral sclerosis) COVID-19 Neuromuscular disease Chronic hypercapnic respiratory failure Diaphragmatic disorder Scoliosis Long COVID Insomnia Tachycardia Dyspnea Surgical History History of colonoscopy (~12/15/17) Family History Mother No problems noted. Father No problems noted. Social History Housing: House Alcohol intake: current Alcohol intake frequency: a few times a week Alcohol type: wine Patient Tobacco Use Status: Former Tobacco user Tobacco use type: Cigarette Years Smoked: 30 Years Ago e-Cigarette/Vaping Use: Former Use service: No Current occupational status: retired Cognitive needs: No Hearing needs: No Vision needs: Yes (reading glasses) Questionnaire PHQ-9 Over the last 2 weeks, how often have you been bothered by any of the following problems? 1. Little interest or pleasure in doing things: not at all 2. Feeling down, depressed, or hopeless: several days (sometime) 3. Trouble falling or staying asleep, or sleeping too much: not at all 4. Feeling tired or having little energy: not at all 5. Poor appetite or overeating: not at all 6. Feeling bad about yourself - or that you are a failure or have let yourself or your family down: not at all 7. Trouble concentrating on things, such as reading the newspaper or watching television: not at all 8. Moving or speaking so slowly that other people could have noticed. Or the opposite - being so fidgety or restless that you have been moving around a lot more than usual: not at all 9. Thoughts that you would be better off or of hurting yourself in some way: not at all Total score: 1 Depression Screening Interpretation: Negative Depression Screening Done: Yes 36442 - PHQ-9 Billing: Yes Source: Developed by Drs. Kelvin Adams, Brittany Sun, Alvaro Dowd and colleagues, with an educational juana from [employer]. Thrive Questionnaire Date Thrive assessed: 02/15/25 I am a: Patient Within the past 12 months, did the food you bought not last and you didn't have the money to get more?: Never true Within the past 12 months, did you worry whether your food would run out before you got money to buy more?: Never true Do you have trouble paying for medicines?: No Do you have trouble getting transportation to medical appointments?: No Do you have trouble paying your heating and electricity bill?: No Do you have trouble taking care of your child, family member or friend?: No Do you have trouble with day-to-day activities such as bathing, preparing meals, shopping, managing finances, etc.?: No Are you currently unemployed and looking for a job?: No Are you interested in more education?: No THRIVE Score: 0 AUDIT C Alcohol Use Questionnaire (AUDIT-C) 1. How often do you have a drink containing alcohol?: Monthly or less 2. How many drinks containing alcohol do you have on a typical day when you are drinking?: 1 or 2 3. How often do you have six or more drinks on one occasion?: Less than monthly Total Score: 2 PATRICK-7 AMB Questionnaire PATRICK-7 Date PATRICK - 7 assessed: 02/15/25 Feeling nervous, anxious, or on edge: 0 = Not at all Not being able to stop or control worryin = Not at all Worrying too much about different things: 0 = Not at all Trouble relaxin = Not at all Being so restless that it is hard to sit still: 0 = Not at all Becoming easily annoyed or irritable: 0 = Not at all Feeling afraid as if something awful might happen: 0 = Not at all Total PATRICK-7 score (0-4 normal; 5-9 mild; 10-14 moderate; 15-21 severe): 0 Source: Developed by Drs. Kelvin Adams, Brittany Sun, Alvrao Dowd and colleagues, with an educational juana from [employer]. Physical exam (Primary Care) Vital Signs: Last Vital Signs Temp 98.2 F 02/15/25 08:47 Pulse 82 02/15/25 08:47 BP 128/74 02/15/25 08:47 Pulse Ox 99 02/15/25 08:47 Oxygen Delivery Method Room Air 02/15/25 08:47 BMI result Body Mass Index 16.7 Tobacco/Smoking Status: Tobacco use Status Tobacco use date assessed 02/15/25 02/15/25 08:54 Patient Tobacco Use Status Former Tobacco user 02/15/25 08:41 Tobacco use type Cigarette 02/15/25 08:41 e-Cigarette/Vaping Use Former Use 02/15/25 08:54 PHQ-9: PHQ-9 Score PHQ-9: Total score 1 02/15/25 08:54 Depression Screening Interpretation: Negative Thrive Assessment: Date of Thrive Assessment Date Thrive assessed 02/15/25 02/15/25 08:54 Coding Level of Care Code Est Pt Level 4 (20194) Diagnoses ALS (amyotrophic lateral sclerosis) G12.21 Neuromuscular disease G70.9 Shortness of breath R06.02 Dyspnea type: shortness of breath Additional Codes PHQ-9 - 78742 - PHQ-9 Billing: Yes ([id number]) Assessment & Plan Assessment & Plan (1) ALS (amyotrophic lateral sclerosis): Comment: suspected diagnosis made in [place] Code(s): G12.21 - Amyotrophic lateral sclerosis Category: Medical (2) Neuromuscular disease: Code(s): G70.9 - Myoneural disorder, unspecified Category: Medical (3) Dyspnea: Code(s): R06.00 - Dyspnea, unspecified Category: Medical Qualifiers: Dyspnea type: shortness of breath Qualified Code(s): R06.02 - Shortness of breath Plan 64 year old for follow up cold sore-valtrex zovirax ordered AKs changing-referral to dermatology ALS weakness-walker with a seat recommended 2/2 weakness and decreased exercise capacity Orders: Referrals Dermatology Referral L57.0 - Actinic keratosis Medications: New acyclovir 5% (Zovirax) 1 appl topical DAILY PRN 5 grams 3RF oral lesion B00.2 - Herpesviral gingivostomatitis and pharyngotonsillitis [Walker with a seat] As directed 1 ea 0RF Generalized weakness G12.21 - Amyotrophic lateral sclerosis [Walker with a seat] As directed 1 ea 0RF Generalized weakness G12.21 - Amyotrophic lateral sclerosis valacyclovir (Valtrex) 2,000 mg (2 x 1 gram) PO BID PRN 20 tabs 0RF cold sore 1 day
[2025-02-15 08:47] VITALS: BP 128/74; PULSE 82; TEMP 36.8; O2SAT 99; BMI 16.7
--- OUTSIDE RECORDS SUMMARY | 2025-02-15 08:55 | XMS_ITS | Data Portability ---
Author Organization [facility] Surgeons [facility], [facility] Address [address] [place] [address] Care Team Providers Care Senior Partner Name Role Phone WILD HILARIO Primary Care Provider [phone] Assessment Encounter Date Assessment Date Assessment LastModified by Organization Details LastModified Time 04/07/2024 04/07/2024 64-year-old female with muscle wasting disease workup in progress at respiratory compromise followed by her sisal operator. Their major question for me today is [...] Time Details Appointments RECHECK 15 2024 11:30A Teodoro Rodriguez MD Not available Not available Not available Lab None recorded. Referral occupatio nal therapist referral - Diagnosis : BI HAND INTRINSIC TIGHTNESS Custom molded orthosis: none Treatment : INTRINSIC STRETCHIN G 2024 025 N[facility]IE [facility] [place] [facility], [address], [place], [address], 02/14/2025 09:25:16 Procedures None recorded. Surgeries None recorded. Imaging XR, hand, 3 or more view - 3v bi hand, pants maker, rm 117 2024 025 noam Clay, [address], [address], [place], [address], 12/14/2024 11:18:06 XR, thoracic spine, 2 view - 321 new pt t-spine 2v 2023 024 [facility]and [facility], [address], [address], [place], [address], 05/01/2024 15:45:20 Medication Orders None recorded. Patient [...] a4ajBk vP9nXo QUaueC m3YtLR FvZlgJ JJ8mAn HZtai3 2m7734 AC0Kqa n6NUKO vKiQtr MwF INTERFACE [facility] [address], [place], [address], 04/07/2024 09:26:41 04/07/20 24 04/07/2024 XR, thora cic spine , 2 view [email or web address]:/ [email or web address] ?Encry pted=s hAaTro YD8dLq bEUv6g %2BXZw aYqtaq 0bqfl% 2Fg9IQ a4ajBk vP9nXo QUaueC m3YtLR FvZlgJ JJ8mAn HZtai3 0r2204 AC0Kqa n6NUKO vKiQtr MwF INTERFACE [place] [facility] [address], [place], [address], 04/07/2024 09:26:43 12/15/19 25 12/14/2024 XR, hand, 3 or more view http:/ [email or web address] ?Encry pted=s hAaTro YD8dLq bEUv6g %2BXZw aYqtaq 0bqfl% 2Fg9IQ a4ajBk vP9nXo QUaueC m3YtLR FvZlgJ JJ8mAn HZtai3 0n8109 AC0Kla 3mHUKu hKiQtr MwF INTERFACE [facility] [address], [place], [address], 12/14/2024 10:39:11 12/15/19 25 12/14/2024 XR, hand, 3 or more view http:/ [email or web address] ?Encry pted=s hAaTro YD8dLq bEUv6g %2BXZw aYqtaq 0bqfl% 2Fg9IQ a4ajBk vP9nXo QUaueC m3YtLR FvZlgJ JJ8Tabiona HZtai3 3t9201 AC0Kla 3mHUKu hKiQtr MwF INTERFACE [place] [facility] [address] [facility] [address], [place], [address], 12/14/2024 10:39:13 Result Notes Documentation Provider Name and Address Organization Details Recorded Time Xr, Thoracic Spine, 2 View : [email or web address] Encrypted=xuRpQtxYH8dMniD Uv6g%0COGkkVffzh0qejw%2Fg 4GYd0yhFabW8nXnOJoyiPd4Jg EMFwIzfIIB4vDmYNsgw79e537 0OC8Majj6FHKEySnIuuQjG Not Available [facility] 04/07/2024 09:26: 42 Xr, Thoracic Spine, 2 View : [email or web address] Encrypted=baBuGpuSY6yRagP Uv6g%9RFYtjNjuso3smau%2Fg 1HHe9gnSjqX7qWxJWcpkDr3Au JXTnKsjJFE2pNvEVsdj11i178 2VW5Gebb8TZFVnKwVgfDnE Not Available [facility] 04/07/2024 09:26: 44 Xr, Hand, 3 Or More View : [email or web address] Encrypted=mxSsTizST7wQjfC Uv6g%1LRRvnNclcn7kuia%2Fg 4DOs6keFpeA8tRpWOkgsQi4If MDZbBcuYXY5dBiKLeco00a931 8BJ9Pma1gUMPpeBhXkyLeR Not Available [facility] 12/14/2024 10:39: 12 Xr, Hand, 3 Or More View : [email or web address] Encrypted=fyGdNzlNF3gTsvP Uv6g%5THMlrFepgx1objk%2Fg 1OYy8vjWffO6iWjEEeaaFr6Rh QBIsJbaXQZ3tQqKDowm76n749 7GW3Ybr5pMLKhpPoZjePgI Not Available [facility] 12/14/2024 10:39: 13 Medical Equipment None Reported. [...] Updated DateTime 12/14/2024 170.18 cm 16.2 kg/m2 91676.17 g AMAURI MARTÍNEZ [facility] 12/14/2024 10:31:56 Date Recorded Body weight Body mass index (BMI) Body height Provider Name and Address Organization Details Last Updated DateTime 04/07/2024 03751.01 g 16.1 kg/m2 170.18 cm GA ESCOBEDO [facility] 04/11/2024 13:03:52 Social History None recorded. Functional Status None recorded. Mental Status None recorded. Family History Nothing Reported. Medical History No medical history recorded. Gynecological HistoryNo gynecological history recorded. Obstetrics History GPAL:G 0 P 0 0 0 0 Past Encounters Encounter ID Performer Location Encounter Start Date Encounter Closed Date Diagnosis/Indication Diagnosis SNOMED-CT Code Diagnosis ICD10 Code Diagnosis Note [id number] Kelvin Ronquillo MD [place] [address] [place] [address] 04/07/2024 08:57:19 05/01/2024 15:45:20 Pain in thoracic spine 860703124 M54.6 [id number] MD KELECHI Arellano - [place] [address] [place] [address] 12/14/2024 10:25:28 12/27/2024 10:16:16 Pain of bilateral hands 9477462082 8657266 M79.641 M79.642 Muscle contracture 43622 002 M62.40 Health Concerns Section Related Observation LastModified by Organization Detai ls LastModified Time None Recorded Concern Status LastModified by Organization Details LastModified Time None Recorded Advance Directives Directive None Recorded Payers Insurance Date Sequence Insurance Name Policy Number Policy Pedraza Covered Member ID Pedraza Member ID Guarantor Name 12/27/2024 1 [facility] - DIRECT CONNECTORCARE TYPE I (HMO) [id number] Nevaeh Palomino [id number] 1 Nevaeh Palomino 12/13/2024 1 [facility] [id number] Nevaeh Palomino [id number] 2 Nevaeh Palomino Notes Date Note Type Note Provider Name and Address Organization Details Recorded Time 04/07/2024 text/html ROS as noted in the HPI HPI: 64-year-old female presents with mid back [...] REPORT: X-rays ordered, [facility] Kelvin Ronquillo MD [address] [place] [address] [address], [place], [address], [facility] - [facility] 04/07/2024 12:46:20 12/14/2024 text/html ROS as noted in the HPI Diagnosis: Intrinsic tightness bilateral hands 64-year-old female [...] X-rays ordered, obtained, [facility]: PA, lateral, oblique views of both hands reveal some very mild IP joint space narrowing. Plan: I described to the patient the nature of intrinsic tightness and referred to occupational therapy to help with stretching. She will follow-up in 6 weeks time or sooner if there are any concerns Jeremy Rodriguez MD [address] [place] [address] [address], [place], [address], [facility] 12/14/2024 12:40:57 OBGyn Episode No OBEpisode recorded.
--- OUTSIDE RECORDS SUMMARY | 2025-02-15 08:55 | XMS_ITS | Referral Summary ---
Author Organization [facility] Address [address] [place] [address] Care Team Providers Care Gift Packer Name Role Phone Av Christopher Primary Care Provider [phone] Allergies Active Allergy Reactions Criticality Noted Date [...] Not on file Procedures * Due to [place] [employer] law, this organization might not be sharing negative HIV tests. Procedure Name Priority Date/Time Associated Diagnosis Comments HEPATITIS C ANTIBODY W/REFLEX TO HCV RNA, QUANTITATIVE PCR Routine 06/05/2024 4:12 PM EST ALS (amyotrophic lateral sclerosis) from Last 3 Months or Most Recently Relevant to Health Maintenance Results * Due to [place] [employer] law, this organization might not be sharing negative HIV tests. * Hepatitis C Antibody w/Reflex to HCV RNA, Quantitative PCR (06/05/2024 4:12 PM EST) Hepatitis C Antibody NON-REACT YUMIKO NON-REACT YUMIKO 06/06/2024 5:25 AM EST [facility] Comment: HCV antibody was non-reactive. There is no laboratory evidence of HCV infection. In most cases, no further action is required. However, if recent HCV exposure is suspected, a test for HCV RNA (test code 25567) is suggested. For additional information please refer to http://education.[employer]/faq/PVA61l4 (This link is being provided for informational/ educational purposes only.) Blood Structure of peripheral vein / Unknown Venipuncture / Unknown 06/05/2024 4:12 PM EST 06/05/2024 4:31 PM EST Narrative [facility] - 06/06/2024 5:25 AM EST [facility] Received Date: us Junie Bhatia MD LAB BLOOD ORDERAB LES Final Result DAQUAN ELDRID[facility] [address] [facility] [address]rd Floor, [place] [address], [place] [phone] [facility] [address] [facility] 3rd Floor, [place] [address], [place] [phone] from Last 3 Months or Most Recently Relevant to Health Maintenance Insurance [facility] Care Teams Gift Packer Relationship Specialty Start Date End Date Av Christopher [address] [place] [address] [place] [address] PCP - General Internal Medicine 06/06/24
--- OUTSIDE RECORDS SUMMARY | 2025-02-15 08:55 | XMS_ITS | Clinical Summary ---
Author Organization [facility] Address [address] [place] [address] Phone Care Team Providers Care Applications Support Specialist Name Role Phone Av Christopher MD Primary [...] file Medical Devices Not on file Insurance [facility] DIRECT Care Teams Applications Support Specialist Relationship Specialty Start Date End Date Av Christopher MD [address] [place] [address] [place] [address] PCP - General Internal Medicine 11/21/21 Additional Source Comments The information contained in this document represents components of the legal health record. It is not the complete legal health record.[facility]
== END 2025-02-15 09:27 | disposition home or self-care (01) ==
LOC: HO.HMCHD 08:33
PROVIDERS: Visit Provider Internal Medicine
DX: G12.21 Amyotrophic lateral sclerosis (principal); G70.9 Myoneural disorder, unspecified; R06.02 Shortness of breath

== ENCOUNTER → 2025-02-15 08:33 | Outpatient (BNVA) | payer OTHER, SELFPAY | PROVIDERS: Visit Provider Internal Medicine | DX: G12.21 Amyotrophic lateral sclerosis (principal); G70.9 Myoneural disorder, unspecified; R06.02 Shortness of breath; G47.31 Primary central sleep apnea; Z13.31 Encounter for screening for depression; Z13.39 Encounter for screening examination for other mental health and behavioral disorders | CPT/HCPCS: 96127; 99212 ==

== ENCOUNTER 2025-02-20 12:49 | Outpatient (REF) | payer OTHER, SELFPAY ==
--- NOTE | ~2025-02-20 | FL_ITS ---
EXAMINATION: XR FLUOROSCOPY CLINICAL INFORMATION: SNIFF TEST COMPARISON: None available. TECHNIQUE: On upright PA and lateral projections normal, the inspiration expiration images were obtained. Images were obtained with cough as well as during sniffing. FINDINGS: On inspiration and expiration and sniffing images there is change in diaphragm position by half to three fourths of intercostal or maximum 1 interspace. Patient was bypassed during and after the exam. FLUOROSCOPY TIME: 2 minute and 5 seconds DOSE AREA PRODUCT: 921.4 uGy-m2 (microgray-meter squared) FL/FL fluoroscopy <1hr IMPRESSION: Very little diaphragm movement seen in inspiration, expiration and on sniffing on PA as well as lateral projections. Electronically signed by: Gera Fox MD 02/20/2025 03:17 PM EDT
--- OUTSIDE RECORDS SUMMARY | 2025-02-20 13:34 | XMS_ITS | Encounter Summary ---
Author Organization [facility] Address [address] [place] [address] Care Team Providers Care Firearms Specialist Name Role Phone Av Christopher Primary Care Provider [phone] Encounter Details Date Type Department Care Team (Late st Contact Info) Description 02/19/2025 Results Follow-Up [facility] [address] [place] [address] Bobby Ely MD [address] [place], [place] [id number] Social History Tobacco Use Types Packs/Day Years [...] as of this encounter Plan of Treatment Not on file documented as of this encounter Visit Diagnoses Not on filedocumented in this encounter Care Teams Firearms Specialist Relationship Specialty Start Date End Date Av Christopher [address] [place] [address] dr Tigre Landeros [place] [address] PCP - General Internal Medicine 06/06/24 documented as of this encounter
--- OUTSIDE RECORDS SUMMARY | 2025-02-20 13:34 | XMS_ITS | Data Portability ---
Author Organization [facility], [facility] Address [address] [place] [address] Care Team Providers Care Immunochemist Name Role Phone WILD HILARIO Primary Care Provider Assessment Encounter Date Assessment Date Assessment LastModified by Organization Details LastModified Time 04/07/2024 04/07/2024 64-year-old female with muscle wasting disease workup in progress at respiratory compromise followed by her continuing education instructor. Their major question for me today is [...] Organization Details Last Modified Time Details Appointments None recorded. Lab None recorded. Referral occupationa l therapist referral - Diagnosis: BI HAND INTRINSIC TIGHTNESS Custom molded orthosis: none Treatment: INTRINSIC STRETCHING 2024 025 NICKIE [facility] [place], [address], [place], [address], 09:25:16 Procedures None recorded. Surgeries None recorded. Imaging XR, hand, 3 or more view - 3v bi hand, foundation digger, rm 117 2024 025 noam [facility], [address], [address], [place], [address], 5 11:18:06 XR, thoracic spine, 2 view - 321 new pt t-spine 2v 2023 024 cstamand [facility], [address] [facility], [address], [place], [address], 4 15:45:20 Medication Orders None recorded. Patient TargetsNo [...] a4ajBk vP9nXo QUaueC m3YtLR FvZlgJ JJ8mAn HZtai3 8h0311 AC0Kqa n6NUKO vKiQtr MwF INTERFACE [facility] [address], [place], [address], 04/07/2024 09:26:41 04/07/20 24 04/07/2024 XR, thora cic spine , 2 view [email or web address] ?Encry pted=s hAaTro YD8dLq bEUv6g %2BXZw aYqtaq 0bqfl% 2Fg9IQ a4ajBk vP9nXo QUaueC m3YtLR FvZlgJ JJ8mAn HZtai3 1k4231 AC0Kqa n6NUKO vKiQtr MwF INTERFACE [facility] [address], [place], [address], 04/07/2024 09:26:43 12/15/19 25 12/14/2024 XR, hand, 3 or more view [email or web address]:/ [email or web address] ?Encry pted=s hAaTro YD8dLq bEUv6g %2BXZw aYqtaq 0bqfl% 2Fg9IQ a4ajBk vP9nXo QUaueC m3YtLR FvZlgJ JJ8mAn HZtai3 2g1937 AC0Kla 3mHUKu hKiQtr MwF INTERFACE [facility] [address] [facility] [address], [place], [address], 12/14/2024 10:39:11 12/15/19 25 12/14/2024 XR, hand, 3 or more view [email or web address] ?Encry pted=s hAaTro YD8dLq bEUv6g %2BXZw aYqtaq 0bqfl% 2Fg9IQ a4ajBk vP9nXo QUaueC m3YtLR FvZlgJ JJ8mAn HZtai3 6c0978 AC0Kla 3mHUKu hKiQtr MwF INTERFACE [facility] [address], [place], [address], 12/14/2024 10:39:13 Result Notes Documentation Provider Name and Address Organization Details Recorded Time Xr, Thoracic Spine, 2 View : [email or web address] Encrypted=wwFtTfqET2wNxlS Uv6g%7DRDfkIgeai5fbot%2Fg 2JCb9bvMfgR5oVmMEtskQc1En HWNkZgoEFJ7kRbSKpni20v159 6MK5Ihun1ILNSmImObvQpW Not Available [facility] 04/07/2024 09:26: 42 Xr, Thoracic Spine, 2 View : [email or web address] Encrypted=xmMqVahGN5uQqhP Uv6g%6HZOxlRsjcy0saaq%2Fg 8HSi6kwPvaV0pYbCZebdYo5Va ICHwQefINR7dWePKgwr83a179 5OY0Loco3ORPCzOhFkxWtA Not Available [facility] 04/07/2024 09:26: 44 Xr, Hand, 3 Or More View : [email or web address] Encrypted=ksUwLliKT0wRyeE Uv6g%5HEJzcCnnye5lvuo%2Fg 5BQy7nnVnxX2sAsGMiqaZv6Iq GNTcQbnISB0tMrTAvgc29e503 2WR2Wjw7wWMBytGxCzrJwS Not Available [facility] 12/14/2024 10:39: 12 Xr, Hand, 3 Or More View : [email or web address] Encrypted=qrPbZmuKU3iGmuX Uv6g%5VLLvcXhihk1eyjn%2Fg 1EBb4ptGqfU2eIuTLsacZk4Nu UZVyEkgSSD4mWyTLlmw71w592 2OX4Vmq8pSVXwpObZawPjA Not Available [facility] 12/14/2024 10:39: 13 Medical Equipment None Reported. Allergies No known drug allergies Medications Name Sig Start Date Stop Date Status Note LastModified by Organization Details LastModified Time ciprofloxaci n 500 mg tablet TAKE 1 TABLET BY MOUTH TWICE A DAY active Not Available Not Available No t Available estradiol valerate 10 mg/mL intramuscula r oil INJECT 6.25 MG (0.625 ML) INTRAMUSCUL SERENITY 2 TIMES A WEEK active Not Available Not Available [...] Not Available Not Available No t Available ondansetron 4 mg disintegrati ng tablet DISSOLVE 1 TABLET ORALLY EVERY 6 TO 8 HOURS NEEDED FOR NAUSEA AND VOMITING active Not Available Not Available No t Available medroxyproge sterone 150 mg/mL intramuscula r syringe INJECT 150 MG INTRAMUSCUL SERENITY EVERY 3 MONTHS active Not Available Not Available No t Available BD SafetyGlide Needle 25 gauge x 5/8 USE TO ADMINISTER ESTRADIOL VALERATE TWICE WEEKLY active Not Available Not Available No t Available BD SafetyGlide Needle 25 gauge x 1 USE DIRECTED 2 X A WEEK active Not Available Not Available No t Available BD Luer-Austin Syringe 1 mL USE TO ADMINISTER ESTRADIOL VALERATE TWICE WEEKLY active Not Available Not Available No t Available baclofen 5 mg tablet TAKE 1 TABLET BY MOUTH THREE TIMES A DAY active Not Available Not Available Not Available Vitals Date Recorded Body height Body mass index (BMI) Body weight Provider Name and Address Organization Details Last Updated DateTime 12/14/2024 170.18 cm 16.2 kg/m2 11188.17 g [facility] 12/14/2024 10:31:56 Date Recorded Body height Body mass index (BMI) Body weight Provider Name and Address Organization Details Last Updated DateTime 02/19/2025 170.18 cm 16.2 kg/m2 50391.17 g AMAURIJose LINDAMART[facility] 02/19/2025 12:01:54 Date Recorded Body weight Body mass index (BMI) Body height Provider Name and Address Organization Details Last Updated DateTime 04/07/2024 87642.01 g 16.1 kg/m2 170.18 cm GA ESCOBEDO [facility] Sur[facility] 04/11/2024 13:03:52 Social History None recorded. Functional Status None recorded. Mental Status None recorded. Family History Nothing Reported. Medical History No medical history recorded. Gynecological HistoryNo gynecological history recorded. Obstetrics History GPAL:G 0 P 0 0 0 0 Past Encounters Encounter ID Performer Location Encounter Start Date Encounter Closed Date Diagnosis/Indication Diagnosis SNOMED-CT Code Diagnosis ICD10 Code Diagnosis Note [id number] Kelvin Ronquillo MD [place] [address] [place] [address] 04/07/2024 08:57:19 05/01/2024 15:45:20 Pain in thoracic spine 916567606 M54.6 [id number] MD KELECHI Arellano - [place] [address] [place] [address] 12/14/2024 10:25:28 12/27/2024 10:16:16 Pain of bilateral hands 1160756684 7057708 M79.641 M79.642 Muscle contracture 74308 002 M62.40 Health Concerns Section Related Observation LastModified by Organization Detai ls LastModified Time None Recorded Concern Status LastModified by Organization Details LastModified Time None Recorded Advance Directives Directive None Recorded Payers Insurance Date Sequence Insurance Name Policy Number Policy Pedraza Covered Member ID Pedraza Member ID Guarantor Name 02/19/2025 1 [facility] - DIRECT CONNECTORCARE TYPE I (HMO) [id number] Nevaeh Palomino [id number] 1 Nevaeh Palomino 12/13/[address] [facility] [id number] Nevaeh Candelario [id number] 2 Nevaeh Palomino OBGyn Episode No OBEpisode recorded.
== END 2025-02-20 12:50 | disposition home or self-care (01) ==
LOC: HO.XRAY 12:49
PROVIDERS: Visit Provider Hospitalist
DX: G70.9 Myoneural disorder, unspecified (principal)
CPT/HCPCS: 76000

== ENCOUNTER → 2025-02-20 13:20 | Outpatient (BNV) | payer OTHER, SELFPAY | PROVIDERS: Visit Provider Radiology Diagnostic Radiology | DX: R43.8 Other disturbances of smell and taste (principal) | CPT/HCPCS: 76000 ==

== ENCOUNTER 2025-03-13 13:30 | Outpatient (RCR) | payer OTHER, SELFPAY | END 2025-03-22 10:08 | disposition home or self-care (01) | LOC: HO.PR 13:30 | PROVIDERS: PCP Internal Medicine; Visit Provider Hospitalist | DX: J96.12 Chronic respiratory failure with hypercapnia (principal); U09.9 Post COVID-19 condition, unspecified; G12.21 Amyotrophic lateral sclerosis | CPT/HCPCS: 94618; 99212; G0237; G0239 ==

== ENCOUNTER 2025-04-13 13:48 | Outpatient (REF) | payer OTHER, SELFPAY ==
--- NOTE | 2025-04-13 13:55 | PFT_ITS ---
Flows: FEV1: 83 % of predicted at 2.25 L FVC: 70 % of predicted at 2.44 L FEV1/FVC: 92 % Bronchodilator response: Not performed Volumes: Patient unable to perform lung volume testing. Diffusion capacity: Normal Maximum inspiratory pressure 37% of predicted at 40 cm of water Maximum expiratory pressure 65% of predicted at 44 cm of water Impression: No obstructive ventilatory defect. Spirometry suggests restrictive ventilatory defect. Patient unable to perform lung volume testing. Diffusion capacity is normal. Decreased maximum inspiratory and expiratory pressures suggest underlying respiratory muscle pathology. Clinical correlation is advised. MTDD
--- OUTSIDE RECORDS SUMMARY | 2025-04-13 13:56 | XMS_ITS | Encounter Summary ---
Author Organization [facility] Address [address] [place] [address] Care Team Providers Care Appeals And Generalist Clerk Name Role Phone Av Christopher Primary Care Provider [phone] Encounter Details Date Type Department Care Team (Late st Contact Info) Description 02/19/2025 Results Follow-Up [facility] [address] [place] [address] Bobby Ely MD [address] [place], [place] [id number] Social History Tobacco Use Types Packs/Day Years [...] on filedocumented in this encounter Care Teams Appeals And Generalist Clerk Relationship Specialty Start Date End Date Av Christopher [address] [place] [address] dr Tigre Landeros [place] [address] PCP - General Internal Medicine 06/06/24 documented as of this encounter
--- OUTSIDE RECORDS SUMMARY | 2025-04-13 13:56 | XMS_ITS | Clinical Summary ---
Author Organization [facility] Address [address] [place] [address] Care Team Providers Care Php Programmer Name Role Phone Av Christopher Primary Care Provider [phone] Allergies Active Allergy Reactions Criticality Noted Date [...] Encounters Date Type Department Care Team Description 02/19/2025 Results Follow-Up [facility] [address] [place] [address] Bobby Ely MD from Last 3 Months Family History Relation [...] 2011 Zoster Vaccines (1 of 2) 2011 Alcohol/Substance Use Screening 07/26/2024 Depression Screening and Follow-Up 07/26/2024 Social Drivers of Health Sofia ual Screening 07/26/2024 COVID-19 Vaccine (1 - 2023-2 5 season) 2025 Influenza Vaccine (#1) 2025 03/19/2017, 2015 RSV Vaccine (60+ years old a nd patients) (1 - 1-dose 75+ series) 2036 Hepatitis B Vaccines Completed 04/14/2017, 04/16/2016, 04/02/2016, Additional history exists HIV Screening Completed 06/05/2024 Hepatitis C Screening Completed 06/05/2024 Procedures * Due to [place] law, this organization might not be sharing negative HIV tests. Procedure Name Priority Date/Time Associated Diagnosis Comments HEPATITIS C ANTIBODY W/REFLEX TO HCV RNA, QUANTITATIVE PCR Routine 06/05/2024 4:12 PM EST ALS (amyotrophic lateral sclerosis) from Last 3 Months or Most Recently Relevant to Health Maintenance Results * Due to [place] state law, this organization might not be sharing negative HIV tests. * Hepatitis C Antibody w/Reflex to HCV RNA, Quantitative PCR (06/05/2024 4:12 PM EST) Hepatitis C Antibody NON-REACT YUMIKO NON-REACT YUMIKO 06/06/2024 5:25 AM EST [facility] Comment: HCV antibody was non-reactive. There is no laboratory evidence of HCV infection. In most cases, no further action is required. However, if recent HCV exposure is suspected, a test for HCV RNA (test code 79290) is suggested. For additional information please refer to http://education.[employer]/faq/KYX20g5 (This link is being provided for informational/ educational purposes only.) Blood Structure of peripheral vein / Unknown Venipuncture / Unknown 06/05/2024 4:12 PM EST 06/05/2024 4:[address] [facility] - 06/06/2024 5:25 AM EST [facility] Received Date: Junie Bhatia MD LAB BLOOD ORDERAB LES Final Result [facility] [address] [facility] 3rd Floor, [place] [address], [place] [phone] [employer] [facility] [address] [facility] 3rd Floor, [place] [address], [place] [phone] from Last 3 Months or Most Recently Relevant to Health Maintenance Insurance [facility] Care Teams Php Programmer Relationship Specialty Start Date End Date Av Christopher [address] [place] [address] dr Tigre Landeros, [place] [address] PCP - General Internal Medicine 06/06/24
--- OUTSIDE RECORDS SUMMARY | 2025-04-13 13:56 | XMS_ITS | Clinical Summary ---
Author Organization [facility] Address [address] [place] [phone] Phone Care Team Providers Care Hospital Superintendent Name Role Phone Av Christopher MD Primary [...] file Medical Devices Not on file Insurance [facility] DIRECT Care Teams Hospital Superintendent Relationship Specialty Start Date End Date Av Christopher MD [address] [place] [address] [place] [address] PCP - General Internal Medicine 11/21/21 Additional Source Comments The information contained in this document represents components of the legal health record. It is not the complete legal health record.[facility]
--- OUTSIDE RECORDS SUMMARY | 2025-04-13 13:56 | XMS_ITS | Encounter Summary ---
Author Organization [facility] Address [address] [place] [phone] Phone Care Team Providers Care Dental Practitioner Name Role Phone Av Christopher MD Primary Care Provider Reason for Referral * Outpatient Procedure - Closed Specialty Diagnoses / Procedures Referred By Contac t Referred To Contact Radiology Diagnoses TIA (transient ischemic attack) Procedures US Carotid Duplex Complete (Bilateral) Porfirio Villar MD [address] [place] [address], [address] [place] [address] Phone: tel: fax: [email or web address] Referral ID Status Reason Start Date Expiration Date Visits Re quested Visits Authorized [id number] Closed 03/22/2024 03/22/2025 1 1 Encounter Details Date Type Department Care Team (Latest Contact Info) Description 03/22/2024 Transcribe Orders Virtual Department [address] [place] [address] Porfirio Villar MD [address] [place] [address], [address] [place], [place] [id number] [email or web address] TIA (transient ischemic attack) (Primary Dx) Social History Tobacco Use Types Packs/Day Years [...] with a working camera? Not on file Comments Unknown Sex and Gender Information Value Date Recorded Sex Assigned at Female 04/04/2024 11:14 AM EDT Legal Sex Female 9:02 PM EDT Gender Identity Female 04/04/2024 11:14 AM EDT Sexual Orientation Not on file documented as of this encounter Plan of Treatment Not on file documented as of this encounter Results * US Carotid Duplex Complete (Bilateral) (03/30/2024 1:40 PM EDT) Anatomical Region Laterality Modality Heart, Thoracic Vasculature, Neck Ultrasound 03/30/2024 1:52 PM EDT Narrative 03/30/2024 2:44 PM EDT US CAROTID DUPLEX COMPLETE (BILATERAL) Referring clinician's provided indication for this examination in Epic: Outside Radiology Order; tia TECHNIQUE: A duplex ultrasound evaluation of the common carotid, internal carotid, external carotid, vertebral, and subclavian arteries was performed using pollack scale, color duplex and spectral Doppler analysis. COMPARISON: No previous relevant examinations FINDINGS: Exam Quality: Technically adequate exam demonstrates: RIGHT Common Carotid Artery (cm/s): Proximal Systolic: 75 Proximal Diastolic: 20 Mid Systolic: 84.5 Mid Diastolic: 25.8 Distal Systolic: 74 Distal Diastolic: 18 Internal Carotid Artery (cm/s): Proximal Systolic: 64.5 Proximal Diastolic: 23.7 Mid Systolic: 66 Mid Diastolic: 26 Distal Systolic: 79 Distal Diastolic: 34 External Carotid Artery (cm/s): Systolic: 66 Diastolic: 18 Vertebral Artery (cm/s): Systolic: 49 Diastolic: 20 Subclavian Artery (cm/s): Systolic: 58 Diastolic: 0 ICA/CCA Ratio: 1.06 ICA Stenosis: Minimal 1-19% ICA Plaque: Heterogeneous LEFT Common Carotid Artery (cm/s): Proximal Systolic: 87 Proximal Diastolic: 26 Mid Systolic: 75.2 Mid Diastolic: 23 Distal Systolic: 72 Distal Diastolic: 27 Internal Carotid Artery (cm/s): Proximal Systolic: 63.7 Proximal Diastolic: 20.3 Mid Systolic: 69 Mid Diastolic: 28 Distal Systolic: 172 Distal Diastolic: 64 External Carotid Artery (cm/s): Systolic: 68 Diastolic: 18 Vertebral Artery (cm/s): Systolic: 55 Diastolic: 30 Subclavian Artery(cm/s): Systolic: 87 Diastolic: 0 ICA/CCA Ratio: 2.3 ICA Stenosis: Moderate 50-69% ICA Plaque: Heterogeneous Abbreviations: CCA = Common Carotid Artery. ICA = Internal Carotid Artery. ECA = External Carotid Artery. Vert = Vertebral Artery. ICA/CCA Ratio = maximal ICA PSV divided by the distal CCA PSV. DIRECT TEST FINDINGS: Right: Doppler flow velocities and waveform contours are within normal limits throughout the right internal carotid artery, however minimal plaque is visualized. No plaque is visualized in the right common carotid artery. Unremarkable right external carotid artery. Anterograde flow is noted in the right vertebral artery. The right subclavian artery is patent. Left: Doppler flow velocities are moderately elevated in the left internal carotid artery, waveform contours demonstrate spectral broadening. No plaque is visualized in the left common carotid artery. Unremarkable left external carotid artery. Antegrade flow is noted in the left vertebral artery. The left subclavian artery is patent. IMPRESSIONS: 1. 1-19% stenosis noted in the right internal carotid artery. 2 .Moderate 50-69% stenosis noted in the left internal carotid artery. 3. No stenosis noted in the common carotid arteries bilaterally. 4. No stenosis noted in the external carotid arteries bilaterally. 5. Antegrade flow noted in the bilateral vertebral arteries. 6. Normal examination within the visualized segments of the right and left subclavian arteries. STENOSIS: Internal carotid artery stenosis by duplex ultrasonography has been validated by comparing findings with angiographic stenosis. NASCET methods were used, where the most severe stenosis represents the numerator, and the normal internal carotid artery diameter distal to the stenosis where the velasquez are parallel represents the denominator. Procedure Note Gerson Randolph MD - 03/30/2024 US CAROTID DUPLEX COMPLETE (BILATERAL) Referring clinician's provided indication for this examination in Epic:Outside Radiology Order; tia TECHNIQUE: A duplex ultrasound evaluation of the common carotid, internalcarotid, external carotid, vertebral, and subclavian arteries wasperformed using pollack scale, color duplex and spectral Doppler analysis. COMPARISON: No previous relevant examinations FINDINGS: Exam Quality: Technically adequate exam demonstrates: RIGHT Common Carotid Artery (cm/s): Proximal Systolic: 75 Proximal Diastolic: 20 Mid Systolic: 84.5 Mid Diastolic: 25.8 Distal Systolic: 74 Distal Diastolic: 18 Internal Carotid Artery (cm/s): Proximal Systolic: 64.5 Proximal Diastolic: 23.7 Mid Systolic: 66 Mid Diastolic: 26 Distal Systolic: 79 Distal Diastolic: 34 External Carotid Artery (cm/s): Systolic: 66 Diastolic: 18 Vertebral Artery (cm/s): Systolic: 49 Diastolic: 20 Subclavian Artery (cm/s): Systolic: 58 Diastolic: 0 ICA/CCA Ratio: 1.06 ICA Stenosis: Minimal 1-19% ICA Plaque: Heterogeneous LEFT Common Carotid Artery (cm/s): Proximal Systolic: 87 Proximal Diastolic: 26 Mid Systolic: 75.2 Mid Diastolic: 23 Distal Systolic: 72 Distal Diastolic: 27 Internal Carotid Artery (cm/s): Proximal Systolic: 63.7 Proximal Diastolic: 20.3 Mid Systolic: 69 Mid Diastolic: 28 Distal Systolic: 172 Distal Diastolic: 64 External Carotid Artery (cm/s): Systolic: 68 Diastolic: 18 Vertebral Artery (cm/s): Systolic: 55 Diastolic: 30 Subclavian Artery(cm/s): Systolic: 87 Diastolic: 0 ICA/CCA Ratio: 2.3 ICA Stenosis: Moderate 50-69% ICA Plaque: Heterogeneous Abbreviations: CCA = Common Carotid Artery. ICA = Internal Carotid Artery. ECA =External Carotid Artery. Vert = Vertebral Artery. ICA/CCA Ratio = maximalICA PSV divided by the distal CCA PSV. DIRECT TEST FINDINGS: Right: Doppler flow velocities and waveform contours are within normallimits throughout the right internal carotid artery, however minimalplaque is visualized. No plaque is visualized in the right common carotidartery. Unremarkable right external carotid artery. Anterograde flow isnoted in the right vertebral artery. The right subclavian artery ispatent. Left: Doppler flow velocities are moderately elevated in the left internalcarotid artery, waveform contours demonstrate spectral broadening. [place] is visualized in the left common carotid artery. Unremarkable leftexternal carotid artery. Antegrade flow is noted in the left vertebralartery. The left subclavian artery is patent. IMPRESSIONS: 1. 1-19% stenosis noted in the right internal carotid artery. 2 .Moderate 50-69% stenosis noted in the left internal carotid artery. 3. No stenosis noted in the common carotid arteries bilaterally. 4. No stenosis noted in the external carotid arteries bilaterally. 5. Antegrade flow noted in the bilateral vertebral arteries. 6. Normal examination within the visualized segments of the right and leftsubclavian arteries. STENOSIS: Internal carotid artery stenosis by duplex ultrasonography hasbeen validated by comparing findings with angiographic stenosis. NASCETmethods were used, where the most severe stenosis represents thenumerator, and the normal internal carotid artery diameter distal to thestenosis where the velasquez are parallel represents the denominator. us Porfirio Villar MD US NEUROVASCULAR Final Re sult documented in this encounter Visit Diagnoses Diagnosis TIA (transient ischemic attack)- Primary Unspecified transient cerebral ischemia TIA (transient ischemic attack) Unspecified transient cerebral ischemia documented in this encounter Care Teams Dental Practitioner Relationship Specialty Start Date End Date Av Christopher MD [address] [place] [address] [place] [address] PCP - General Internal Medicine 11/21/21 documented as of this encounter Additional Source Comments The information contained in this document represents components of the legal health record. It is not the complete legal health record.[facility]
== END 2025-04-13 13:49 | disposition home or self-care (01) ==
LOC: HO.RESP 13:48
PROVIDERS: PCP Internal Medicine; Visit Provider Hospitalist
DX: J96.12 Chronic respiratory failure with hypercapnia (principal); U07.1 COVID-19; U09.9 Post COVID-19 condition, unspecified; G70.9 Myoneural disorder, unspecified; Z87.891 Personal history of nicotine dependence
CPT/HCPCS: 94010; 94729

== ENCOUNTER → 2025-04-13 13:55 | Outpatient (BNV) | payer OTHER, SELFPAY | PROVIDERS: PCP Internal Medicine; Visit Provider Internal Medicine Pulmonary Disease | DX: J96.12 Chronic respiratory failure with hypercapnia (principal) | CPT/HCPCS: 94060; 94727; 94729 ==

== ENCOUNTER 2025-04-16 13:22 | Outpatient (REF) | payer OTHER, SELFPAY ==
[2025-04-16 14:41] LABS: MANUAL DIFF FLAG NO
[2025-04-16 14:44] LABS: Venous Blood Gas Refer to POC result
[2025-04-16 14:45] LABS: VBG HCO3 30 mmol/L (22-26); VBG O2 % Saturation 34.0 %
[2025-04-16 14:45] LABS: Hematocrit 39.9 % (37.0-47.0); Hemoglobin 13.6 g/dl (12.0-16.0); Imm Gran Abs Auto 0.03 X10*3/uL (0.00-0.03); Imm Gran Pct Auto 0.4 % (0.0-0.4); Lymphocytes Absolute Auto 1.9 X10*3/uL (1.2-4.9); Mean Corpuscular HGB Conc 34.1 g/dl (31.0-35.0); Mean Corpuscular Hemoglobin 32.6 pg (27.0-33.0); Mean Corpuscular Volume 95.7 fL (80.0-98.0); NRBC Abs Auto 0.000 X10*3/uL (0.0-0.012); NRBC Pct Auto 0.0 /100WBC (0.0-0.2); Platelet Count 273 X10*3/uL (160-400); Red Blood Count 4.17 X10*6/uL (4.20-5.50); White Blood Count 8.1 X10*3/uL (4.8-10.8)
== END 2025-04-16 13:23 | disposition home or self-care (01) ==
LOC: HO.LAB 13:22
PROVIDERS: PCP Internal Medicine; Visit Provider Hospitalist
DX: J96.12 Chronic respiratory failure with hypercapnia (principal); G12.21 Amyotrophic lateral sclerosis; G70.9 Myoneural disorder, unspecified; Z87.891 Personal history of nicotine dependence
CPT/HCPCS: 36415; 82803; 85025; 99212

== ENCOUNTER 2025-04-16 13:22 | Outpatient (AMB) | payer OTHER, SELFPAY ==
[2025-04-16 13:25] VITALS: BP 122/62; PULSE 100; O2SAT 99; BMI 17.8
--- NOTE | 2025-04-16 13:25 | MHC.OFFVIS ---
Vital Signs 04/16/25 13:25 Height 5 ft 8 in Weight 117 lb BMI 17.8 BP 122/62 Blood Pressure Location Rt brachial Position Sitting Pulse 100 Pulse Source Pulse Oximeter Pulse Oximetry (%) 99 Oxygen Delivery Method Room Air Intake Visit Reasons: ALS Allergies ragweed pollen Adverse Reaction (Severe, Verified 04/16/25 13:32) Cough HPI Comments Details: The patient is a 65 year woman who presents with symptoms of shortness of breath and also palpitations. The patient has not been feeling well for some time. Initially back if he years ago she was having issues with abdominal spasms. [place] like she was having diaphragmatic spasms she was not sure she was having something going on with the phrenic nerve. Subsequently after that the patient developed COVID-19. She has not noticing increasing heart rate palpitations in addition to shortness of breath. Now she has been progressively more short of breath last year. Her significant other is his with her and she is also states that she is become very short of breath even with minimal activity. Sometimes she feels like she is choking suffocating. Sometimes she feels so severe that she has to even stop doing the her activities of daily living such as doing the dishes and she has to sit down because of shortness of breath. She did have an echocardiogram done demonstrating some valvular disease. In addition to that during the office we did go for brief walking oximetry the patient was dyspneic breathing shallow and fast about 20 5 times a minute heart rate was elevated up to 125 but yet her pulse ox was stable at 98% which is reassuring. No imaging studies available at this time. Will go ahead and request blood work including a chest x-ray at this time. The patient will benefit from pulmonary function studies will follow-up afterwards. She may also benefit from pulmonary rehabilitation. Indeed dyspnea be related to post COVID or there may be a neurologic component resulting in some type of neuromuscular disease. 12/22/2023 the patient is here for a pulmonary follow-up visit. She continues be very dyspneic short of breath uncomfortable. The patient did undergo a chest x-ray demonstrating hyperinflation of her lungs. She had a blood gas which is reassuring. In addition to that pulmonary function studies did also show some degree of air trapping consistent with the hyperinflation of her lungs. We talked about importance of breathing techniques. The patient will really benefit from pulmonary rehabilitation at this time to help with the breathing techniques and also from thin her and billed aerobic capacity. In the meantime the patient continues to be dyspneic. We will request a cardiopulmonary exercise tolerance test to better address her dyspnea symptoms and see is a cardiovascular versus a pulmonary versus a musculoskeletal component. She is also working closely with neurology regarding any neuromuscular conditions that may be resulting her worsening dyspnea symptoms. She is concerned about diaphragm. She feels like it has not working correctly and she feels that his being constrained. Will go ahead and try her on baclofen to make sure she has not having any diaphragmatic spasms but will go ahead and request a sniff study to make sure that there is adequate excursion of the diaphragm. 01/06/2024 the patient is here for a pulmonary follow-up visit. She continues to be very dyspneic. She feels like she is getting worse. Even with minimal activity even at rest she is short of breath. We did check a venous blood gas during the last visit and her CO2 was in the upper limit of normal. She did follow-up with Neurology. The question neuromuscular disease resulting in significant work of breathing. Although still not clear. She is going to be referred to tertiary hospital for a neuromuscular specialist. In the meantime she did undergo a sniff study demonstrating normal diaphragmatic movement, although, it was very limited study and could not quantify the degree of diaphragmatic movement. In view of her shortness of breath will go ahead and request blood work including D-dimer to assess for potential blood clots. Based on the fact the patient has x-ray demonstrated some abnormalities in her PFTs and a diagnostic and she continues to have significant symptoms a CT scan of the chest will be a reasonable next step. Will also check an overnight oximetry with end-tidal CO2 to assess her CO2 throughout the night in view of the possibility of a chronic hypercarbic respiratory failure secondary to neuromuscular disease. The patient also benefit from pulmonary rehabilitation. 02/04/2024 the patient is here for a pulmonary follow-up visit. She continues to be very dyspneic. Moderate to severe. She did have the overnight oximetry demonstrating significant hypoxia at nighttime. Therefore she was prescribed oxygen. However, she has been reluctant to use it. I did emphasize to her the importance of using the oxygen. She will start using the oxygen now. She also had a blood gas demonstrating some slight elevations in her CO2. This was a venous blood gas. Again, with her significant muscle deconditioning and muscle wasting she likely is contributing component of respiratory failure. The patient will be evaluated by neurologist soon looking for neuromuscular conditions such as muscular dystrophy. She did have a sniff study demonstrating normal movement of the diaphragm which is reassuring. The patient also underwent a CT scan of the chest was reassuring as well. No evidence of any parenchymal lung disease. The patient was most start pulmonary rehabilitation. She has not as of yet. I will go ahead and put although order in. In the meantime she did undergo cardiopulmonary exercise tolerance test. We did review together. She has significant aerobic limitations. I suspect moderate chondral disease is also in differential such as mitochondrial muscular dystrophy. Again, she needs to be evaluated by Neurology or muscular dystrophy clinic. In the meantime the patient will start these in the oxygen. And also, hopefully start pulmonary rehabilitation soon. 04/07/2024 the patient is here for a pulmonary follow-up visit. She did go to [place] [facility] and she was evaluated there. Currently being evaluated for neuromuscular diseases. she will be going back for any mg test soon. In the meantime she did undergo pulmonary function studies at [facility] which I personally reviewed with her. Her maximum inspiratory and expiratory pressures are down to 50%. Again, this is consistent with a neuromuscular disease resulting in her dyspnea symptoms. She has also has had significant weight loss. We did provide her with protein drinks during the last visit as we have samples and we also provided her with samples again. But, she would benefit from getting a prescription from her primary care doctor for significant weight loss and deconditioning that is also likely contributing to her muscle weakness. The patient did have a positive test for blood work that was suggestive of neuroendocrine disease such as small cell that can consult and paraneoplastic conditions. Although, her CT scan of the chest did not demonstrate any pulmonary nodules or any concerns for small cell lung cancer. Will have her repeat a chest x-ray today to make sure there is no changes on those images. In the meantime the patient will have a repeat blood gas because will monitoring closely her CO2 as it was slightly elevated during the last visit. If the CO2 continues to climb suggest that she is developing worsening hypercarbic respiratory failure in could result in worsening disease especially if there is further progression. The patient is interested in pulmonary rehabilitation. At least we can start working on building some strength in the middle of the evaluation. As far as other functions appears that she is swallowing well denies any dysphagia at this time. Will continue monitoring closely for that. 05/02/2024 the patient is here for a pulmonary follow-up visit. Since we last spoke the patient was initially set up for a sleep study. However her symptoms worsened and she ended up in the ER. At that point she had a repeat blood gas still demonstrating elevation her CO2. Therefore we arranged with a local [employer] to for her to start IVAPS noninvasive ventilator for her neuromuscular disease and chronic hypercarbic respiratory failure. Initially was hard for her to get used to it. We did work with the [employer] to adjust the pressures in the volumes accordingly for her to be admitted tolerated. She has been tolerating it better and she has been able to sleep at night which is reassuring. She is asking if this is something that she can wean off. Explained to the patient that did noninvasive ventilator as a bridge to therapy. We would have to know what is going on with her neuromuscular disease and proper treatment in order to help her strengthen and see if we are able to wean her off liberated for the noninvasive ventilator. However, the patient states that in her visit to [facility] with the neurologist he spoke to her about a likely diagnosis of ALS. He is going to do additional testing such as genetic testing to better identify her condition. But in the meantime, he did recommend she start medicine for ALS. she is reluctant to do so at this time. She is questioning the diagnosis. At this point the patient does have a hard time going to [facility] anyway so we will refer her to the ALS [facility] clinic for her to be further evaluated for ALS and see if they can potentially rule out or confirm the diagnosis at this time. In the meantime she is wondering about strengthening her muscles. She was approved to start pulmonary rehabilitation but then other issues arise and she was not able to do so. I did remind her that she needs to call to arrange a visit for her to start rehabilitation therapy. Will have her return in a couple months with spirometry to assess any progression of disease. 06/08/2024 the patient is here for a pulmonary follow-up visit. She has had multiple appointments with tertiary centers to further figure out her neuromuscular disease. The patient is still waiting to hear back or follow-up regarding a definitive diagnosis at this time. Either way the patient definitely has a neuromuscular component affecting her respiratory muscles. She is using her accessory muscles to breathe. Although she seems a little bit more comfortable today. She is using noninvasive ventilator at nighttime. She is using it every night she feels like she is getting for rest. Sometimes she even forgets she has not known. She does mention that sometimes she does feel that is hard to trigger the ventilator. This may be a sign of further progression of her respiratory weakness and will try to make the noninvasive ventilator more sensitive by decreasing the negative pressure required to trigger it. Will work with her [employer] for that, [place]. In the meantime she will did have her 6 minute walk test with the pulmonary rehabilitation and I did encourage her to schedule her classes to start pulmonary rehabilitation at this time. Will plan to have her undergo spirometry during the next visit and also will require blood gas to assess her CO2. Briefly, we also talked about using the noninvasive ventilator during the daytime if her condition worsens further. We did talk about a mouthpiece that she could use with sip and puff set up specially if symptoms worsen. Clinically today she looks okay so we will start the conversation for that. 08/10/2024 the patient is here for pulmonary follow-up visit. The patient is still being followed closely for neuromuscular disease with Neurology. She did have a modified barium swallow apparently sometime in the late fall where was reassuring no evidence of any aspiration. The patient has been using the noninvasive ventilator overnight. The therapy has been affecting beneficial. She is wondering the if she can do without it. She would like to test to see what her oxygen is off the machine. I did tell her we can do that but I do recommend that she stay on the noninvasive ventilator based on the fact that is not on her oxygen but it is more related to the CO2 in the chronic hypercarbic respiratory failure. The patient was also concerned about her mitral valve where she has a prolapse and she is also concerned about stenosis of her left internal carotid and needing surgery. I explained to her that she does have hard for perioperative pulmonary complications due to her neuromuscular condition in her risk of a prolonged ventilator time. The patient is aware that if she does need surgery then she will need a preoperative evaluation for each of the events and we can discuss that further what is more definitive. She did undergo spirometry today. Her forced vital capacity did decrease from 2.6 to 2.07. Therefore the concerned about potential progression of her neuromuscular disease. It is reassuring that she gained actually 3 lb. During the office visit we also went for a walking oximetry and she maintain a pulse ox of 99% which is great. Heart rate was elevated. She was scheduled to start pulmonary rehab which she has not started it as of yet. I did encourage her to do so because it will help. 09/26/2024 the patient is here for a pulmonary follow-up visit. Overall she is doing about the same. She still working on exercises and staying strong. She did get a breather device and she skin is continue to continue to stand during her respiratory capacity. I also provide her with an incentive spirometer. She is using the noninvasive ventilator at nighttime and is working well. In addition to that she did have spirometry today which we personally reviewed. Her FVC is 2.44 L which is better than before (2.6->2.0->2.4) she is concerned with the diagnosis of a rare form of ALS. She is not sure this is the correct diagnosis. She did undergo go an EMG in [place] but she has certain reservations how was done. I will go ahead and refer her to physiatry here so we can hopefully redo the EMG to address her ongoing diagnosis of neuromuscular disease. The patient will continue the current therapy she is going to undergo blood work and then will follow-up in 2 months with a formal pulmonary function study. 11/28/2024 the patient is here for a pulmonary follow-up visit. Since we last spoke the patient feels a little bit weaker. Little bit difficulty breathing. Moderate severity. She also feels some weakness of the arms. She still trying to get sense of her neuromuscular disease and if his ALS or very it. She denies any difficulty swallowing. She does have feel like her cough is getting weaker. Difficult to expectorate secretions specially when they are in the central airway. We did perform spirometry today. Her FVC decreased down to 2.29 L. therefore there seems to be a slow progression of disease based on the continued decline. Her maximum inspiratory pressures were at 34% predicted maximum expiratory pressures around 52% predicted. Based on a weekend cough and decreased in the maximum inspiratory and expiratory pressures and her neuromuscular disease I do believe that cough assist will be helpful in helping her clear her secretions specially with a very weak cough that she demonstrated today. She continues use a noninvasive ventilator. She does use it every night. It is affecting beneficial. We will go ahead and request a blood gas to make sure that her CO2 is continue to respond adequately. 02/06/2025 the patient is here for pulmonary follow-up visit. Overall the patient has been doing okay. She continues to exercise regularly. She works on incentive spirometer on a regular basis with good results. She also has been using her noninvasive ventilator. We had increase the pressures initially was too hard for her to tolerate then we got it to a point that she is doing better with it. She is trying to get used to the higher pressures when they do happen. She did have an FVC today through a spirometry which is 2.36L. Overall, no significant change from back in November when she had her numbers and actually no significant change from September. She also did follow-up with Neurology and they were also reassuring that they have not seen any significant progression in the last 6 months also reassuring. Will go ahead and request blood work. The patient is concerned about her diaphragmatic excursion. Will go ahead and recheck pulmonary function studies and a another sniff study sometime in March to assess her neuromuscular function and lung capacity. Will follow-up in 3 months. 04/16/2025 the patient is here for a pulmonary follow-up visit. She still struggling with the breathing. She did want to pulmonary rehabilitation did not find it very helpful shows therefore she quit. I did give her the information about the online pulmonary rehabilitation so she can do it on her own. She continues using noninvasive ventilator and she is tolerating it. Although sometimes she does wake up short of breath and she needs to reset it. She is concerned that her condition is getting worse. She feels like she is struggling more to breathe. We did review his spirometry and also her recent pulmonary function study and appears that her FVC has not significantly changed right now 2.44 last time checked back in January where it was 2.36. Therefore she is really holding steady. She did have a repeat sniff study. It appears that her diaphragm is not moving much and she is really relying on her accessory muscles and external intercostal muscles for inspiratory effort. Will go and request blood work in addition to a blood gas and the patient will continue to use her noninvasive ventilator. I will request a mouth piece so she can start using it during the daytime and get used to it so she is able to use it once her condition worsens. We briefly spoke about tracheostomy or invasive ventilation. The patient right now is not interested in pursuing tracheostomy set this time. Continues to talk to her significant other. But at this point she is pretty adamant she does not want a tracheostomy in the future. [facility] Medical History ALS (amyotrophic lateral sclerosis) COVID-19 Neuromuscular disease Chronic hypercapnic respiratory failure Diaphragmatic disorder Scoliosis Long COVID Insomnia Tachycardia Dyspnea Surgical History History of colonoscopy (~12/15/17) Family History Mother No problems noted. Father No problems noted. Social History Housing: House Alcohol intake: current Alcohol intake frequency: a few times a week Alcohol type: wine Patient Tobacco Use Status: Former Tobacco user Tobacco use type: Cigarette Years Smoked: 30 Years Ago e-Cigarette/Vaping Use: Former Use service: No Current occupational status: retired Cognitive needs: No Hearing needs: No Vision needs: Yes (reading glasses) Review of Systems Const Denies chills, Denies fatigue, Denies fever(s), Denies weight gain and Denies weight loss Eyes Denies change in vision ENT Denies dysphagia and Denies dizziness Card Denies chest pain, Denies leg edema, Denies lightheadedness, Denies palpitations, Reports dyspnea on exertion, Denies orthopnea and Denies other Resp Reports cough (weak), Reports dyspnea on exertion and Denies wheezing GI Denies hematochezia, Denies change in stool character and Denies dysphagia Musc Denies abnormal gait, Reports muscle weakness, Denies numbness, Denies radiating pain into limb, Reports stiffness and Reports tingling Skin/Breast Denies rash Neuro Denies abnormal gait, Denies dizziness, Denies numbness and Reports tingling Endo Denies fatigue and Denies palpitations David/Lymph Denies lymphadenopathy Aller/Immun Denies wheezing Physical Exam Vital Signs: Last Vital Signs Pulse 100 04/16/25 13:25 BP 122/62 04/16/25 13:25 Pulse Ox 99 04/16/25 13:25 Oxygen Delivery Method Room Air 04/16/25 13:25 BMI result Body Mass Index 17.8 Const General: cooperative Nutritional Appearance: thin Orientation/consciousness: patient oriented x3 HEENT Head: Yes normocephalic Neck Neck: Yes supple Chest Chest palpation & inspection: normal inspection of the chest Resp Effort & Inspection: tachypneic and uses accessory muscles Auscultation: diminished lung sounds Cardio Rate: tachycardic Heart sounds: S1 normal heart sound present and S2 normal heart sound present GI Palpation (GI): Soft to palpation Skin General skin exam: no rashes or lesions noted Neuro General: patient oriented x3 Extrem General: Yes no clubbing, cyanosis or edema Assessment & Plan Assessment & Plan (1) Dyspnea: Code(s): R06.00 - Dyspnea, unspecified Category: Medical Qualifiers: Dyspnea type: shortness of breath Qualified Code(s): R06.02 - Shortness of breath (2) Chronic hypercapnic respiratory failure: Code(s): J96.12 - Chronic respiratory failure with hypercapnia Category: Medical (3) Neuromuscular disease: Code(s): G70.9 - Myoneural disorder, unspecified Category: Medical (4) ALS (amyotrophic lateral sclerosis): Comment: suspected diagnosis made in [facility] [place] Code(s): G12.21 - Amyotrophic lateral sclerosis Category: Medical Plan continue NIV with oxygen, add mouth piece during the day pulmonary rehab, on line repeat bloodwork, VBG in lab PSG at [facility] discontinued cough assist, may need it later, though ISS F/U 2 months Orders: Orders RT PSG in-lab sleep study Today J96.12 - Chronic respiratory failure with hypercapnia Coding Level of Care Code Est Pt Level 5 (27870) Complex EM visit Add On G2211 Diagnoses Shortness of breath R06.02 Dyspnea type: shortness of breath Chronic hypercapnic respiratory failure J96.12 Neuromuscular disease G70.9 ALS (amyotrophic lateral sclerosis) G12.21 Time Spent (min) 60
== END 2025-04-16 14:14 | disposition home or self-care (01) ==
LOC: HO.HPS 13:23
PROVIDERS: PCP Internal Medicine; Visit Provider Hospitalist
DX: R06.02 Shortness of breath (principal); J96.12 Chronic respiratory failure with hypercapnia; G70.9 Myoneural disorder, unspecified; G12.21 Amyotrophic lateral sclerosis
CPT/HCPCS: 99215

== ENCOUNTER 2025-05-11 09:14 | Outpatient (AMB) | payer OTHER, SELFPAY ==
--- NOTE | 2025-05-11 09:17 | MHC.PC.OV ---
Vital Signs 05/11/25 09:25 Height 5 ft 8 in Weight 118 lb 8 oz BMI 18.0 BP 130/72 Blood Pressure Location Rt brachial Position Sitting Respiration 22 H Pulse 86 Pulse Source Pulse Oximeter Temp 98.5 F Pulse Oximetry (%) 98 Oxygen Delivery Method Room Air Intake Visit Reasons: f/up-1/2h Intake Note: follow up Accompanied by: Mother Allergies ragweed pollen Adverse Reaction (Severe, Verified 05/11/25 09:20) Cough Tobacco use date assessed: 05/11/25 Dental Screening Dental Screen Date: 02/15/25 HPI HPI Comments History of Present Illness Details The patient is a 65 year old female with a past medical history of diagnosed ALS, dyspnea, depression, GERD, IBS-C, diverticulosis, MV disorder, scoliosis presenting for follow up. Accompanied by Neuro: Neurologic disorder. Breathing and shortness of breath is her most prominent symptoms. She does have ovrall weakness and some tremulousness. Saw [facility] for consultation Dr Vazquez-she was diagnosed with ALS. Follows locally with Dr Villar. She follows closely with the professor in family studies at [facility], Dr Herrera. Recent MR brain was normal. She has upcoming respiratory testing. Recent PFTs Central sleep apnea: bipap with pressure support triggered intake, triggered expiration and triggered if respiration stops. IVAPS. Patient continues to walk as tolerated. She does have to stop and sit at times. She has a few changes keratoses on her chest. Requests dermatology referral Mammo: Cologuard: ROS see HPI PHYSICAL EXAM: GENERAL: Alert and oriented x 3. NAD. EYES: EOMI. Anicteric. HENT: Moist mucous membranes. LUNGS: Clear to auscultation bilaterally. Increased work of breathing CARDIOVASCULAR: Regular rate and rhythm. ABDOMEN: Soft, non-tender +bs EXTREMITIES: No edema. Non-tender. SKIN: No rashes or lesions. Warm. NEUROLOGIC: No focal neurological deficits. CN II-XII grossly intact PSYCHIATRIC: Cooperative. Appropriate mood and affect [facility] Medical History ALS (amyotrophic lateral sclerosis) COVID-19 Neuromuscular disease Chronic hypercapnic respiratory failure Diaphragmatic disorder Scoliosis Long COVID Insomnia Tachycardia Dyspnea Surgical History History of colonoscopy (~12/15/17) Family History Mother No problems noted. Father No problems noted. Social History Housing: House Alcohol intake: current Alcohol intake frequency: a few times a week Alcohol type: wine Patient Tobacco Use Status: Former Tobacco user Tobacco use type: Cigarette Years Smoked: 30 Years Ago e-Cigarette/Vaping Use: Former Use service: No Current occupational status: retired Cognitive needs: No Hearing needs: No Vision needs: Yes (reading glasses) Questionnaire PHQ-9 Over the last 2 weeks, how often have you been bothered by any of the following problems? 1. Little interest or pleasure in doing things: not at all 2. Feeling down, depressed, or hopeless: not at all 3. Trouble falling or staying asleep, or sleeping too much: not at all 4. Feeling tired or having little energy: not at all 5. Poor appetite or overeating: not at all 6. Feeling bad about yourself - or that you are a failure or have let yourself or your family down: not at all 7. Trouble concentrating on things, such as reading the newspaper or watching television: not at all 8. Moving or speaking so slowly that other people could have noticed. Or the opposite - being so fidgety or restless that you have been moving around a lot more than usual: not at all 9. Thoughts that you would be better off or of hurting yourself in some way: not at all Total score: 0 Depression Screening Interpretation: Negative Depression Screening Done: Yes 56689 - PHQ-9 Billing: Yes Source: Developed by Drs. Kelvin Adams, Brittany Sun, Alvaro Dowd and colleagues, with an educational juana from [employer]. Thrive Questionnaire Date Thrive assessed: 02/15/25 I am a: Patient What is your living situation today?: I choose not to answer this question Within the past 12 months, did the food you bought not last and you didn't have the money to get more?: I choose not to answer this question Within the past 12 months, did you worry whether your food would run out before you got money to buy more?: I choose not to answer this question Do you have trouble paying for medicines?: I choose not to answer this question Do you have trouble getting transportation to medical appointments?: I choose not to answer this question Do you have trouble paying your heating and electricity bill?: I choose not to answer this question Do you have trouble taking care of your child, family member or friend?: I choose not to answer this question Do you have trouble with day-to-day activities such as bathing, preparing meals, shopping, managing finances, etc.?: I choose not to answer this question Are you currently unemployed and looking for a job?: I choose not to answer this question Are you interested in more education?: I choose not to answer this question Please select the resources that you would like help with: None Currently or been in a relationship where the following occur: I choose not to answer THRIVE Score: 0 AUDIT C Alcohol Use Questionnaire (AUDIT-C) 1. How often do you have a drink containing alcohol?: 2-3 times a week 2. How many drinks containing alcohol do you have on a typical day when you are drinking?: 1 or 2 3. How often do you have six or more drinks on one occasion?: Never Total Score: 3 PATRICK-7 AMB Questionnaire PATRICK-7 Date PATRICK - 7 assessed: 05/11/25 Feeling nervous, anxious, or on edge: 0 = Not at all Not being able to stop or control worryin = Not at all Worrying too much about different things: 0 = Not at all Trouble relaxin = Not at all Being so restless that it is hard to sit still: 0 = Not at all Becoming easily annoyed or irritable: 0 = Not at all Feeling afraid as if something awful might happen: 0 = Not at all Total PATRICK-7 score (0-4 normal; 5-9 mild; 10-14 moderate; 15-21 severe): 0 Source: Developed by Drs. Kelvin Adams, Brittany Sun, Alvaro Dowd and colleagues, with an educational juana from [employer] PATRICK-7 Assessment Billing PATRICK-7 Assessment Tool: PATRICK-7 Assessment 26242 Physical exam (Primary Care) Vital Signs: Last Vital Signs Temp 98.5 F 05/11/25 09:25 Pulse 86 05/11/25 09:25 Resp 22 H 05/11/25 09:25 BP 130/72 05/11/25 09:25 Pulse Ox 98 05/11/25 09:25 Oxygen Delivery Method Room Air 05/11/25 09:25 BMI result Body Mass Index 18.0 Tobacco/Smoking Status: Tobacco use Status Tobacco use date assessed 05/11/25 05/11/25 09:29 Patient Tobacco Use Status Former Tobacco user 05/11/25 09:29 Tobacco use type Cigarette 05/11/25 09:29 e-Cigarette/Vaping Use Former Use 05/11/25 09:29 PHQ-9: PHQ-9 Score PHQ-9: Total score 0 05/11/25 10:17 Depression Screening Interpretation: Negative Thrive Assessment: Date of Thrive Assessment Date Thrive assessed 02/15/25 05/11/25 09:29 Currently or been in a relationship where the following occur: I choose not to answer Coding Level of Care Code Est Pt Level 4 (24976) Diagnoses Neuromuscular disease G70.9 Chronic hypercapnic respiratory failure J96.12 Additional Codes PATRICK-7 Assessment Billing - PATRICK-7 Assessment Tool: PATRICK-7 Assessment 88594 ([id number]) PHQ-9 - 94237 - PHQ-9 Billing: Yes ([id number]) Assessment & Plan Assessment & Plan (1) Neuromuscular disease: Code(s): G70.9 - Myoneural disorder, unspecified Category: Medical (2) Chronic hypercapnic respiratory failure: Code(s): J96.12 - Chronic respiratory failure with hypercapnia Category: Medical Plan 65 year old female presenting for follow up Unclear neurologic disorder. symptoms and timeline are not in line with classic ALS. Referral for EMG, neuromuscular neuro consult. Continue follow up with Dr Cuevas She is having issues getting specialist care -nurse navigator referral Orders: Orders NE electromyogram (EMG) 05/11/25 G70.9 - Myoneural disorder, unspecified, J96.12 - Chronic respiratory failure with hypercapnia, J96.90 - Respiratory failure, unspecified, unspecified whether with hypoxia or hypercapnia NE nerve conduction velocity 05/11/25 G70.9 - Myoneural disorder, unspecified, J96.12 - Chronic respiratory failure with hypercapnia, J98.6 - Disorders of diaphragm Referrals Nurse Navigator Referral G12.21 - Amyotrophic lateral sclerosis, G70.9 - Myoneural disorder, unspecified, J96.12 - Chronic respiratory failure with hypercapnia Neuromuscular Medicine Referral G70.9 - Myoneural disorder, unspecified, J96.12 - Chronic respiratory failure with hypercapnia, J96.90 - Respiratory failure, unspecified, unspecified whether with hypoxia or hypercapnia
[2025-05-11 09:25] VITALS: BP 130/72; PULSE 86; RESP 22; TEMP 36.9; O2SAT 98; BMI 18.0
--- OUTSIDE RECORDS SUMMARY | 2025-05-11 10:08 | XMS_ITS | Clinical Summary ---
Author Organization [facility] Address [address] [place] [address] Phone Care Team Providers Care Acoustical Tile Patternmaker Name Role Phone Av Christopher MD Primary [...] file Medical Devices Not on file Insurance [facility] DIRECT Care Teams Acoustical Tile Patternmaker Relationship Specialty Start Date End Date Av Christopher MD [address] [place] [address] [place] [address] PCP - General Internal Medicine 11/21/21 Additional Source Comments The information contained in this document represents components of the legal health record. It is not the complete legal health record.[facility]
--- OUTSIDE RECORDS SUMMARY | 2025-05-11 10:08 | XMS_ITS | Data Portability ---
Author Organization [facility] [place] [facility], [facility] Address [address] [place] [address] Care Team Providers Care Foot Setter Name Role Phone WILD HILARIO Primary Care Provider Assessment Encounter Date Assessment Date Assessment LastModified by Organization Details LastModified Time 04/07/2024 04/07/2024 64-year-old female with muscle wasting disease workup in progress at respiratory compromise followed by her news director. Their major question for me today is [...] 2024 025 N[facility] [place], [address], [place], [address], 09:25:16 Procedures None recorded. Surgeries None recorded. Imaging XR, hand, 3 or more view - 3v bi hand, aircraft worker, rm 117 2024 025 noam [facility], [address], [address], [place], [address], 5 11:18:06 XR, thoracic spine, 2 view - 321 new pt t-spine 2v 2023 024 cstamand [facility], [address] [facility], [address], [place], [address], 4 15:45:20 Medication Orders None recorded. Patient [...] a4ajBk vP9nXo QUaueC m3YtLR FvZlgJ JJ8mAn HZtai3 0y1521 AC0Kqa n6NUKO vKiQtr MwF INTERFACE [facility] [address], [place], [address], 04/07/2024 09:26:41 04/07/20 24 04/07/2024 XR, thora cic spine , 2 view [email or web address] ?Encry pted=s hAaTro YD8dLq bEUv6g %2BXZw aYqtaq 0bqfl% 2Fg9IQ a4ajBk vP9nXo QUaueC m3YtLR FvZlgJ JJ8mAn HZtai3 5r4677 AC0Kqa n6NUKO vKiQtr MwF INTERFACE [facility] [address], [place], [address], 04/07/2024 09:26:43 12/15/19 25 12/14/2024 XR, hand, 3 or more view http:/ [email or web address] ?Encry pted=s hAaTro YD8dLq bEUv6g %2BXZw aYqtaq 0bqfl% 2Fg9IQ a4ajBk vP9nXo QUaueC m3YtLR FvZlgJ JJ8mAn HZtai3 0j6920 AC0Kla 3mHUKu hKiQtr MwF INTERFACE [facility] [address] [facility] [address], [place], [address], 12/14/2024 10:39:11 12/15/19 25 12/14/2024 XR, hand, 3 or more view http:/ [email or web address] ?Encry pted=s hAaTro YD8dLq bEUv6g %2BXZw aYqtaq 0bqfl% 2Fg9IQ a4ajBk vP9nXo QUaueC m3YtLR FvZlgJ JJ8mAn HZtai3 4m8091 AC0Kla 3mHUKu hKiQtr MwF INTERFACE [facility] [address] [facility] [address], [place], [address], 12/14/2024 10:39:13 Result Notes Documentation Provider Name and Address Organization Details Recorded Time Xr, Thoracic Spine, 2 View : [email or web address]? Encrypted=qpWyJwcCQ7aNdnO Uv6g%5RYNxaGqzdu9rnrj%2Fg 4CYa1ixJjpM1nReFMxytGo7Cj IGSjMunFDZ9pTkLMjrx80q806 0EU6Mhnn2LXMVjTsStfIbX Not Available [facility] 04/07/2024 09:26: 42 Xr, Thoracic Spine, 2 View : [email or web address]? Encrypted=nhGuSzaXZ3nMylQ Uv6g%1OHNogBdyer8ccrf%2Fg 8GJl2adApgN3bReCLfeeHu9Qy KWXpVmsHKG6uFqUOsif72q511 3GC7Fthi7FWRXjJuGblSzY Not Available [facility] 04/07/2024 09:26: 44 Xr, Hand, 3 Or More View : [email or web address]? Encrypted=riToOgbCO0zYnzQ Uv6g%1CPMdqKyxbs7vxjv%2Fg 9JUr9xdBzyK3aZjAZnkcHd2Lg NCDdFdlNNR7vIcWDypn38a212 6WC4Ywh2cSOCheJdKqkUzK Not Available [facility] 12/14/2024 10:39: 12 Xr, Hand, 3 Or More View : [email or web address]? Encrypted=akZsScwSU3yIhqH Uv6g%5GPVziWzjct8mmsm%2Fg 4FRt9keQeoN8dMmCNcplZy4Yy YXQjYeeFMR3pUgXNcui85i822 4JT3Aln4aNRDzmPaOncEpU Not Available [facility] 12/14/2024 10:39: 13 Medical Equipment None Reported. [...] Updated DateTime 12/14/2024 170.18 cm 16.2 kg/m2 63656.17 g [facility] 12/14/2024 10:31:56 Date Recorded Body height Body mass index (BMI) Body weight Provider Name and Address Organization Details Last Updated DateTime 02/19/2025 170.18 cm 16.2 kg/m2 25118.17 g [facility] 02/19/2025 12:01:54 Date Recorded Body weight Body mass index (BMI) Body height Provider Name and Address Organization Details Last Updated DateTime 04/07/2024 69821.01 g 16.1 kg/m2 170.18 cm GA ESCOBEDO [facility] 04/11/2024 13:03:52 Social History None recorded. Functional Status None recorded. Mental Status None recorded. Family History Nothing Reported. Medical History No medical history recorded. Gynecological HistoryNo gynecological history recorded. Obstetrics History GPAL:G 0 P 0 0 0 0 Past Encounters Encounter ID Performer Location Encounter Start Date Encounter Closed Date Diagnosis/Indication Diagnosis SNOMED-CT Code Diagnosis ICD10 Code Diagnosis IMO Codes Diagnosis Note [id number] MD Sofia [facility] [address], [place] [address] 04/07/2024 08:57:19 05/01/2024 15:45:20 Pain in thoracic spine 928496967 M54.6 [id number] [facility] [address] [place] [address] 12/14/2024 10:25:28 12/27/2024 10:16:16 Pain of bilateral hands 8372661066 5485391 M79.641 M79.642 08661255 Muscle contracture 10755 002 M62.40 099141 [id number] MD KELECHI Arell[address], [place] [address] 02/19/2025 11:16:55 02/26/2025 09:22:49 Muscle contracture 16342435 M62.40 889222 Health Concerns Section Related Observation LastModified by Organization Detai ls LastModified Time None Recorded Concern Status LastModified by Organization Details LastModified Time None Recorded Advance Directives Directive None Recorded Payers Insurance Date Sequence Insurance Name Policy Number Policy Pedraza Covered Member ID Pedraza Member ID Guarantor Name 02/19/2025 1 [facility] TYPE I (HMO) [id number] Nevaeh Palomino [id number] 1 Nevaeh Palomino 12/13/2024 1 [facility] [id number] Nevaeh Palomino [id number] 2 Nevaeh Palomino Notes Date Note Type [...] REPORT: X-rays ordered, obtained and reviewed at [facility]. Kelvin Ronquillo MD [address] [facility] [address], [place], [address], [facility] 04/07/2024 12:46:20 12/14/2024 text/html ROS as noted [...] X-rays ordered, obtained, and reviewed today at [facility]: PA, lateral, oblique views of both hands reveal some very mild IP joint space narrowing. Plan: I described to the patient the nature of intrinsic tightness and referred to occupational therapy to help with stretching. She will follow-up in 6 weeks time or sooner if there are any concerns Jeremy Rodriguez MD [address] [facility] [address], [place], [address], [facility] 12/14/2024 12:40:57 02/19/2025 text/html ROS as noted in the HPI Diagnosis: 1. Intrinsic tightness bilateral hands 2. ALS The patient returns at our request. She has been working diligently in therapy. Her hand therapist believe that she is improving and no longer needs their help. They believe that she can continue to improve on her own. Past family, medical, social history and review of systems has been reviewed, updated and is located in the patient s chart. Examination: Healthy appearing patient in no apparent distress. Alert and oriented. She continues to demonstrate intrinsic tightness in her bilateral hands but this is much improved since her last visit no atrophy in either upper extremity. Brisk capillary refill in all digits Plan: The patient and I discussed her situation at length. She agrees that she can now continue her exercise program on her own. She will follow-up with me at her discretion. She is comfortable with this plan. Jeremy Rodriguez MD [address] [place] [address] [address], [place], [address], [facility] [place] [facility] 02/25/2025 15:54:57 OBGyn Episode No OBEpisode recorded.
--- OUTSIDE RECORDS SUMMARY | 2025-05-11 10:08 | XMS_ITS | Clinical Summary ---
Author Organization [facility] Address [address] [place] [address] Care Team Providers Care Territory Outside Sales Manager Name Role Phone Av Christopher Primary Care Provider [phone] Allergies Active Allergy Reactions Criticality Noted Date [...] Department Care Team Description 02/19/2025 Results Follow-Up [facility] [address] [place] [address] Bobby Eyl MD from Last 3 Months Family History [...] ual Screening 07/26/2024 COVID-19 Vaccine (1 - 2024-2 6 season) 2025 Influenza Vaccine (#1) 2025 03/19/2017, 2015 RSV Vaccine (60+ years old a nd patients) (1 - 1-dose 75+ series) 2036 Hepatitis B Vaccines Completed 04/14/2017, 04/16/2016, 04/02/2016, Additional history exists HIV Screening Completed 06/05/2024 Hepatitis C Screening Completed 06/05/2024 Procedures * Due to [place] [employer] law, this organization might not be sharing [...] YUMIKO NON-REACT YUMIKO 06/06/2024 5:25 AM EST APS Comment: HCV antibody was non-reactive. There is no laboratory evidence of HCV infection. In most cases, no further action is required. However, if recent HCV exposure is suspected, a test for HCV RNA (test code 78229) is suggested. For additional information please refer to http://education.Keduo/faq/CZR18o1 (This link is being provided for informational/ educational purposes only.) Blood Structure of peripheral vein / Unknown Venipuncture / Unknown 06/05/2024 4:12 PM EST 06/05/2024 4:31 PM EST [facility] - 06/06/2024 5:25 AM EST [facility] Received Date: Junie Bhatia MD LAB BLOOD ORDERAB LES Final Result [facility] [address] [facility] [address], [place] [address], [place] [phone] Moxie Jean [facility] [address] [facility] [address], [place] [address], [place] [phone] from Last 3 Months or Most Recently Relevant to Health Maintenance Insurance [facility] Care Teams Territory Outside Sales Manager Relationship Specialty Start Date End Date Av Christopher [address] [place] [address] dr Tigre Landeros, [place] [address] PCP - General Internal Medicine 06/06/24
--- OUTSIDE RECORDS SUMMARY | 2025-05-11 10:08 | XMS_ITS | Encounter Summary ---
Author Organization [facility] Address [address] [place] [address] Phone Care Team Providers Care Dye Box Operator Name Role Phone Av Christopher MD Primary Care Provider Reason for Referral * Outpatient Procedure - Closed Specialty Diagnoses / Procedures Referred By Contac t Referred To Contact Radiology Diagnoses TIA (transient ischemic attack) Procedures US Carotid Duplex Complete (Bilateral) Porfirio Villar MD [address] [place] [address], [address] [place] [address] Phone: tel: fax: [email or web address] Referral ID Status Reason Start Date Expiration Date Visits Re quested Visits Authorized [id number] Closed 03/22/2024 03/22/2025 1 1 Encounter Details Date Type Department Care Team (Latest Contact Info) Description 03/22/2024 Transcribe Orders Virtual Department [address] [place] [address] Porfirio Villar MD [address] [place] [address], [address] [place], [place] [phone] [email or web address] TIA (transient ischemic attack) (Primary Dx) Social [...] ischemia documented in this encounter Care Teams Dye Box Operator Relationship Specialty Start Date End Date Av Christopher MD [address] [place] [address] [place] [address] PCP - General Internal Medicine 11/21/21 documented as of this encounter Additional Source Comments The information contained in this document represents components of the legal health record. It is not the complete legal health record.[facility]
== END 2025-05-11 10:17 | disposition home or self-care (01) ==
LOC: HO.HMCFM 09:15
PROVIDERS: PCP Internal Medicine; Visit Provider Internal Medicine
DX: G70.9 Myoneural disorder, unspecified (principal); J96.12 Chronic respiratory failure with hypercapnia

== ENCOUNTER → 2025-05-11 09:14 | Outpatient (BNVA) | payer OTHER, SELFPAY | PROVIDERS: PCP Internal Medicine; Visit Provider Internal Medicine | DX: G12.21 Amyotrophic lateral sclerosis (principal); J96.12 Chronic respiratory failure with hypercapnia; G47.31 Primary central sleep apnea; Z13.31 Encounter for screening for depression; Z13.39 Encounter for screening examination for other mental health and behavioral disorders | CPT/HCPCS: 96127; 99212 ==

== ENCOUNTER 2025-06-19 13:23 | Outpatient (AMB) | payer OTHER, SELFPAY ==
[2025-06-19 13:29] VITALS: BP 124/68; PULSE 105; BMI 18.3
--- NOTE | 2025-06-19 13:29 | A.OFFVIS_ITS ---
Vital Signs 06/19/25 13:29 Height 5 ft 8 in Weight 120 lb 2.431 oz BMI 18.3 BP 124/68 Blood Pressure Location Lt brachial Position Sitting Pulse 105 H Pulse Source Pulse Oximeter Intake Visit Reasons: ALS Allergies ragweed pollen Adverse Reaction (Severe, Verified 06/19/25 13:32) Cough HPI Comments Details: The patient is a 65 year woman who presents with symptoms of shortness of breath and also palpitations. The patient has not been feeling well for some time. Initially back if he years ago she was having issues with abdominal spasms. Mesick like she was having diaphragmatic spasms she was not sure she was having something going on with the phrenic nerve. Subsequently after that the patient developed COVID-19. She has not noticing increasing heart rate palpitations in addition to shortness of breath. Now she has been progressively more short of breath last year. Her significant other is his with her and she is also states that she is become very short of breath even with minimal activity. Sometimes she feels like she is choking suffocating. Sometimes she feels so severe that she has to even stop doing the her activities of daily living such as doing the dishes and she has to sit down because of shortness of breath. She did have an echocardiogram done demonstrating some valvular disease. In addition to that during the office we did go for brief walking oximetry the patient was dyspneic breathing shallow and fast about 20 5 times a minute heart rate was elevated up to 125 but yet her pulse ox was stable at 98% which is reassuring. No imaging studies available at this time. Will go ahead and request blood work including a chest x-ray at this time. The patient will benefit from pulmonary function studies will follow-up afterwards. She may also benefit from pulmonary rehabilitation. Indeed dyspnea be related to post COVID or there may be a neurologic component resulting in some type of neuromuscular disease. 12/22/2023 the patient is here for a pulmonary follow-up visit. She continues be very dyspneic short of breath uncomfortable. The patient did undergo a chest x- ray demonstrating hyperinflation of her lungs. She had a blood gas which is reassuring. In addition to that pulmonary function studies did also show some degree of air trapping consistent with the hyperinflation of her lungs. We talked about importance of breathing techniques. The patient will really benefit from pulmonary rehabilitation at this time to help with the breathing techniques and also from thin her and billed aerobic capacity. In the meantime the patient continues to be dyspneic. We will request a cardiopulmonary exercise tolerance test to better address her dyspnea symptoms and see is a cardiovascular versus a pulmonary versus a musculoskeletal component. She is also working closely with neurology regarding any neuromuscular conditions that may be resulting her worsening dyspnea symptoms. She is concerned about diaphragm. She feels like it has not working correctly and she feels that his being constrained. Will go ahead and try her on baclofen to make sure she has not having any diaphragmatic spasms but will go ahead and request a sniff study to make sure that there is adequate excursion of the diaphragm. 01/06/2024 the patient is here for a pulmonary follow-up visit. She continues to be very dyspneic. She feels like she is getting worse. Even with minimal activity even at rest she is short of breath. We did check a venous blood gas during the last visit and her CO2 was in the upper limit of normal. She did fol low-up with Neurology. The question neuromuscular disease resulting in significant work of breathing. Although still not clear. She is going to be referred to tertiary hospital for a neuromuscular specialist. In the meantime she did undergo a sniff study demonstrating normal diaphragmatic movement, although, it was very limited study and could not quantify the degree of diaphragmatic movement. In view of her shortness of breath will go ahead and request blood work including D-dimer to assess for potential blood clots. Based on the fact the patient has x-ray demonstrated some abnormalities in her PFTs and a diagnostic and she continues to have significant symptoms a CT scan of the chest will be a reasonable next step. Will also check an overnight oximetry with end-tidal CO2 to assess her CO2 throughout the night in view of the possibility of a chronic hypercarbic respiratory failure secondary to neuromuscular disease. The patient also benefit from pulmonary rehabilitation. 02/04/2024 the patient is here for a pulmonary follow-up visit. She continues to be very dyspneic. Moderate to severe. She did have the overnight oximetry demonstrating significant hypoxia at nighttime. Therefore she was prescribed oxygen. However, she has been reluctant to use it. I did emphasize to her the importance of using the oxygen. She will start using the oxygen now. She also had a blood gas demonstrating some slight elevations in her CO2. This was a venous blood gas. Again, with her significant muscle deconditioning and muscle wasting she likely is contributing component of respiratory failure. The patient will be evaluated by neurologist soon looking for neuromuscular conditions such as muscular dystrophy. She did have a sniff study demonstrating normal movement of the diaphragm which is reassuring. The patient also underwent a CT scan of the chest was reassuring as well. No evidence of any parenchymal lung disease. The patient was most start pulmonary rehabilita tion. She has not as of yet. I will go ahead and put although order in. In the meantime she did undergo cardiopulmonary exercise tolerance test. We did review together. She has significant aerobic limitations. I suspect moderate chondral disease is also in differential such as mitochondrial muscular dystrophy. Again, she needs to be evaluated by Neurology or muscular dystrophy clinic. In the meantime the patient will start these in the oxygen. And also, hopefully start pulmonary rehabilitation soon. 04/07/2024 the patient is here for a pulmonary follow-up visit. She did go to [place] and she was evaluated there. Currently being evaluated for neuromuscular diseases. she will be going back for any mg test soon. In the meantime she did undergo pulmonary function studies at [facility] which I personally reviewed with her. Her maximum inspiratory and expiratory pressures are down to 50%. Again, this is consistent with a neuromuscular disease resulting in her dyspnea symptoms. She has also has had significant weight loss. We did provide her with protein drinks during the last visit as we have samples and we also provided her with samples again. But, she would benefit from getting a prescription from her primary care doctor for significant weight loss and deconditioning that is also likely contributing to her muscle weakness. The patient did have a positive test for blood work that was suggestive of neuroendocrine disease such as small cell that can consult and paraneoplastic conditions. Although, her CT scan of the chest did not demonstrate any pulmonary nodules or any concerns for small cell lung cancer. Will have her repeat a chest x-ray today to make sure there is no changes on those images. In the meantime the patient will have a repeat blood gas because will monitoring closely her CO2 as it was slightly elevated during the last visit. If the CO2 continues to climb suggest that she is developing worsening hypercarbic respiratory failure in could result in worsening disease especially if there is further progression. The patient is interested in pulmonary rehabilitation. At least we can start working on building some strength in the middle of the evaluation. As far as other functions appears that she is swallowing well denies any dysphagia at this time. Will continue monitoring closely for that. 05/02/2024 the patient is here for a pulmonary follow-up visit. Since we last spoke the patient was initially set up for a sleep study. However her symptoms worsened and she ended up in the ER. At that point she had a repeat blood gas still demonstrating elevation her CO2. Therefore we arranged with a local [employer] company to for her to start IVAPS noninvasive ventilator for her neuromuscular disease and chronic hypercarbic respiratory failure. Initially was hard for her to get used to it. We did work with the [employer] company to adjust the pressures in the volumes accordingly for her to be admitted tolerated. She has been tolerati ng it better and she has been able to sleep at night which is reassuring. She is asking if this is something that she can wean off. Explained to the patient that did noninvasive ventilator as a bridge to therapy. We would have to know what is going on with her neuromuscular disease and proper treatment in order to help her strengthen and see if we are able to wean her off liberated for the noninvasive ventilator. However, the patient states that in her visit to [place] with the neurologist he spoke to her about a likely diagnosis of ALS. He is going to do additional testing such as genetic testing to better identify her condition. But in the meantime, he did recommend she start medicine for ALS. she is reluctant to do so at this time. She is questioning the diagnosis. At this point the patient does have a hard time going to [place] anyway so we will refer her to the [facility] clinic for her to be further evaluated for ALS and see if they can potentially rule out or confirm the diagnosis at this time. In the meantime she is wondering about strengthening her muscles. She was approved to start pulmonary rehabilitation but then other issues arise and she was not able to do so. I did remind her that she needs to call to arrange a visit for her to start rehabilitation therapy. Will have her return in a couple months with spirometry to assess any progression of disease. 06/08/2024 the patient is here for a pulmonary follow-up visit. She has had multiple appointments with tertiary centers to further figure out her neuromuscular disease. The patient is still waiting to hear back or follow-up regarding a definitive diagnosis at this time. Either way the patient definitely has a neuromuscular component affecting her respiratory muscles. She is using her accessory muscles to breathe. Although she seems a little bit more comfortable today. She is using noninvasive ventilator at nighttime. She is using it every night she feels like she is getting for rest. Sometimes she even forgets she has not known. She does mention that sometimes she does feel that is hard to trigger the ventilator. This may be a sign of further progression of her respiratory weakness and will try to make the noninvasive ventilator more sensitive by decreasing the negative pressure required to trigger it. Will work with her [employer] for that, [employer]. In the meantime she will did have her 6 minute walk test with the pulmonary rehabilitation and I did encourage her to schedule her classes to start pulmonary rehabilitation at this time. Will plan to have her undergo spirometry during the next visit and also will require blood gas to assess her CO2. Briefly, we also talked about using the noninvasive ventilator during the daytime if her condition worsens further. We did talk about a mouthpiece that she could use with sip and puff set up specially if symptoms worsen. Clinically today she looks okay so we will start the conversation for that. 08/10/2024 the patient is here for pulmonary follow-up visit. The patient is still being followed closely for neuromuscular disease with Neurology. She did have a modified barium swallow apparently sometime in the late fall where was reassuring no evidence of any aspiration. The patient has been using the noninvasive ventilator overnight. The therapy has been affecting beneficial. She is wondering the if she can do without it. She would like to test to see what her oxygen is off the machine. I did tell her we can do that but I do recommend that she stay on the noninvasive ventilator based on the fact that is not on her oxygen but it is more related to the CO2 in the chronic hypercarbic respiratory failure. The patient was also concerned about her mitral valve where she has a prolapse and she is also concerned about stenosis of her left internal carotid and needing surgery. I explained to her that she does have hard for perioperative pulmonary complications due to her neuromuscular condition in her risk of a prolonged ventilator time. The patient is aware that if she does need surgery then she will need a preoperative evaluation for each of the events and we can discuss that further what is more definitive. She did undergo spirometry today. Her forced vital capacity did decrease from 2.6 to 2.07. Therefore the concerned about potential progression of her neuromuscular disease. It is reassuring that she gained actually 3 lb. During the office visit we also went for a walking oximetry and she maintain a pulse ox of 99% which is great. Heart rate was elevated. She was scheduled to start pulmonary rehab which she has not started it as of yet. I did encourage her to do so because it will help. 09/26/2024 the patient is here for a pulmonary follow-up visit. Overall she is doing about the same. She still working on exercises and staying strong. She did get a breather device and she skin is continue to continue to stand during her respiratory capacity. I also provide her with an incentive spirometer. She is using the noninvasive ventilator at nighttime and is working well. In addition to that she did have spirometry today which we personally reviewed. Her FVC is 2.44 L which is better than before (2.6->2.0->2.4) she is concerned with the diagnosis of a rare form of ALS. She is not sure this is the correct diagnosis. She did undergo go an EMG in [place] but she has certain reservations how was done. I will go ahead and refer her to physiatry here so we can hopefully redo the EMG to address her ongoing diagnosis of neuromuscular disease. The patient will continue the current therapy she is going to undergo blood work and then will follow-up in 2 months with a formal pulmonary function study. 11/28/2024 the patient is here for a pulmonary follow-up visit. Since we last spoke the patient feels a little bit weaker. Little bit difficulty breathing. Moderate severity. She also feels some weakness of the arms. She still trying to get sense of her neuromuscular disease and if his ALS or very it. She denies any difficulty swallowing. She does have feel like her cough is getting weaker. Difficult to expectorate secretions specially when they are in the central airway. We did perform spirometry today. Her FVC decreased down to 2.29 L. therefore there seems to be a slow progression of disease based on the continued decline. Her maximum inspiratory pressures were at 34% predicted maximum expiratory pressures around 52% predicted. Based on a weekend cough and decreased in the maximum inspiratory and expiratory pressures and her neuromuscular disease I do believe that cough assist will be helpful in helping her clear her secretions specially with a very weak cough that she demonstrated today. She continues use a noninvasive ventilator. She does use it every night. It is affecting beneficial. We will go ahead and request a blood gas to make sure that her CO2 is continue to respond adequately. 02/06/2025 the patient is here for pulmonary follow-up visit. Overall the patient has been doing okay. She continues to exercise regularly. She works on incentive spirometer on a regular basis with good results. She also has been using her noninvasive ventilator. We had increase the pressures initially was too hard for her to tolerate then we got it to a point that she is doing better with it. She is trying to get used to the higher pressures when they do happen. She did have an FVC today through a spirometry which is 2.36L. Overall, no significant change from back in November when she had her numbers and actually no significant change from September. She also did follow-up with Neurology and they were also reassuring that they have not seen any significant progression in the last 6 months also reassuring. Will go ahead and request blood work. The patient is concerned about her diaphragmatic excursion. Will go ahead and recheck pulmonary function studies and a another sniff study sometime in March to assess her neuromuscular function and lung capacity. Will follow- up in 3 months. 04/16/2025 the patient is here for a pulmonary follow-up visit. She still struggling with the breathing. She did want to pulmonary rehabilitation did not find it very helpful shows therefore she quit. I did give her the information about the online pulmonary rehabilitation so she can do it on her own. She continues using noninvasive ventilator and she is tolerating it. Although sometimes she does wake up short of breath and she needs to reset it. She is concerned that her condition is getting worse. She feels like she is struggling more to breathe. We did review his spirometry and also her recent pulmonary function study and appears that her FVC has not significantly changed right now 2.44 last time checked back in January where it was 2.36. Therefore she is really holding steady. She did have a repeat sniff study. It appears that her diaphragm is not moving much and she is really relying on her accessory muscles and external intercostal muscles for inspiratory effort. Will go and request blood work in addition to a blood gas and the patient will continue to use her noninvasive ventilator. I will request a mouth piece so she can start using it during the daytime and get used to it so she is able to use it once her condition worsens. We briefly spoke about tracheostomy or invasive ventilation. The patient right now is not interested in pursuing tracheostomy set this time. Continues to talk to her significant other. But at this point she is pretty adamant she does not want a tracheostomy in the future. 06/19/2025 the patient is here for pulmonary follow-up visit. Overall she is doing well. She continues to exercise regularly and working on deep breathing exercises. She feels like most of her weakness is in the proximal muscles and back. She also has weakness of the diaphragm. She continues to be able to use the incentive spirometer up to 2500 mL which is excellent. We did have her do t he spirometry and numbers are about the same if not just a slight decrease to 2.42 L.. She continues use her noninvasive ventilator at nighttime. She is requesting access to look at the data herself. I will talk to Maldonado regarding that. Her swallow is good. She is going to follow up in [place] with Neurology. Will refer her to a neurologist close by. She is due to have her sleep study. That will be happening within the next few weeks. Will follow-up in a couple months. If she has any issues prior to this she can always call for further recommendations. [facility] Medical History ALS (amyotrophic lateral sclerosis) COVID-19 Neuromuscular disease Chronic hypercapnic respiratory failure Diaphragmatic disorder Scoliosis Long COVID Insomnia Tachycardia Dyspnea Surgical History History of colonoscopy (~12/15/17) Family History Mother No problems noted. Father No problems noted. Social History Housing: House Alcohol intake: current Alcohol intake frequency: a few times a week Alcohol type: wine Patient Tobacco Use Status: Former Tobacco user Tobacco use type: Cigarette Years Smoked: 30 Years Ago e-Cigarette/Vaping Use: Former Use service: No Current occupational status: retired Cognitive needs: No Hearing needs: No Vision needs: Yes (reading glasses) Review of Systems Const Denies chills, Denies fatigue, Denies fever(s), Denies weight gain and Denies weight loss Eyes Denies change in vision ENT Denies dysphagia and Denies dizziness Card Denies chest pain, Denies leg edema, Denies lightheadedness, Denies palpitations, Reports dyspnea on exertion, Denies orthopnea and Denies other Resp Reports cough (weak), Reports dyspnea on exertion and Denies wheezing GI Denies hematochezia, Denies change in stool character and Denies dysphagia Musc Denies abnormal gait, Reports muscle weakness, Denies numbness, Denies radiating pain into limb, Reports stiffness and Reports tingling Skin/Breast Denies rash Neuro Denies abnormal gait, Denies dizziness, Denies numbness and Reports tingling Endo Denies fatigue and Denies palpitations David/Lymph Denies lymphadenopathy Aller/Immun Denies wheezing Physical Exam Vital Signs: Last Vital Signs Pulse 105 H 06/19/25 13:29 BP 124/68 06/19/25 13:29 BMI result Body Mass Index 18.3 Const General: cooperative Nutritional Appearance: thin Orientation/consciousness: patient oriented x3 HEENT Head: Yes normocephalic Neck Neck: Yes supple Chest Chest palpation & inspection: normal inspection of the chest Resp Effort & Inspection: tachypneic and uses accessory muscles Auscultation: diminished lung sounds Cardio Rate: tachycardic Heart sounds: S1 normal heart sound present and S2 normal heart sound present GI Palpation (GI): Soft to palpation Skin General skin exam: no rashes or lesions noted Neuro General: patient oriented x3 Extrem General: Yes no clubbing, cyanosis or edema Assessment & Plan Assessment & Plan (1) Dyspnea: Code(s): R06.00 - Dyspnea, unspecified Category: Medical Qualifiers: Dyspnea type: shortness of breath Qualified Code(s): R06.02 - Shortness of breath (2) Chronic hypercapnic respiratory failure: Code(s): J96.12 - Chronic respiratory failure with hypercapnia Category: Medical (3) Neuromuscular disease: Code(s): G70.9 - Myoneural disorder, unspecified Category: Medical (4) ALS (amyotrophic lateral sclerosis): Comment: suspected diagnosis made in [place] Code(s): G12.21 - Amyotrophic lateral sclerosis Category: Medical Plan continue NIV with oxygen, consider mouth piece during the day if worsens pulmonary rehab, on line repeat bloodwork, [place] [facility] [place] cough assist, may need it later, though ISS Local pneurology referral F/U 2 months Orders: Orders Erythrocyte Sedimentation Rate Today J96.12 - Chronic respiratory failure with hypercapnia Venous Blood Gas Today J96.12 - Chronic respiratory failure with hypercapnia Basic Metabolic Panel Today J96.12 - Chronic respiratory failure with hypercapnia Referrals Neurology Referral G12.21 - Amyotrophic lateral sclerosis, G70.9 - Myoneural disorder, unspecified Coding Level of Care Code Complex visit Add On G2211 Diagnoses Shortness of breath R06.02 Dyspnea type: shortness of breath Chronic hypercapnic respiratory failure J96.12 Neuromuscular disease G70.9 ALS (amyotrophic lateral sclerosis) G12.21 Time Spent (min) 45
--- OUTSIDE RECORDS SUMMARY | 2025-06-19 17:15 | XMS_ITS | Clinical Summary ---
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 It is not the complete legal health record.[facility]
--- OUTSIDE RECORDS SUMMARY | 2025-06-19 17:15 | XMS_ITS | Clinical Summary ---
Author Organization [facility] Address [address] [place] [address] Care Team Providers Care Pre School Manager Name Role Phone Av Christopher Primary Care Provider [phone] Allergies Active Allergy Reactions Criticality Noted Date [...] mg by mouth once a day. Active Family History Relation Name Status Comments Father [...] Health Sofia ual Screening 07/26/2024 Influenza Vaccine (#1) 2025 03/19/2017, 2015 COVID-19 Vaccine ( - 2024-2 6 season) 2025 RSV Vaccine (60+ years old a nd patients) (1 - 1-dose 75+ series) 2036 Hepatitis B Vaccines Completed 04/14/2017, 04/16/2016, 04/02/2016, Additional history exists HIV Screening Completed 06/05/2024 Hepatitis C Screening Completed 06/05/2024 Procedures * Due to [place] law, this organization might not be sharing negative HIV tests. Procedure Name Priority Date/Time Associated Diagnosis Comments HEPATITIS C ANTIBODY W/REFLEX TO HCV RNA, QUANTITATIVE PCR Routine 06/05/2024 4:12 PM EST ALS (amyotrophic lateral sclerosis) from Last 3 Months or Most Recently Relevant to Health Maintenance Results * Due to [place] law, this organization might not be sharing negative HIV tests. * Hepatitis C Antibody w/Reflex to HCV RNA, Quantitative PCR (06/05/2024 4:12 PM EST) Hepatitis C Antibody NON-REACT YUMIKO NON-REACT YUMIKO 06/06/2024 5:25 AM EST [facility] Comment: HCV antibody was non-reactive. There is no laboratory evidence of HCV infection. In most cases, no further action is required. However, if recent HCV exposure is suspected, a test for HCV RNA (test code 12646) is suggested. For additional information please refer to [email or web address]/[email or web address] (This link is being provided for informational/ educational purposes only.) Blood Structure of peripheral vein / Unknown Venipuncture / Unknown 06/05/2024 4:12 PM EST 06/05/2024 4:31 PM EST Narrative [facility] - 06/06/2024 5:25 AM EST [facility] Received Date: Junie Bhatia MD LAB BLOOD ORDERAB LES Final Result [facility] [address] [facility] [address], [place] [address], [facility] [address] [facility] [address], [place] [address], from Last 3 Months or Most Recently Relevant to Health Maintenance Insurance [facility] Care Teams Pre School Manager Relationship Specialty Start Date End Date Av Christopher [address] [place] [address] [place] [address] PCP - General Internal Medicine 06/06/24
--- OUTSIDE RECORDS SUMMARY | 2025-06-19 17:15 | XMS_ITS | Encounter Summary ---
Author Organization [facility] Address [address] [place] [address] Phone Care Team Providers Care Route Driver Coin Machines Name Role Phone Av Christopher MD Primary Care Provider Reason for Referral * Outpatient Procedure - Closed Specialty Diagnoses / Procedures Referred By Contac t Referred To Contact Radiology Diagnoses TIA (transient ischemic attack) Procedures US Carotid Duplex Complete (Bilateral) Porfirio Villar MD [address] [place] [address], [address] [place] [address] Phone: tel: fax: mailto:[email or web address] Referral ID Status Reason Start Date Expiration Date Visits Re quested Visits Authorized [id number] Closed 03/22/2024 03/22/2025 1 1 Encounter Details Date Type Department Care Team (Latest Contact Info) Description 03/22/2024 Transcribe Orders Virtual Department [address] [place] [address] Porfirio Villar MD [address] [place] [address], [address] [place], [place] [id number] [email or web address] TIA (transient ischemic attack) (Primary Dx) Social [...] ischemia documented in this encounter Care Teams Route Driver Coin Machines Relationship Specialty Start Date End Date Av Christopher MD [address] [place] [address] [place] [address] PCP - General Internal Medicine 11/21/21 documented as of this encounter Additional Source Comments The information contained in this document represents components of the legal health record. It is not the complete legal health record.[facility]
--- OUTSIDE RECORDS SUMMARY | 2025-06-19 17:15 | XMS_ITS | Data Portability ---
Author Organization [facility], [facility] Address [address] [place] [address] Care Team Providers Care Print Journalist Name Role Phone WILD HILARIO Primary Care Provider [phone] Assessment Encounter Date Assessment Date Assessment LastModified by Organization Details LastModified Time 04/07/2024 04/07/2024 64-year-old female with muscle wasting disease workup in progress at respiratory compromise followed by her health technician. Their major question for me today is [...] 2024 025 [facility] [place], [address], [place], [address], 09:25:16 Procedures None recorded. Surgeries None recorded. Imaging XR, hand, 3 or more view - 3v bi hand, pharmacy informatics manager, rm 117 2024 025 noam [facility], [address], [address], [place], [address], 5 11:18:06 XR, thoracic spine, 2 view - 321 new pt t-spine 2v 2023 024 cstamand [facility], [address] [facility], [address], [place], [address], 4 15:45:20 Medication Orders None recorded. Patient [...] a4ajBk vP9nXo QUaueC m3YtLR FvZlgJ JJ8mAn HZtai3 5z8996 AC0Kqa n6NUKO vKiQtr MwF INTERFACE [facility] [address], [place], [address], 04/07/2024 09:26:41 04/07/20 24 04/07/2024 XR, thora cic spine , 2 view [email or web address] ?Encry pted=s hAaTro YD8dLq bEUv6g %2BXZw aYqtaq 0bqfl% 2Fg9IQ a4ajBk vP9nXo QUaueC m3YtLR FvZlgJ JJ8mAn HZtai3 6w3960 AC0Kqa n6NUKO vKiQtr MwF INTERFACE [facility] [address], [place], [address], 04/07/2024 09:26:43 12/15/19 25 12/14/2024 XR, hand, 3 or more view [email or web address]:/ [email or web address] ?Encry pted=s hAaTro YD8dLq bEUv6g %2BXZw aYqtaq 0bqfl% 2Fg9IQ a4ajBk vP9nXo QUaueC m3YtLR FvZlgJ JJ8mAn HZtai3 5y0661 AC0Kla 3mHUKu hKiQtr MwF INTERFACE [facility] [address] [facility] [address], [place], [address], 12/14/2024 10:39:11 12/15/19 25 12/14/2024 XR, hand, 3 or more view http:/ [email or web address] ?Encry pted=s hAaTro YD8dLq bEUv6g %2BXZw aYqtaq 0bqfl% 2Fg9IQ a4ajBk vP9nXo QUaueC m3YtLR FvZlgJ JJ8mAn HZtai3 8h1239 AC0Kla 3mHUKu hKiQtr MwF INTERFACE [facility] [address] [facility] [address], [place], [address], 12/14/2024 10:39:13 Result Notes Documentation Provider Name and Address Organization Details Recorded Time Xr, Thoracic Spine, 2 View : [email or web address]? Encrypted=paDzTwmTB8uOwnQ Uv6g%7GZAwzXhtui4nxzd%2Fg 5NMu9zpQbrO3jJjIMgmzTu7Kn BKGyAwiKWN2hQeFJdqt24p952 1KS3Flav9VAIIdRbWqdUbM Not Available [facility] 04/07/2024 09:26: 42 Xr, Thoracic Spine, 2 View : [email or web address]? Encrypted=jvJrOrzKS3tDzlZ Uv6g%8KUBlySzvwk3pmgp%2Fg 9UJq2itSxdL7kZnDUprgXl8Jp LNLmWfcZWW7fRtIPnet53w296 0HF2Zdpp4IORTvSwKyeBvQ Not Available [facility] 04/07/2024 09:26: 44 Xr, Hand, 3 Or More View : [email or web address]? Encrypted=shOqQbuLW6uYqbK Uv6g%2LMDiaMhjal8finf%2Fg 0FVw5noNwaJ2kQsXTrowDp1Tz GIHuVrvZPJ9lDsVWros92a655 4UH1Jut2uNWFltNzCzwMsP Not Available [facility] 12/14/2024 10:39: 12 Xr, Hand, 3 Or More View : [email or web address]? Encrypted=ebIyInpPP5jAhqR Uv6g%8DFTqpUzsqf2escl%2Fg 1EHt1mtDodB6yQqLYwtzMs6Gu FGCkXrgZBM7cXuUIylj51r403 7GG8Xpx6tKETicQjKwhHhL Not Available [facility] 12/14/2024 10:39: 13 Medical Equipment None Reported. [...] Updated DateTime 12/14/2024 170.18 cm 16.2 kg/m2 31077.17 g [facility] 12/14/2024 10:31:56 Date Recorded Body height Body mass index (BMI) Body weight Provider Name and Address Organization Details Last Updated DateTime 02/19/2025 170.18 cm 16.2 kg/m2 52758.17 g [facility]so[facility] 02/19/2025 12:01:54 Date Recorded Body weight Body mass index (BMI) Body height Provider Name and Address Organization Details Last Updated DateTime 04/07/2024 90698.01 g 16.1 kg/m2 170.18 cm GA ESCOBEDO [facility] 04/11/2024 13:03:52 Social History None recorded. Functional Status None recorded. Mental Status None recorded. Family History Nothing Reported. Medical History No medical history recorded. Gynecological HistoryNo gynecological history recorded. Obstetrics History GPAL:G 0 P 0 0 0 0 Past Encounters Encounter ID Performer Location Encounter Start Date Encounter Closed Date Diagnosis/Indication Diagnosis SNOMED-CT Code Diagnosis ICD10 Code Diagnosis IMO Codes Diagnosis Note [id number] MD Sofia [facility] [address], [place] [address] 04/07/2024 08:57:19 05/01/2024 15:45:20 Pain in thoracic spine 544130751 M54.6 [id number] [facility] [address] [place] [address] 12/14/2024 10:25:28 12/27/2024 10:16:16 Pain of bilateral hands 9825017273 5571544 M79.641 M79.642 [id number] Muscle contracture 83158 002 M62.40 [id number] MD KELECHI Arellano [address], [place] [address] 02/19/2025 11:16:55 02/26/2025 09:22:49 Muscle contracture 14716827 M62.40 [id number] Health Concerns Section Related Observation LastModified by Organization Detai ls LastModified Time None Recorded Concern Status LastModified by Organization Details LastModified Time None Recorded Advance Directives Directive None Recorded Payers Insurance Date Sequence Insurance Name Policy Number Policy Pedraza Covered Member ID Pedraza Member ID Guarantor Name 02/19/2025 1 [facility] TYPE I (HMO) [id number] Nevaeh Palomino [id number] 1 Nevaeh Palomino 12/13/[address] [facility] [id number] Nevaeh Palomino [id number] 2 Nevaeh Palomino Notes Date Note Type [...] REPORT: X-rays ordered, obtained and reviewed at [facility]. Kelvin Ronquillo MD [address] [facility] [address], [place], [address], [facility] 04/07/2024 12:46:20 12/14/2024 text/html ROS as [...] X-rays ordered, obtained, and reviewed today at [facility]: PA, lateral, oblique views of both hands reveal some very mild IP joint space narrowing. Plan: I described to the patient the nature of intrinsic tightness and referred to occupational therapy to help with stretching. She will follow-up in 6 weeks time or sooner if there are any concerns Jeremy Rodriguez MD [address] [facility] [address], [place], [address], [facility] 12/14/2024 12:40:57 02/19/2025 text/html ROS as [...] comfortable with this plan. Jeremy Rodriguez MD [address] [place] [address] [address], [place], [address], [facility] 02/25/2025 15:54:57 OBGyn Episode No OBEpisode recorded.
== END 2025-06-19 14:22 | disposition home or self-care (01) ==
LOC: HO.HPS 13:23
PROVIDERS: PCP Internal Medicine; Visit Provider Hospitalist
DX: R06.02 Shortness of breath (principal); J96.12 Chronic respiratory failure with hypercapnia; G70.9 Myoneural disorder, unspecified; G12.21 Amyotrophic lateral sclerosis
CPT/HCPCS: 99215

== ENCOUNTER → 2025-06-19 13:23 | Outpatient (BNVA) | payer OTHER, SELFPAY | PROVIDERS: PCP Internal Medicine; Visit Provider Hospitalist | DX: J96.12 Chronic respiratory failure with hypercapnia (principal); G12.21 Amyotrophic lateral sclerosis; G70.9 Myoneural disorder, unspecified | CPT/HCPCS: 99212 ==